=== PATIENT | female | born 1945 | race Caucasian/White ===

== ENCOUNTER 2016-04-27 13:28 | Inpatient (IN) | payer OTHER, MEDICARE ==
[2016-04-27] VITALS (17 sets, daily range): BP systolic 122–239; BP diastolic 60–144; PULSE 59–104; RESP 10–26; TEMP 97.6–98.7; O2SAT 98–100
[~2016-04-27] VITALS: Ht 177.8 cm; Wt 94.3 kg
[~2016-04-27 13:28] MED LIST: KEPP500T3 PO
[2016-04-27] MEDS ORDERED: SODIUM CHLOR 0.9% 1000 ML INJ 1,000 ML IV ONE (13:31)
[2016-04-27 13:44] LABS: I-STAT POTASSIUM 4.7 MMOL/L (3.5-4.9); I-STAT SODIUM 136 MMOL/L (138-146)
--- NOTE | 2016-04-27 13:45 | RADRPT ---
EXAM DATE/TIME: 04/27/2016 13:33 [place] COMPARISON: No previous studies available for comparison. INDICATIONS : Stroke alert. Left facial droop. Right upper extremity weakness. RADIATION DOSE: 36.86 CTDIvol (mGy) This report was called by Dr. Norman to Dr. Bridges at 1: 40 PM MEDICAL HISTORY : Non-responsive. SURGICAL HISTORY : Non-responsive. ENCOUNTER: Initial ACUITY: 1 day PAIN SCALE: 0/10 LOCATION: cranial TECHNIQUE: Multiple contiguous axial images were obtained of the head. Using automated exposure control and adj ustment of the mA and/or kV according to patient size, radiation dose was kept as low as reasonably a chievable to obtain optimal diagnostic quality images. FINDINGS: CEREBRUM: There is a focal area of acute intraparenchymal hemorrhage involving the region of the left basal ernesto glia measuring 4.6 x 2.4 cm. The appearance suggests a hypertensive hemorrhagic infarct. Also noted, is a large area of encephalomalacia involving the left frontal temporal location. The ventricles are normal in size and midline in position. There is bilateral cortical atrophy. No significant mass effe ct or midline shift is seen at this time. POSTERIOR FOSSA: The cerebellum and brainstem are intact. The 4th ventricle is midline. The cerebellopontine angle i s unremarkable. EXTRACRANIAL: The visualized portion of the orbits is intact. SKULL: The calvaria is intact. No evidence of skull fracture. CONCLUSION: 1. Focal acute intraparenchymal hemorrhage involving the region of the left basal ganglia measuring 4 .6 x 2.4 cm characteristic of a hemorrhagic hypertensive infarct. 2. Large area of encephalomalacia involving the left temporal frontal region. This is either a large area of old infarction versus a large arachnoid cyst. Rommel Norman MD on April 27, 2016 at 13:38 Board Certified Radiologist. This report was verified electronically.
[2016-04-27 13:47] LABS: AUTOMATED NEUTROPHIL # 4.7 TH/MM3 (1.8-7.7); BASOPHIL # 0.1 TH/MM3 (0-0.2); BASOPHIL % 0.8 % (0.0-2.0); EOSINOPHIL # 0.3 TH/MM3 (0-0.4); EOSINOPHIL % 3.4 % (0.0-4.0); HEMATOCRIT 44.1 % (35.0-46.0); HEMO FLAGS DIFF FINAL; LYMPH % 29.2 % (9.0-44.0); LYMPHOCYTE # 2.3 TH/MM3 (1.0-4.8); MEAN CELL VOLUME 91.1 FL (80.0-100.0); MEAN CORPUSCULAR HEMOGLOBIN 31.5 PG (27.0-34.0); MEAN CORPUSCULAR HGB CONC 34.6 % (32.0-36.0); MONO % 7.1 % (0.0-8.0); NEUT % 59.5 % (16.0-70.0); PLATELET COUNT 303 TH/MM3 (150-450); RED BLOOD COUNT 4.85 MIL/MM3 (4.00-5.30); RED CELL DISTRIBUTION WIDTH 13.4 % (11.6-17.2); WHITE BLOOD COUNT 7.9 TH/MM3 (4.0-11.0)
[2016-04-27 13:54] LABS: APTT (PATIENT) 23.8 SEC (24.3-30.1); INTERNATIONAL NORMALIZED RATIO 0.9 RATIO; PROTHROMBIN TIME - PATIENT 10.3 SEC (9.8-11.6)
[2016-04-27] MEDS ORDERED: ETOMIDATE 20 MG/10 ML VIAL IV PUSH ONE (14:00)
[2016-04-27] MEDS ORDERED: SUCCINYLCHOLINE CHLORIDE 200 MG/10 ML VIAL IV PUSH ONE (14:00)
[2016-04-27] MEDS ORDERED: MANNITOL 12.5 GM/50 ML VIAL IV ONE (14:00)
[2016-04-27] MEDS ORDERED: niCARdipine INJ 25 MG in SODIUM CHLOR 0.9% 250 ML INJ 250 ML IV SCH (14:00)
[2016-04-27] MEDS ORDERED: PROPOFOL 1000 MG/100 ML INJ 100 ML ONE (14:05)
--- NOTE | 2016-04-27 14:07 | PD.CONS ---
(Riley Johnson MD) HPI Consult Requested By Primary Care Physician Non-Staff (Riley Johnson MD) Service NRS Consult Requested By ED Physician Reason for Consult Hemorrhagic stroke History of Present Illness Ms. Mobley is a 71 female with history of prior left temporal CVA. Earlier today the patient had sudden onset of right facial drooping and right arm weakness. There were no associated falls or trauma. She was taken to [place] ED and a CT Brain showed a 4.6 x 2.4 left basal ganglia hemorrhage without significant midline shift. Her vitals signs on arrival was noted to be extremely elevated as high as in the 200's systolic, she was placed on Cardene. The patient was reported to be initially talking on arrival but then decompensated and was emergently intubated. (Bettie Copeland) Review of Systems ROS Limitations: Intubated (Bettie Copeland) Past Family Social History Allergies: Coded Allergies: Codeine (Verified Allergy, Unknown, 04/27/16) Past Medical History Suspected Hypertension History of CVA left temporal region Past Surgical History Unknown Reported Medications unknown Active Ordered Medications Current Medications Sodium Chloride 1,000 ml @ 70 mls/hr [id number] ONCE IV Last administered on 04/27 13:31; Start 04/27/16 at 13:31; Stop 04/27/16 at 15:35; Status DC Nicardipine HCl/ Sodium Chloride (Cardene Inj/NS 250 ml Inj) 260 ml @ 0 mls/hr TITRATE IV Last administered on 04/27/16 14:10; Start 04/27/16 at 14:00 Mannitol (Mannitol Inj) 50 gm ONCE ONCE IV Last administered on 04/27/16 14: 11; Start 04/27/16 at 14:00; Stop 04/27/16 at 14:01; Status DC Succinylcholine Chloride (Quelicin Inj) 100 mg ONCE ONCE IV PUSH Last administered on 04/27/16 14:14; Start 04/27/16 at 14:00; Stop 04/27/16 at 14:01 ; Status DC Etomidate (Amidate Inj) 20 mg ONCE ONCE IV PUSH Last administered on 14:00; Start 04/27/16 at 14:00; Stop 04/27/16 at 14:01; Status DC Mannitol 25 gm 25 gm Q6HR IV Last administered on 04/28/16 05:30; Start at 18:00 Propofol (Diprivan 1000 Mg/100ml Inj) 100 ml @ As Directed STK-MED ONCE .ROUTE Last administered on 04/27/16 16:00; Start 04/27/16 at 14:05; Stop 04/27/16 at 14:06; Status DC Chlorhexidine Gluconate 15 ml 15 ml BID@08,20 MT ; Start 04/27/16 at 20:00; Stop 04/27/16 at 20:00; Status DC Propofol 100 ml @ 0 mls/hr TITRATE IV Last administered on 04/28/16 08:55; Start 04/27/16 at 15:00 Midazolam HCl 100 ml @ 0 mls/hr TITRATE IV Last administered on 04/28/16 08:55 ; Start 04/27/16 at 15:00 Fentanyl Citrate 250 ml @ 0 mls/hr TITRATE IV Last administered on 04/28/16 08 :55; Start 04/27/16 at 15:00 Fentanyl Citrate 250 ml @ As Directed STK-MED ONCE .ROUTE Last administered on 04/27/16 14:41; Start 04/27/16 at 14:37; Stop 04/27/16 at 14:38; Status DC Midazolam HCl 100 ml @ As Directed STK-MED ONCE .ROUTE Last administered on 14:42; Start 04/27/16 at 14:37; Stop 04/27/16 at 14:38; Status DC Levetriacetam/ Sodium Chloride (Keppra Inj/NS Inj) 105 ml @ 420 mls/hr Q12HR IV Last administered on 04/28/16 09:40; Start 04/27/16 at 21:00; Stop 05/04/16 at 20:59 Labetalol HCl (Trandate Inj) 10 mg Q1HR PRN IV PUSH SBP>150, DBP>900, HR>65; Start 04/27/16 at 15:00 Nitroglycerin (Nitroglycerin 2% Oint) 2 inch Q6HR PRN TOPICAL SBP>150, DBP>90; Start 04/27/16 at 15:00 Hydralazine HCl 10 mg 10 mg Q1HR PRN IV PUSH SBP>150, DBP>90 Last administered on 04/28/16 08:00; Start 04/27/16 at 15:00 Clevidipine (Cleviprex Inj) 50 ml @ 0 mls/hr TITRATE IV ; Start 04/27/16 at 15: 00 Chlorhexidine Gluconate (Peridex 0.12% Liq) 15 ml BID@08,20 MT Last administered on 04/28/16 09:40; Start 04/27/16 at 20:00 IV Flush (NS Flush) DAILY IVF ; Start 04/28/16 at 09:00 IV Flush (NS Flush) UNSCH PRN IVF SEE PROTOCOL; Start 04/27/16 at 15:00 Mannitol 12.5 gm 12.5 gm Q8H IV ; Start 04/27/16 at 15:15; Stop 04/27/16 at 15: 25; Status DC Sodium Chloride 500 ml @ 20 mls/hr CONTINUOUS IV Last administered on 18:23; Start 04/27/16 at 15:15 Sodium Chloride (NS 1000 ml Inj) 1,000 ml @ 84 mls/hr [id number] IV Last administered on 04/28/16 00:40; Start 04/27/16 at 16:00 IV Flush (NS Flush) 2 ml UNSCH PRN IV FLUSH FLUSH AFTER USING IV ACCESS; Start 04/27/16 at 15:15 IV Flush (NS Flush) 2 ml BID IV FLUSH Last administered on 04/28/16 09:40; Start 04/27/16 at 21:00 Acetaminophen (Tylenol) 650 mg Q6H PRN PO PAIN 1-10 AND/OR FEVER >101F; Start 04/27/16 at 15:15 Pantoprazole Sodium (Protonix Inj) 40 mg DAILY IV Last administered on 09:40; Start 04/28/16 at 09:00 Artificial Tears (Tears Naturale Opth Soln) 1 drop TID EACH EYE Last administered on 04/28/16 09:41; Start 04/27/16 at 18:00 Ondansetron HCl (Zofran Inj) 4 mg Q6H PRN IV NAUSEA OR VOMITING; Start at 15:15 Docusate Sodium (Colace) 100 mg BID PO Last administered on 04/27/16 19:45; Start 04/27/16 at 21:00 Sennosides (Senokot) 17.2 mg Q12H PRN PO CONSTIPATION; Start 04/27/16 at 15:15 Albuterol/ Ipratropium (Duoneb Neb) 1 ampule Q2HR NEB PRN INH WHEEZING; Start 04/27/16 at 15:15 Miscellaneous Information 1 Q361D XX Last administered on 04/28/16 04:00; Start 04/27/16 at 15:15 Chlorhexidine Gluconate (Chlorhexidine 2% Cloth) 3 pack Taper DAILY@04 TOP Last administered on 04/28/16 04:00; Start 04/28/16 at 04:00; Stop 04/24/17 at 03:59 Chlorhexidine Gluconate 3 pack 3 pack UNSCH PRN TOP HYGIENIC CARE; Start at 15:15 Potassium Chloride 100 ml @ 50 mls/hr Q2H PRN IV For Potassium 2.8 - 3.2 mEq/L ; Start 04/27/16 at 15:15 Potassium Chloride (KCl 20 Meq Premix Inj) 100 ml @ 50 mls/hr Q2H PRN IV For Potassium 2.8 - 3.2 mEq/L; Start 04/27/16 at 15:15 Potassium Chloride 40 meq 40 meq UNSCH PRN PO/TUBE For Potassium 3.3 - 3.5 mEq/ L; Start 04/27/16 at 15:15 Potassium Chloride 100 ml @ 25 mls/hr UNSCH PRN IV For Potassium 3.3 - 3.5 mEq /L; Start 04/27/16 at 15:15 Potassium Chloride 100 ml @ 50 mls/hr Q2H PRN IV For Potassium 3.3 - 3.5 mEq/L ; Start 04/27/16 at 15:15 Magnesium Sulfate/ Sodium Chloride (Magnesium Sulfate Inj/NS Inj) 100 ml @ 50 mls/hr UNSCH PRN IV For Magnesium 0.9 - 1.1 mg/dL; Start 04/27/16 at 15:15 Magnesium Oxide 800 mg 800 mg UNSCH PRN PO For Magnesium 1.2 - 1.6 mg/dL; Start 04/27/16 at 15:15 Magnesium Sulfate/ Sodium Chloride (Magnesium Sulfate Inj/NS Inj) 100 ml @ 50 mls/hr UNSCH PRN IV For Magnesium 1.2 - 1.6 mg/dL; Start 04/27/16 at 15:15 Potassium Phosphate 2000 mg 2,000 mg Q4H PRN PO For Phosphorus < 2.5 mg/dL; Start 04/27/16 at 15:15 Sodium Phosphate/ Sodium Chloride (Sodium Phosphate Inj/NS 250 ml Inj) 250 ml @ 42 mls/hr UNSCH PRN IV For Phosphorus < 2.5 mg/dL Last administered on 06:55; Start 04/27/16 at 15:15 Potassium Chloride (KCl 40 Meq/30 ml Liq) 40 meq UNSCH PRN PO/TUBE SEE LABEL COMMENTS; Start 04/27/16 at 15:15 Potassium Phosphate 2000 mg 2,000 mg UNSCH PRN PO/TUBE SEE LABEL COMMENTS; Start 04/27/16 at 15:15 Potassium Phosphate/Sodium Chloride (Potassium Phosphate Inj/NS 250 ml Inj) 260 ml @ 42 mls/hr UNSCH PRN IV SEE LABEL COMMENTS; Start 04/27/16 at 15:15 Dextrose (D50w (Vial) Inj) 25 ml UNSCH PRN IV PUSH HYPOGLYCEMIA-SEE COMMENTS Last administered on 04/28/16 01:18; Start 04/27/16 at 15:15 Glucagon (Glucagon Inj) 1 mg UNSCH PRN OTHER HYPOGLYCEMIA-SEE COMMENTS; Start 04/27/16 at 15:15 Insulin Human Regular (NovoLIN R SUPPLEMENTAL SCALE) 1 Q6HR SQ ; Start 04/27/16 at 18:00 Epinephrine HCl (EPINEPHrine (1:10,000) INJ) 1 mg STK-MED ONCE .ROUTE ; Start at 04:06; Stop 04/28/16 at 04:07; Status DC Lidocaine HCl (Xylocaine 2% Inj) 100 mg STK-MED ONCE .ROUTE ; Start 04/28/16 at 04:06; Stop 04/28/16 at 04:07; Status DC Atropine Sulfate (Atropine Inj) 1 mg STK-MED ONCE .ROUTE ; Start 04/28/16 at 04: 06; Stop 04/28/16 at 04:07; Status DC Family History Patient has a's distant sister who she does not keep contact with. Otherwise unknown per family friend. Social History Unobtainable (Riley Johnson MD) Past Medical History History of CVA left temporal region Past Surgical History unable to obtain, intubated Reported Medications reviewed in EMR Active Ordered Medications Current Medications Medications (Trade) Dose Ordered Sig/Femi Route PRN Reason Start Time Stop Time Status Last Admin Dose Admin Nicardipine HCl/ Sodium Chloride (Cardene Inj/NS 250 ml Inj) 260 ml @ 0 mls/hr TITRATE IV 04/27/16 14:00 04/27/16 14:10 Mannitol 25 gm 25 gm Q6HR IV 04/27/16 18:00 04/28/16 05:30 Propofol 100 ml @ 0 mls/hr TITRATE IV 04/27/16 15:00 04/28/16 08:55 Midazolam HCl 100 ml @ 0 mls/hr TITRATE IV 04/27/16 15:00 04/28/16 08:55 Fentanyl Citrate 250 ml @ 0 mls/hr TITRATE IV 04/27/16 15:00 04/28/16 08:55 Levetriacetam/ Sodium Chloride (Keppra Inj/NS Inj) 105 ml @ 420 mls/hr Q12HR IV 04/27/16 21:00 05/04/16 20:59 04/28/16 09:40 Labetalol HCl (Trandate Inj) 10 mg Q1HR PRN IV PUSH SBP>150, DBP>900, HR>65 04/27/16 15:00 Nitroglycerin (Nitroglycerin 2% Oint) 2 inch Q6HR PRN TOPICAL SBP>150, DBP>90 04/27/16 15:00 Hydralazine HCl 10 mg 10 mg Q1HR PRN IV PUSH SBP>150, DBP>90 04/27/16 15:00 Clevidipine (Cleviprex Inj) 50 ml @ 0 mls/hr TITRATE IV 04/27/16 15:00 Chlorhexidine Gluconate (Peridex 0.12% Liq) 15 ml BID@08,20 MT 04/27/16 20:00 04/28/16 09:40 IV Flush (NS Flush) DAILY IVF 04/28/16 09:00 IV Flush UNSCH PRN IVF SEE PROTOCOL 04/27/16 15:00 Sodium Chloride 500 ml @ 20 mls/hr CONTINUOUS IV 04/27/16 15:15 04/27/16 18:23 Sodium Chloride (NS 1000 ml Inj) 1,000 ml @ 84 mls/hr [id number] IV 04/27/16 16:00 04/28/16 00:40 IV Flush (NS Flush) 2 ml UNSCH PRN IV FLUSH FLUSH AFTER USING IV ACCESS 04/27/16 15:15 IV Flush (NS Flush) 2 ml BID IV FLUSH 04/27/16 21:00 04/28/16 09:40 Acetaminophen (Tylenol) 650 mg Q6H PRN PO PAIN 1-10 AND/OR FEVER >101F 04/27/16 15:15 Pantoprazole Sodium (Protonix Inj) 40 mg DAILY IV 04/28/16 09:00 04/28/16 09:40 Artificial Tears (Tears Naturale Opth Soln) 1 drop TID EACH EYE 04/27/16 18:00 04/28/16 09:41 Ondansetron HCl (Zofran Inj) 4 mg Q6H PRN IV NAUSEA OR VOMITING 04/27/16 15:15 Docusate Sodium (Colace) 100 mg BID PO 04/27/16 21:00 04/27/16 19:45 Sennosides (Senokot) 17.2 mg Q12H PRN PO CONSTIPATION 04/27/16 15:15 Miscellaneous Information 1 Q361D XX 04/27/16 15:15 04/28/16 04:00 Chlorhexidine Gluconate (Chlorhexidine 2% Cloth) 3 pack Taper DAILY@04 TOP 04/28/16 04:00 04/24/17 03:59 04/28/16 04:00 Chlorhexidine Gluconate 3 pack 3 pack UNSCH PRN TOP HYGIENIC CARE 04/27/16 15:15 Potassium Chloride 100 ml @ 50 mls/hr Q2H PRN IV For Potassium 2.8 - 3.2 mEq/L 04/27/16 15:15 Potassium Chloride (KCl 20 Meq Premix Inj) 100 ml @ 50 mls/hr Q2H PRN IV For Potassium 2.8 - 3.2 mEq/L 04/27/16 15:15 Potassium Chloride 40 meq 40 meq UNSCH PRN PO/TUBE For Potassium 3.3 - 3.5 mEq/L 04/27/16 15:15 Potassium Chloride 100 ml @ 25 mls/hr UNSCH PRN IV For Potassium 3.3 - 3.5 mEq/L 04/27/16 15:15 Potassium Chloride 100 ml @ 50 mls/hr Q2H PRN IV For Potassium 3.3 - 3.5 mEq/L 04/27/16 15:15 Magnesium Sulfate/ Sodium Chloride (Magnesium Sulfate Inj/NS Inj) 100 ml @ 50 mls/hr UNSCH PRN IV For Magnesium 0.9 - 1.1 mg/dL 04/27/16 15:15 Magnesium Oxide 800 mg 800 mg UNSCH PRN PO For Magnesium 1.2 - 1.6 mg/dL 04/27/16 15:15 Magnesium Sulfate/ Sodium Chloride (Magnesium Sulfate Inj/NS Inj) 100 ml @ 50 mls/hr UNSCH PRN IV For Magnesium 1.2 - 1.6 mg/dL 04/27/16 15:15 Potassium Phosphate 2000 mg 2,000 mg Q4H PRN PO For Phosphorus < 2.5 mg/dL 04/27/16 15:15 Sodium Phosphate/ Sodium Chloride (Sodium Phosphate Inj/NS 250 ml Inj) 250 ml @ 42 mls/hr UNSCH PRN IV For Phosphorus < 2.5 mg/dL 04/27/16 15:15 04/28/16 06:55 Potassium Chloride (KCl 40 Meq/30 ml Liq) 40 meq UNSCH PRN PO/TUBE SEE LABEL COMMENTS 04/27/16 15:15 Potassium Phosphate 2000 mg 2,000 mg UNSCH PRN PO/TUBE SEE LABEL COMMENTS 04/27/16 15:15 Potassium Phosphate/Sodium Chloride (Potassium Phosphate Inj/NS 250 ml Inj) 260 ml @ 42 mls/hr UNSCH PRN IV SEE LABEL COMMENTS 04/27/16 15:15 Dextrose (D50w (Vial) Inj) 25 ml UNSCH PRN IV PUSH HYPOGLYCEMIA-SEE COMMENTS 04/27/16 15:15 04/28/16 01:18 Glucagon (Glucagon Inj) 1 mg UNSCH PRN OTHER HYPOGLYCEMIA-SEE COMMENTS 04/27/16 15:15 Insulin Human Regular (NovoLIN R SUPPLEMENTAL SCALE) 1 Q6HR SQ 04/27/16 18:00 Family History unable to obtain, intubated Social History unable to obtain, intubated (Bettie Copeland) Physical Exam Vital Signs Vital Signs Date Time Temp Pulse Resp B/P Pulse Ox O2 Delivery O2 Flow Rate FiO2 04/27/16 13:28 98 22 161/100 98 04/27/16 13:28 98 Nasal Cannula 2 04/27/16 13:28 98 Nasal Cannula 2 Physical Exam The patient is intubated and sedated. Localizes to painful stimuli with left extremities. Cranial Nerves: Pupils equal, round, reactive to light. Eyes appear conjugated. There was no nystagmus, no papilledema. Face musculature appeared symmetrical at rest. Face sensation, olfaction, visual julio, and hearing cannot be adequately assessed due to his neurological condition. The patient has a corneal reflex. SHe has a gag reflex. The sternocleidomastoid and trapezius are symmetrical. Cervical Spine: Her neck is soft, supple, without nuchal rigidity. Motor: She moves purposefully all left upper and lower extremities with evidence of right hemiparesis Reflexes: Deep tendon reflexes are 1+ and symmetrical in the biceps, triceps, and brachioradialis, bilaterally, in the upper extremities. In the lower extremities, the patellar and ankles are 1+, bilaterally. There is left plantar flexion response, right Babinski. There is no clonus Sensory: On examination there is response to painful stimuli, localizing with left upper and lower extremities. Cerebellar: Examination cannot be adequately assessed due to the patient's neurological condition. Laboratory Laboratory Tests Test 04/27/16 13:15 White Blood Count 7.9 Red Blood Count 4.85 Hemoglobin 15.3 Bedside Hemoglobin 16.0 Hematocrit 44.1 Bedside Hematocrit 47.0 Mean Corpuscular Volume 91.1 Mean Corpuscular Hemoglobin 31.5 Mean Corpuscular Hemoglobin 34.6 Concent Red Cell Distribution Width 13.4 Platelet Count 303 Mean Platelet Volume 7.9 Neutrophils (%) (Auto) 59.5 Lymphocytes (%) (Auto) 29.2 Monocytes (%) (Auto) 7.1 Eosinophils (%) (Auto) 3.4 Basophils (%) (Auto) 0.8 Neutrophils # (Auto) 4.7 Lymphocytes # (Auto) 2.3 Monocytes # (Auto) 0.6 Eosinophils # (Auto) 0.3 Basophils # (Auto) 0.1 CBC Comment DIFF FINAL Differential Comment Prothrombin Time 10.3 Prothromb Time International 0.9 Ratio Activated Partial 23.8 Thromboplast Time Fibrinogen 226 Bedside Sodium 136 Bedside Potassium 4.7 Bedside Chloride 104 Bedside Blood Urea Nitrogen 18 Bedside Creatinine 1.1 Bedside Glucose 154 Blood Type B POSITIVE Blood Bank Comment (Riley Johnson MD) Result Diagram: 04/27/16 1315 Imaging Last Impressions Head CT 04/27/16 0000 Signed Impressions: Service Date/Time: Wednesday, April 27, 2016 13:33 - CONCLUSION: 1. Focal acute intraparenchymal hemorrhage involving the region of the left basal ganglia measuring 4.6 x 2.4 cm characteristic of a hemorrhagic hypertensive infarct. 2. Large area of encephalomalacia involving the left temporal frontal region. This is either a large area of old infarction versus a large arachnoid cyst. Rommel Norman MD (Riley Johnson MD) Attending Statement Neuro. I have reviewed her clinical and radiological findings. neuro checks in a serial fashion. Will attempt non surgical treatment with hyperosmolar therapy. Recommend a follow up CT in AM. He had a CT of the brain shows worsening she may require surgical decompression Respiratory failure. She needs endotracheal intubation and controlled mechanical ventilation aim CO2 30. pulmonary toilette, nasotracheal suction, and breathing treatments with nebulizers. Hypertension. Cardene drip to maintain SBP less than 150 mm PT and OT Nutrition. NPO Renal. monitor closely urine output, BUN and creatinine Endocrine. Monitor serial Acu checks and SSI as needed in detail ID monitor for signs of infection Protonix for stress ulcer prophylaxis Guille hose and SCD's for DVT prophylaxis (Riley Johnson MD) Riley Johnson MD Apr 27, 2016 14:07 Bettie Copeland Apr 28, 2016 10:54
[2016-04-27 14:08] LABS: BETA HCG QUANT 4 MIU/ML (0-5); CREATINE KINASE 115 U/L (26-192)
--- NOTE | 2016-04-27 14:30 | HHI.HP ---
[facility] Service Critical Care Medicine Primary Care Physician Non-Staff Admission Diagnosis acute intracranial hemorrhage Diagnosis: (1) Respiratory failure Diagnosis: Principal (2) Acute intracranial hemorrhage Diagnosis: Principal (3) Seizure disorder, focal sensory Diagnosis: Principal (4) Hypertensive crisis Diagnosis: Principal (5) History of CVA (cerebrovascular accident) Diagnosis: Principal (6) Obesity (BMI 30.0-34.9) Diagnosis: Principal Chief Complaint: Altered mental status/left basal ganglia intraparenchymal hemorrhage Travel History International Travel<30 Days: No Contact w/Intl Traveler <30 Da: No Traveled to Known Affected Are: No History of Present Illness This is a 71 female. Data admission 04/27/2016. Past medical history includes left temporal CVA and seizure disorder.. She presented to the emergency room brought by her friend for strokelike symptoms. Patient was verbal when she first arrived and said that her symptoms started 40 minutes ago. 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 She had right-sided facial droop and right arm weakness. There was some right eyelid lag as well. After doing a quick NIH stroke score a stroke alert was called. Patient was rushed to the CT scanner and I spoke with the neurologist to make him aware of possible stroke. Her medications are all alternative natural medications. CT head revealed a 4.6 x 2.4 (basal ganglia intraparenchymal hemorrhage. Encephalopathy left temporal region. Neurosurgery was consultation recommended medical management with 3% hypertonic saline, mannitol and strict blood pressure control systolic blood pressure was 150 with a follow-up CT scan in a.m. While in the ED, patient decompensated with a left-sided gaze. She was flaccid in her right upper lobe extremity. Emergently intubated with 20 minutes etomidate etomidate and 100 mg succinylcholine. She is currently been sedated with propofol/fentanyl and Versed drips. Cardene drip was initiated to maintain systolic blood pressure less than 150. End tidal CO2 around 30 recommended. Receiving 50 mg mannitol IV 1 now. Review of Systems ROS Limitations: Intubated Past Family Social History Allergies: Coded Allergies: Codeine (Verified Allergy, Unknown, 04/27/16) Past Medical History Hypertension? History of CVA left temporal region Past Surgical History Unknown Reported Medications Alternative medications unknown Active Ordered Medications Reviewed in EMR Family History Patient has a's distant sister who she does not keep contact with. Otherwise unknown per family friend. Social History Unknown alcohol tobacco or IV drug use. Physical Exam Vital Signs Vital Signs Date Time Temp Pulse Resp B/P Pulse Ox O2 Delivery O2 Flow Rate FiO2 04/27/16 13:28 98 22 161/100 98 04/27/16 13:28 98 Nasal Cannula 2 04/27/16 13:28 98 Nasal Cannula 2 Physical Exam GENERAL: 71 year female, critically ill currently intubated in no acute distress SKIN: Warm and dry. No rash HEAD: Atraumatic. Normocephalic. EYES: Pupils equal and round about 2 mm bilaterally and reactive. No scleral icterus. No injection or drainage. ENT: No nasal bleeding or discharge. Mucous membranes pink and moist. NECK: Trachea midline. No JVD. CARDIOVASCULAR: Regular rate and rhythm. S1, S2. No S4. Without murmur RESPIRATORY: No accessory muscle use. Clear to auscultation. Breath sounds equal bilaterally. GASTROINTESTINAL: Abdomen soft, non-tender, nondistended. Hepatic and splenic margins not palpable. MUSCULOSKELETAL: Extremities without clubbing, cyanosis, or edema. No obvious deformities. NEUROLOGICAL: Prior to intubation, left-sided gaze. Left upper and lower extremity strength 4+ out of 5 and moving spontaneously. Not following commands. Withdraws to pain with upgoing stenosis on the left side. Right upper and lower extremity 0/5. Negative Babinski sign. Did not withdraw to pain. Laboratory Laboratory Tests Test 04/27/16 13:15 White Blood Count 7.9 Red Blood Count 4.85 Hemoglobin 15.3 Bedside Hemoglobin 16.0 Hematocrit 44.1 Bedside Hematocrit 47.0 Mean Corpuscular Volume 91.1 Mean Corpuscular Hemoglobin 31.5 Mean Corpuscular Hemoglobin 34.6 Concent Red Cell Distribution Width 13.4 Platelet Count 303 Mean Platelet Volume 7.9 Neutrophils (%) (Auto) 59.5 Lymphocytes (%) (Auto) 29.2 Monocytes (%) (Auto) 7.1 Eosinophils (%) (Auto) 3.4 Basophils (%) (Auto) 0.8 Neutrophils # (Auto) 4.7 Lymphocytes # (Auto) 2.3 Monocytes # (Auto) 0.6 Eosinophils # (Auto) 0.3 Basophils # (Auto) 0.1 CBC Comment DIFF FINAL Differential Comment Prothrombin Time 10.3 Prothromb Time International 0.9 Ratio Activated Partial 23.8 Thromboplast Time Fibrinogen 226 Bedside Sodium 136 Bedside Potassium 4.7 Bedside Chloride 104 Bedside Blood Urea Nitrogen 18 Bedside Creatinine 1.1 Bedside Glucose 154 Total Creatine Kinase 115 Troponin I LESS THAN 0.02 Human Chorionic Gonadotropin, 4 Quant Blood Type B POSITIVE Antibody Screen NEGATIVE Blood Bank Comment Result Diagram: 04/27/16 1315 Imaging Last Impressions Head CT 04/27/16 0000 Signed Impressions: Service Date/Time: Wednesday, April 27, 2016 13:33 - CONCLUSION: 1. Focal acute intraparenchymal hemorrhage involving the region of the left basal ganglia measuring 4.6 x 2.4 cm characteristic of a hemorrhagic hypertensive infarct. 2. Large area of encephalomalacia involving the left temporal frontal region. This is either a large area of old infarction versus a large arachnoid cyst. Rommel Norman MD Assessment and Plan Assessment and Plan Neuro/Psych: 4.62.4 cm left basal ganglia intraparenchymal hemorrhage Left temporal CVA Seizure disorder? CT head revealed 4.62.4 intraparenchymal hemorrhage. Old encephalomalacia left temporal region. Keppra 500 mg twice a day seizure prophylaxis 7 days 3% Hypertonic saline at 20 cc an hour. Goal 150-155. Mannitol 501. Followed by 25 g IV every 6 hours. Hold if Sosm greater than 310 End tidal CO2 maintain between 30 and 35. Follow-up CT head in a.m. Dr. Johnson/neurosurgery consulting Neuro checks per protocol. CV: Hypertensive emergency Cardene drip/cleviprex to maintain systolic blood pressure less than 150 As needed labetalol/hydralazine/Nitropaste Initial troponin less than 0.04. 2-D echocardiogram ordered for hypertensive heart disease Currently on normal saline at 84 cc an hour. Resp: Acute respiratory failure secondary to altered mental status ACV 16/550/5/100 Ventilator bundle As needed bronchodilator therapy Goal of End Tidal CO2 between 30 and 35. Follow-up chest x-ray in a.m. ABG repeat pending GI: Patient be kept nothing by mouth. OGT to LIWS Protonix for GI prophylaxis Colace/as needed Senokot for bowel regimen : Mosley will be placed for accurate I's and O's in a critically ill patient Endo: Sliding-scale insulin with Accu-Cheks to maintain euglycemia. Low regimen. Renal: Creatinine currently within normal limits./1.1 Accurate I/os. Normal saline at 84 cc an hour. Heme: CBC within normal limits/coags within normal limits. Recheck in a.m. ID: Monitor for infection UA pending FEN: Replace electrolytes as clinically indicated per ICU electrolyte protocol MSK: PT evaluate and treat Access - Right IJ CVL day #1 Prophylaxis - GI - Protonix - DVT - SCD/pharmacological prophylaxis contraindicated intracerebral hemorrhage Critical Care: The total critical care time was 75 minutes. Time to perform other separately billable procedures was not included in the critical care time. Code Status Full code Discussed Condition With Dr. Benton/ED physician and patient's friend. Care plan discussed all questions answered. Problem Qualifiers (1) Respiratory failure: Qualified Code: J96.00 - Acute respiratory failure, unspecified whether with hypoxia or hypercapnia Yvon Laura MD Apr 27, 2016 14:30
[2016-04-27] MEDS ORDERED: MIDAZOLAM 100 MG/ML INJ 100 ML ONE (14:37)
[2016-04-27] MEDS ORDERED: fentaNYL DRIP 250 ML ONE (14:37)
--- NOTE | 2016-04-27 14:49 | PD ---
HPI Chief Complaint: Stroke Alert Time Seen by Provider: 13:32 Travel History International Travel<30 days: No Contact w/Intl Traveler<30days: No Traveled to known affect area: No History of Present Illness HPI 71-year-old female came to the emergency room brought by her friend but was brought in emergently from triage for "stroke-like" symptoms. Patient was verbal when she first arrived and said that her symptoms started 40 minutes ago. She had right-sided facial droop and right arm weakness. There was some right eyelid lag as well. After doing a quick NIH stroke score a "stroke alert " was called. Patient was rushed to the CT scanner and I spoke with the neurologist to make him aware of this possible stroke. 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 Her friend thought her speech was slurred. She immediately brought her to the emergency room. Her friend as per the patient's instruction gathered her medications from home which are all alternative natural medications. Patient was slightly hypertensive upon arrival. Blood pressure was 169/100 PFSH Past Medical History Narrative Medical List of the past medical history as reviewed from the nursing note. Hx Anticoagulant Therapy: Yes Cerebrovascular Accident: Yes (STOKE ) Respiratory: Yes Social History Tobacco Use: Yes Allergies-Medications (Allergen,Severity, Reaction): Coded Allergies: Codeine (Verified Allergy, Unknown, 04/27/16) Comments List of her allergies reviewed from the nursing note. Reported Meds & Prescriptions Reported Meds & Active Scripts Active Keppra (Levetiracetam) 500 Mg Tab 500 Mg PO BID Narrative Medication List of her home medications reviewed from the nursing note. Review of Systems Except as stated in HPI: all other systems reviewed are Neg Physical Exam Narrative GENERAL: Awake, alert, obese, anxious, moderate distress SKIN: Warm and dry. HEAD: Atraumatic. Normocephalic. EYES: Pupils equal and round. No scleral icterus. No injection or drainage. ENT: No nasal bleeding or discharge. Mucous membranes pink and moist. NECK: Trachea midline. No JVD. CARDIOVASCULAR: Regular rate and rhythm. No murmur appreciated. RESPIRATORY: No accessory muscle use. Clear to auscultation. Breath sounds equal bilaterally. GASTROINTESTINAL: Abdomen soft, non-tender, nondistended. Hepatic and splenic margins not palpable. MUSCULOSKELETAL: No obvious deformities. No clubbing. No cyanosis. No edema. NEUROLOGICAL: Awake and alert. Right lid lag, right facial droop, tongue deviation to the right side, mild aphasia, right upper extremity pronator drift , decreased sensation on the right side. Before the NIH stroke score could be completed patient's condition started to worsen. Her aphasia started to worsen. PSYCHIATRIC: Appropriate mood and affect; insight and judgment normal. Data Data Last Documented VS Vital Signs Date Time Temp Pulse Resp B/P Pulse Ox O2 Delivery O2 Flow Rate FiO2 04/27/16 14:10 92 17 175/78 98 Nasal Cannula 2 Orders Diet Npo (04/27/16 Lunch) Activity Bed Rest (04/27/16 ) Electrocardiogram (04/27/16 ) I-Stat Creatinine (04/27/16 13:31) I-Stat Profile (04/27/16 13:31) Prothrombin Time / Inr (Pt) (04/27/16 13:31) Act Partial Throm Time (Ptt) (04/27/16 13:31) Complete Blood Count With Diff (04/27/16 13:31) Fibrinogen (04/27/16 13:31) Creatine Kinase (Cpk) (04/27/16 13:31) Troponin I (04/27/16 13:31) Drug Screen, Random Urine (04/27/16 13:31) Type And Screen (04/27/16 13:31) Ct Brain W/O Iv Contrast(Rout) (04/27/16 ) Beta Hcg (Quant/Titer) (04/27/16 13:31) Consult Neurology (04/27/16 ) Blood Glucose (04/27/16 13:31) Ecg Monitoring (04/27/16 13:31) Neuro Checks Q2HX12,Q4H (04/27/16 13:31) Nursing Bedside Swallow Assess .ONCE (04/27/16 13:31) Iv Access Insert/Monitor (04/27/16 13:31) NPO (04/27/16 13:31) Oximetry (04/27/16 13:31) Oxygen Administration (04/27/16 13:31) Sodium Chlor 0.9% 1000 Ml Inj (Ns 1000 M (04/27/16 13:31) Resp Oxygen Jack C Titrat 1-4 L (04/27/16 13:31) Cath For Specimen (04/27/16 13:31) Nicardipine Inj (Cardene Inj) (04/27/16 14:00) Mannitol Inj (Mannitol Inj) (04/27/16 14:00) Succinylcholine Inj (Quelicin Inj) (04/27/16 14:00) Etomidate Inj (Amidate Inj) (04/27/16 14:00) (Hub Use Only)Inp Phy Cons/Ref (04/27/16 ) Mannitol Inj (Mannitol Inj) (04/27/16 18:00) Propofol 1000 Mg/100 Ml Inj (Diprivan 10 (04/27/16 14:05) Admit Order (Ed Use Only) (04/27/16 14:15) Labs Laboratory Tests Test 04/27/16 13:15 White Blood Count 7.9 TH/MM3 Red Blood Count 4.85 MIL/MM3 Hemoglobin 15.3 GM/DL Bedside Hemoglobin 16.0 G/DL Hematocrit 44.1 % Bedside Hematocrit 47.0 % Mean Corpuscular Volume 91.1 FL Mean Corpuscular Hemoglobin 31.5 PG Mean Corpuscular Hemoglobin 34.6 % Concent Red Cell Distribution Width 13.4 % Platelet Count 303 TH/MM3 Mean Platelet Volume 7.9 FL Neutrophils (%) (Auto) 59.5 % Lymphocytes (%) (Auto) 29.2 % Monocytes (%) (Auto) 7.1 % Eosinophils (%) (Auto) 3.4 % Basophils (%) (Auto) 0.8 % Neutrophils # (Auto) 4.7 TH/MM3 Lymphocytes # (Auto) 2.3 TH/MM3 Monocytes # (Auto) 0.6 TH/MM3 Eosinophils # (Auto) 0.3 TH/MM3 Basophils # (Auto) 0.1 TH/MM3 CBC Comment DIFF FINAL Differential Comment Prothrombin Time 10.3 SEC Prothromb Time International 0.9 RATIO Ratio Activated Partial 23.8 SEC Thromboplast Time Fibrinogen 226 mg/dL Bedside Sodium 136 MMOL/L Bedside Potassium 4.7 MMOL/L Bedside Chloride 104 MMOL/L Bedside Blood Urea Nitrogen 18 MG/DL Bedside Creatinine 1.1 MG/DL Bedside Glucose 154 MG/DL Serum Osmolality 291 MOSM/KG Total Creatine Kinase 115 U/L Troponin I LESS THAN 0.02 NG/ML Human Chorionic Gonadotropin, 4 MIU/ML Quant Blood Type B POSITIVE Antibody Screen NEGATIVE Blood Bank Comment MDM Medical Decision Making Medical Screen Exam Complete: Yes Emergency Medical Condition: Yes Medical Record Reviewed: Yes Interpretation(s) Twelve-lead EKG was reviewed by me. Normal sinus rhythm, normal axis, nonspecific ST-T wave changes. Heart rate of 96 bpm. Differential Diagnosis CVA, intracranial bleed Narrative Course 3 PM I spoke with the neurologist Dr. Atkinson who wanted to be called once the coags were back. When patient was brought back from the CAT scan her a fascial was significantly worsen to full-blown expressive aphasia and she was not making sense. The radiologist called back within 5 minutes to let me know that there was a large intracerebral bleed possibly from hypertensive hemorrhagic bleed. I spoke with the neurosurgeon Dr. Johnson who looked at the CT remotely and let me know to give the patient mannitol and to intubate the patient which I agree with since her condition has significantly worsened. Her speech was to non existent. Prior to intubation patient's GCS was 8. He let me know the patient was not a surgical candidate. Blood test results came back and were within normal limit. After patient was intubated I spoke with the plating and point assembly supervisor who has admitted the patient. I explained the situation to patient's friend and updated on her condition. All her questions were answered by me to the best of my ability. Critical Care Narrative Aggregate critical care time was 60 minutes. Time to perform other separately billable procedures was not included in the critical care time. My time did not include minutes spent treating any other patients simultaneously or on activities that did not directly contribute to the patient's treatment. The services I provided to this patient were to treat and/or prevent clinically significant deterioration that could result in: Hemorrhagic bleed, altered mental status I provided critical care services requiring my management, as noted below: Chart data review, documentation time, medication orders and management, vital sign assessments/reviewing monitor data, ordering and reviewing lab tests, ordering and interpreting/reviewing x-rays and diagnostic studies, care of the patient and discussion of the patient with the admitting physicians. Procedures Procedure Narrative After the risks and benefits were discussed the following procedure was performed: INTUBATION: The patient was put in optimal position for the procedure. Rapid sequence intubation was initiated by me using 20 milligrams of etomidate IV and 100 milligrams of succinylcholine IV. The patient was intubated with a 7.5 cuffed endotracheal tube. Tube placement was confirmed by visualization of the tube and balloon passing through the cords, capnometry and subsequent chest x-ray. Breath sounds were equal and well aerated bilaterally postintubation. No breath sounds over stomach. Patient tolerated procedure well. EKG Prior to Arrival: No Diagnosis Primary Impression: Acute intracranial hemorrhage Additional Impressions: Altered mental status Qualified Code: R40.1 - Stupor Respiratory failure following trauma Admitting Information Admitting Physician Requests: Admit Ethan Benton MD Apr 27, 2016 14:49
[2016-04-27] MEDS ORDERED: CLEVIDIPINE INJ 50 ML IV SCH (15:00)
[2016-04-27] MEDS ORDERED: SODIUM CHLORIDE 0.9% FLUSH 5 ML FLUSH IVF PRN (15:00)
[2016-04-27] MEDS ORDERED: MISCELLANEOUS NURSING INFORMATION XX SCH (15:15)
[2016-04-27] MEDS ORDERED: POTASSIUM PHOSPHATE MONOBASIC 500 MG TAB PO/TUBE PRN (15:15)
[2016-04-27] MEDS ORDERED: MANNITOL 12.5 GM/50 ML VIAL IV SCH (15:15)
[2016-04-27] MEDS ORDERED: SODIUM CHLORIDE 0.9% FLUSH 5 ML FLUSH IV FLUSH PRN (15:15)
[2016-04-27] MEDS ORDERED: MAGNESIUM SULFATE INJ 4 GM in SODIUM CHLORIDE 0.9% INJ 92 ML IV PRN (15:15)
[2016-04-27] MEDS ORDERED: CHLORHEXIDINE GLUCONATE 2 % 1 PACK (2 CLOTHS) TOP PRN (15:15)
[2016-04-27] MEDS ORDERED: POTASSIUM CHLOR 40 MEQ PREMIX 100 ML IV PRN ×2 (15:15)
[2016-04-27] MEDS ORDERED: POTASSIUM PHOSPHATE INJ 30 MMOL in SODIUM CHLOR 0.9% 250 ML INJ 250 ML IV PRN (15:15)
[2016-04-27] MEDS ORDERED: ONDANSETRON HCL 4 MG/2 ML VIAL IV PRN (15:15)
[2016-04-27] MEDS ORDERED: MAGNESIUM OXIDE 400 MG TAB PO PRN (15:15)
[2016-04-27] MEDS ORDERED: SENNOSIDES 8.6 MG TAB PO PRN (15:15)
[2016-04-27] MEDS ORDERED: POTASSIUM CHLOR 20 MEQ PREMIX 100 ML IV PRN ×2 (15:15)
[2016-04-27] MEDS ORDERED: SODIUM PHOSPHATE INJ 30 MMOL in SODIUM CHLOR 0.9% 250 ML INJ 240 ML IV PRN (15:15)
[2016-04-27] MEDS ORDERED: POTASSIUM CL 40 MEQ/30 ML LIQ UDC PO/TUBE PRN ×2 (15:15)
[2016-04-27] MEDS ORDERED: GLUCAGON 1 MG/ML VIAL OTHER PRN (15:15)
[2016-04-27] MEDS ORDERED: ACETAMINOPHEN 325 MG TAB PO PRN (15:15)
[2016-04-27] MEDS ORDERED: MAGNESIUM SULFATE INJ 2 GM in SODIUM CHLORIDE 0.9% INJ 96 ML IV PRN (15:15)
--- NOTE | 2016-04-27 15:34 | PD.PROCEDR ---
Central Line Procedure REASON FOR PROCEDURE Central venous access PROCEDURE PERFORMED Central line placement: Right IJ CVL CONSENT Informed consent for procedure was not obtained as no family available. Patient 's need for intra-vascular access for multiple medications. The risks and benefits of the procedure were discussed to include but limited to bleeding, clot formation, infection, and even . ANESTHESIA Local injection of 1% Lidocaine DESCRIPTION OF THE PROCEDURE The patient was placed in supine, mild Trendelenburg position. The area was exposed and cleansed with ChloraPrep, times two. Large sterile drape was used to cover the patient, with the site exposed, under sterile conditions including cap, face mask, sterile gown, and sterile gloves. On single attempt, the introducer needle was inserted with negative pressure in syringe and venous flash was obtained. The guide wire was then advanced without any restriction and the needle was removed. The dilator was used without any complications. Using Seldinger technique the triple-lumen catheter was advanced over the guide wire to a depth of 16 centimeters. The guide wire was removed. All ports were aspirated with dark venous blood return and flushed easily with sterile saline. All ports were capped. Antibiotic disc was placed around central line at puncture site. The central line was secured to the skin with two interrupted 2.0 silk sutures. The area was bandaged with sterile see-through central line bandage. RADIOLOGICAL DATA Ultrasound guidance was used to locate right internal jugular vein. Doppler/ color flow was used to confirm venous flow. COMPLICATIONS: No apparent complications ESTIMATED BLOOD LOSS: Less than 1 cc. Yvon Laura MD Apr 27, 2016 15:34
[2016-04-27 15:38] LABS: BLOOD GAS BASE EXCESS -2.8 mmol/L (-2-2); BLOOD GAS CARBOXYHEMOGLOBIN 1.7 % (0-4); BLOOD GAS HCO3 21 mmol/L (22-26); BLOOD GAS METHEMOGLOBIN 1.9 % (0-2); BLOOD GAS O2 HGB SATURATION 96 % (90-100); BLOOD GAS OXYGEN CONTENT 19.2 Vol % (12.0-20.0); BLOOD GAS PCO2 32 mmHg (38-42); BLOOD GAS PO2 291 mmHG (61-120); BLOOD GAS TOTAL HGB 13.7 G/DL (12.0-16.0); CRITICAL VALUE NO; OXYGEN DEVICE VENTILATOR; TEMP CORR TO 98.6
[2016-04-27 15:39] LABS: DRAW SITE LT RADIAL; FIO2 80 %; NUMBER OF ARTERIAL PUNCTURES 1; STAT NO; ULNAR PULSE PRESENT
[2016-04-27] MEDS: SODIUM CHLOR 0.9% 1000 ML INJ 1,000 ML IV SCH (15:46)
--- NOTE | 2016-04-27 15:59 | RADRPT ---
EXAM DATE/TIME: 04/27/2016 15:14 [facility] COMPARISON: No previous studies available for comparison. INDICATIONS : E-T tube and central line placement. MEDICAL HISTORY : Stroke. SURGICAL HISTORY : None. ENCOUNTER: Initial ACUITY: 1 day PAIN SCORE: Non-responsive. LOCATION: Bilateral chest FINDINGS: Endotracheal tube tip is 2.2 cm above the lauren. Right internal jugular catheter tip is projected o jossy the proximal superior vena cava. Gastric tube traverses the [id number]. There is indistinctn ess of the bronchopleural markings in perihilar and infrahilar region bilaterally. No peripheral inf iltrates seen. No pneumothorax. CONCLUSION: Lines and tubes in good position. Bilateral perihilar infiltrates. Dustin Hardy MD on April 27, 2016 at 15:56 Board Certified Radiologist. This report was verified electronically.
--- NOTE | 2016-04-27 16:04 | MB ---
cc: WU WILLIAM M.D. DATE OF CONSULTATION: 04/27/2016. HISTORY OF PRESENT ILLNESS: She is a 71-year-old woman with history of sudden neurologic change. The case came in as a stroke alert and I spoke to Dr. Benton on a couple of occasions. By the time I came to see the patient, she had just been back from the CT scan and the study indicated an intracranial bleed; therefore the patient was not a candidate for tPA. The CT is showing a left basal ganglia hemorrhage and there is also a cystic abnormality on the left frontotemporal region that appears to be an arachnoid cyst, rather than encephalomalacia. By the time I saw the patient, the home medicines were not available yet. The patient was actually awake and getting ready to be intubated. She was following commands, moving the left-sided limbs well. Her right arm was 0/5. Her right leg was 04/05. She has right facial weakness and aphasia. She is verbalizing with a great deal of limitation and she could not comprehend some relatively simple instructions / requests. ASSESSMENT: 1. Left basal gangliar hemorrhage. 2. Left frontotemporal lobe apparent arachnoid cyst. The patient is going to be seen by neurosurgery and endotracheal intubation is planned. She was being started on mannitol. I will follow her on a p.r.n. basis. Thank you for asking us to assist in her care. MD LUIGI Spangler/KEYLA /3:02 PM /3:59 PM
[2016-04-27 16:18] LABS: BACTERIA, URINE RARE /hpf; BLOOD, URINE NEG (NEG); GLUCOSE,URINE NEG (NEG); HYALINE CAST, URINE 1 /lpf (RARE); KETONE, URINE NEG (NEG); MUCUS URINE FEW /lpf (OCC); NITRITE,URINE NEG (NEG); SQUAMOUS EPITHELIAL CELL URINE <1 /hpf (0-5); URINE COLOR YELLOW (YELLW/STRAW)
[2016-04-27 16:20] LABS: COMMENT (UR) CATH-CULTURE IND; CULTURE IF INDICATED CATH CULTURE IND
--- NOTE | 2016-04-27 17:57 | EKG ---
Date Performed: 04/27/2016 Time Performed: 13:48:40 PTAGE: 71 years EKG: Sinus rhythm NORMAL ECG NO PREVIOUS TRACING DOCTOR: Boogie Tran Interpretating Date/Time 04/27/2016 17:56:34
[2016-04-27] MEDS: INSULIN NovoLIN REGULAR SUPPLEMENTAL SCALE SQ SCH (18:00)
[2016-04-27] MEDS: 3% SALINE INJ 500 ML IV SCH (18:23)
[2016-04-27] MEDS: MANNITOL 12.5 GM/50 ML VIAL IV SCH (18:23)
[2016-04-27] MEDS: PROPOFOL 1000 MG/100 ML INJ 100 ML IV SCH (19:44)
[2016-04-27] MEDS: DOCUSATE SODIUM 100 MG CAP PO SCH (19:45)
[2016-04-27] MEDS: levETIRAcetam INJ 500 MG in SODIUM CHLORIDE 0.9% INJ 100 ML IV SCH (19:45)
[2016-04-27] MEDS ORDERED: CHLORHEXIDINE 0.12% (ORAL KIT) 15 ML CUP MT SCH (20:00)
[2016-04-27] MEDS: SODIUM CHLORIDE 0.9% FLUSH 5 ML FLUSH IV FLUSH SCH (21:00)
[2016-04-27] MEDS: CHLORHEXIDINE 0.12% (ORAL KIT) 15 ML CUP MT SCH (23:10)
[2016-04-28] VITALS (21 sets, daily range): BP systolic 104–140; BP diastolic 58–71; PULSE 57–81; RESP 10–12; TEMP 97–98.8; O2SAT 98–100
[2016-04-28] MEDS: MANNITOL 12.5 GM/50 ML VIAL IV SCH ×4 (00:31→23:28)
[2016-04-28] MEDS: ARTIFICIAL TEARS OPTH SOLN 15 ML BTL EACH EYE SCH ×4 (00:31→17:13)
[2016-04-28] MEDS: DEXTROSE 50% IN WATER 50 ML VIAL(D50) IV PUSH PRN ×3 (00:31→01:18)
[2016-04-28] MEDS: SODIUM CHLOR 0.9% 1000 ML INJ 1,000 ML IV SCH ×2 (00:40→17:13)
[2016-04-28] MEDS: PROPOFOL 1000 MG/100 ML INJ 100 ML IV SCH ×5 (00:52→21:57)
[2016-04-28 01:16] LABS: AMPHETAMINE, URINE NEG (NEG); BARBITURATES, URINE NEG (NEG); COCAINE, URINE NEG (NEG)
[2016-04-28 03:21] LABS: AUTOMATED NEUTROPHIL # 7.2 TH/MM3 (1.8-7.7); BASOPHIL % 0.3 % (0.0-2.0); EOSINOPHIL # 0.2 TH/MM3 (0-0.4); EOSINOPHIL % 2.2 % (0.0-4.0); HEMATOCRIT 37.5 % (35.0-46.0); HEMO FLAGS DIFF FINAL; LYMPH % 20.7 % (9.0-44.0); LYMPHOCYTE # 2.1 TH/MM3 (1.0-4.8); MEAN CELL VOLUME 90.3 FL (80.0-100.0); MEAN CORPUSCULAR HEMOGLOBIN 31.5 PG (27.0-34.0); MEAN CORPUSCULAR HGB CONC 34.9 % (32.0-36.0); MONO % 5.4 % (0.0-8.0); NEUT % 71.4 % (16.0-70.0); PLATELET COUNT 254 TH/MM3 (150-450); RED BLOOD COUNT 4.15 MIL/MM3 (4.00-5.30); RED CELL DISTRIBUTION WIDTH 13.4 % (11.6-17.2); WHITE BLOOD COUNT 10.1 TH/MM3 (4.0-11.0)
[2016-04-28 03:27] LABS: APTT (PATIENT) 23.8 SEC (24.3-30.1); PROTHROMBIN TIME - PATIENT 10.9 SEC (9.8-11.6)
[2016-04-28 03:49] LABS: ALT (GPT) 58 U/L (10-53); ANION GAP 8 MEQ/L (5-15); AST (GOT) 23 U/L (15-37); BICARBONATE 22.8 MEQ/L (21.0-32.0); BLOOD UREA NITROGEN 12 MG/DL (7-18); CHLORIDE 108 MEQ/L (98-107); GLOMERULAR FILTRATION RATE 63 ML/MIN (>89); POTASSIUM 3.8 MEQ/L (3.5-5.1); SODIUM (NA) 139 MEQ/L (136-145)
[2016-04-28 03:53] LABS: ALKALINE PHOSPHATASE 67 U/L (45-117); TOTAL BILIRUBIN ADULT 0.4 MG/DL (0.2-1.0)
[2016-04-28] MEDS: CHLORHEXIDINE GLUCONATE 2 % 1 PACK (2 CLOTHS) TOP SCH (04:00)
[2016-04-28] MEDS ORDERED: LIDOCAINE HCL 2% 100 MG/5 ML SYRINGE ONE ×2 (04:06→17:21)
[2016-04-28] MEDS ORDERED: ATROPINE SULFATE 1 MG/10 ML SYRINGE ONE ×2 (04:06→17:22)
[2016-04-28] MEDS ORDERED: EPINEPHrine HCL (1:10,000) 1 MG/10 ML SYRINGE ONE ×2 (04:06→17:21)
--- NOTE | 2016-04-28 05:00 | RADRPT ---
EXAM DATE/TIME: 04/28/2016 04:36 [facility] COMPARISON: CT BRAIN W/O CONTRAST, April 27, 2016, 13:33. INDICATIONS : Follow up bleed. RADIATION DOSE: 41.14 CTDIvol (mGy) MEDICAL HISTORY : Stroke. SURGICAL HISTORY : None. ENCOUNTER: Subsequent ACUITY: 1 day PAIN SCALE: Non-responsive LOCATION: cranial TECHNIQUE: Multiple contiguous axial images were obtained of the head. Using automated exposure control and adj ustment of the mA and/or kV according to patient size, radiation dose was kept as low as reasonably a chievable to obtain optimal diagnostic quality images. FINDINGS: Subacute hemorrhage of the left basal ganglia again noted and appear slightly larger in the interim, currently about 2.4 x 5.3 cm in size compared to 2.4 x 4.6 cm yesterday. Rightward midline shift has increased, now measures about 7 mm. The large left temporal and frontal lobe arachnoid cyst is unchan ged. No new bleed. No evidence of an acute ischemic event. No mass lesion seen. CONCLUSION: Left basal ganglia subacute parenchymal hemorrhage is slightly larger. 7 mm of rightward midline shif t. Karthik Pope MD on April 28, 2016 at 4:56 Board Certified Radiologist. This report was verified electronically.
--- NOTE | 2016-04-28 05:42 | RADRPT ---
EXAM DATE/TIME: 04/28/2016 04:51 [facility] COMPARISON: CHEST SINGLE AP, April 27, 2016, 15:14. INDICATIONS : Shortness of breath, possible pulmonary disease. MEDICAL HISTORY : Stroke. SURGICAL HISTORY : None. ENCOUNTER: Subsequent ACUITY: 2 days PAIN SCORE: Non-responsive. LOCATION: Bilateral chest FINDINGS: Trace left base atelectasis again noted. No pleural effusion seen. No pneumothorax. Endotracheal tube tip is approximately 1.7 cm above the lauren. Nasogastric tube courses into the sto mach. There is a right IJ central venous catheter with tip in the superior vena cava. CONCLUSION: 1. Endotracheal tube tip 1.7 cm above the lauren. 2. Mild left base atelectasis not significantly changed. Karthik Pope MD on April 28, 2016 at 5:40 Board Certified Radiologist. This report was verified electronically.
[2016-04-28] MEDS: INSULIN NovoLIN REGULAR SUPPLEMENTAL SCALE SQ SCH ×5 (05:57→23:28)
[2016-04-28] MEDS: hydrALAZINE HCL 20 MG/ML VIAL IV PUSH PRN (08:00)
--- NOTE | 2016-04-28 08:25 | HHI.CCPN ---
Subjective Remarks/Hospital Course This is a 71 female. Data admission 04/27/2016. Past medical history includes left temporal CVA and seizure disorder.. She presented to the emergency room brought by her friend for strokelike symptoms. Patient was verbal when she first arrived and said that her symptoms started 40 minutes ago. 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 She had right-sided facial droop and right arm weakness. There was some right eyelid lag as well. After doing a quick NIH stroke score a stroke alert was called. Patient was rushed to the CT scanner and I spoke with the neurologist to make him aware of possible stroke. Her medications are all alternative natural medications. CT head revealed a 4.6 x 2.4 (basal ganglia intraparenchymal hemorrhage. Encephalopathy left temporal region. Neurosurgery was consultation recommended medical management with 3% hypertonic saline, mannitol and strict blood pressure control systolic blood pressure was 150 with a follow-up CT scan in a.m. While in the ED, patient decompensated with a left-sided gaze. She was flaccid in her right upper lobe extremity. Emergently intubated with 20 minutes etomidate etomidate and 100 mg succinylcholine. She is currently been sedated with propofol/fentanyl and Versed drips. Cardene drip was initiated to maintain systolic blood pressure less than 150. End tidal CO2 around 30 recommended. Receiving 50 mg mannitol IV 1 now. Subjective 04/[address] this a.m. shows slight increase in hemorrhage with a 7 mm rightward midline shift. The patient continues on hypertonic saline, mannitol every 6 hours. Objective Vital Signs Date Time Temp Pulse Resp B/P Pulse Ox O2 Delivery O2 Flow Rate FiO2 04/28/16 08:09 100 30 04/28/16 06:00 57 04/28/16 04:00 97.5 12 104/58 04/27/16 17:00 Ventilator 04/27/16 14:20 2 Intake and Output 04/27/16 04/27/16 04/28/16 08:00 16:00 00:00 Intake Total 1128 ml Output Total 1250 ml Balance -122 ml Result Diagram: 04/28/16 0310 04/28/16 0310 Other Results Laboratory Tests Test 04/27/16 15:30 Blood Gas Puncture Site LT RADIAL Blood Gas Patient Temperature 98.6 Blood Gas HCO3 21 mmol/L (22-26) Blood Gas Base Excess -2.8 mmol/L (-2-2) Blood Gas Oxygen Saturation 96 % (90-100) Arterial Blood pH 7.43 (7.380-7.420) Arterial Blood Partial 32 mmHg (38-42) Pressure CO2 Arterial Blood Partial 291 mmHG Pressure O2 (61-120) Arterial Blood Oxygen Content 19.2 Vol % (12.0-20.0) Arterial Blood 1.7 % (0-4) Carboxyhemoglobin Arterial Blood Methemoglobin 1.9 % (0-2) Blood Gas Hemoglobin 13.7 G/DL (12.0-16.0) Oxygen Delivery Device VENTILATOR Blood Gas Ventilator Setting AC,14,600,PEEP5 Blood Gas Inspired Oxygen 80 % Imaging Last Impressions Head CT 04/28/16 0600 Signed Impressions: Service Date/Time: Thursday, April 28, 2016 04:36 - CONCLUSION: Left basal ganglia subacute parenchymal hemorrhage is slightly larger. 7 mm of rightward midline shift. Karthik Pope MD Chest X-Ray 04/28/16 0000 Signed Impressions: Service Date/Time: Thursday, April 28, 2016 04:51 - CONCLUSION: 1. Endotracheal tube tip 1.7 cm above the lauren. 2. Mild left base atelectasis not significantly changed. Karthik Pope MD Last Impressions Head CT 04/27/16 0000 Signed Impressions: Service Date/Time: Wednesday, April 27, 2016 13:33 - CONCLUSION: 1. Focal acute intraparenchymal hemorrhage involving the region of the left basal ganglia measuring 4.6 x 2.4 cm characteristic of a hemorrhagic hypertensive infarct. 2. Large area of encephalomalacia involving the left temporal frontal region. This is either a large area of old infarction versus a large arachnoid cyst. Rommel Norman MD Objective Remarks GENERAL: 71 year female, critically ill currently intubated in no acute distress SKIN: Warm and dry. No rash HEAD: Atraumatic. Normocephalic. EYES: Pupils equal and round about 2 mm bilaterally and reactive. No scleral icterus. No injection or drainage. ENT: No nasal bleeding or discharge. Mucous membranes pink and moist. NECK: Trachea midline. No JVD. CARDIOVASCULAR: Regular rate and rhythm. S1, S2. No S4. Without murmur RESPIRATORY: No accessory muscle use. Clear to auscultation. Breath sounds equal bilaterally. GASTROINTESTINAL: Abdomen soft, non-tender, nondistended. Hepatic and splenic margins not palpable. MUSCULOSKELETAL: Extremities without clubbing, cyanosis, or edema. No obvious deformities. NEUROLOGICAL: Prior to intubation, left-sided gaze. Left upper and lower extremity strength 4+ out of 5 and moving spontaneously. Not following commands. Withdraws to pain with upgoing stenosis on the left side. Right upper and lower extremity 0/5. Negative Babinski sign. Did not withdraw to pain. Urinary Catheter: Yes Date of Insertion: Apr 27, 2016 Vascular Central Line Catheter: Yes Date of Insertion: Apr 27, 2016 Side: Right Location: Internal, Jugular A/P Assessment and Plan Neuro/Psych: 4.62.4 cm left basal ganglia intraparenchymal hemorrhage Left temporal CVA Seizure disorder? GCS 3T-intubated currently on Propofol 30 mcgs, Fent 50 mcgs and Versed [address] head revealed 4.62.4 intraparenchymal hemorrhage. Old encephalomalacia left temporal region. Keppra 500 mg twice a day seizure prophylaxis 9Day 2 ) 3% Hypertonic saline at 20 cc an hour. Sodium goal 150-155. Mannitol 501. Followed by 25 g IV every 6 hours. Hold if Sosm greater than 310 End tidal CO2 maintain between [address] head 04/28-left basal ganglia subacute parenchymal hemorrhage slightly larger 7 mm right word midline shift Dr. Johnson/neurosurgery consulting Neuro checks per protocol CV: Hypertensive emergency Cardene drip/cleviprex to maintain systolic blood pressure less than 150mmHG As needed labetalol/hydralazine/Nitropaste Initial troponin less than 0.04. 2-D echocardiogram ordered for hypertensive heart disease Currently on normal saline at 84 cc an hour. Resp: Acute respiratory failure secondary to altered mental status ACV 16/550/5/.30 Ventilator bundle Maintain head of bed elevation 30 Schedule every 6 hour bronchodilator therapy Maintain End Tidal CO2 between 30 and 35 F/U ABG this am GI: Maintain NPO status, will begin tube feeds if no neurosurgical intervention OGT to LIWS Protonix for GI prophylaxis Colace/as needed Senokot for bowel regimen /FEN: Hypophosphatemia Monitor BMP Maintain Mosley for accurate I's and O's Replete electrolytes per ICU protocol Endo: Sliding-scale insulin with Accu-Cheks to maintain euglycemia. Low dose regimen. Renal: No acute issues Accurate I/O's Normal saline at 84 cc an hour. Heme: Monitor CBC, INR 1.0 ID: Monitor for infection UA pending MSK: PT evaluate and treat Daily functional maintenance Access - Right IJ CVL day #2, peripheral IVs 2 Prophylaxis - GI - Protonix - DVT - SCD/pharmacological prophylaxis contraindicated intracerebral hemorrhage Dispo: Discussed with TECHNICAL SERVICES REP at bedside. Contacted answering service for notification to Dr. Johnson regarding results of repeat CT this a.m., plan for OR this a.m.. Critical Care: This patient remains critically ill with one or more organ systems which are or may become a threat to life. I have spent in excess of 47 minutes discontinuously in the care and management of this patient. This time is exclusive of procedures, and includes, but is not limited to, evaluation of the patient, review of the medical record, discussions with family, consultants, nursing staff, or respiratory therapy, and documentation in the medical record. Physician Kizzy Aguilar MD Apr 28, 2016 08:25
[2016-04-28 08:28] LABS: BLOOD GAS BASE EXCESS -2.2 mmol/L (-2-2); BLOOD GAS CARBOXYHEMOGLOBIN 0.9 % (0-4); BLOOD GAS HCO3 22 mmol/L (22-26); BLOOD GAS METHEMOGLOBIN 0.9 % (0-2); BLOOD GAS O2 HGB SATURATION 95 % (90-100); BLOOD GAS OXYGEN CONTENT 18.1 Vol % (12.0-20.0); BLOOD GAS PCO2 35 mmHg (38-42); BLOOD GAS PO2 90 mmHg (61-120); BLOOD GAS TOTAL HGB 13.5 G/DL (12.0-16.0); TEMP CORR TO 98.6
[2016-04-28 08:29] LABS: CRITICAL VALUE NO; DRAW SITE ART LINE; FIO2 30 %; OXYGEN DEVICE VENTILATOR; STAT YES
[2016-04-28] MEDS: fentaNYL DRIP 250 ML IV SCH (08:55)
[2016-04-28] MEDS: MIDAZOLAM 100 MG/ML INJ 100 ML IV SCH ×2 (08:55→22:00)
[2016-04-28] MEDS ORDERED: PANTOPRAZOLE SODIUM 40 MG VIAL IV SCH (09:00)
[2016-04-28] MEDS: DOCUSATE SODIUM 100 MG CAP PO SCH ×3 (09:00→22:11)
[2016-04-28] MEDS: SODIUM CHLORIDE 0.9% FLUSH 5 ML FLUSH IVF SCH ×2 (09:00→21:00)
[2016-04-28] MEDS: levETIRAcetam INJ 500 MG in SODIUM CHLORIDE 0.9% INJ 100 ML IV SCH ×2 (09:40→21:58)
[2016-04-28] MEDS: CHLORHEXIDINE 0.12% (ORAL KIT) 15 ML CUP MT SCH ×2 (09:40→21:58)
[2016-04-28] MEDS: SODIUM CHLORIDE 0.9% FLUSH 5 ML FLUSH IV FLUSH SCH ×2 (09:40→21:00)
--- NOTE | 2016-04-28 11:02 | HHI.NSPN ---
(Bettie Copeland) Note Status Status: Progress Note (Bettie Copeland) Interval History Interval History Ms. Mobley is a 71 female with history of prior left temporal CVA. Earlier today the patient had sudden onset of right facial drooping and right arm weakness. There were no associated falls or trauma. She was taken to [place] ED and a CT Brain showed a 4.6 x 2.4 left basal ganglia hemorrhage without significant midline shift. Her vitals signs on arrival was noted to be extremely elevated as high as in the 200's systolic, she was placed on Cardene. The patient was reported to be initially talking on arrival but then decompensated and was emergently intubated. 04/28: well sedated, on hyperosmotic with 3%NS and Mannitol. f/u CT Brain completed. (Bettie Copeland) Labs, Micro, & Vital Signs Results Date Time Temp Pulse Resp B/P Pulse Ox O2 Delivery O2 Flow Rate FiO2 04/28/16 10:00 68 04/28/16 08:09 100 30 04/28/16 08:06 100 30 04/28/16 08:00 70 04/28/16 08:00 97.8 66 10 130/62 100 04/28/16 06:00 57 04/28/16 04:40 100 100 04/28/16 04:25 100 100 04/28/16 04:00 58 04/28/16 04:00 97.5 58 12 104/58 100 04/28/16 03:10 100 35 04/28/16 02:00 61 04/28/16 00:15 35 04/28/16 00:14 100 35 04/28/16 00:00 97.0 64 10 140/71 100 04/28/16 00:00 64 04/27/16 22:00 59 04/27/16 20:45 45 04/27/16 20:45 100 45 04/27/16 20:45 100 45 04/27/16 20:00 60 04/27/16 20:00 97.6 61 10 126/64 100 04/27/16 20:00 50 1/29/17 18:00 50 04/27/16 18:00 98.7 64 14 122/71 100 04/27/16 17:40 100 50 04/27/16 17:40 100 100 04/27/16 17:00 70 14 148/69 100 Ventilator 04/27/16 16:54 100 50 04/27/16 16:54 100 50 04/27/16 16:30 66 14 130/70 100 Ventilator 04/27/16 16:00 68 14 130/68 100 Ventilator 04/27/16 15:40 72 14 127/63 100 Ventilator 04/27/16 15:40 50 04/27/16 15:05 80 14 125/60 100 Ventilator 04/27/16 14:50 100 Ventilator 04/27/16 14:50 80 04/27/16 14:50 94 14 160/77 100 Ventilator 04/27/16 14:22 100 60 04/27/16 14:20 98 26 239/144 100 Nasal Cannula 2 04/27/16 14:10 92 17 175/78 98 Nasal Cannula 2 04/27/16 13:30 104 20 177/85 100 Nasal Cannula 2 04/27/16 13:28 98 22 161/100 98 04/27/16 13:28 98 Nasal Cannula 2 04/27/16 13:28 98 Nasal Cannula 2 04/28/16 07:00 Intake Total 2152 ml Output Total 1970 ml Balance 182 ml Constitutional Vital Signs Date Time Temp Pulse Resp B/P Pulse Ox O2 Delivery O2 Flow Rate FiO2 04/28/16 10:00 68 04/28/16 08:09 100 30 04/28/16 08:06 100 30 04/28/16 08:00 70 04/28/16 08:00 97.8 66 10 130/62 100 04/28/16 06:00 57 04/28/16 04:40 100 100 04/28/16 04:25 100 100 04/28/16 04:00 58 04/28/16 04:00 97.5 58 12 104/58 100 04/28/16 03:10 100 35 04/28/16 02:00 61 04/28/16 00:15 35 04/28/16 00:14 100 35 04/28/16 00:00 97.0 64 10 140/71 100 04/28/16 00:00 64 04/27/16 22:00 59 04/27/16 20:45 45 04/27/16 20:45 100 45 04/27/16 20:45 100 45 04/27/16 20:00 60 04/27/16 20:00 97.6 61 10 126/64 100 04/27/16 20:00 50 04/27/16 18:00 50 04/27/16 18:00 98.7 64 14 122/71 100 04/27/16 17:40 100 50 04/27/16 17:40 100 100 04/27/16 17:00 70 14 148/69 100 Ventilator 04/27/16 16:54 100 50 04/27/16 16:54 100 50 04/27/16 16:30 66 14 130/70 100 Ventilator 04/27/16 16:00 68 14 130/68 100 Ventilator 04/27/16 15:40 72 14 127/63 100 Ventilator 04/27/16 15:40 50 04/27/16 15:05 80 14 125/60 100 Ventilator 04/27/16 14:50 100 Ventilator 04/27/16 14:50 80 04/27/16 14:50 94 14 160/77 100 Ventilator 04/27/16 14:22 100 60 04/27/16 14:20 98 26 239/144 100 Nasal Cannula 2 04/27/16 14:10 92 17 175/78 98 Nasal Cannula 2 04/27/16 13:30 104 20 177/85 100 Nasal Cannula 2 04/27/16 13:28 98 22 161/100 98 04/27/16 13:28 98 Nasal Cannula 2 04/27/16 13:28 98 Nasal Cannula 2 04/28/16 07:00 Intake Total 2152 ml Output Total 1970 ml Balance 182 ml (Bettie Copeland) Review of Systems/Exam Exam Ms. Mobley is intubated and well sedated on multiple drip. Does not open eyes , not following commands. Cranial Nerves: Pupils pinpoint b/l nonreactive to light. Eyes appear conjugated. Cervical Spine: soft, supple sensorimotor: not following for testing, no withdrawals x 4, deeply sedated Reflexes: Plantars silent b/l cerebellar: examination cannot be adequately assessed due to the patient's neurological condition (Bettie Copeland) Medications Current Medications Current Medications Medications (Trade) Dose Ordered Sig/Femi Route PRN Reason Start Time Stop Time Status Last Admin Dose Admin Nicardipine HCl/ Sodium Chloride (Cardene Inj/NS 250 ml Inj) 260 ml @ 0 mls/hr TITRATE IV 04/27/16 14:00 04/27/16 14:10 Mannitol 25 gm 25 gm Q6HR IV 04/27/16 18:00 04/28/16 05:30 Propofol 100 ml @ 0 mls/hr TITRATE IV 04/27/16 15:00 04/28/16 08:55 Midazolam HCl 100 ml @ 0 mls/hr TITRATE IV 04/27/16 15:00 04/28/16 08:55 Fentanyl Citrate 250 ml @ 0 mls/hr TITRATE IV 04/27/16 15:00 04/28/16 08:55 Levetriacetam/ Sodium Chloride (Keppra Inj/NS Inj) 105 ml @ 420 mls/hr Q12HR IV 04/27/16 21:00 05/04/16 20:59 04/28/16 09:40 Labetalol HCl (Trandate Inj) 10 mg Q1HR PRN IV PUSH SBP>150, DBP>900, HR>65 04/27/16 15:00 Nitroglycerin (Nitroglycerin 2% Oint) 2 inch Q6HR PRN TOPICAL SBP>150, DBP>90 04/27/16 15:00 Hydralazine HCl 10 mg 10 mg Q1HR PRN IV PUSH SBP>150, DBP>90 04/27/16 15:00 04/28/16 08:00 Clevidipine (Cleviprex Inj) 50 ml @ 0 mls/hr TITRATE IV 04/27/16 15:00 Chlorhexidine Gluconate (Peridex 0.12% Liq) 15 ml BID@08,20 MT 04/27/16 20:00 04/28/16 09:40 IV Flush (NS Flush) DAILY IVF 04/28/16 09:00 IV Flush UNSCH PRN IVF SEE PROTOCOL 04/27/16 15:00 Sodium Chloride 500 ml @ 20 mls/hr CONTINUOUS IV 04/27/16 15:15 04/27/16 18:23 Sodium Chloride (NS 1000 ml Inj) 1,000 ml @ 84 mls/hr [id number] IV 04/27/16 16:00 04/28/16 00:40 IV Flush (NS Flush) 2 ml UNSCH PRN IV FLUSH FLUSH AFTER USING IV ACCESS 04/27/16 15:15 IV Flush (NS Flush) 2 ml BID IV FLUSH 04/27/16 21:00 04/28/16 09:40 Acetaminophen (Tylenol) 650 mg Q6H PRN PO PAIN 1-10 AND/OR FEVER >101F 04/27/16 15:15 Pantoprazole Sodium (Protonix Inj) 40 mg DAILY IV 04/28/16 09:00 04/28/16 09:40 Artificial Tears (Tears Naturale Opth Soln) 1 drop TID EACH EYE 04/27/16 18:00 04/28/16 09:41 Ondansetron HCl (Zofran Inj) 4 mg Q6H PRN IV NAUSEA OR VOMITING 04/27/16 15:15 Docusate Sodium (Colace) 100 mg BID PO 04/27/16 21:00 04/27/16 19:45 Sennosides (Senokot) 17.2 mg Q12H PRN PO CONSTIPATION 04/27/16 15:15 Miscellaneous Information 1 [id number] XX 04/27/16 15:15 04/28/16 04:00 Chlorhexidine Gluconate (Chlorhexidine 2% Cloth) 3 pack Taper DAILY@04 TOP 04/28/16 04:00 04/24/17 03:59 04/28/16 04:00 Chlorhexidine Gluconate 3 pack 3 pack UNSCH PRN TOP HYGIENIC CARE 04/27/16 15:15 Potassium Chloride 100 ml @ 50 mls/hr Q2H PRN IV For Potassium 2.8 - 3.2 mEq/L 04/27/16 15:15 Potassium Chloride (KCl 20 Meq Premix Inj) 100 ml @ 50 mls/hr Q2H PRN IV For Potassium 2.8 - 3.2 mEq/L 04/27/16 15:15 Potassium Chloride 40 meq 40 meq UNSCH PRN PO/TUBE For Potassium 3.3 - 3.5 mEq/L 04/27/16 15:15 Potassium Chloride 100 ml @ 25 mls/hr UNSCH PRN IV For Potassium 3.3 - 3.5 mEq/L 04/27/16 15:15 Potassium Chloride 100 ml @ 50 mls/hr Q2H PRN IV For Potassium 3.3 - 3.5 mEq/L 04/27/16 15:15 Magnesium Sulfate/ Sodium Chloride (Magnesium Sulfate Inj/NS Inj) 100 ml @ 50 mls/hr UNSCH PRN IV For Magnesium 0.9 - 1.1 mg/dL 04/27/16 15:15 Magnesium Oxide 800 mg 800 mg UNSCH PRN PO For Magnesium 1.2 - 1.6 mg/dL 04/27/16 15:15 Magnesium Sulfate/ Sodium Chloride (Magnesium Sulfate Inj/NS Inj) 100 ml @ 50 mls/hr UNSCH PRN IV For Magnesium 1.2 - 1.6 mg/dL 04/27/16 15:15 Potassium Phosphate 2000 mg 2,000 mg Q4H PRN PO For Phosphorus < 2.5 mg/dL 04/27/16 15:15 Sodium Phosphate/ Sodium Chloride (Sodium Phosphate Inj/NS 250 ml Inj) 250 ml @ 42 mls/hr UNSCH PRN IV For Phosphorus < 2.5 mg/dL 04/27/16 15:15 04/28/16 06:55 Potassium Chloride (KCl 40 Meq/30 ml Liq) 40 meq UNSCH PRN PO/TUBE SEE LABEL COMMENTS 04/27/16 15:15 Potassium Phosphate 2000 mg 2,000 mg UNSCH PRN PO/TUBE SEE LABEL COMMENTS 04/27/16 15:15 Potassium Phosphate/Sodium Chloride (Potassium Phosphate Inj/NS 250 ml Inj) 260 ml @ 42 mls/hr UNSCH PRN IV SEE LABEL COMMENTS 04/27/16 15:15 Dextrose (D50w (Vial) Inj) 25 ml UNSCH PRN IV PUSH HYPOGLYCEMIA-SEE COMMENTS 04/27/16 15:15 04/28/16 01:18 Glucagon (Glucagon Inj) 1 mg UNSCH PRN OTHER HYPOGLYCEMIA-SEE COMMENTS 04/27/16 15:15 Insulin Human Regular (NovoLIN R SUPPLEMENTAL SCALE) 1 Q6HR SQ 04/27/16 18:00 (Bettie Copeland) Medical Decision Making MDM Remarks 71 y/o female with sudden onset of right facial weakness and right upper extremity weakness, CT Brain 04/27 showed left basal ganglia ICH, f/u CT Brain 04/28 shows increased size of ICH with 7 mm midline shift (Bettie Copeland) Plan Plan Remarks f/u CT Brain reviewed, ICH has increased causing 7 mm midline shift patient will need emergent decompression cont hyperosmotic tx with 3%NS, and mannitol currently hyperventilated with target pCO2 30-35 (Bettie Copeland) Attending Statement The exam, history, and the medical decision-making described in the above note were completed with the assistance of the mid-level provider. I reviewed and agree with the findings presented. I attest that I had a [id number] encounter with the patient on the same day, and personally performed and documented my assessment and findings in the medical record. (Riley Johnson MD) Bettie Copeland Apr 28, 2016 11:02 Riley Johnson MD Apr 28, 2016 12:39
[2016-04-28] MEDS ORDERED: NORMOSOL R INJ 2,000 ML IV ONE (12:00)
[2016-04-28] MEDS ORDERED: PROPOFOL 200 MG/20 ML AMP IV ONE (12:00)
[2016-04-28] MEDS ORDERED: LACTATED RINGER'S 1000 ML INJ 1,000 ML IV ONE (12:00)
[2016-04-28] MEDS ORDERED: MICROFIBRILLAR COLLAGEN HEMOSTAT 1 GM PKT ONE (12:05)
[2016-04-28] MEDS ORDERED: LIDOCAINE 1%/EPINEPHrine 1:100,000 SOLN 30 ML VIAL ONE (12:05)
[2016-04-28] MEDS ORDERED: THROMBIN (TOPICAL) 5,000 UNIT VIAL ONE (12:05)
[2016-04-28] MEDS ORDERED: DEXAMETHASONE SOD PHOS 4 MG/ML VIAL ONE (12:05)
[2016-04-28] MEDS ORDERED: GELFOAM SIZE 100 ONE (12:05)
[2016-04-28] MEDS ORDERED: ceFAZolin INJ 1,000 MG VIAL ONE (12:05)
[2016-04-28] MEDS ORDERED: GENTAMICIN SULFATE 80 MG/2 ML VIAL ONE (12:06)
--- NOTE | 2016-04-28 13:54 | OTSOAPIP ---
TIME SESSION COMPLETED: PM TREATMENT TIME: 0 MINS. CHART REVIEWED. PT ADMITTED WITH LEFT ACUTE INTRACRANIAL HEMORRHAGE, NURSING REQUEST TO HOLD TREATMENT TODAY PT IS SEDATED AND IS SCHEDULE TO UNDERGO A CRANIOTOMY FOR EVACUATION OF HEMORRHAGE PLAN WILL SEE PT NEXT TREATMENT DAY. INTERDISCIPLINARY COMMUNICATION: STATED ABOVE Therapist: CHANCE STRONG/Kennedy Signature on file
[2016-04-28] MEDS ORDERED: VANCOMYCIN HCL 1000 MG VIAL OTHER ONE (18:17)
[2016-04-28] MEDS ORDERED: MANNITOL 12.5 GM/50 ML VIAL IV ONE (18:20)
[2016-04-28] MEDS ORDERED: MICROFIBRILLAR COLLAGEN HEMOSTAT 70 X 35 MM BANDAGE ONE (18:30)
[2016-04-28] MEDS ORDERED: levETIRAcetam 500 MG/5 ML VIAL IV ONE (18:39)
[2016-04-28] MEDS ORDERED: LIDOCAINE 1%/EPINEPHrine 1:100,000 SOLN 30 ML VIAL INFIL ONE (18:39)
--- NOTE | 2016-04-28 19:33 | PD.OP ---
Operative Report Date of Surgery: Apr 28, 2016 Preoperative Diagnosis: Left basal ganglia intracerebral hypertensive hematoma Postoperative Diagnosis: Left basal ganglia intracerebral hypertensive hematoma Procedure: Left frontal temporal parietal craniotomy evacuation of intracerebral hematoma Anesthesia: general Surgeon: Riley Johnson Senior Mortgage Loan Processor(s): Yaron Toro Operation and Findings: INDICATIONS FOR THE PROCEDURE Ms Mobley is a 71 year old adult male who was brought to [facility] with an intracerebral hemorrhage. Follow up CT showed oncrease in the size of the hemorrhage andm more midline shift. A surgical decompression was indicated DETAILS OF THE SURGICAL PROCEDURE The patient was endotracheally intubated and mechanically ventilated. A Mosley catheter, bilateral ALIN hose and sequential compression devices were placed and kept throughout the procedure. The patient was positioned supine on a 3080 table over a soft mattress. The head was placed on a gel doughnut. All pressure points were carefully padded with egg crate mattress. The eyes were tapped shut after ointment was applied by the anesthesiologist to prevent corneal abrasion. A Marilyn hugger was placed over the exposed lower body to maintain control of the core body temperature. The frontotemporal parietal area was shaved, prepped and draped in the usual sterile fashion. A standard inverted question beto incision was outlined on the left scalp and infiltrated with 1% lidocaine with epinephrine. The skin incision was made with a #10 blade down to the level of the periosteum in the frontoparietal region and to the temporalis fascia in the temporal region. Anel clips were applied to the scalp. Using a Bovie, the temporalis fascia and muscle were incised and a subperiosteal dissection was performed reflecting the scalp flap anteriorly. The scalp was covered with a moist sponge and held in position using fish hooks. The Midas Alex was brought to the field and a bur hole was made in the temporal region using the craniotome attachment. Then, using the footplate attachment, a left frontotemporoparietal craniotomy flap was elevated. The dura was bulging, tense with pressure due to the underlying mass effect. The dura was opened with a 15 blade and metzembaun sissors and retracted with 4-0 Neurolon sutures attached to the fascia. Initiallyn an arachoid cyst was carefully drained. A small corticotomy was performed with the bipolar and microscissors and the hematoma was readily found, causing significant mass effect. The hematoma was evacuated using microsurgical dissection, with the micro-bipolar forceps, microscissors, micro-suction, and gentle irrigation. The specimen was sent to the lab for histological analysis. Appropriate hemostasis was then secured using the bipolar sustainable agriculture specialist. Then the incision was irrigated with saline solution. The dural edges were tacked to the bone. The craniotomy flap was then repositioned and secured in place using Striker plates and screws. A 7 millimeter Yovany-Boyd drain was then left in the hematoma cavity and subgaleal space and externalized through a separate stab incision. The incision was then closed in layers. 0 Vicryl in interrupted sutures were used to close the temporalis fascia. The galea was closed with interrupted 3- 0 Vicryl. Celso were applied to the skin. The drain was secured with a 3-0 nylon. At the end of the procedure, the sponge, needle and instrument counts were all correct. Estimated blood loss was less than 100 cc. No blood transfusion was given. No intraoperative complications occurred. The patient received prophylactic antibiotics. The patient was then transferred to the recovery room in stable condition. Riley Johnson MD Apr 28, 2016 19:33
[2016-04-28] MEDS ORDERED: BISACODYL 10 MG SUPP PR PRN (19:45)
[2016-04-28] MEDS ORDERED: ONDANSETRON HCL 4 MG/2 ML VIAL IV PRN (19:45)
[2016-04-28] MEDS ORDERED: POTASSIUM CHLOR 20 MEQ PREMIX 100 ML IV PRN (19:45)
[2016-04-28] MEDS ORDERED: SODIUM CHLORIDE 0.9% FLUSH 5 ML FLUSH IVF PRN (19:45)
[2016-04-28] MEDS ORDERED: ACETAMINOPHEN 325 MG TAB PO PRN (19:45)
[2016-04-28] MEDS ORDERED: ceFAZolin 2 GM PREMIX 50 ML IV SCH (19:45)
[2016-04-28] MEDS ORDERED: CALCIUM GLUCONATE 10% 1 GM/10 ML VIAL IV PRN (19:45)
[2016-04-28] MEDS ORDERED: MAGNESIUM SULFATE INJ 4 GM in SODIUM CHLORIDE 0.9% INJ 100 ML IV PRN (19:45)
[2016-04-28] MEDS ORDERED: fentaNYL CITRATE 250 MCG/5 ML AMP ONE (20:25)
[2016-04-28] MEDS: NS + KCL 20 MEQ INJ 1,000 ML IV SCH (22:07)
[2016-04-29] VITALS (19 sets, daily range): BP systolic 111–130; BP diastolic 59–88; PULSE 66–88; RESP 12; TEMP 97.4–99.5; O2SAT 97–100
[2016-04-29] MEDS: ceFAZolin 2 GM PREMIX 50 ML IV SCH ×3 (02:11→17:00)
[2016-04-29] MEDS: PROPOFOL 1000 MG/100 ML INJ 100 ML IV SCH ×4 (02:13→21:11)
--- NOTE | 2016-04-29 03:08 | RADRPT ---
EXAM DATE/TIME: 04/29/2016 01:48 [facility] COMPARISON: CHEST SINGLE AP, April 28, 2016, 4:51. INDICATIONS : Respiratory disease. MEDICAL HISTORY : Stroke. SURGICAL HISTORY : None. ENCOUNTER: Subsequent ACUITY: 3 days PAIN SCORE: Non-responsive. LOCATION: Bilateral chest FINDINGS: Mild consolidation and small effusion in the left lung base unchanged. No pneumothorax seen. Patient remains intubated. Endotracheal tube tip is about 4 cm above the lauren. There is a right int ernal jugular central venous catheter again seen tip at the superior vena cava. Nasogastric tube has tip in the stomach. CONCLUSION: Endotracheal tube tip pulled back slightly, now about 4 cm above the lauren. Other lines and tubes un changed. No significant change mild left base consolidation and small pleural effusion. Karthik Pope MD on April 29, 2016 at 3:06 Board Certified Radiologist. This report was verified electronically.
[2016-04-29 03:43] LABS: AUTOMATED NEUTROPHIL # 10.7 TH/MM3 (1.8-7.7); BASOPHIL % 0.3 % (0.0-2.0); HEMATOCRIT 34.7 % (35.0-46.0); HEMO FLAGS DIFF FINAL; LYMPH % 4.6 % (9.0-44.0); LYMPHOCYTE # 0.5 TH/MM3 (1.0-4.8); MEAN CELL VOLUME 91.8 FL (80.0-100.0); MEAN CORPUSCULAR HEMOGLOBIN 31.3 PG (27.0-34.0); MEAN CORPUSCULAR HGB CONC 34.1 % (32.0-36.0); MONO % 2.1 % (0.0-8.0); PLATELET COUNT 231 TH/MM3 (150-450); RED BLOOD COUNT 3.78 MIL/MM3 (4.00-5.30); RED CELL DISTRIBUTION WIDTH 13.6 % (11.6-17.2); WHITE BLOOD COUNT 11.5 TH/MM3 (4.0-11.0)
[2016-04-29] MEDS: CHLORHEXIDINE GLUCONATE 2 % 1 PACK (2 CLOTHS) TOP SCH (04:00)
[2016-04-29 04:10] LABS: BICARBONATE 21.9 MEQ/L (21.0-32.0); POTASSIUM 3.9 MEQ/L (3.5-5.1)
[2016-04-29 05:12] LABS: BLOOD GAS BASE EXCESS -6.3 mmol/L (-2-2); BLOOD GAS CARBOXYHEMOGLOBIN 1.1 % (0-4); BLOOD GAS HCO3 18 mmol/L (22-26); BLOOD GAS METHEMOGLOBIN 0.8 % (0-2); BLOOD GAS O2 HGB SATURATION 95 % (90-100); BLOOD GAS OXYGEN CONTENT 13.8 Vol % (12.0-20.0); BLOOD GAS PO2 94 mmHg (61-120); BLOOD GAS TOTAL HGB 10.2 G/DL (12.0-16.0); CRITICAL VALUE NO; OXYGEN DEVICE VENTILATOR; TEMP CORR TO 98.6
[2016-04-29 05:13] LABS: BLOOD GAS PCO2 31 mmHg (38-42); DRAW SITE ART LINE; FIO2 30 %; STAT NO; VENT SETTINGS AC 12/550/5PEEP
[2016-04-29] MEDS: MANNITOL 12.5 GM/50 ML VIAL IV SCH ×4 (06:31→23:04)
[2016-04-29] MEDS: INSULIN NovoLIN REGULAR SUPPLEMENTAL SCALE SQ SCH ×4 (06:31→23:08)
--- NOTE | 2016-04-29 08:47 | HHI.CCPN ---
Subjective Remarks/Hospital Course This is a 71 female. Data admission 04/27/2016. Past medical history includes left temporal CVA and seizure disorder.. She presented to the emergency room brought by her friend for strokelike symptoms. Patient was verbal when she first arrived and said that her symptoms started 40 minutes ago. 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 She had right-sided facial droop and right arm weakness. There was some right eyelid lag as well. After doing a quick NIH stroke score a stroke alert was called. Patient was rushed to the CT scanner and I spoke with the neurologist to make him aware of possible stroke. Her medications are all alternative natural medications. CT head revealed a 4.6 x 2.4 (basal ganglia intraparenchymal hemorrhage. Encephalopathy left temporal region. Neurosurgery was consultation recommended medical management with 3% hypertonic saline, mannitol and strict blood pressure control systolic blood pressure was 150 with a follow-up CT scan in a.m. While in the ED, patient decompensated with a left-sided gaze. She was flaccid in her right upper lobe extremity. Emergently intubated with 20 minutes etomidate etomidate and 100 mg succinylcholine. She is currently been sedated with propofol/fentanyl and Versed drips. Cardene drip was initiated to maintain systolic blood pressure less than 150. End tidal CO2 around 30 recommended. Receiving 50 mg mannitol IV 1 now. Subjective 04/[address] this a.m. shows slight increase in hemorrhage with a 7 mm rightward midline shift. The patient continues on hypertonic saline, mannitol every 6 hours. 04/29tthe patient underwent a emergent left craniotomy last evening with placement of ICP monitor. ICP 67 mmHg postoperatively overnight. Minimal drainage from TANYA drain. Family (sister)located yesterday afternoon, notified of the events. Objective Vital Signs Date Time Temp Pulse Resp B/P Pulse Ox O2 Delivery O2 Flow Rate FiO2 04/29/16 08:03 100 30 04/29/16 06:00 69 04/29/16 04:00 98.0 12 113/59 04/27/16 17:00 Ventilator 04/27/16 14:20 2 Intake and Output 04/28/16 04/28/16 04/29/16 08:00 16:00 00:00 Intake Total 1024 ml 1220 ml 388 ml Output Total 720 ml 600 ml 570 ml Balance 304 ml 620 ml -182 ml Result Diagram: 04/29/16 0330 04/29/16 0330 Other Results Microbiology Date/Time Procedure Status Source Growth 04/27/16 15:30 Urine Culture - Final Complete Urine Catheterized Urine NO GROWTH IN 48 HOURS. Laboratory Tests Test 04/29/16 04:50 Blood Gas Puncture Site ART LINE Blood Gas Patient Temperature 98.6 Blood Gas HCO3 18 mmol/L (22-26) Blood Gas Base Excess -6.3 mmol/L (-2-2) Blood Gas Oxygen Saturation 95 % (90-100) Arterial Blood pH 7.38 (7.380-7.420) Arterial Blood Partial 31 mmHg (38-42) Pressure CO2 Arterial Blood Partial 94 mmHg Pressure O2 (61-120) Arterial Blood Oxygen Content 13.8 Vol % (12.0-20.0) Arterial Blood 1.1 % (0-4) Carboxyhemoglobin Arterial Blood Methemoglobin 0.8 % (0-2) Blood Gas Hemoglobin 10.2 G/DL (12.0-16.0) Oxygen Delivery Device VENTILATOR Blood Gas Ventilator Setting AC 12/550/5PEEP Blood Gas Inspired Oxygen 30 % Imaging Last Impressions Chest X-Ray 04/29/16 06 Signed Impressions: Service Date/Time: Friday, April 29, 2016 01:48 - CONCLUSION: Endotracheal tube tip pulled back slightly, now about 4 cm above the lauren. Other lines and tubes unchanged. No significant change mild left base consolidation and small pleural effusion. Karthik Pope MD Head CT 04/28/16599 Signed Impressions: Service Date/Time: Thursday, April 28, 2016 04:36 - CONCLUSION: Left basal ganglia subacute parenchymal hemorrhage is slightly larger. 7 mm of rightward midline shift. Karthik Pope MD Last Impressions Head CT 04/28/16599 Signed Impressions: Service Date/Time: Thursday, April 28, 2016 04:36 - CONCLUSION: Left basal ganglia subacute parenchymal hemorrhage is slightly larger. 7 mm of rightward midline shift. Karthik Pope MD Chest X-Ray 04/28/16 0000 Signed Impressions: Service Date/Time: Thursday, April 28, 2016 04:51 - CONCLUSION: 1. Endotracheal tube tip 1.7 cm above the lauren. 2. Mild left base atelectasis not significantly changed. Karthik Pope MD Last Impressions Head CT 04/27/16 0000 Signed Impressions: Service Date/Time: Wednesday, April 27, 2016 13:33 - CONCLUSION: 1. Focal acute intraparenchymal hemorrhage involving the region of the left basal ganglia measuring 4.6 x 2.4 cm characteristic of a hemorrhagic hypertensive infarct. 2. Large area of encephalomalacia involving the left temporal frontal region. This is either a large area of old infarction versus a large arachnoid cyst. Rommel Norman MD Objective Remarks GENERAL: 71 year female, critically ill currently intubated and sedated on propofol and fentanyl infusion. SKIN: Warm and dry. No rash HEAD: Atraumatic. Normocephalic. [place] bolt in situ. Dressing C/D/I EYES: Pupils equal and round about 2 mm bilaterally and reactive. No scleral icterus. No injection or drainage. ENT: No nasal bleeding or discharge. Mucous membranes pink and moist. NECK: Trachea midline. No JVD. Orotracheally intubated. CARDIOVASCULAR: Regular rate and rhythm. S1, S2. No S4. Without murmur RESPIRATORY: Clear to auscultation. Breath sounds equal bilaterally. GASTROINTESTINAL: Abdomen soft, non-tender, nondistended. Hepatic and splenic margins not palpable. Hypoactive bowel sounds. MUSCULOSKELETAL: Extremities without clubbing, cyanosis, or edema. No obvious deformities. NEUROLOGICAL: Prior to intubation, left-sided gaze. Left upper and lower extremity strength 4+ out of 5 and moving spontaneously. Not following commands. Withdraws to pain with upgoing stenosis on the left side. Right upper and lower extremity 0/5. Negative Babinski sign. Did not withdraw to pain. Urinary Catheter: Yes Mosley insert reason: Measure Accurate Output Date of Insertion: Apr 27, 2016 Vascular Central Line Catheter: Yes (monitor CVP, administration of medications ) Date of Insertion: Apr 27, 2016 Side: Right Location: Internal, Jugular A/P Assessment and Plan Neuro/Psych: 4.62.4 cm left basal ganglia intraparenchymal hemorrhage Left temporal CVA Seizure disorder Left frontotemporal parietal craniotomy and placement of ICP monitor- POD #1 GCS 3T-intubated currently on Propofol 10 mcgs, Fent 50 mcgs and Versed [address] head revealed 4.62.4 intraparenchymal hemorrhage. Old encephalomalacia left temporal region. Keppra 500 mg BID, seizure prophylaxis (Day 3 of 7) 3% Hypertonic saline at 20 cc an hour. Sodium goal 150-155. Mannitol 25 g IV every 6 hours. Hold if Sosm greater than 310, currently 302 End tidal CO2 maintain between [address] head 04/28-left basal ganglia subacute parenchymal hemorrhage slightly larger 7 mm rightward midline shift Dr. Johnson/neurosurgery consulting Neuro checks per ICU protocol CV: Hypertensive emergency-resolved Cardene drip/cleviprex to maintain systolic blood pressure less than 150mmHG As needed labetalol/hydralazine/Nitropaste Initial troponin less than 0.04. 2-D echocardiogram ordered for hypertensive heart disease, F/u results Resume normal saline at 84 cc an hour Resp: Acute respiratory failure secondary to altered mental status ACV 16/500/5/.30 Ventilator bundle Maintain head of bed elevation 30 Schedule every 6 hour bronchodilator therapy Maintain End Tidal CO2 between 30 and 35 ABG-7.38/31/94/18/-6.3 GI: OGT -Begin tube feeds Jevity 1.5, obtain Nutrition consult Protonix for GI prophylaxis Colace/as needed Senokot for bowel regimen /FEN: Hypophosphatemia Monitor BMP Monitor serum sodium, serum sOsm every 6 hours Maintain Mosley for accurate I's and O's Replete electrolytes per ICU protocol Endo: Hyperglycemia of critical illness Sliding-scale insulin with Accu-Cheks every 6 hours to maintain euglycemia. Low dose regimen. Renal: No acute issues Accurate I/O's Normal saline at 84 cc an hour. Heme: Monitor CBC, INR 1.0 ID: Leukocytosis Monitor for signs of infection WBC 11.7- mostly likely reactive UA pending MSK: PT evaluate and treat Daily functional maintenance Access - Right IJ CVL day #3, right radial arterial line day #3, peripheral IVs 2 Prophylaxis - GI - Protonix - DVT - SCD/pharmacological prophylaxis contraindicated intracerebral hemorrhage Dispo: Discussed with ASSOCIATE THEATRE PROFESSOR at bedside. Contacted sister , Luciana Clarke [phone] updated her on the patient's current status. Critical Care: This patient remains critically ill with one or more organ systems which are or may become a threat to life. I have spent in excess of 43 minutes discontinuously in the care and management of this patient. This time is exclusive of procedures, and includes, but is not limited to, evaluation of the patient, review of the medical record, discussions with family, consultants, nursing staff, or respiratory therapy, and documentation in the medical record. Physician Kizzy Aguilar MD Apr 29, 2016 08:47
[2016-04-29] MEDS: PANTOPRAZOLE SOD 40 MG DELAYED RELEASE TAB PO SCH (09:00)
[2016-04-29] MEDS: DOCUSATE SODIUM 100 MG CAP PO SCH ×2 (09:00→20:43)
[2016-04-29] MEDS: NS + KCL 20 MEQ INJ 1,000 ML IV SCH ×3 (09:46→21:11)
[2016-04-29] MEDS: PANTOPRAZOLE SODIUM 40 MG VIAL IVP SCH (09:46)
[2016-04-29] MEDS: levETIRAcetam INJ 500 MG in SODIUM CHLORIDE 0.9% INJ 100 ML IV SCH ×2 (09:47→20:43)
[2016-04-29] MEDS: CHLORHEXIDINE 0.12% (ORAL KIT) 15 ML CUP MT SCH ×2 (09:47→20:44)
[2016-04-29] MEDS: ARTIFICIAL TEARS OPTH SOLN 15 ML BTL EACH EYE SCH ×3 (09:48→16:59)
[2016-04-29] MEDS: SODIUM CHLORIDE 0.9% FLUSH 5 ML FLUSH IVF SCH ×3 (09:48→20:43)
--- NOTE | 2016-04-29 12:11 | EC ---
Study Study Date:04/28/2016 STUDY CONCLUSIONS SUMMARY - Procedure narrative: Transthoracic echocardiography. Image quality was suboptimal. The study was technically limited due to poor acoustic window availability. Scanning was performed from the parasternal, apical, and subcostal acoustic windows. - Left ventricle: The cavity size was normal. Wall thickness was increased in a pattern of mild LVH. Systolic function was normal. The estimated ejection fraction was in the range of 55% to 60%. Wall motion was normal; there were no regional wall motion abnormalities. Doppler parameters are consistent with abnormal left ventricular relaxation (grade 1 diastolic dysfunction). - Aortic valve: Valve area: 2.1cm^2 (Vmax). If LV function is below 40, please consider prescribing an ACEI or ARB or document rationale for non-use. PROCEDURE DATA STUDY STATUS: Elective. Procedure: Transthoracic echocardiography. Image quality was suboptimal. The study was technically limited due to poor acoustic window availability. Scanning was performed from the parasternal, apical, and subcostal acoustic windows. Study completion: The patient tolerated the procedure well. Transthoracic echocardiography. M-mode, complete 2D, complete spectral Doppler, and color Doppler. Patient status: Inpatient. CARDIAC ANATOMY LEFT VENTRICLE: The cavity size was normal. Wall thickness was increased in a pattern of mild LVH. Systolic function was normal. The estimated ejection fraction was in the range of 55% to 60%. Wall motion was normal; there were no regional wall motion abnormalities. Doppler parameters are consistent with abnormal left ventricular relaxation (grade 1 diastolic dysfunction). AORTIC VALVE: Trileaflet; normal thickness leaflets. Doppler: Transvalvular velocity was within the normal range. There was no stenosis. No regurgitation. Valve area: 2.1cm^2 (Vmax). AORTA: Aortic root: The aortic root was normal in size. MITRAL VALVE: Structurally normal valve. Doppler: Transvalvular velocity was within the normal range. There was no evidence for stenosis. No regurgitation. Peak gradient: 2mm Hg (D). LEFT ATRIUM: The atrium was normal in size. RIGHT VENTRICLE: The cavity size was normal. Wall thickness was normal. PULMONIC VALVE: Doppler: Transvalvular velocity was within the normal range. There was no evidence for stenosis. No regurgitation. TRICUSPID VALVE: Structurally normal valve. Doppler: Transvalvular velocity was within the normal range. No regurgitation. PULMONARY ARTERY: The main pulmonary artery was normal-sized. Systolic pressure was within the normal range. RIGHT ATRIUM: The atrium was normal in size. PERICARDIUM: There was no pericardial effusion. SYSTEMIC VEINS: Inferior vena cava: The vessel was normal in size. BASIC MEASUREMENTS ADULT NORMAL Left ventricle LV internal dimension, ED, chordal level, *39 mm 43-52 PLAX LV internal dimension, ES, chordal level, 27.1 mm 23-38 PLAX Fractional shortening, chordal level, PLAX 31 % >29 LV posterior wall thickness, ED 8.54 mm IVS/LVPW ratio, ED 0.97 <1.3 Ventricular septum Septal thickness, ED 8.3 mm Aortic valve Leaflet separation 19 mm 15-26 BASIC MEASUREMENTS ADULT NORMAL Aortic valve Leaflet separation 19 mm 15-26 Aorta Root diameter, ED 23 mm 20-37 Left atrium Anterior-posterior dimension, ES 31 mm 19-40 LA/aortic root ratio 1.35 DOPPLER MEASUREMENTS ADULT NORMAL Aortic valve Peak velocity, S 151 cm/s Valve area, Vmax 2.1 cm^2 Mitral valve Peak E-wave velocity 74.5 cm/s Peak A-wave velocity 86.4 cm/s Deceleration time 190 ms 150-230 Peak gradient, D 2 mm Hg Peak E/A ratio 0.9 Pulmonic valve Peak velocity, S 81.4 cm/s LEGEND: Mean values are shown as u=mean value. Asterisk (*) jimenez values outside specified normal range. Prepared and signed by Denny Sears [id number]
--- NOTE | 2016-04-29 14:13 | PD.OP ---
Operative Report Date of Surgery: Apr 28, 2016 Preoperative Diagnosis: Intracerebral hematoma Postoperative Diagnosis: Intracerebral hematoma Procedure: Right frontal bur hole with placement of an intracranial pressure monitor. Anesthesia: general Surgeon: Riley Johnson Slot Floorman(s): YUE Operation and Findings: INDICATIONS FOR THE PROCEDURE Ms Mobley is a 71 year old adult male who was brought to [facility] with an intracerebral hemorrhage. Follow up CT showed oncrease in the size of the hemorrhage and more midline shift. A surgical decompression and placement of an intracranial pressure monitor were indicated DETAILS OF THE SURGICAL PROCEDURE The right frontal area was shaved, prepped and draped in the usual sterile fashion. An entry point was selected behind the hairline, approximately 30 mm lateral to the midline. The incision was infiltrated with 1% lidocaine with epinephrine 1:100,000 dilution. A small incision was made with a 15 blade down to the level of the periosteum. Using a twist drill a nick hole was made. The dura was opened with a blunt stylet, and a Eric bolt was secured to the bone. A fiberoptic transducer was calibrated according to the national facilities manager's instructions, and advanced into the parenchyma of the frontal lobe through the bolt. An intracranial pressure of 5 mmHg was achieved with a good waveform. A Betadine sterile dressing was applied. The patient tolerated the procedure well. There were no intraoperative complications. Blood loss was minimal. Riley Johnson MD Apr 29, 2016 14:13
--- NOTE | 2016-04-29 16:04 | HHI.NSPN ---
(Bettie Copeland) Note Status Status: Progress Note (Bettie Copeland) Interval History Interval History Ms. Mobley is a 71 female with history of prior left temporal CVA. Earlier today the patient had sudden onset of right facial drooping and right arm weakness. There were no associated falls or trauma. She was taken to [place] ED and a CT Brain showed a 4.6 x 2.4 left basal ganglia hemorrhage without significant midline shift. Her vitals signs on arrival was noted to be extremely elevated as high as in the 200's systolic, she was placed on Cardene. The patient was reported to be initially talking on arrival but then decompensated and was emergently intubated. 04/28: well sedated, on hyperosmotic with 3%NS and Mannitol. f/u CT Brain completed. 04/29: sedated on diprivan and fentanyl. ICPs have been wnl (Bettie Copeland) Labs, Micro, & Vital Signs Results Date Time Temp Pulse Resp B/P Pulse Ox O2 Delivery O2 Flow Rate FiO2 04/29/16 14:00 66 04/29/16 12:08 100 30 04/29/16 12:00 30 04/29/16 12:00 67 04/29/16 10:00 67 04/29/16 08:45 30 04/29/16 08:03 100 30 04/29/16 08:00 30 04/29/16 08:00 68 04/29/16 06:00 69 04/29/16 04:24 100 30 04/29/16 04:00 30 04/29/16 04:00 72 04/29/16 04:00 98.0 72 12 113/59 100 04/29/16 02:00 75 04/29/16 01:05 97 30 04/29/16 00:00 30 04/29/16 00:00 98.7 77 12 117/62 100 04/29/16 00:00 77 04/28/16 22:27 99 30 04/28/16 22:00 77 04/28/16 21:00 97.3 81 10 115/64 100 04/28/16 21:00 30 04/28/16 21:00 80 04/28/16 20:15 98 30 04/28/16 20:15 98 30 04/28/16 17:40 100 100 04/28/16 16:00 71 04/28/16 16:00 30 04/28/16 16:00 98.8 67 11 120/58 100 04/28/16 15:57 98 30 04/29/16 07:00 Intake Total 2962 ml Output Total 2075 ml Balance 887 ml Constitutional Vital Signs Date Time Temp Pulse Resp B/P Pulse Ox O2 Delivery O2 Flow Rate FiO2 04/29/16 14:00 66 04/29/16 12:08 100 30 04/29/16 12:00 30 04/29/16 12:00 67 04/29/16 10:00 67 04/29/16 08:45 30 04/29/16 08:03 100 30 04/29/16 08:00 30 04/29/16 08:00 68 04/29/16 06:00 69 04/29/16 04:24 100 30 04/29/16 04:00 30 04/29/16 04:00 72 04/29/16 04:00 98.0 72 12 113/59 100 04/29/16 02:00 75 04/29/16 01:05 97 30 04/29/16 00:00 30 04/29/16 00:00 98.7 77 12 117/62 100 04/29/16 00:00 77 04/28/16 22:27 99 30 04/28/16 22:00 77 04/28/16 21:00 97.3 81 10 115/64 100 04/28/16 21:00 30 04/28/16 21:00 80 04/28/16 20:15 98 30 04/28/16 20:15 98 30 04/28/16 17:40 100 100 04/28/16 16:00 71 04/28/16 16:00 30 04/28/16 16:00 98.8 67 11 120/58 100 04/28/16 15:57 98 30 04/29/16 07:00 Intake Total 2962 ml Output Total 2075 ml Balance 887 ml (Bettie Copeland) Review of Systems/Exam Exam Ms. Mobley is intubated and sedated on multiple drips. Does not open eyes, not following commands. Wound is clean. TANYA drains in place with serous drainage. ICP monitor intact, ICPs= 6 Cranial Nerves: Pupils pinpoint b/l nonreactive to light. Eyes appear conjugated. Cervical Spine: soft, supple sensorimotor: not following for testing, no withdrawals x 4, sedated Reflexes: Plantars silent b/l Cerebellar: examination cannot be adequately assessed due to the patient's neurological condition (Bettie Copeland) Medications Current Medications Current Medications Medications (Trade) Dose Ordered Sig/Femi Route PRN Reason Start Time Stop Time Status Last Admin Dose Admin Nicardipine HCl/ Sodium Chloride (Cardene Inj/NS 250 ml Inj) 260 ml @ 0 mls/hr TITRATE IV 04/27/16 14:00 04/27/16 14:10 Mannitol 25 gm 25 gm Q6HR IV 04/27/16 18:00 04/29/16 12:00 Propofol 100 ml @ 0 mls/hr TITRATE IV 04/27/16 15:00 04/29/16 09:46 Midazolam HCl 100 ml @ 0 mls/hr TITRATE IV 04/27/16 15:00 04/28/16 22:00 Fentanyl Citrate (fentaNYL DRIP) 250 ml @ 0 mls/hr TITRATE IV 04/27/16 15:00 04/28/16 08:55 Labetalol HCl (Trandate Inj) 10 mg Q1HR PRN IV PUSH SBP>150, DBP>900, HR>65 04/27/16 15:00 Nitroglycerin (Nitroglycerin 2% Oint) 2 inch Q6HR PRN TOPICAL SBP>150, DBP>90 04/27/16 15:00 Hydralazine HCl 10 mg 10 mg Q1HR PRN IV PUSH SBP>150, DBP>90 04/27/16 15:00 04/28/16 08:00 Clevidipine (Cleviprex Inj) 50 ml @ 0 mls/hr TITRATE IV 04/27/16 15:00 Chlorhexidine Gluconate (Peridex 0.12% Liq) 15 ml BID@08,20 MT 04/27/16 20:00 04/29/16 09:47 IV Flush (NS Flush) DAILY IVF 04/28/16 09:00 04/29/16 09:48 IV Flush UNSCH PRN IVF SEE PROTOCOL 04/27/16 15:00 Sodium Chloride (Sodium Chloride 3% Inj) 500 ml @ 20 mls/hr CONTINUOUS IV 04/27/16 15:15 04/27/16 18:23 Artificial Tears (Tears Naturale Opth Soln) 1 drop TID EACH EYE 04/27/16 18:00 04/29/16 13:00 Ondansetron HCl (Zofran Inj) 4 mg Q6H PRN IV NAUSEA OR VOMITING 04/27/16 15:15 Sennosides (Senokot) 17.2 mg Q12H PRN PO CONSTIPATION 04/27/16 15:15 Miscellaneous Information 1 Q361D XX 04/27/16 15:15 04/28/16 04:00 Chlorhexidine Gluconate (Chlorhexidine 2% Cloth) 3 pack Taper DAILY@04 TOP 04/28/16 04:00 04/24/17 03:59 04/29/16 04:00 Chlorhexidine Gluconate 3 pack 3 pack UNSCH PRN [facility] 04/27/16 15:15 Potassium Chloride 100 ml @ 50 mls/hr Q2H PRN IV For Potassium 2.8 - 3.2 mEq/L 04/27/16 15:15 Potassium Chloride (KCl 20 Meq Premix Inj) 100 ml @ 50 mls/hr Q2H PRN IV For Potassium 2.8 - 3.2 mEq/L 04/27/16 15:15 Potassium Chloride 40 meq 40 meq UNSCH PRN PO/TUBE For Potassium 3.3 - 3.5 mEq/L 04/27/16 15:15 Potassium Chloride 100 ml @ 25 mls/hr UNSCH PRN IV For Potassium 3.3 - 3.5 mEq/L 04/27/16 15:15 Potassium Chloride 100 ml @ 50 mls/hr Q2H PRN IV For Potassium 3.3 - 3.5 mEq/L 04/27/16 15:15 Magnesium Sulfate/ Sodium Chloride (Magnesium Sulfate Inj/NS Inj) 100 ml @ 50 mls/hr UNSCH PRN IV For Magnesium 0.9 - 1.1 mg/dL 04/27/16 15:15 Magnesium Oxide 800 mg 800 mg UNSCH PRN PO For Magnesium 1.2 - 1.6 mg/dL 04/27/16 15:15 Magnesium Sulfate/ Sodium Chloride (Magnesium Sulfate Inj/NS Inj) 100 ml @ 50 mls/hr UNSCH PRN IV For Magnesium 1.2 - 1.6 mg/dL 04/27/16 15:15 Potassium Phosphate 2000 mg 2,000 mg Q4H PRN PO For Phosphorus < 2.5 mg/dL 04/27/16 15:15 Sodium Phosphate/ Sodium Chloride (Sodium Phosphate Inj/NS 250 ml Inj) 250 ml @ 42 mls/hr UNSCH PRN IV For Phosphorus < 2.5 mg/dL 04/27/16 15:15 04/28/16 06:55 Potassium Chloride (KCl 40 Meq/30 ml Liq) 40 meq UNSCH PRN PO/TUBE SEE LABEL COMMENTS 04/27/16 15:15 Potassium Phosphate 2000 mg 2,000 mg UNSCH PRN PO/TUBE SEE LABEL COMMENTS 04/27/16 15:15 Potassium Phosphate/Sodium Chloride (Potassium Phosphate Inj/NS 250 ml Inj) 260 ml @ 42 mls/hr UNSCH PRN IV SEE LABEL COMMENTS 04/27/16 15:15 Dextrose (D50w (Vial) Inj) 25 ml UNSCH PRN IV PUSH HYPOGLYCEMIA-SEE COMMENTS 04/27/16 15:15 04/28/16 01:18 Glucagon (Glucagon Inj) 1 mg UNSCH PRN OTHER HYPOGLYCEMIA-SEE COMMENTS 04/27/16 15:15 Insulin Human Regular 1 1 Q6HR SQ 04/27/16 18:00 04/29/16 06:31 Potassium Chloride/Sodium Chloride (NS + KCl 20 Meq Inj) 1,000 ml @ 84 mls/hr [id number] IV 04/28/16 19:31 04/29/16 09:46 IV Flush (NS Flush) 2 ml UNSCH PRN IVF FLUSH AFTER USING IV ACCESS 04/28/16 19:45 IV Flush 2 ml 2 ml BID IVF 04/28/16 21:00 04/29/16 09:48 Levetriacetam/ Sodium Chloride (Keppra Inj/NS Inj) 105 ml @ 400 mls/hr Q12H IV 04/28/16 20:00 04/29/16 09:47 Bisacodyl (Dulcolax Supp) 10 mg DAILY PRN AR CONSTIPATION 04/28/16 19:45 Docusate Sodium (Colace) 100 mg BID PO 04/28/16 21:00 04/28/16 21:58 Pantoprazole Sodium (Protonix) 40 mg DAILY PO 04/29/16 09:00 Pantoprazole Sodium (Protonix Inj) 40 mg DAILY IVP 04/29/16 09:00 04/29/16 09:46 Calcium Gluconate (Calcium Gluconate Inj) 1 gm UNSCH PRN IV SEE LABEL COMMENTS 04/28/16 19:45 Acetaminophen/ Hydrocodone Bitart ([place] 10-325 Mg) 1 tab Q4H PRN PO PAIN SCALE 1 TO 5 04/28/16 19:45 Acetaminophen/ Hydrocodone Bitart ([place] 10-325 Mg) 2 tab Q4H PRN PO PAIN SCALE 6 TO 10 04/28/16 19:45 Morphine Sulfate (Morphine Inj) 2 mg Q2H PRN IV PUSH PAIN SCALE 1 TO 6 04/28/16 19:45 Morphine Sulfate (Morphine Inj) 4 mg Q2H PRN IV PUSH PAIN SCALE 7 TO 10 04/28/16 19:45 Acetaminophen 650 mg 650 mg Q4H PRN PO TEMPERATURE > 101.5 F 04/28/16 19:45 Cefazolin Sodium/ Dextrose (Ancef 2 Gm Premix) 50 ml @ 100 mls/hr Q8H IV 04/29/16 02:00 04/29/16 18:29 04/29/16 09:47 (Bettie Copeland) Medical Decision Making MDM Remarks 71 y/o female with sudden onset of right facial weakness and right upper extremity weakness, CT Brain 04/27 showed left basal ganglia ICH, f/u CT Brain 04/28 shows increased size of ICH with 7 mm midline shift s/p left decompressive craniectomy with evacuation of intraparenchymal hematoma , and placement of ICP monitor on 04/28/16 (Bettie Copeland) Plan Plan Remarks post op CT Brain tomorrow am cont ICP monitoring cont hyperosmotic tx with 3%NS, and mannitol serial neuro checks nonchemical DVT prophylaxis in view of ICH (Bettie Copeland) Attending Statement The exam, history, and the medical decision-making described in the above note were completed with the assistance of the mid-level provider. I reviewed and agree with the findings presented. I attest that I had a [id number] encounter with the patient on the same day, and personally performed and documented my assessment and findings in the medical record. (Riley Johnson MD) Bettie Copeland Apr 29, 2016 16:04 Riley Johnson MD May 04, 2016 18:03
[2016-04-29 18:08] LABS: MAGNESIUM 2.2 MG/DL (1.5-2.5)
[2016-04-29] MEDS: 3% SALINE INJ 500 ML IV SCH (20:44)
[2016-04-30] VITALS (18 sets, daily range): BP systolic 102–160; BP diastolic 53–73; PULSE 67–92; RESP 12–14; TEMP 97.4–99.5; O2SAT 96–100
[2016-04-30] MEDS: PROPOFOL 1000 MG/100 ML INJ 100 ML IV SCH ×3 (02:11→22:05)
[2016-04-30] MEDS: fentaNYL DRIP 250 ML IV SCH ×2 (02:11→19:51)
[2016-04-30] MEDS: CHLORHEXIDINE GLUCONATE 2 % 1 PACK (2 CLOTHS) TOP SCH (03:30)
--- NOTE | 2016-04-30 03:52 | RADRPT ---
EXAM DATE/TIME: 04/30/2016 02:55 [facility] COMPARISON: CHEST SINGLE AP, April 29, 2016, 1:48. INDICATIONS : Respiratory failure MEDICAL HISTORY : None. SURGICAL HISTORY : None. ENCOUNTER: Subsequent ACUITY: 3 days PAIN SCORE: Non-responsive. LOCATION: Bilateral chest FINDINGS: Trace consolidation and effusion again seen left lung base, not significantly changed. Lungs otherwis e appear clear. No pneumothorax. Heart size stable, but limits of normal. Endotracheal tube tip is about 4 cm above the lauren. There is a nasogastric tube coursing into the s tomach. Right internal jugular central venous catheter again seen, tip in the superior vena cava. CONCLUSION: No significant change. Mild consolidation and small effusion again seen left lung base. Karthik Pope MD on April 30, 2016 at 3:49 Board Certified Radiologist. This report was verified electronically.
--- NOTE | 2016-04-30 04:48 | RADRPT ---
EXAM DATE/TIME: 04/30/2016 04:24 [facility] COMPARISON: CT BRAIN W/O CONTRAST, April 28, 2016, 4:36. INDICATIONS : Follow up hemorrhage. Post craniotomy. RADIATION DOSE: 55.50 CTDIvol (mGy) MEDICAL HISTORY : Stroke. SURGICAL HISTORY : Craniotomy. ENCOUNTER: Subsequent ACUITY: 3 days PAIN SCALE: Non-responsive LOCATION: cranial TECHNIQUE: Multiple contiguous axial images were obtained of the head. Using automated exposure control and adj ustment of the mA and/or kV according to patient size, radiation dose was kept as low as reasonably a chievable to obtain optimal diagnostic quality images. FINDINGS: Interim left for no and temporal craniotomy. Parenchymal hemorrhage in the white matter of the left c erebral hemisphere is larger, measures approximately 3.9 x 7.6 cm in greatest transaxial dimension. T here is about 2 mm of rightward midline shift. The nonhemorrhagic extra-axial fluid collection of the left temporal and frontal lobes has been removed. No new areas of hemorrhage. No mass lesion seen. No evidence of an acute ischemic event. CONCLUSION: Interim surgery and drain placement. Parenchymal hemorrhage in the left cerebral hemisphere white mat ter is slightly larger than before. About 2 mm of rightward midline shift now seen compared to 7 mm p reviously. Karthik Pope MD on April 30, 2016 at 4:42 Board Certified Radiologist. This report was verified electronically.
[2016-04-30 05:24] LABS: HEMATOCRIT 33.3 % (35.0-46.0); MEAN CELL VOLUME 93.5 FL (80.0-100.0); MEAN CORPUSCULAR HEMOGLOBIN 30.8 PG (27.0-34.0); PLATELET COUNT 252 TH/MM3 (150-450); RED BLOOD COUNT 3.56 MIL/MM3 (4.00-5.30); RED CELL DISTRIBUTION WIDTH 13.7 % (11.6-17.2); REVIEW FLAG FINAL; WHITE BLOOD COUNT 12.2 TH/MM3 (4.0-11.0)
[2016-04-30 05:48] LABS: BICARBONATE 23.9 MEQ/L (21.0-32.0); MAGNESIUM 2.3 MG/DL (1.5-2.5)
[2016-04-30] MEDS: MANNITOL 12.5 GM/50 ML VIAL IV SCH ×4 (06:00→23:12)
[2016-04-30] MEDS: INSULIN NovoLIN REGULAR SUPPLEMENTAL SCALE SQ SCH ×3 (06:06→18:00)
[2016-04-30] MEDS: CHLORHEXIDINE 0.12% (ORAL KIT) 15 ML CUP MT SCH ×2 (08:00→19:51)
[2016-04-30] MEDS: PANTOPRAZOLE SODIUM 40 MG VIAL IVP SCH (08:20)
[2016-04-30] MEDS: POTASSIUM PHOSPHATE MONOBASIC 500 MG TAB PO PRN (08:21)
[2016-04-30] MEDS: levETIRAcetam INJ 500 MG in SODIUM CHLORIDE 0.9% INJ 100 ML IV SCH ×2 (08:21→19:50)
[2016-04-30] MEDS: ARTIFICIAL TEARS OPTH SOLN 15 ML BTL EACH EYE SCH ×3 (08:52→18:00)
[2016-04-30] MEDS: PANTOPRAZOLE SOD 40 MG DELAYED RELEASE TAB PO SCH (08:53)
[2016-04-30] MEDS: SODIUM CHLORIDE 0.9% FLUSH 5 ML FLUSH IVF SCH ×3 (08:53→21:00)
[2016-04-30] MEDS: DOCUSATE SODIUM 100 MG CAP PO SCH ×2 (08:53→19:51)
[2016-04-30] MEDS: hydrALAZINE HCL 20 MG/ML VIAL IV PUSH PRN (11:41)
--- NOTE | 2016-04-30 12:40 | HHI.CCPN ---
Subjective Remarks/Hospital Course This is a 71 female. Data admission 04/27/2016. Past medical history includes left temporal CVA and seizure disorder.. She presented to the emergency room brought by her friend for strokelike symptoms. Patient was verbal when she first arrived and said that her symptoms started 40 minutes ago. 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 She had right-sided facial droop and right arm weakness. There was some right eyelid lag as well. After doing a quick NIH stroke score a stroke alert was called. Patient was rushed to the CT scanner and I spoke with the neurologist to make him aware of possible stroke. Her medications are all alternative natural medications. CT head revealed a 4.6 x 2.4 (basal ganglia intraparenchymal hemorrhage. Encephalopathy left temporal region. Neurosurgery was consultation recommended medical management with 3% hypertonic saline, mannitol and strict blood pressure control systolic blood pressure was 150 with a follow-up CT scan in a.m. While in the ED, patient decompensated with a left-sided gaze. She was flaccid in her right upper lobe extremity. Emergently intubated with 20 minutes etomidate etomidate and 100 mg succinylcholine. She is currently been sedated with propofol/fentanyl and Versed drips. Cardene drip was initiated to maintain systolic blood pressure less than 150. End tidal CO2 around 30 recommended. Receiving 50 mg mannitol IV 1 now. Subjective 04/[address] this a.m. shows slight increase in hemorrhage with a 7 mm rightward midline shift. The patient continues on hypertonic saline, mannitol every 6 hours. 04/29 The patient underwent a emergent left craniotomy last evening with placement of ICP monitor. ICP 67 mmHg postoperatively overnight. Minimal drainage from TANYA drains. Family (sister)located yesterday afternoon, notified of the events. 04/30 Afebrile. On sedation vacation yesterday afternoon, it was noted the patient localizes on the left side, not following commands. ICP ranges 39. EEG performed this a.m. Objective Vital Signs Date Time Temp Pulse Resp B/P Pulse Ox O2 Delivery O2 Flow Rate FiO2 04/30/16 12:00 99.5 92 14 160/72 100 04/30/16 12:00 30 04/27/16 17:00 Ventilator 04/27/16 14:20 2 Intake and Output 04/29/16 04/29/16 04/30/16 08:00 16:00 00:00 Intake Total 1354 ml 1160 ml 1318 ml Output Total 905 ml 815.0 ml 850 ml Balance 449 ml 345.0 ml 468 ml Result Diagram: 04/30/16 0500 04/30/16 0500 Other Results Microbiology Date/Time Procedure Status Source Growth 04/27/16 15:30 Urine Culture - Final Complete Urine Catheterized Urine NO GROWTH IN 48 HOURS. Imaging Last Impressions Head CT 04/30/16 06 Signed Impressions: Service Date/Time: Saturday, April 30, 2016 04:24 - CONCLUSION: Interim surgery and drain placement. Parenchymal hemorrhage in the left cerebral hemisphere white matter is slightly larger than before. About 2 mm of rightward midline shift now seen compared to 7 mm previously. Karthik Pope MD Chest X-Ray 04/30/16599 Signed Impressions: Service Date/Time: Saturday, April 30, 2016 02:55 - CONCLUSION: No significant change. Mild consolidation and small effusion again seen left lung base. Karthik Pope MD Last Impressions Chest X-Ray 04/29/16 06 Signed Impressions: Service Date/Time: Friday, April 29, 2016 01:48 - CONCLUSION: Endotracheal tube tip pulled back slightly, now about 4 cm above the lauren. Other lines and tubes unchanged. No significant change mild left base consolidation and small pleural effusion. Karthik Pope MD Head CT 04/28/16 06 Signed Impressions: Service Date/Time: Thursday, April 28, 2016 04:36 - CONCLUSION: Left basal ganglia subacute parenchymal hemorrhage is slightly larger. 7 mm of rightward midline shift. Karthik Pope MD Last Impressions Head CT 04/28/16 06 Signed Impressions: Service Date/Time: Thursday, April 28, 2016 04:36 - CONCLUSION: Left basal ganglia subacute parenchymal hemorrhage is slightly larger. 7 mm of rightward midline shift. Karthik Pope MD Chest X-Ray 04/28/16 0000 Signed Impressions: Service Date/Time: Thursday, April 28, 2016 04:51 - CONCLUSION: 1. Endotracheal tube tip 1.7 cm above the lauren. 2. Mild left base atelectasis not significantly changed. Karthik Pope MD Last Impressions Head CT 04/27/16 0000 Signed Impressions: Service Date/Time: Wednesday, April 27, 2016 13:33 - CONCLUSION: 1. Focal acute intraparenchymal hemorrhage involving the region of the left basal ganglia measuring 4.6 x 2.4 cm characteristic of a hemorrhagic hypertensive infarct. 2. Large area of encephalomalacia involving the left temporal frontal region. This is either a large area of old infarction versus a large arachnoid cyst. Rommel Norman MD Objective Remarks GENERAL: 71 year female, critically ill currently intubated and sedated on propofol and fentanyl infusion. SKIN: Warm and dry. No rash HEAD: Atraumatic. Normocephalic. Eric bolt in situ. Dressing C/D/I EYES: Pupils equal and round about 2 mm bilaterally and reactive. No scleral icterus. No injection or drainage. ENT: No nasal bleeding or discharge. Mucous membranes pink and moist. NECK: Trachea midline. No JVD. Orotracheally intubated. CARDIOVASCULAR: Regular rate and rhythm. S1, S2. No S4. Without murmur RESPIRATORY: Clear to auscultation. Breath sounds equal bilaterally. GASTROINTESTINAL: Abdomen soft, non-tender, nondistended. Hepatic and splenic margins not palpable. Hypoactive bowel sounds. MUSCULOSKELETAL: Extremities without clubbing, cyanosis, or edema. No obvious deformities. NEUROLOGICAL: GCS 7T. E2 V1 M 4 Procedures EEG performed this a.m. Urinary Catheter: Yes Date of Insertion: Apr 27, 2016 Vascular Central Line Catheter: Yes Date of Insertion: Apr 27, 2016 Side: Right Location: Internal, Jugular A/P Assessment and Plan Neuro/Psych: 4.62.4 cm left basal ganglia intraparenchymal hemorrhage Left temporal CVA Seizure disorder Left frontotemporal parietal craniotomy and placement of ICP monitor- POD #2 GCS 7T- off sedation - Propofol 10 mcgs, Fent [address] head revealed 4.62.4 intraparenchymal hemorrhage. Old encephalomalacia left temporal region. Keppra 500 mg BID, seizure prophylaxis (Day 4 of 7) 3% Hypertonic saline at 20 cc an hour. Sodium goal 150-155. Mannitol 25 g IV every 6 hours. Hold if Sosm greater than 310, currently 313 End tidal CO2 maintain between 30 and 35 EEG 04/30-results pending Repeat CT head 04/28-left basal ganglia subacute parenchymal hemorrhage slightly larger 7 mm rightward midline shift Dr. Johnson/neurosurgery following Neuro checks per ICU protocol CV: Hypertensive emergency-resolved Cardene drip/cleviprex to maintain systolic blood pressure less than 150mmHG As needed labetalol/hydralazine/Nitropaste Initial troponin less than 0.04. 2-D echocardiogram ordered for hypertensive heart disease, F/U results Resume normal saline at 84 cc an hour Resp: Acute respiratory failure secondary to altered mental status ACV 16/500/5/.30 Ventilator bundle Maintain head of bed elevation 30 Schedule every 6 hour bronchodilator therapy Maintain End Tidal CO2 between 30 and 35 ABG-7.44/30/84/20/-3.4 GI: OGT -Change tube feeds Glucerna1.5 @50/hr (goal rate) per Nutrition recommendations Protonix for GI prophylaxis Bowel regimen Colace,Senokot scheduled, Milk of Magnesia PRN /FEN: Hypophosphatemia Monitor BMP Monitor serum sodium, serum sOsm every 6 hours Maintain Mosley for accurate I's and O's Replete electrolytes per ICU protocol Endo: Hyperglycemia of critical illness Sliding-scale insulin with Accu-Cheks every 6 hours to maintain euglycemia. Low dose regimen. Renal: No acute issues Accurate I/O's Normal saline at 84 cc an hour Heme: Monitor CBC, ID: Leukocytosis Monitor for signs of infection UA culture-NGTD MSK: PT evaluate and treat Daily functional maintenance Access - Right IJ CVL day #3, right radial arterial line day #3, peripheral IVs 2 Prophylaxis - GI - Protonix - DVT - SCD/pharmacological prophylaxis contraindicated intracerebral hemorrhage. Dispo: Discussed with FITNESS PLAN COORDINATOR at bedside. Updated sister , Luciana Clarke on the patient's current status. Critical Care: This patient remains critically ill with one or more organ systems which are or may become a threat to life. I have spent in excess of 39 minutes discontinuously in the care and management of this patient. This time is exclusive of procedures, and includes, but is not limited to, evaluation of the patient, review of the medical record, discussions with family, consultants, nursing staff, or respiratory therapy, and documentation in the medical record. Physician Kizzy Aguilar MD Apr 30, 2016 12:40
[2016-04-30 12:55] LABS: BLOOD GAS BASE EXCESS -3.4 mmol/L (-2-2); BLOOD GAS CARBOXYHEMOGLOBIN 1.1 % (0-4); BLOOD GAS HCO3 20 mmol/L (22-26); BLOOD GAS METHEMOGLOBIN 0.8 % (0-2); BLOOD GAS O2 HGB SATURATION 95 % (90-100); BLOOD GAS OXYGEN CONTENT 14.5 Vol % (12.0-20.0); BLOOD GAS PCO2 30 mmHg (38-42); BLOOD GAS PO2 84 mmHg (61-120); BLOOD GAS TOTAL HGB 10.8 G/DL (12.0-16.0); TEMP CORR TO 98.6
[2016-04-30 12:56] LABS: CRITICAL VALUE NO; DRAW SITE LT RADIAL; FIO2 30 %; NUMBER OF ARTERIAL PUNCTURES 1; OXYGEN DEVICE VENTILATOR; STAT NO; ULNAR PULSE PRESENT
--- NOTE | 2016-04-30 14:37 | HHI.NSPN ---
(Bettie Copeland) Note Status Status: Progress Note (Bettie Copeland) Interval History Interval History Ms. Mobley is a 71 female with history of prior left temporal CVA. Earlier today the patient had sudden onset of right facial drooping and right arm weakness. There were no associated falls or trauma. She was taken to [place] ED and a CT Brain showed a 4.6 x 2.4 left basal ganglia hemorrhage without significant midline shift. Her vitals signs on arrival was noted to be extremely elevated as high as in the 200's systolic, she was placed on Cardene. The patient was reported to be initially talking on arrival but then decompensated and was emergently intubated. 04/28: well sedated, on hyperosmotic with 3%NS and Mannitol. f/u CT Brain completed. 04/29: sedated on diprivan and fentanyl. ICPs have been wnl 04/30: propofol held this am, currently getting EEG. reported to have withdrew LUE, no response to RUE. ICPs normal. (Bettie Copeland) Labs, Micro, & Vital Signs Results Date Time Temp Pulse Resp B/P Pulse Ox O2 Delivery O2 Flow Rate FiO2 04/30/16 12:00 99.5 92 14 160/72 100 04/30/16 12:00 92 04/30/16 12:00 30 04/30/16 11:19 100 30 04/30/16 10:00 92 04/30/16 08:14 96 30 04/30/16 08:14 97 30 04/30/16 08:00 97.4 72 14 137/63 96 04/30/16 08:00 72 04/30/16 08:00 30 04/30/16 06:00 68 04/30/16 04:15 100 100 04/30/16 04:00 98.9 68 12 121/59 98 04/30/16 04:00 68 04/30/16 04:00 30 04/30/16 03:48 97 30 04/30/16 02:00 68 04/30/16 00:00 99.4 74 12 102/53 04/30/16 00:00 30 04/30/16 00:00 74 04/29/16 22:20 98 30 04/29/16 22:00 75 04/29/16 20:00 99.5 88 12 130/74 100 04/29/16 20:00 30 04/29/16 20:00 88 04/29/16 19:23 100 30 04/29/16 19:23 100 30 04/29/16 18:00 77 04/29/16 16:39 100 30 04/29/16 16:00 69 04/29/16 16:00 30 04/29/16 16:00 97.5 69 12 111/88 100 04/30/16 07:00 Intake Total 3660 ml Output Total 2335.0 ml Balance 1325.0 ml Constitutional Vital Signs Date Time Temp Pulse Resp B/P Pulse Ox O2 Delivery O2 Flow Rate FiO2 04/30/16 12:00 99.5 92 14 160/72 100 04/30/16 12:00 92 04/30/16 12:00 30 04/30/16 11:19 100 30 04/30/16 10:00 92 04/30/16 08:14 96 30 04/30/16 08:14 97 30 04/30/16 08:00 97.4 72 14 137/63 96 04/30/16 08:00 72 04/30/16 08:00 30 04/30/16 06:00 68 04/30/16 04:15 100 100 04/30/16 04:00 98.9 68 12 121/59 98 04/30/16 04:00 68 04/30/16 04:00 30 04/30/16 03:48 97 30 04/30/16 02:00 68 04/30/16 00:00 99.4 74 12 102/53 04/30/16 00:00 30 04/30/16 00:00 74 04/29/16 22:20 98 30 04/29/16 22:00 75 04/29/16 20:00 99.5 88 12 130/74 100 04/29/16 20:00 30 04/29/16 20:00 88 04/29/16 19:23 100 30 04/29/16 19:23 100 30 04/29/16 18:00 77 04/29/16 16:39 100 30 04/29/16 16:00 69 04/29/16 16:00 30 04/29/16 16:00 97.5 69 12 111/88 100 04/30/16 07:00 Intake Total 3660 ml Output Total 2335.0 ml Balance 1325.0 ml (Bettie Copeland) Review of Systems/Exam Exam Ms. Mobley is intubated and sedative held. Does not open eyes, not following commands. Wound is clean. TANYA drains in place with serous drainage. ICP monitor intact, ICPs= 5 Cranial Nerves: Pupils pinpoint b/l nonreactive to light. Eyes appear conjugated. Cervical Spine: soft, supple sensorimotor: not following for testing, minimal LUE withdrawal Reflexes: Plantars silent b/l Cerebellar: examination cannot be adequately assessed due to the patient's neurological condition (Bettie Copeland) Medications Current Medications Current Medications Medications (Trade) Dose Ordered Sig/Femi Route PRN Reason Start Time Stop Time Status Last Admin Dose Admin Nicardipine HCl/ Sodium Chloride (Cardene Inj/NS 250 ml Inj) 260 ml @ 0 mls/hr TITRATE IV 04/27/16 14:00 04/27/16 14:10 Mannitol 25 gm 25 gm Q6HR IV 04/27/16 18:00 04/29/16 18:00 Propofol 100 ml @ 0 mls/hr TITRATE IV 04/27/16 15:00 04/30/16 02:11 Fentanyl Citrate (fentaNYL DRIP) 250 ml @ 0 mls/hr TITRATE IV 04/27/16 15:00 04/30/16 02:11 Labetalol HCl (Trandate Inj) 10 mg Q1HR PRN IV PUSH SBP>150, DBP>900, HR>65 04/27/16 15:00 Nitroglycerin (Nitroglycerin 2% Oint) 2 inch Q6HR PRN TOPICAL SBP>150, DBP>90 04/27/16 15:00 Hydralazine HCl 10 mg 10 mg Q1HR PRN IV PUSH SBP>150, DBP>90 04/27/16 15:00 04/30/16 11:41 Clevidipine (Cleviprex Inj) 50 ml @ 0 mls/hr TITRATE IV 04/27/16 15:00 Chlorhexidine Gluconate (Peridex 0.12% Liq) 15 ml BID@08,20 MT 04/27/16 20:00 04/30/16 08:00 IV Flush (NS Flush) DAILY IVF 04/28/16 09:00 04/30/16 08:53 IV Flush UNSCH PRN IVF SEE PROTOCOL 04/27/16 15:00 Sodium Chloride (Sodium Chloride 3% Inj) 500 ml @ 20 mls/hr CONTINUOUS IV 04/27/16 15:15 04/29/16 20:44 Artificial Tears (Tears Naturale Opth Soln) 1 drop TID EACH EYE 04/27/16 18:00 04/30/16 12:28 Ondansetron HCl (Zofran Inj) 4 mg Q6H PRN IV NAUSEA OR VOMITING 04/27/16 15:15 Miscellaneous Information 1 Q361D XX 04/27/16 15:15 04/28/16 04:00 Chlorhexidine Gluconate (Chlorhexidine 2% Cloth) 3 pack Taper DAILY@04 TOP 04/28/16 04:00 04/24/17 03:59 04/30/16 03:30 Chlorhexidine Gluconate 3 pack 3 pack UNSCH PRN TOP HYGIENIC CARE 04/27/16 15:15 Potassium Chloride 100 ml @ 50 mls/hr Q2H PRN IV For Potassium 2.8 - 3.2 mEq/L 04/27/16 15:15 Potassium Chloride (KCl 20 Meq Premix Inj) 100 ml @ 50 mls/hr Q2H PRN IV For Potassium 2.8 - 3.2 mEq/L 04/27/16 15:15 Potassium Chloride 40 meq 40 meq UNSCH PRN PO/TUBE For Potassium 3.3 - 3.5 mEq/L 04/27/16 15:15 Potassium Chloride 100 ml @ 25 mls/hr UNSCH PRN IV For Potassium 3.3 - 3.5 mEq/L 04/27/16 15:15 Potassium Chloride 100 ml @ 50 mls/hr Q2H PRN IV For Potassium 3.3 - 3.5 mEq/L 04/27/16 15:15 Magnesium Sulfate/ Sodium Chloride (Magnesium Sulfate Inj/NS Inj) 100 ml @ 50 mls/hr UNSCH PRN IV For Magnesium 0.9 - 1.1 mg/dL 04/27/16 15:15 Magnesium Oxide 800 mg 800 mg UNSCH PRN PO For Magnesium 1.2 - 1.6 mg/dL 04/27/16 15:15 Magnesium Sulfate/ Sodium Chloride (Magnesium Sulfate Inj/NS Inj) 100 ml @ 50 mls/hr UNSCH PRN IV For Magnesium 1.2 - 1.6 mg/dL 04/27/16 15:15 Potassium Phosphate 2000 mg 2,000 mg Q4H PRN PO For Phosphorus < 2.5 mg/dL 04/27/16 15:15 04/30/16 08:21 Sodium Phosphate/ Sodium Chloride (Sodium Phosphate Inj/NS 250 ml Inj) 250 ml @ 42 mls/hr UNSCH PRN IV For Phosphorus < 2.5 mg/dL 04/27/16 15:15 04/28/16 06:55 Potassium Chloride (KCl 40 Meq/30 ml Liq) 40 meq UNSCH PRN PO/TUBE SEE LABEL COMMENTS 04/27/16 15:15 Potassium Phosphate 2000 mg 2,000 mg UNSCH PRN PO/TUBE SEE LABEL COMMENTS 04/27/16 15:15 Potassium Phosphate/Sodium Chloride (Potassium Phosphate Inj/NS 250 ml Inj) 260 ml @ 42 mls/hr UNSCH PRN IV SEE LABEL COMMENTS 04/27/16 15:15 Dextrose (D50w (Vial) Inj) 25 ml UNSCH PRN IV PUSH HYPOGLYCEMIA-SEE COMMENTS 04/27/16 15:15 04/28/16 01:18 Glucagon (Glucagon Inj) 1 mg UNSCH PRN OTHER HYPOGLYCEMIA-SEE COMMENTS 04/27/16 15:15 Insulin Human Regular 1 1 Q6HR SQ 04/27/16 18:00 04/30/16 12:00 Potassium Chloride/Sodium Chloride (NS + KCl 20 Meq Inj) 1,000 ml @ 84 mls/hr [id number] IV 04/28/16 19:31 04/29/16 21:11 IV Flush (NS Flush) 2 ml UNSCH PRN IVF FLUSH AFTER USING IV ACCESS 04/28/16 19:45 IV Flush 2 ml 2 ml BID IVF 04/28/16 21:00 04/30/16 08:53 Levetriacetam/ Sodium Chloride (Keppra Inj/NS Inj) 105 ml @ 400 mls/hr Q12H IV 04/28/16 20:00 04/30/16 08:21 Bisacodyl (Dulcolax Supp) 10 mg DAILY PRN WI CONSTIPATION 04/28/16 19:45 Docusate Sodium (Colace) 100 mg BID PO 04/28/16 21:00 04/29/16 20:43 Pantoprazole Sodium (Protonix) 40 mg DAILY PO 04/29/16 09:00 Pantoprazole Sodium (Protonix Inj) 40 mg DAILY IVP 04/29/16 09:00 04/30/16 08:20 Calcium Gluconate (Calcium Gluconate Inj) 1 gm UNSCH PRN IV SEE LABEL COMMENTS 04/28/16 19:45 Acetaminophen/ Hydrocodone Bitart (Hematite 10-325 Mg) 1 tab Q4H PRN PO PAIN SCALE 1 TO 5 04/28/16 19:45 Acetaminophen/ Hydrocodone Bitart (Hematite 10-325 Mg) 2 tab Q4H PRN PO PAIN SCALE 6 TO 10 04/28/16 19:45 Morphine Sulfate (Morphine Inj) 2 mg Q2H PRN IV PUSH PAIN SCALE 1 TO 6 04/28/16 19:45 Morphine Sulfate (Morphine Inj) 4 mg Q2H PRN IV PUSH PAIN SCALE 7 TO 10 04/28/16 19:45 Acetaminophen (Tylenol) 650 mg Q4H PRN PO TEMPERATURE > 101.5 F 04/28/16 19:45 Sennosides (Senokot) 17.2 mg Q12H PO 04/30/16 15:15 UNV Magnesium Hydroxide (Milk Of Magnesia Liq) 30 ml DAILY PRN PO CONSTIPATION 04/30/16 14:30 UNV (Bettie Copeland) Medical Decision Making MDM Remarks 71 y/o female with sudden onset of right facial weakness and right upper extremity weakness, CT Brain 04/27 showed left basal ganglia ICH, f/u CT Brain 04/28 shows increased size of ICH with 7 mm midline shift s/p left decompressive craniectomy with evacuation of intraparenchymal hematoma , and placement of ICP monitor on 04/28/16 f/u CT Brain 04/30 shows improved midline shift, still with moderate left intraparenchymal hematoma (Bettie Copeland) Plan Plan Remarks CT Brain reviewed, improved midline shift, remains with large left parenchymal hematoma cont TANYA drain to suction cont ICP monitoring cont hyperosmotic tx serial neuro checks nonchemical DVT prophylaxis in view of ICH (Bettie Copeland) Attending Statement The exam, history, and the medical decision-making described in the above note were completed with the assistance of the mid-level provider. I reviewed and agree with the findings presented. I attest that I had a [id number] encounter with the patient on the same day, and personally performed and documented my assessment and findings in the medical record. (Riley Johnson MD) Bettie Copeland Apr 30, 2016 14:37 Riley Johnson MD May 04, 2016 18:06
[2016-04-30] MEDS: SENNOSIDES 8.6 MG TAB PO SCH (15:17)
[2016-04-30] MEDS: NS + KCL 20 MEQ INJ 1,000 ML IV SCH ×2 (16:37→22:06)
[2016-04-30] MEDS: 3% SALINE INJ 500 ML IV SCH (19:52)
[2016-05-01] VITALS (19 sets, daily range): BP systolic 142–165; BP diastolic 67–77; PULSE 51–88; RESP 12–14; TEMP 97.7–99.5; O2SAT 97–100
[2016-05-01] MEDS: MORPHINE SULFATE 4 MG/ML INJ IV PUSH PRN ×2 (00:46→03:32)
[2016-05-01] MEDS: SENNOSIDES 8.6 MG TAB PO SCH ×2 (03:31→14:35)
[2016-05-01] MEDS: CHLORHEXIDINE GLUCONATE 2 % 1 PACK (2 CLOTHS) TOP SCH (04:00)
[2016-05-01] MEDS: PROPOFOL 1000 MG/100 ML INJ 100 ML IV SCH ×3 (04:46→18:30)
[2016-05-01] MEDS: hydrALAZINE HCL 20 MG/ML VIAL IV PUSH PRN ×2 (04:46→16:01)
--- NOTE | 2016-05-01 05:31 | MG ---
cc: RICKY WA[facility] Lab No: Date: 04/30/2016 Age: 71 Sex: F Race: EEG 17-151 NOTE Hyperventilation not performed. Patient on fentanyl. INDICATIONS Left ganglia hemorrhage, right facial droop. IDENTIFYING DATA 71 years old. MEDICATIONS 1. Keppra. 2. Fentanyl. FINDINGS There is actually some I would say focal slowing on the right hemisphere compared to the left, at times some delta slowing. Some slight sharply contoured waves are seen over the right central head region compared to the left and there is general attenuation on the left compared to the right. Diffuse theta rhythms are noted in general. Hyperventilation not performed. Photic stimulation is performed without significant posterior driving. IMPRESSION Diffuse theta slowing consistent with a moderate diffuse encephalopathy. There are actually some sharply contoured waves seen on the right hemisphere more so than the left and there is an attenuation on the left possibly due to the hemorrhage, especially at epoch 128. I would say there is some semi-rhythmic, sharply contoured waves noted which could be indicative of a seizure. Clinical correlation is needed but this is an abnormal EEG, not only for the asymmetry but for the sharps seen on the right hemisphere and attenuation on the left. MD MARTHA Plata/JEFFREY /11:57 PM /5:25 AM
[2016-05-01] MEDS: MANNITOL 12.5 GM/50 ML VIAL IV SCH ×3 (06:00→18:00)
[2016-05-01 06:44] LABS: HEMATOCRIT 30.6 % (35.0-46.0); MEAN CELL VOLUME 93.7 FL (80.0-100.0); MEAN CORPUSCULAR HEMOGLOBIN 31.8 PG (27.0-34.0); MEAN CORPUSCULAR HGB CONC 33.9 % (32.0-36.0); PLATELET COUNT 229 TH/MM3 (150-450); RED BLOOD COUNT 3.26 MIL/MM3 (4.00-5.30); RED CELL DISTRIBUTION WIDTH 13.9 % (11.6-17.2); REVIEW FLAG FINAL
[2016-05-01 06:53] LABS: MAGNESIUM 2.4 MG/DL (1.5-2.5)
[2016-05-01] MEDS: INSULIN NovoLIN REGULAR SUPPLEMENTAL SCALE SQ SCH ×4 (06:55→17:43)
[2016-05-01] MEDS: CHLORHEXIDINE 0.12% (ORAL KIT) 15 ML CUP MT SCH ×2 (08:00→20:31)
[2016-05-01] MEDS: levETIRAcetam INJ 500 MG in SODIUM CHLORIDE 0.9% INJ 100 ML IV SCH ×2 (08:13→20:31)
[2016-05-01] MEDS: PANTOPRAZOLE SODIUM 40 MG VIAL IVP SCH (08:14)
[2016-05-01] MEDS: DOCUSATE SODIUM 100 MG CAP PO SCH ×2 (08:14→20:31)
[2016-05-01] MEDS: PANTOPRAZOLE SOD 40 MG DELAYED RELEASE TAB PO SCH (08:14)
[2016-05-01] MEDS: ARTIFICIAL TEARS OPTH SOLN 15 ML BTL EACH EYE SCH ×3 (08:14→18:00)
[2016-05-01] MEDS: SODIUM CHLORIDE 0.9% FLUSH 5 ML FLUSH IVF SCH ×3 (08:15→21:00)
--- NOTE | 2016-05-01 10:09 | HHI.NSPN ---
(Bettie Copeland) Note Status Status: Progress Note (Bettie Copeland) Interval History Interval History Ms. Mobley is a 71 female with history of prior left temporal CVA. Earlier today the patient had sudden onset of right facial drooping and right arm weakness. There were no associated falls or trauma. She was taken to [place] ED and a CT Brain showed a 4.6 x 2.4 left basal ganglia hemorrhage without significant midline shift. Her vitals signs on arrival was noted to be extremely elevated as high as in the 200's systolic, she was placed on Cardene. The patient was reported to be initially talking on arrival but then decompensated and was emergently intubated. 04/28: well sedated, on hyperosmotic with 3%NS and Mannitol. f/u CT Brain completed. 04/29: sedated on diprivan and fentanyl. ICPs have been wnl 04/30: currently sedated on diprivan. had sedation vacation this am, reported to cough, and withdraws left upper extremity. ICPs low. 05/01: still moderate output to TANYA drain with some clots, ICPs low. intubated, sedated. localizes LUE off sedation, no eye opening, not following commands. ( Bettie Copeland) Labs, Micro, & Vital Signs Results Date Time Temp Pulse Resp B/P Pulse Ox O2 Delivery O2 Flow Rate FiO2 05/01/16 08:00 30 05/01/16 08:00 56 05/01/16 08:00 97.7 56 12 145/70 97 05/01/16 07:54 98 30 05/01/16 07:44 99 30 05/01/16 06:00 61 05/01/16 04:30 100 30 05/01/16 04:00 98.4 57 12 146/67 99 05/01/16 04:00 30 05/01/16 04:00 61 05/01/16 02:00 56 05/01/16 01:09 100 30 05/01/16 00:00 99.5 51 14 165/77 99 05/01/16 00:00 51 2/2/17 00:00 30 04/30/16 22:00 68 04/30/16 20:00 30 04/30/16 20:00 98.9 71 14 141/62 100 04/30/16 20:00 71 04/30/16 19:59 99 30 04/30/16 18:00 71 04/30/16 16:34 100 30 04/30/16 16:00 99.4 67 14 155/73 100 04/30/16 16:00 30 04/30/16 16:00 79 04/30/16 14:00 79 04/30/16 12:00 99.5 92 14 160/72 100 04/30/16 12:00 92 04/30/16 12:00 30 04/30/16 11:19 100 30 05/01/16 07:00 Intake Total 4666 ml Output Total 1860 ml Balance 2806 ml Constitutional Vital Signs Date Time Temp Pulse Resp B/P Pulse Ox O2 Delivery O2 Flow Rate FiO2 05/01/16 08:00 30 05/01/16 08:00 56 05/01/16 08:00 97.7 56 12 145/70 97 05/01/16 07:54 98 30 05/01/16 07:44 99 30 05/01/16 06:00 61 05/01/16 04:30 100 30 05/01/16 04:00 98.4 57 12 146/67 99 05/01/16 04:00 30 05/01/16 04:00 61 05/01/16 02:00 56 05/01/16 01:09 100 30 05/01/16 00:00 99.5 51 14 165/77 99 05/01/16 00:00 51 05/01/16 00:00 30 04/30/16 22:00 68 04/30/16 20:00 30 04/30/16 20:00 98.9 71 14 141/62 100 04/30/16 20:00 71 04/30/16 19:59 99 30 04/30/16 18:00 71 04/30/16 16:34 100 30 04/30/16 16:00 99.4 67 14 155/73 100 04/30/16 16:00 30 04/30/16 16:00 79 04/30/16 14:00 79 04/30/16 12:00 99.5 92 14 160/72 100 04/30/16 12:00 92 04/30/16 12:00 30 04/30/16 11:19 100 30 05/01/16 07:00 Intake Total 4666 ml Output Total 1860 ml Balance 2806 ml (Bettie Copeland) Review of Systems/Exam Exam Ms. Mobley is intubated and sedated on multiple drips. Does not open eyes, not following commands. Wound is clean. TANYA drains in place with serous drainage. ICP monitor intact, ICPs= 6 Cranial Nerves: Pupils pinpoint b/l nonreactive to light. Eyes appear conjugated. Cervical Spine: soft, supple sensorimotor: not following for testing, no withdrawals x 4, sedated Reflexes: Plantars silent b/l Cerebellar: examination cannot be adequately assessed due to the patient's neurological condition (Bettie Copeland) Medications Current Medications Current Medications Medications (Trade) Dose Ordered Sig/Femi Route PRN Reason Start Time Stop Time Status Last Admin Dose Admin Nicardipine HCl/ Sodium Chloride (Cardene Inj/NS 250 ml Inj) 260 ml @ 0 mls/hr TITRATE IV 04/27/16 14:00 04/27/16 14:10 Mannitol 25 gm 25 gm Q6HR IV 04/27/16 18:00 04/29/16 18:00 Propofol 100 ml @ 0 mls/hr TITRATE IV 04/27/16 15:00 05/01/16 04:46 Fentanyl Citrate (fentaNYL DRIP) 250 ml @ 0 mls/hr TITRATE IV 04/27/16 15:00 04/30/16 19:51 Labetalol HCl (Trandate Inj) 10 mg Q1HR PRN IV PUSH SBP>150, DBP>900, HR>65 04/27/16 15:00 Nitroglycerin (Nitroglycerin 2% Oint) 2 inch Q6HR PRN TOPICAL SBP>150, DBP>90 04/27/16 15:00 Hydralazine HCl 10 mg 10 mg Q1HR PRN IV PUSH SBP>150, DBP>90 04/27/16 15:00 05/01/16 04:46 Clevidipine (Cleviprex Inj) 50 ml @ 0 mls/hr TITRATE IV 04/27/16 15:00 Chlorhexidine Gluconate (Peridex 0.12% Liq) 15 ml BID@08,20 MT 04/27/16 20:00 05/01/16 08:00 IV Flush (NS Flush) DAILY IVF 04/28/16 09:00 05/01/16 08:15 IV Flush (NS Flush) UNSCH PRN IVF SEE PROTOCOL 04/27/16 15:00 Artificial Tears (Tears Naturale Opth Soln) 1 drop TID EACH EYE 04/27/16 18:00 05/01/16 08:14 Ondansetron HCl (Zofran Inj) 4 mg Q6H PRN IV NAUSEA OR VOMITING 04/27/16 15:15 Miscellaneous Information 1 Q361D XX 04/27/16 15:15 04/28/16 04:00 Chlorhexidine Gluconate (Chlorhexidine 2% Cloth) 3 pack Taper DAILY@04 TOP 04/28/16 04:00 04/24/17 03:59 05/01/16 04:00 Chlorhexidine Gluconate 3 pack 3 pack UNSCH PRN [facility] 04/27/16 15:15 Potassium Chloride 100 ml @ 50 mls/hr Q2H PRN IV For Potassium 2.8 - 3.2 mEq/L 04/27/16 15:15 Potassium Chloride (KCl 20 Meq Premix Inj) 100 ml @ 50 mls/hr Q2H PRN IV For Potassium 2.8 - 3.2 mEq/L 04/27/16 15:15 Potassium Chloride 40 meq 40 meq UNSCH PRN PO/TUBE For Potassium 3.3 - 3.5 mEq/L 04/27/16 15:15 Potassium Chloride 100 ml @ 25 mls/hr UNSCH PRN IV For Potassium 3.3 - 3.5 mEq/L 04/27/16 15:15 Potassium Chloride 100 ml @ 50 mls/hr Q2H PRN IV For Potassium 3.3 - 3.5 mEq/L 04/27/16 15:15 Magnesium Sulfate/ Sodium Chloride (Magnesium Sulfate Inj/NS Inj) 100 ml @ 50 mls/hr UNSCH PRN IV For Magnesium 0.9 - 1.1 mg/dL 04/27/16 15:15 Magnesium Oxide 800 mg 800 mg UNSCH PRN PO For Magnesium 1.2 - 1.6 mg/dL 04/27/16 15:15 Magnesium Sulfate/ Sodium Chloride (Magnesium Sulfate Inj/NS Inj) 100 ml @ 50 mls/hr UNSCH PRN IV For Magnesium 1.2 - 1.6 mg/dL 04/27/16 15:15 Potassium Phosphate 2000 mg 2,000 mg Q4H PRN PO For Phosphorus < 2.5 mg/dL 04/27/16 15:15 04/30/16 08:21 Sodium Phosphate/ Sodium Chloride (Sodium Phosphate Inj/NS 250 ml Inj) 250 ml @ 42 mls/hr UNSCH PRN IV For Phosphorus < 2.5 mg/dL 04/27/16 15:15 04/28/16 06:55 Potassium Chloride (KCl 40 Meq/30 ml Liq) 40 meq UNSCH PRN PO/TUBE SEE LABEL COMMENTS 04/27/16 15:15 Potassium Phosphate 2000 mg 2,000 mg UNSCH PRN PO/TUBE SEE LABEL COMMENTS 04/27/16 15:15 Potassium Phosphate/Sodium Chloride (Potassium Phosphate Inj/NS 250 ml Inj) 260 ml @ 42 mls/hr UNSCH PRN IV SEE LABEL COMMENTS 04/27/16 15:15 Dextrose (D50w (Vial) Inj) 25 ml UNSCH PRN IV PUSH HYPOGLYCEMIA-SEE COMMENTS 04/27/16 15:15 04/28/16 01:18 Glucagon (Glucagon Inj) 1 mg UNSCH PRN OTHER HYPOGLYCEMIA-SEE COMMENTS 04/27/16 15:15 Insulin Human Regular 1 1 Q6HR SQ 04/27/16 18:00 05/01/16 06:55 Potassium Chloride/Sodium Chloride (NS + KCl 20 Meq Inj) 1,000 ml @ 100 mls/hr Q10H IV 04/28/16 19:31 04/30/16 22:06 IV Flush (NS Flush) 2 ml UNSCH PRN IVF FLUSH AFTER USING IV ACCESS 04/28/16 19:45 IV Flush 2 ml 2 ml BID IVF 04/28/16 21:00 05/01/16 08:15 Levetriacetam/ Sodium Chloride (Keppra Inj/NS Inj) 105 ml @ 400 mls/hr Q12H IV 04/28/16 20:00 05/01/16 08:13 Bisacodyl (Dulcolax Supp) 10 mg DAILY PRN [place] CONSTIPATION 04/28/16 19:45 Docusate Sodium (Colace) 100 mg BID PO 04/28/16 21:00 04/30/16 19:51 Pantoprazole Sodium (Protonix Inj) 40 mg DAILY IVP 04/29/16 09:00 05/01/16 08:14 Calcium Gluconate (Calcium Gluconate Inj) 1 gm UNSCH PRN IV SEE LABEL COMMENTS 04/28/16 19:45 Acetaminophen/ Hydrocodone Bitart ([place] 10-325 Mg) 1 tab Q4H PRN PO PAIN SCALE 1 TO 5 04/28/16 19:45 Acetaminophen/ Hydrocodone Bitart ([place] 10-325 Mg) 2 tab Q4H PRN PO PAIN SCALE 6 TO 10 04/28/16 19:45 Morphine Sulfate (Morphine Inj) 2 mg Q2H PRN IV PUSH PAIN SCALE 1 TO 6 04/28/16 19:45 Morphine Sulfate (Morphine Inj) 4 mg Q2H PRN IV PUSH PAIN SCALE 7 TO 10 04/28/16 19:45 05/01/16 03:32 Acetaminophen (Tylenol) 650 mg Q4H PRN PO TEMPERATURE > 101.5 F 04/28/16 19:45 Sennosides (Senokot) 17.2 mg Q12H PO 04/30/16 15:00 05/01/16 03:31 Magnesium Hydroxide (Milk Of Magnesia Liq) 30 ml DAILY PRN PO CONSTIPATION 04/30/16 14:30 (Bettie Copeland) Medical Decision Making MDM Remarks 71 y/o female with sudden onset of right facial weakness and right upper extremity weakness, CT Brain 04/27 showed left basal ganglia ICH, f/u CT Brain 04/28 shows increased size of ICH with 7 mm midline shift s/p left decompressive craniectomy with evacuation of intraparenchymal hematoma , and placement of ICP monitor on 04/28/16 f/u CT Brain 04/30 shows improved midline shift, still with moderate left intraparenchymal hematoma Abnormal EEG with some sharp waves could be indicative of seizures, no clinical evidence of seizures (Bettie Copeland) Plan Plan Remarks POD 3 cont weaning sedation as tolerated cont TANYA draining to suction dc bolt monitor serial neuro checks nonchemical DVT prophylaxis in view of ICH dw nursing, call placed to Dr. Atkinson for seizures, has seen pt in consult on arrival (Bettie Copeland) Attending Statement The exam, history, and the medical decision-making described in the above note were completed with the assistance of the mid-level provider. I reviewed and agree with the findings presented. I attest that I had a [id number] encounter with the patient on the same day, and personally performed and documented my assessment and findings in the medical record. (Riley Johnson MD) Bettie Copeland May 01, 2016 10:09 Riley Johnson MD May 04, 2016 18:09
[2016-05-01] MEDS: MAGNESIUM HYDROXIDE SUSP 30 ML CUP PO PRN (10:44)
[2016-05-01] MEDS: NS + KCL 20 MEQ INJ 1,000 ML IV SCH ×3 (10:44→20:30)
[2016-05-01] MEDS: POTASSIUM PHOSPHATE MONOBASIC 500 MG TAB PO PRN (10:44)
--- NOTE | 2016-05-01 10:48 | HHI.CCPN ---
Subjective Remarks/Hospital Course This is a 71 female. Data admission 04/27/2016. Past medical history includes left temporal CVA and seizure disorder.. She presented to the emergency room brought by her friend for strokelike symptoms. Patient was verbal when she first arrived and said that her symptoms started 40 minutes ago. 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 She had right-sided facial droop and right arm weakness. There was some right eyelid lag as well. After doing a quick NIH stroke score a stroke alert was called. Patient was rushed to the CT scanner and I spoke with the neurologist to make him aware of possible stroke. Her medications are all alternative natural medications. CT head revealed a 4.6 x 2.4 (basal ganglia intraparenchymal hemorrhage. Encephalopathy left temporal region. Neurosurgery was consultation recommended medical management with 3% hypertonic saline, mannitol and strict blood pressure control systolic blood pressure was 150 with a follow-up CT scan in a.m. While in the ED, patient decompensated with a left-sided gaze. She was flaccid in her right upper lobe extremity. Emergently intubated with 20 minutes etomidate etomidate and 100 mg succinylcholine. She is currently been sedated with propofol/fentanyl and Versed drips. Cardene drip was initiated to maintain systolic blood pressure less than 150. End tidal CO2 around 30 recommended. Receiving 50 mg mannitol IV 1 now. Subjective 04/[address] this a.m. shows slight increase in hemorrhage with a 7 mm rightward midline shift. The patient continues on hypertonic saline, mannitol every 6 hours. 04/29 The patient underwent a emergent left craniotomy last evening with placement of ICP monitor. ICP 67 mmHg postoperatively overnight. Minimal drainage from TANYA drains. Family (sister)located yesterday afternoon, notified of the events. 04/30 Afebrile. No sedation vacation yesterday afternoon, it was noted the patient localizes on the left side, not following commands. ICP ranges 39. EEG performed this a.m. 05/01 The patient continues to localize on the left side, when off sedation. TANYA drains totaling 300 cc in 24 hours ,serosanguineous. Objective Vital Signs Date Time Temp Pulse Resp B/P Pulse Ox O2 Delivery O2 Flow Rate FiO2 2/2/17 08:00 30 05/01/16 08:00 56 05/01/16 08:00 97.7 12 145/70 97 04/27/16 17:00 Ventilator 04/27/16 14:20 2 Intake and Output 04/30/16 04/30/16 04/30/16 07:59 15:59 23:59 Intake Total 1182 ml 1569 ml 1741 ml Output Total 670 ml 730 ml 525 ml Balance 512 ml 839 ml 1216 ml Result Diagram: 05/01/16 0605/01/16 06 Other Results Laboratory Tests Test 04/30/16 12:43 Blood Gas Puncture Site LT RADIAL Blood Gas Patient Temperature 98.6 Blood Gas HCO3 20 mmol/L (22-26) Blood Gas Base Excess -3.4 mmol/L (-2-2) Blood Gas Oxygen Saturation 95 % (90-100) Arterial Blood pH 7.44 (7.380-7.420) Arterial Blood Partial 30 mmHg (38-42) Pressure CO2 Arterial Blood Partial 84 mmHg Pressure O2 (61-120) Arterial Blood Oxygen Content 14.5 Vol % (12.0-20.0) Arterial Blood 1.1 % (0-4) Carboxyhemoglobin Arterial Blood Methemoglobin 0.8 % (0-2) Blood Gas Hemoglobin 10.8 G/DL (12.0-16.0) Oxygen Delivery Device VENTILATOR Blood Gas Ventilator Setting Blood Gas Inspired Oxygen 30 % Imaging Last Impressions Head CT 04/30/16599 Signed Impressions: Service Date/Time: Saturday, April 30, 2016 04:24 - CONCLUSION: Interim surgery and drain placement. Parenchymal hemorrhage in the left cerebral hemisphere white matter is slightly larger than before. About 2 mm of rightward midline shift now seen compared to 7 mm previously. Karthik Pope MD Chest X-Ray 04/30/16599 Signed Impressions: Service Date/Time: Saturday, April 30, 2016 02:55 - CONCLUSION: No significant change. Mild consolidation and small effusion again seen left lung base. Karthik Pope MD Last Impressions Chest X-Ray 04/29/16599 Signed Impressions: Service Date/Time: Friday, April 29, 2016 01:48 - CONCLUSION: Endotracheal tube tip pulled back slightly, now about 4 cm above the lauren. Other lines and tubes unchanged. No significant change mild left base consolidation and small pleural effusion. Karthik Pope MD Head CT 04/28/16 0600 Signed Impressions: Service Date/Time: Thursday, April 28, 2016 04:36 - CONCLUSION: Left basal ganglia subacute parenchymal hemorrhage is slightly larger. 7 mm of rightward midline shift. Karthik Pope MD Last Impressions Head CT 04/28/16 0600 Signed Impressions: Service Date/Time: Thursday, April 28, 2016 04:36 - CONCLUSION: Left basal ganglia subacute parenchymal hemorrhage is slightly larger. 7 mm of rightward midline shift. Karthik Pope MD Chest X-Ray 04/28/16 0000 Signed Impressions: Service Date/Time: Thursday, April 28, 2016 04:51 - CONCLUSION: 1. Endotracheal tube tip 1.7 cm above the lauren. 2. Mild left base atelectasis not significantly changed. Karthik Pope MD Last Impressions Head CT 04/27/16 0000 Signed Impressions: Service Date/Time: Wednesday, April 27, 2016 13:33 - CONCLUSION: 1. Focal acute intraparenchymal hemorrhage involving the region of the left basal ganglia measuring 4.6 x 2.4 cm characteristic of a hemorrhagic hypertensive infarct. 2. Large area of encephalomalacia involving the left temporal frontal region. This is either a large area of old infarction versus a large arachnoid cyst. Rommel Norman MD Objective Remarks GENERAL: 71 year obese female, critically ill currently intubated and sedated on propofol. SKIN: Warm and dry. HEAD: Atraumatic. Normocephalic. Eric bolt in situ. 2 TANYA drains with serosanguineous fluid noted. Staple line without erythema or drainage EYES: No scleral icterus. No injection or drainage. ENT: No nasal bleeding or discharge. Mucous membranes pink and moist. NECK: Trachea midline. No JVD. Orotracheally intubated. CARDIOVASCULAR: Regular rate and rhythm. S1, S2. No S4. Without murmur RESPIRATORY: Clear to auscultation. Breath sounds equal bilaterally. GASTROINTESTINAL: Abdomen soft, non-tender, nondistended. Hepatic and splenic margins not palpable. Hypoactive bowel sounds. MUSCULOSKELETAL: Extremities without clubbing, cyanosis, or edema. No obvious deformities. NEUROLOGICAL: Intubated and sedated at this time, with propofol infusion Urinary Catheter: Yes Mosley insert reason: ICU Pt Getting Diuretics Date of Insertion: Apr 27, 2016 Vascular Central Line Catheter: Yes Date of Insertion: Apr 27, 2016 Side: Right Location: Internal, Jugular A/P Assessment and Plan Neuro/Psych: 4.62.4 cm left basal ganglia intraparenchymal hemorrhage Left temporal CVA Seizure disorder Left frontotemporal parietal craniotomy and placement of ICP monitor- POD #3 GCS 7T- off sedation -Sedation- Propofol [address] head revealed 4.62.4 intraparenchymal hemorrhage. Old encephalomalacia left temporal region. Keppra 500 mg BID, seizure prophylaxis (Day 4 of 7) 3% Hypertonic saline at 20 cc an hour. Sodium goal 150-155. Mannitol 25 g IV every 6 hours. Hold if Sosm greater than 310 End tidal CO2 maintain between 30 and 35 EEG 2/-moderate diffuse encephalopathy Repeat CT brain 04/28-left basal ganglia subacute parenchymal hemorrhage slightly larger 7 mm rightward midline shift CT brain04/30 -[address] Johnson/neurosurgery following, ICPs low possibly secondary to TANYA drains Dr. Johnson aware Neuro checks per ICU protocol CV: Hypertensive emergency-resolved Cardene drip/cleviprex to maintain systolic blood pressure less than 150mmHG As needed labetalol/hydralazine/Nitropaste Initial troponin less than 0.04. 2-D echocardiogram ordered for hypertensive heart disease, F/U results Normal saline at 100 cc an hour Resp: Acute respiratory failure secondary to altered mental status ACV 16/500/5/.30 Ventilator bundle Maintain head of bed elevation 30 Schedule every 6 hour bronchodilator therapy Maintain End Tidal CO2 between 30 and 35 ABG -7.41/32/93/20/-3.8 GI: OGT -Glucerna1.5 @50/hr (goal rate) per Nutrition recommendations Protonix for GI prophylaxis Bowel regimen Colace,Senokot scheduled, Milk of Magnesia PRN No BM /FEN: Hypophosphatemia-resolved Monitor BMP Monitor serum sodium, serum sOsm every 6 hours Maintain Mosley for accurate I's and O's Replete electrolytes per ICU protocol Endo: Hyperglycemia of critical illness Sliding-scale insulin with Accu-Cheks every 6 hours to maintain euglycemia. Low dose regimen. Renal: No acute issues Accurate I/O's Normal saline at 100 cc an hour Heme: Monitor CBC, ID: Leukocytosis-resolved Monitor for signs of infection UA culture-NGTD MSK: PT evaluate and treat Daily functional maintenance Access - Right IJ CVL day #4, right radial arterial line day dc'd, peripheral IVs 2 Prophylaxis - GI - Protonix - DVT - SCD/pharmacological prophylaxis contraindicated intracerebral hemorrhage. Dispo: Discussed with SNUFF BLENDER at bedside, and Dr. Johnson. Critical Care: This patient remains critically ill with one or more organ systems which are or may become a threat to life. I have spent in excess of 31 minutes discontinuously in the care and management of this patient. This time is exclusive of procedures, and includes, but is not limited to, evaluation of the patient, review of the medical record, discussions with family, consultants, nursing staff, or respiratory therapy, and documentation in the medical record. Physician Kizzy Aguilar MD May 01, 2016 10:47
[2016-05-01] MEDS ORDERED: 3% SALINE INJ 500 ML IV SCH (11:00)
[2016-05-01 12:25] LABS: BLOOD GAS BASE EXCESS -3.8 mmol/L (-2-2); BLOOD GAS HCO3 20 mmol/L (22-26); BLOOD GAS METHEMOGLOBIN 0.8 % (0-2); BLOOD GAS O2 HGB SATURATION 95 % (90-100); BLOOD GAS OXYGEN CONTENT 14.7 Vol % (12.0-20.0); BLOOD GAS PCO2 32 mmHg (38-42); BLOOD GAS PO2 93 mmHg (61-120); BLOOD GAS TOTAL HGB 10.9 G/DL (12.0-16.0); TEMP CORR TO 98.6
[2016-05-01 12:26] LABS: CRITICAL VALUE NO; DRAW SITE LT RADIAL; FIO2 40 %; NUMBER OF ARTERIAL PUNCTURES 1; OXYGEN DEVICE VENTILATOR; STAT NO; VENT SETTINGS AC/12/550/+5/40%
--- NOTE | 2016-05-01 19:01 | HHI.PR ---
Review/Management Daily Summary status discussed and reviewed she is smoving left side spontaneously and probaly plegic on right but sedated eeg reviewed, agree with dr Han though wonder if sharps on the right also could be metabolic on propofol and keppra continue current seizure prophylaxis management Subjective Subjective Comments No seizures noted Active Medications Current Medications Medications (Trade) Dose Ordered Sig/Femi Route Start Time Stop Time Status Last Admin (Cardene Inj/NS 250 ml Inj) 260 ml @ 0 mls/hr TITRATE IV 04/27/16 14:00 04/27/16 14:10 Mannitol 25 gm 25 gm Q6HR IV 04/27/16 18:00 04/29/16 18:00 Propofol 100 ml @ 0 mls/hr TITRATE IV 04/27/16 15:00 05/01/16 18:30 (fentaNYL DRIP) 250 ml @ 0 mls/hr TITRATE IV 04/27/16 15:00 04/30/16 19:51 (Trandate Inj) 10 mg Q1HR PRN IV PUSH 04/27/16 15:00 (Nitroglycerin 2% Oint) 2 inch Q6HR PRN TOPICAL 04/27/16 15:00 Hydralazine HCl 10 mg 10 mg Q1HR PRN IV PUSH 04/27/16 15:00 05/01/16 16:01 (Cleviprex Inj) 50 ml @ 0 mls/hr TITRATE IV 04/27/16 15:00 (Peridex 0.12% Liq) 15 ml BID@08,20 MT 04/27/16 20:00 05/01/16 08:00 (NS Flush) DAILY IVF 04/28/16 09:00 05/01/16 08:15 (NS Flush) UNSCH PRN IVF 04/27/16 15:00 (Tears Naturale Opth Soln) 1 drop TID EACH EYE 04/27/16 18:00 05/01/16 18:00 (Zofran Inj) 4 mg Q6H PRN IV 04/27/16 15:15 Miscellaneous Information 1 Q361D XX 04/27/16 15:15 04/28/16 04:00 (Chlorhexidine 2% Cloth) 3 pack Taper DAILY@04 TOP 04/28/16 04:00 04/24/17 03:59 05/01/16 04:00 Chlorhexidine Gluconate 3 pack 3 pack UNSCH PRN TOP 04/27/16 15:15 Potassium Chloride 100 ml @ 50 mls/hr Q2H PRN IV 04/27/16 15:15 (KCl 20 Meq Premix Inj) 100 ml @ 50 mls/hr Q2H PRN IV 04/27/16 15:15 Potassium Chloride 40 meq 40 meq UNSCH PRN PO/TUBE 04/27/16 15:15 Potassium Chloride 100 ml @ 25 mls/hr UNSCH PRN IV 04/27/16 15:15 Potassium Chloride 100 ml @ 50 mls/hr Q2H PRN IV 04/27/16 15:15 (Magnesium Sulfate Inj/NS Inj) 100 ml @ 50 mls/hr UNSCH PRN IV 04/27/16 15:15 Magnesium Oxide 800 mg 800 mg UNSCH PRN PO 04/27/16 15:15 (Magnesium Sulfate Inj/NS Inj) 100 ml @ 50 mls/hr UNSCH PRN IV 04/27/16 15:15 Potassium Phosphate 2000 mg 2,000 mg Q4H PRN PO 04/27/16 15:15 05/01/16 10:44 (Sodium Phosphate Inj/NS 250 ml Inj) 250 ml @ 42 mls/hr UNSCH PRN IV 04/27/16 15:15 04/28/16 06:55 (KCl 40 Meq/30 ml Liq) 40 meq UNSCH PRN PO/TUBE 04/27/16 15:15 Potassium Phosphate 2000 mg 2,000 mg UNSCH PRN PO/TUBE 04/27/16 15:15 (Potassium Phosphate Inj/NS 250 ml Inj) 260 ml @ 42 mls/hr UNSCH PRN IV 04/27/16 15:15 (D50w (Vial) Inj) 25 ml UNSCH PRN IV PUSH 04/27/16 15:15 04/28/16 01:18 (Glucagon Inj) 1 mg UNSCH PRN OTHER 04/27/16 15:15 Insulin Human Regular 1 1 Q6HR SQ 04/27/16 18:00 05/01/16 12:00 (NS + KCl 20 Meq Inj) 1,000 ml @ 100 mls/hr Q10H IV 04/28/16 19:31 05/01/16 15:21 (NS Flush) 2 ml UNSCH PRN IVF 04/28/16 19:45 IV Flush 2 ml 2 ml BID IVF 04/28/16 21:00 05/01/16 08:15 (Keppra Inj/NS Inj) 105 ml @ 400 mls/hr Q12H IV 04/28/16 20:00 05/01/16 08:13 (Dulcolax Supp) 10 mg DAILY PRN SC 04/28/16 19:45 (Colace) 100 mg BID PO 04/28/16 21:00 04/30/16 19:51 (Protonix Inj) 40 mg DAILY IVP 04/29/16 09:00 05/01/16 08:14 (Calcium Gluconate Inj) 1 gm UNSCH PRN IV 04/28/16 19:45 ([place] 10-325 Mg) 1 tab Q4H PRN PO 04/28/16 19:45 ([place] 10-325 Mg) 2 tab Q4H PRN PO 04/28/16 19:45 (Morphine Inj) 2 mg Q2H PRN IV PUSH 04/28/16 19:45 (Morphine Inj) 4 mg Q2H PRN IV PUSH 04/28/16 19:45 05/01/16 03:32 (Tylenol) 650 mg Q4H PRN PO 04/28/16 19:45 (Senokot) 17.2 mg Q12H PO 04/30/16 15:00 05/01/16 14:35 Magnesium Hydroxide 30 ml 30 ml DAILY PRN PO 04/30/16 14:30 05/01/16 10:44 (Sodium Chloride 3% Inj) 500 ml @ 20 mls/hr CONTINUOUS IV 05/01/16 11:00 Allergies Allergies Coded Allergies Codeine (Verified Allergy, Unknown, 04/27/16) Exam I&O / VS 04/30/16 04/30/16 05/01/16 15:00 23:00 07:00 Intake Total 1569 ml 1741 ml 1356 ml Output Total 730 ml 525 ml 605 ml Balance 839 ml 1216 ml 751 ml Intake IV Total 906 ml 1271 ml 866 ml Tube Feeding 603 ml 410 ml 430 ml Tube Irrigant 60 ml 60 ml 60 ml Output Urine Total 600 ml 450 ml 500 ml Drainage Total 130 ml 75 ml 105 ml # Bowel Movements 0 0 0 Vital Signs Date Time Temp Pulse Resp B/P Pulse Ox O2 Delivery O2 Flow Rate FiO2 05/01/16 18:00 80 05/01/16 16:00 68 05/01/16 16:00 30 05/01/16 16:00 98.2 68 14 164/77 99 05/01/16 15:38 100 30 05/01/16 14:00 75 05/01/16 12:00 88 05/01/16 12:00 98.4 88 13 145/68 100 05/01/16 12:00 30 05/01/16 11:41 100 30 05/01/16 10:00 52 05/01/16 08:00 30 05/01/16 08:00 56 05/01/16 08:00 97.7 56 12 145/70 97 05/01/16 07:54 98 30 05/01/16 07:44 99 30 05/01/16 06:00 61 05/01/16 04:30 100 30 05/01/16 04:00 98.4 57 12 146/67 99 05/01/16 04:00 30 05/01/16 04:00 61 05/01/16 02:00 56 05/01/16 01:09 100 30 05/01/16 00:00 99.5 51 14 165/77 99 05/01/16 00:00 51 05/01/16 00:00 30 04/30/16 22:00 68 04/30/16 20:00 30 04/30/16 20:00 98.9 71 14 141/62 100 04/30/16 20:00 71 04/30/16 19:59 99 30 Objective Radiology Results Last [address] 04/30/16599 Signed Impressions: Service Date/Time: Saturday, April 30, 2016 04:24 - CONCLUSION: Interim surgery and drain placement. Parenchymal hemorrhage in the left cerebral hemisphere white matter is slightly larger than before. About 2 mm of rightward midline shift now seen compared to 7 mm previously. Karthik Pope MD Chest X-Ray 04/30/16599 Signed Impressions: Service Date/Time: Saturday, April 30, 2016 02:55 - CONCLUSION: No significant change. Mild consolidation and small effusion again seen left lung base. Karthik Pope MD Micro and Labs Laboratory Tests Test 04/30/16 05/01/16 05/01/16 05/01/16 21:00 06:00 11:10 12:13 Sodium Level 152 153 152 Serum Osmolality 318 320 323 White Blood Count 10.0 Red Blood Count 3.26 Hemoglobin 10.4 Hematocrit 30.6 Mean Corpuscular Volume 93.7 Mean Corpuscular Hemoglobin 31.8 Mean Corpuscular Hemoglobin 33.9 Concent Red Cell Distribution Width 13.9 Platelet Count 229 Mean Platelet Volume 8.7 Potassium Level 4.0 Chloride Level 123 Carbon Dioxide Level 22.0 Anion Gap 8 Blood Urea Nitrogen 16 Creatinine 0.82 Estimat Glomerular Filtration 69 Rate Random Glucose 169 Calcium Level 7.9 Phosphorus Level 2.4 Magnesium Level 2.4 Blood Gas Puncture Site LT RADIAL Blood Gas Patient Temperature 98.6 Blood Gas HCO3 20 Blood Gas Base Excess -3.8 Blood Gas Oxygen Saturation 95 Arterial Blood pH 7.41 Arterial Blood Partial 32 Pressure CO2 Arterial Blood Partial 93 Pressure O2 Arterial Blood Oxygen Content 14.7 Arterial Blood 1.0 Carboxyhemoglobin Arterial Blood Methemoglobin 0.8 Blood Gas Hemoglobin 10.9 Oxygen Delivery Device VENTILATOR Blood Gas Ventilator Setting AC/12/550/+5/40% Blood Gas Inspired Oxygen 40 Test 05/01/16 17:25 Sodium Level 154 Serum Osmolality 325 Date/Time Procedure Status Source Growth 04/27/16 15:30 Urine Culture - Final Complete Urine Catheterized Urine NO GROWTH IN 48 HOURS. Lanny Atkinson MD May 01, 2016 19:01
[2016-05-02] VITALS (19 sets, daily range): BP systolic 131–176; BP diastolic 61–86; PULSE 62–89; RESP 12; TEMP 98.5–99.2; O2SAT 98–100
[2016-05-02] MEDS: NS + KCL 20 MEQ INJ 1,000 ML IV SCH ×4 (01:21→22:01)
[2016-05-02] MEDS: SENNOSIDES 8.6 MG TAB PO SCH ×2 (02:43→15:22)
[2016-05-02] MEDS: CHLORHEXIDINE GLUCONATE 2 % 1 PACK (2 CLOTHS) TOP SCH (04:00)
--- NOTE | 2016-05-02 04:28 | RADRPT ---
EXAM DATE/TIME: 05/02/2016 03:48 [facility] COMPARISON: CHEST SINGLE AP, April 30, 2016, 2:55. INDICATIONS : Evaluate after respiratory failure. MEDICAL HISTORY : None. SURGICAL HISTORY : None. ENCOUNTER: Subsequent ACUITY: 4 - 6 days PAIN SCORE: Non-responsive. LOCATION: Bilateral chest FINDINGS: Portable AP view of the chest demonstrates a normal-sized cardiac silhouette. ETT, NG tube, and right IJ line remain present. Lungs are underinflated with stable bibasilar opacity. No pneumothorax is vi sualized. CONCLUSION: Stable chest x-ray with underinflation and mild atelectasis versus consolidation at the lung bases. T here is also a suspected stable small left pleural effusion. Karthik Kramer MD on May 02, 2016 at 4:26 Board Certified Radiologist. This report was verified electronically.
[2016-05-02 05:49] LABS: BLOOD GAS BASE EXCESS -2.5 mmol/L (-2-2); BLOOD GAS CARBOXYHEMOGLOBIN 1.1 % (0-4); BLOOD GAS HCO3 21 mmol/L (22-26); BLOOD GAS METHEMOGLOBIN 0.8 % (0-2); BLOOD GAS O2 HGB SATURATION 96 % (90-100); BLOOD GAS OXYGEN CONTENT 14.2 Vol % (12.0-20.0); BLOOD GAS PCO2 34 mmHg (38-42); BLOOD GAS PO2 110 mmHg (61-120); BLOOD GAS TOTAL HGB 10.3 G/DL (12.0-16.0); TEMP CORR TO 98.6
[2016-05-02 05:50] LABS: CRITICAL VALUE NO; DRAW SITE RT BRACHIAL; NUMBER OF ARTERIAL PUNCTURES 2; OXYGEN DEVICE VENTILATOR; STAT NO; VENT SETTINGS AC/12/550/30/PEEP5
[2016-05-02] MEDS: MANNITOL 12.5 GM/50 ML VIAL IV SCH ×2 (06:00)
[2016-05-02] MEDS: PROPOFOL 1000 MG/100 ML INJ 100 ML IV SCH ×2 (06:12→23:58)
[2016-05-02 06:31] LABS: BICARBONATE 25.1 MEQ/L (21.0-32.0); MAGNESIUM 2.6 MG/DL (1.5-2.5); POTASSIUM 4.5 MEQ/L (3.5-5.1)
[2016-05-02] MEDS: INSULIN NovoLIN REGULAR SUPPLEMENTAL SCALE SQ SCH ×5 (06:40→23:59)
[2016-05-02] MEDS: CHLORHEXIDINE 0.12% (ORAL KIT) 15 ML CUP MT SCH ×2 (08:00→20:28)
[2016-05-02] MEDS: PANTOPRAZOLE SODIUM 40 MG VIAL IVP SCH (08:26)
[2016-05-02] MEDS: levETIRAcetam INJ 500 MG in SODIUM CHLORIDE 0.9% INJ 100 ML IV SCH ×2 (08:26→20:28)
[2016-05-02] MEDS: DOCUSATE SODIUM 100 MG CAP PO SCH ×2 (09:00→20:28)
[2016-05-02] MEDS: SODIUM CHLORIDE 0.9% FLUSH 5 ML FLUSH IVF SCH ×3 (09:00→20:29)
[2016-05-02] MEDS: ARTIFICIAL TEARS OPTH SOLN 15 ML BTL EACH EYE SCH ×3 (09:00→18:00)
[2016-05-02] MEDS: hydrALAZINE HCL 20 MG/ML VIAL IV PUSH PRN ×3 (09:07→13:22)
--- NOTE | 2016-05-02 11:33 | HHI.NSPN ---
(Bettie Copeland) Note Status Status: Progress Note (Bettie Copeland) Interval History Interval History Ms. Mobley is a 71 female with history of prior left temporal CVA. Earlier today the patient had sudden onset of right facial drooping and right arm weakness. There were no associated falls or trauma. She was taken to [place] ED and a CT Brain showed a 4.6 x 2.4 left basal ganglia hemorrhage without significant midline shift. Her vitals signs on arrival was noted to be extremely elevated as high as in the 200's systolic, she was placed on Cardene. The patient was reported to be initially talking on arrival but then decompensated and was emergently intubated. 04/28: well sedated, on hyperosmotic with 3%NS and Mannitol. f/u CT Brain completed. 04/29: sedated on diprivan and fentanyl. ICPs have been wnl 04/30: currently sedated on diprivan. had sedation vacation this am, reported to cough, and withdraws left upper extremity. ICPs low. 2: still moderate output to TANYA drain with some clots, ICPs low. intubated, sedated. localizes LUE off sedation, no eye opening, not following commands. 05/02: sedation vacation this am ?followed command LUE. weaning sedation, cpap trials. high serum os and serum sodium. (Bettie Copeland) Labs, Micro, & Vital Signs Results Date Time Temp Pulse Resp B/P Pulse Ox O2 Delivery O2 Flow Rate FiO2 05/02/16 10:00 89 05/02/16 08:06 100 30 05/02/16 08:00 98.5 64 12 149/78 100 05/02/16 08:00 30 05/02/16 08:00 64 05/02/16 07:59 100 30 05/02/16 06:00 62 05/02/16 04:30 100 30 05/02/16 04:00 30 05/02/16 04:00 64 05/02/16 04:00 98.7 64 12 143/65 99 05/02/16 02:00 77 05/02/16 01:30 100 30 05/02/16 00:00 30 05/02/16 00:00 63 05/02/16 00:00 98.8 63 12 138/66 99 05/01/16 22:00 73 05/01/16 21:10 100 30 05/01/16 20:00 30 05/01/16 20:00 71 05/01/16 20:00 98.7 79 12 142/67 99 05/01/16 18:00 80 05/01/16 16:00 68 05/01/16 16:00 30 05/01/16 16:00 98.2 68 14 164/77 99 05/01/16 15:38 100 30 05/01/16 14:00 75 05/01/16 12:00 88 05/01/16 12:00 98.4 88 13 145/68 100 05/01/16 12:00 30 05/01/16 11:41 100 30 05/02/16 07:00 Intake Total 4883 ml Output Total 1655 ml Balance 3228 ml Constitutional Vital Signs Date Time Temp Pulse Resp B/P Pulse Ox O2 Delivery O2 Flow Rate FiO2 05/02/16 10:00 89 05/02/16 08:06 100 30 05/02/16 08:00 98.5 64 12 149/78 100 05/02/16 08:00 30 05/02/16 08:00 64 05/02/16 07:59 100 30 05/02/16 06:00 62 05/02/16 04:30 100 30 05/02/16 04:00 30 05/02/16 04:00 64 05/02/16 04:00 98.7 64 12 143/65 99 05/02/16 02:00 77 05/02/16 01:30 100 30 05/02/16 00:00 30 05/02/16 00:00 63 05/02/16 00:00 98.8 63 12 138/66 99 05/01/16 22:00 73 05/01/16 21:10 100 30 05/01/16 20:00 30 05/01/16 20:00 71 05/01/16 20:00 98.7 79 12 142/67 99 05/01/16 18:00 80 05/01/16 16:00 68 05/01/16 16:00 30 05/01/16 16:00 98.2 68 14 164/77 99 05/01/16 15:38 100 30 05/01/16 14:00 75 05/01/16 12:00 88 05/01/16 12:00 98.4 88 13 145/68 100 05/01/16 12:00 30 05/01/16 11:41 100 30 05/02/16 07:00 Intake Total 4883 ml Output Total 1655 ml Balance 3228 ml (Bettie Copeland) Review of Systems/Exam Exam Ms. Mobley is intubated and sedated. Does not open eyes, not following commands. Wound is clean. TANYA drains in place with serous drainage and some clots seen. Cranial Nerves: Pupils pinpoint b/l nonreactive to light. Eyes appear conjugated. Cervical Spine: soft, supple sensorimotor: minimal withdrawal to left upper and b/l LE Reflexes: Plantars silent b/l Positive corneal b/l. (Bettie Copeland) Medications Current Medications Current Medications Medications (Trade) Dose Ordered Sig/Femi Route PRN Reason Start Time Stop Time Status Last Admin Dose Admin Nicardipine HCl/ Sodium Chloride (Cardene Inj/NS 250 ml Inj) 260 ml @ 0 mls/hr TITRATE IV 04/27/16 14:00 04/27/16 14:10 Mannitol 25 gm 25 gm Q6HR IV 04/27/16 18:00 04/29/16 18:00 Propofol 100 ml @ 0 mls/hr TITRATE IV 04/27/16 15:00 05/02/16 06:12 Fentanyl Citrate (fentaNYL DRIP) 250 ml @ 0 mls/hr TITRATE IV 04/27/16 15:00 04/30/16 19:51 Labetalol HCl (Trandate Inj) 10 mg Q1HR PRN IV PUSH SBP>150, DBP>900, HR>65 04/27/16 15:00 Nitroglycerin (Nitroglycerin 2% Oint) 2 inch Q6HR PRN TOPICAL SBP>150, DBP>90 04/27/16 15:00 Hydralazine HCl 10 mg 10 mg Q1HR PRN IV PUSH SBP>150, DBP>90 04/27/16 15:00 05/02/16 09:07 Clevidipine (Cleviprex Inj) 50 ml @ 0 mls/hr TITRATE IV 04/27/16 15:00 Chlorhexidine Gluconate (Peridex 0.12% Liq) 15 ml BID@08,20 MT 04/27/16 20:00 05/02/16 08:00 IV Flush (NS Flush) DAILY IVF 04/28/16 09:00 05/02/16 09:00 IV Flush (NS Flush) UNSCH PRN IVF SEE PROTOCOL 04/27/16 15:00 Artificial Tears (Tears Naturale Opth Soln) 1 drop TID EACH EYE 04/27/16 18:00 05/02/16 09:00 Ondansetron HCl (Zofran Inj) 4 mg Q6H PRN IV NAUSEA OR VOMITING 04/27/16 15:15 Miscellaneous Information 1 Q361D XX 04/27/16 15:15 04/28/16 04:00 Chlorhexidine Gluconate (Chlorhexidine 2% Cloth) 3 pack Taper DAILY@04 TOP 04/28/16 04:00 04/24/17 03:59 05/02/16 04:00 Chlorhexidine Gluconate 3 pack 3 pack UNSCH PRN TOP HYGIENIC CARE 04/27/16 15:15 Potassium Chloride 100 ml @ 50 mls/hr Q2H PRN IV For Potassium 2.8 - 3.2 mEq/L 04/27/16 15:15 Potassium Chloride (KCl 20 Meq Premix Inj) 100 ml @ 50 mls/hr Q2H PRN IV For Potassium 2.8 - 3.2 mEq/L 04/27/16 15:15 Potassium Chloride 40 meq 40 meq UNSCH PRN PO/TUBE For Potassium 3.3 - 3.5 mEq/L 04/27/16 15:15 Potassium Chloride 100 ml @ 25 mls/hr UNSCH PRN IV For Potassium 3.3 - 3.5 mEq/L 04/27/16 15:15 Potassium Chloride 100 ml @ 50 mls/hr Q2H PRN IV For Potassium 3.3 - 3.5 mEq/L 04/27/16 15:15 Magnesium Sulfate/ Sodium Chloride (Magnesium Sulfate Inj/NS Inj) 100 ml @ 50 mls/hr UNSCH PRN IV For Magnesium 0.9 - 1.1 mg/dL 04/27/16 15:15 Magnesium Oxide 800 mg 800 mg UNSCH PRN PO For Magnesium 1.2 - 1.6 mg/dL 04/27/16 15:15 Magnesium Sulfate/ Sodium Chloride (Magnesium Sulfate Inj/NS Inj) 100 ml @ 50 mls/hr UNSCH PRN IV For Magnesium 1.2 - 1.6 mg/dL 04/27/16 15:15 Potassium Phosphate 2000 mg 2,000 mg Q4H PRN PO For Phosphorus < 2.5 mg/dL 04/27/16 15:15 05/01/16 10:44 Sodium Phosphate/ Sodium Chloride (Sodium Phosphate Inj/NS 250 ml Inj) 250 ml @ 42 mls/hr UNSCH PRN IV For Phosphorus < 2.5 mg/dL 04/27/16 15:15 04/28/16 06:55 Potassium Chloride (KCl 40 Meq/30 ml Liq) 40 meq UNSCH PRN PO/TUBE SEE LABEL COMMENTS 04/27/16 15:15 Potassium Phosphate 2000 mg 2,000 mg UNSCH PRN PO/TUBE SEE LABEL COMMENTS 04/27/16 15:15 Potassium Phosphate/Sodium Chloride (Potassium Phosphate Inj/NS 250 ml Inj) 260 ml @ 42 mls/hr UNSCH PRN IV SEE LABEL COMMENTS 04/27/16 15:15 Dextrose (D50w (Vial) Inj) 25 ml UNSCH PRN IV PUSH HYPOGLYCEMIA-SEE COMMENTS 04/27/16 15:15 04/28/16 01:18 Glucagon (Glucagon Inj) 1 mg UNSCH PRN OTHER HYPOGLYCEMIA-SEE COMMENTS 04/27/16 15:15 Insulin Human Regular 1 1 Q6HR SQ 04/27/16 18:00 05/02/16 06:40 Potassium Chloride/Sodium Chloride (NS + KCl 20 Meq Inj) 1,000 ml @ 100 mls/hr Q10H IV 04/28/16 19:31 05/02/16 01:21 IV Flush (NS Flush) 2 ml UNSCH PRN IVF FLUSH AFTER USING IV ACCESS 04/28/16 19:45 IV Flush 2 ml 2 ml BID IVF 04/28/16 21:00 05/02/16 09:00 Levetriacetam/ Sodium Chloride (Keppra Inj/NS Inj) 105 ml @ 400 mls/hr Q12H IV 04/28/16 20:00 05/02/16 08:26 Bisacodyl (Dulcolax Supp) 10 mg DAILY PRN DC CONSTIPATION 04/28/16 19:45 Docusate Sodium (Colace) 100 mg BID PO 04/28/16 21:00 05/01/16 20:31 Pantoprazole Sodium (Protonix Inj) 40 mg DAILY IVP 04/29/16 09:00 05/02/16 08:26 Calcium Gluconate (Calcium Gluconate Inj) 1 gm UNSCH PRN IV SEE LABEL COMMENTS 04/28/16 19:45 Acetaminophen/ Hydrocodone Bitart ([place] 10-325 Mg) 1 tab Q4H PRN PO PAIN SCALE 1 TO 5 04/28/16 19:45 Acetaminophen/ Hydrocodone Bitart ([place] 10-325 Mg) 2 tab Q4H PRN PO PAIN SCALE 6 TO 10 04/28/16 19:45 Morphine Sulfate (Morphine Inj) 2 mg Q2H PRN IV PUSH PAIN SCALE 1 TO 6 04/28/16 19:45 Morphine Sulfate (Morphine Inj) 4 mg Q2H PRN IV PUSH PAIN SCALE 7 TO 10 04/28/16 19:45 05/01/16 03:32 Acetaminophen (Tylenol) 650 mg Q4H PRN PO TEMPERATURE > 101.5 F 04/28/16 19:45 Sennosides (Senokot) 17.2 mg Q12H PO 04/30/16 15:00 05/02/16 02:43 Magnesium Hydroxide (Milk Of Magnesia Liq) 30 ml DAILY PRN PO CONSTIPATION 04/30/16 14:30 05/01/16 10:44 (Bettie Copeland) Medical Decision Making MDM Remarks 71 y/o female with sudden onset of right facial weakness and right upper extremity weakness, CT Brain 04/27 showed left basal ganglia ICH, f/u CT Brain 04/28 shows increased size of ICH with 7 mm midline shift s/p left decompressive craniectomy with evacuation of intraparenchymal hematoma , and placement of ICP monitor on 04/28/16 f/u CT Brain 04/30 shows improved midline shift, still with moderate left intraparenchymal hematoma Abnormal EEG with some sharp waves could be indicative of seizures, no clinical evidence of seizures, neuro eval recs cont Keppra (Bettie Copeland) Plan Plan Remarks POD 4 cont weaning sedation as tolerated, cont TANYA draining to suction, still with drainage and some clots serial neuro checks nonchemical DVT prophylaxis in view of ICH cont Keppra, neuro following per Dr. Johnson dc hyperosmotics (Bettie Copeland) Attending Statement The exam, history, and the medical decision-making described in the above note were completed with the assistance of the mid-level provider. I reviewed and agree with the findings presented. I attest that I had a [id number] encounter with the patient on the same day, and personally performed and documented my assessment and findings in the medical record. (Riley Johnson MD) Bettie Copeland May 02, 2016 11:33 Riley Johnson MD May 04, 2016 18:11
[2016-05-02] MEDS: RESP: ALBUTEROL 2.5 MG/IPRATROPIUM 0.5 MG NEB (PRN) INH (15:04)
--- NOTE | 2016-05-02 16:46 | HHI.CCPN ---
Subjective Remarks/Hospital Course This is a 71 female. Data admission 04/27/2016. Past medical history includes left temporal CVA and seizure disorder.. She presented to the emergency room brought by her friend for strokelike symptoms. Patient was verbal when she first arrived and said that her symptoms started 40 minutes ago. 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 She had right-sided facial droop and right arm weakness. There was some right eyelid lag as well. After doing a quick NIH stroke score a stroke alert was called. Patient was rushed to the CT scanner and I spoke with the neurologist to make him aware of possible stroke. Her medications are all alternative natural medications. CT head revealed a 4.6 x 2.4 (basal ganglia intraparenchymal hemorrhage. Encephalopathy left temporal region. Neurosurgery was consultation recommended medical management with 3% hypertonic saline, mannitol and strict blood pressure control systolic blood pressure was 150 with a follow-up CT scan in a.m. While in the ED, patient decompensated with a left-sided gaze. She was flaccid in her right upper lobe extremity. Emergently intubated with 20 minutes etomidate etomidate and 100 mg succinylcholine. She is currently been sedated with propofol/fentanyl and Versed drips. Cardene drip was initiated to maintain systolic blood pressure less than 150. End tidal CO2 around 30 recommended. Receiving 50 mg mannitol IV 1 now. Subjective 04/[address] this a.m. shows slight increase in hemorrhage with a 7 mm rightward midline shift. The patient continues on hypertonic saline, mannitol every 6 hours. 04/29 The patient underwent a emergent left craniotomy last evening with placement of ICP monitor. ICP 67 mmHg postoperatively overnight. Minimal drainage from TANYA drains. Family (sister)located yesterday afternoon, notified of the events. 04/30 Afebrile. No sedation vacation yesterday afternoon, it was noted the patient localizes on the left side, not following commands. ICP ranges 39. EEG performed this a.m. 05/01 The patient continues to localize on the left side, when off sedation. TANYA drains totaling 300 cc in 24 hours ,serosanguineous. 05/02 Afebrile. Temple bolt discontinued yesterday, area clean and dry. Staple line clean and dried no erythema. Sedation vacation yielded movement of left upper extremity and lower extremity. TANYA drainage decreased to 75 cc over the last 12 hours. Objective Vital Signs Date Time Temp Pulse Resp B/P Pulse Ox O2 Delivery O2 Flow Rate FiO2 05/02/16 15:01 98 30 05/02/16 14:00 89 05/02/16 12:00 98.8 12 176/86 Intake and Output 05/01/16 05/01/16 05/02/16 08:00 16:00 00:00 Intake Total 1356 ml 1615 ml 1600 ml Output Total 605 ml 480 ml 500 ml Balance 751 ml 1135 ml 1100 ml Result Diagram: 05/01/16 0600 05/02/16 0555 Other Results Laboratory Tests Test 05/02/16 05:35 Blood Gas Puncture Site RT BRACHIAL Blood Gas Patient Temperature 98.6 Blood Gas HCO3 21 mmol/L (22-26) Blood Gas Base Excess -2.5 mmol/L (-2-2) Blood Gas Oxygen Saturation 96 % (90-100) Arterial Blood pH 7.41 (7.380-7.420) Arterial Blood Partial 34 mmHg (38-42) Pressure CO2 Arterial Blood Partial 110 mmHg Pressure O2 (61-120) Arterial Blood Oxygen Content 14.2 Vol % (12.0-20.0) Arterial Blood 1.1 % (0-4) Carboxyhemoglobin Arterial Blood Methemoglobin 0.8 % (0-2) Blood Gas Hemoglobin 10.3 G/DL (12.0-16.0) Oxygen Delivery Device VENTILATOR Blood Gas Ventilator Setting AC/12/550/30/PEEP5 Imaging Last Impressions Chest X-Ray 05/02/16599 Signed Impressions: Service Date/Time: Monday, May 02, 2016 03:48 - CONCLUSION: Stable chest x-ray with underinflation and mild atelectasis versus consolidation at the lung bases. There is also a suspected stable small left pleural effusion. Karthik Kramer MD Head CT 04/30/16599 Signed Impressions: Service Date/Time: Saturday, April 30, 2016 04:24 - CONCLUSION: Interim surgery and drain placement. Parenchymal hemorrhage in the left cerebral hemisphere white matter is slightly larger than before. About 2 mm of rightward midline shift now seen compared to 7 mm previously. Karthik Pope MD Last Impressions Head CT 04/30/16 06 Signed Impressions: Service Date/Time: Saturday, April 30, 2016 04:24 - CONCLUSION: Interim surgery and drain placement. Parenchymal hemorrhage in the left cerebral hemisphere white matter is slightly larger than before. About 2 mm of rightward midline shift now seen compared to 7 mm previously. Kartihk Pope MD Chest X-Ray 04/30/16599 Signed Impressions: Service Date/Time: Saturday, April 30, 2016 02:55 - CONCLUSION: No significant change. Mild consolidation and small effusion again seen left lung base. Karthik Pope MD Last Impressions Chest X-Ray 04/29/16599 Signed Impressions: Service Date/Time: Friday, April 29, 2016 01:48 - CONCLUSION: Endotracheal tube tip pulled back slightly, now about 4 cm above the lauren. Other lines and tubes unchanged. No significant change mild left base consolidation and small pleural effusion. Karthik Pope MD Head CT 04/28/16 06 Signed Impressions: Service Date/Time: Thursday, April 28, 2016 04:36 - CONCLUSION: Left basal ganglia subacute parenchymal hemorrhage is slightly larger. 7 mm of rightward midline shift. Karthik Pope MD Last Impressions Head CT 04/28/16 06 Signed Impressions: Service Date/Time: Thursday, April 28, 2016 04:36 - CONCLUSION: Left basal ganglia subacute parenchymal hemorrhage is slightly larger. 7 mm of rightward midline shift. Karthik Pope MD Chest X-Ray 04/28/16 0000 Signed Impressions: Service Date/Time: Thursday, April 28, 2016 04:51 - CONCLUSION: 1. Endotracheal tube tip 1.7 cm above the lauren. 2. Mild left base atelectasis not significantly changed. Karthik Pope MD Last Impressions Head CT 04/27/16 0000 Signed Impressions: Service Date/Time: Wednesday, April 27, 2016 13:33 - CONCLUSION: 1. Focal acute intraparenchymal hemorrhage involving the region of the left basal ganglia measuring 4.6 x 2.4 cm characteristic of a hemorrhagic hypertensive infarct. 2. Large area of encephalomalacia involving the left temporal frontal region. This is either a large area of old infarction versus a large arachnoid cyst. Rommel Norman MD Objective Remarks GENERAL: 71 year obese female, critically ill currently intubated and sedated on propofol. SKIN: Warm and dry. HEAD: Atraumatic. Normocephalic.2 TANYA drains with serosanguineous fluid noted. Staple line without erythema or drainage EYES: No scleral icterus. No injection or drainage. ENT: No nasal bleeding or discharge. Mucous membranes pink and moist. NECK: Trachea midline. No JVD. Orotracheally intubated. CARDIOVASCULAR: Regular rate and rhythm. S1, S2. No S4. Without murmur RESPIRATORY: Clear to auscultation. Breath sounds equal bilaterally. GASTROINTESTINAL: Abdomen soft, non-tender, nondistended. Hepatic and splenic margins not palpable. Normoactive bowel sounds. MUSCULOSKELETAL: Extremities without clubbing, cyanosis, or edema. No obvious deformities. NEUROLOGICAL: Intubated and sedated at this time, with propofol infusion Urinary Catheter: Yes Date of Insertion: Apr 27, 2016 Vascular Central Line Catheter: Yes Date of Insertion: Apr 27, 2016 Side: Right Location: Internal, Jugular A/P Assessment and Plan Neuro/Psych: 4.62.4 cm left basal ganglia intraparenchymal hemorrhage Left temporal CVA Seizure disorder Left frontotemporal parietal craniotomy and placement of ICP monitor- POD #4 GCS 7T- off sedation -Sedation- Propofol [address] head revealed 4.62.4 intraparenchymal hemorrhage. Old encephalomalacia left temporal region. Keppra 500 mg BID, seizure prophylaxis (Day 4 of 7) 3% Hypertonic saline at 20 cc an hour. Discontinued Mannitol 25 g IV every 6 hours. Discontinued End tidal CO2 maintain between 30 and 35 EEG 04/30-moderate diffuse encephalopathy Repeat CT brain 04/28-left basal ganglia subacute parenchymal hemorrhage slightly larger 7 mm rightward midline shift CT brain04/30 -2 mm rightward MLS Eric bolt discontinued 05/01/16 Neuro checks per ICU protocol-the patient is following commands left upper extremity and left lower extremity off sedation CV: Hypertensive emergency-resolved Cardene drip/cleviprex to maintain systolic blood pressure less than 150mmHG As needed labetalol/hydralazine/Nitropaste Initial troponin less than 0.04. 2-D ECHO-EF 55-60% no RWMA Normal saline at 84 cc an hour Resp: Acute respiratory failure secondary to altered mental status ACV 16/500/5/.30 Ventilator bundle Maintain head of bed elevation 30 Schedule every 6 hour bronchodilator therapy Maintain End Tidal CO2 between 30 and 35 GI: OGT -Glucerna1.5 @50/hr (goal rate) per Nutrition recommendations, no residuals Protonix for GI prophylaxis Bowel regimen Colace,Senokot scheduled, Milk of Magnesia PRN No BM /FEN: Hypophosphatemia-resolved Monitor BMP Discontinue serum sodium, serum sOsm every 6 hours Maintain Mosley for accurate I's and O's Replete electrolytes per ICU protocol Endo: Hyperglycemia of critical illness Sliding-scale insulin with Accu-Cheks every 6 hours to maintain euglycemia. Low dose regimen. Renal: No acute issues Accurate I/O's Normal saline at 84 cc an hour Heme: Monitor CBC, ID: Leukocytosis-resolved Monitor for signs of infection UA culture-NGTD MSK: PT evaluate and treat Daily functional maintenance Access - Right IJ CVL day #5, right radial arterial line day dc'd, peripheral IVs 2 Prophylaxis - GI - Protonix - DVT - SCD/pharmacological prophylaxis contraindicated intracerebral hemorrhage. Dispo: Discussed with ASSISTANT PRODUCT MANAGER at bedside, and Dr. Johnson. Critical Care: This patient remains critically ill with one or more organ systems which are or may become a threat to life. I have spent in excess of 35 minutes discontinuously in the care and management of this patient. This time is exclusive of procedures, and includes, but is not limited to, evaluation of the patient, review of the medical record, discussions with family, consultants, nursing staff, or respiratory therapy, and documentation in the medical record. Physician Kizzy Aguilar MD May 02, 2016 16:46
[2016-05-02] MEDS: fentaNYL DRIP 250 ML IV SCH (22:00)
[2016-05-03] VITALS (19 sets, daily range): BP systolic 119–152; BP diastolic 60–76; PULSE 65–98; RESP 12–18; TEMP 98.9–100.3; O2SAT 96–100
[2016-05-03] MEDS: SENNOSIDES 8.6 MG TAB PO SCH ×2 (02:57→14:02)
[2016-05-03] MEDS: CHLORHEXIDINE GLUCONATE 2 % 1 PACK (2 CLOTHS) TOP SCH (04:00)
[2016-05-03] MEDS: INSULIN NovoLIN REGULAR SUPPLEMENTAL SCALE SQ SCH ×3 (06:00→18:00)
[2016-05-03] MEDS: CHLORHEXIDINE 0.12% (ORAL KIT) 15 ML CUP MT SCH ×2 (07:56→20:26)
[2016-05-03] MEDS: NS + KCL 20 MEQ INJ 1,000 ML IV SCH ×3 (07:56→19:31)
[2016-05-03] MEDS: levETIRAcetam INJ 500 MG in SODIUM CHLORIDE 0.9% INJ 100 ML IV SCH ×2 (07:56→20:26)
[2016-05-03] MEDS: ARTIFICIAL TEARS OPTH SOLN 15 ML BTL EACH EYE SCH ×3 (07:56→17:17)
[2016-05-03] MEDS: SODIUM CHLORIDE 0.9% FLUSH 5 ML FLUSH IVF SCH ×3 (07:57→20:27)
[2016-05-03] MEDS: PANTOPRAZOLE SODIUM 40 MG VIAL IVP SCH (07:57)
[2016-05-03] MEDS: DOCUSATE SODIUM 100 MG CAP PO SCH ×2 (07:57→20:26)
[2016-05-03] MEDS: RESP: ALBUTEROL 2.5 MG/IPRATROPIUM 0.5 MG NEB (PRN) INH ×2 (08:02→20:09)
[2016-05-03] MEDS: hydrALAZINE HCL 20 MG/ML VIAL IV PUSH PRN ×2 (09:37→14:09)
[2016-05-03 12:23] LABS: HEMATOCRIT 28.7 % (35.0-46.0); MEAN CELL VOLUME 93.6 FL (80.0-100.0); MEAN CORPUSCULAR HEMOGLOBIN 31.7 PG (27.0-34.0); MEAN CORPUSCULAR HGB CONC 33.8 % (32.0-36.0); PLATELET COUNT 238 TH/MM3 (150-450); RED BLOOD COUNT 3.07 MIL/MM3 (4.00-5.30); RED CELL DISTRIBUTION WIDTH 13.7 % (11.6-17.2); REVIEW FLAG FINAL; WHITE BLOOD COUNT 11.2 TH/MM3 (4.0-11.0)
[2016-05-03 13:06] LABS: BICARBONATE 24.5 MEQ/L (21.0-32.0); MAGNESIUM 2.5 MG/DL (1.5-2.5); POTASSIUM 4.4 MEQ/L (3.5-5.1)
[2016-05-03] MEDS: PROPOFOL 1000 MG/100 ML INJ 100 ML IV SCH ×3 (13:45→18:17)
[2016-05-03] MEDS: MORPHINE SULFATE 4 MG/ML INJ IV PUSH PRN (14:38)
--- NOTE | 2016-05-03 16:54 | HHI.CCPN ---
Subjective Remarks/Hospital Course This is a 71 female. Data admission 04/27/2016. Past medical history includes left temporal CVA and seizure disorder.. She presented to the emergency room brought by her friend for strokelike symptoms. Patient was verbal when she first arrived and said that her symptoms started 40 minutes ago. 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 She had right-sided facial droop and right arm weakness. There was some right eyelid lag as well. After doing a quick NIH stroke score a stroke alert was called. Patient was rushed to the CT scanner and I spoke with the neurologist to make him aware of possible stroke. Her medications are all alternative natural medications. CT head revealed a 4.6 x 2.4 (basal ganglia intraparenchymal hemorrhage. Encephalopathy left temporal region. Neurosurgery was consultation recommended medical management with 3% hypertonic saline, mannitol and strict blood pressure control systolic blood pressure was 150 with a follow-up CT scan in a.m. While in the ED, patient decompensated with a left-sided gaze. She was flaccid in her right upper lobe extremity. Emergently intubated with 20 minutes etomidate etomidate and 100 mg succinylcholine. She is currently been sedated with propofol/fentanyl and Versed drips. Cardene drip was initiated to maintain systolic blood pressure less than 150. End tidal CO2 around 30 recommended. Receiving 50 mg mannitol IV 1 now. Subjective 04/[address] this a.m. shows slight increase in hemorrhage with a 7 mm rightward midline shift. The patient continues on hypertonic saline, mannitol every 6 hours. 04/29 The patient underwent a emergent left craniotomy last evening with placement of ICP monitor. ICP 67 mmHg postoperatively overnight. Minimal drainage from TANYA drains. Family (sister)located yesterday afternoon, notified of the events. 04/30 Afebrile. No sedation vacation yesterday afternoon, it was noted the patient localizes on the left side, not following commands. ICP ranges 39. EEG performed this a.m. 05/01 The patient continues to localize on the left side, when off sedation. TANYA drains totaling 300 cc in 24 hours ,serosanguineous. 05/02 Afebrile. Austin bolt discontinued yesterday, area clean and dry. Staple line clean and dried no erythema. Sedation vacation yielded movement of left upper extremity and lower extremity. TANYA drainage decreased to 75 cc over the last 12 hours. 05/03 T max 100.3. The patient is now following commands with the left upper and lower extremity. The patient tolerated 2 hours of CPAP yesterday. Overnight the patient was on a propofol and fentanyl infusion will discontinue fentanyl. Objective Vital Signs Date Time Temp Pulse Resp B/P Pulse Ox O2 Delivery O2 Flow Rate FiO2 05/03/16 15:59 100 30 05/03/16 14:00 79 05/03/16 12:00 99.2 13 132/62 Intake and Output 05/02/16 05/02/16 05/03/16 08:00 16:00 00:00 Intake Total 1668 ml 1409 ml 1340 ml Output Total 675 ml 860 ml 695 ml Balance 993 ml 549 ml 645 ml Result Diagram: 05/03/16 1155 05/03/16 1155 Imaging Last Impressions Chest X-Ray 05/02/16599 Signed Impressions: Service Date/Time: Monday, May 02, 2016 03:48 - CONCLUSION: Stable chest x-ray with underinflation and mild atelectasis versus consolidation at the lung bases. There is also a suspected stable small left pleural effusion. Karthik Kramer MD Head CT 04/30/16599 Signed Impressions: Service Date/Time: Saturday, April 30, 2016 04:24 - CONCLUSION: Interim surgery and drain placement. Parenchymal hemorrhage in the left cerebral hemisphere white matter is slightly larger than before. About 2 mm of rightward midline shift now seen compared to 7 mm previously. Karthik Pope MD Last Impressions Chest X-Ray 05/02/16599 Signed Impressions: Service Date/Time: Monday, May 02, 2016 03:48 - CONCLUSION: Stable chest x-ray with underinflation and mild atelectasis versus consolidation at the lung bases. There is also a suspected stable small left pleural effusion. Karthik Kramer MD Head CT 04/30/16599 Signed Impressions: Service Date/Time: Saturday, April 30, 2016 04:24 - CONCLUSION: Interim surgery and drain placement. Parenchymal hemorrhage in the left cerebral hemisphere white matter is slightly larger than before. About 2 mm of rightward midline shift now seen compared to 7 mm previously. Karthik Pope MD Last Impressions Head CT 04/30/16599 Signed Impressions: Service Date/Time: Saturday, April 30, 2016 04:24 - CONCLUSION: Interim surgery and drain placement. Parenchymal hemorrhage in the left cerebral hemisphere white matter is slightly larger than before. About 2 mm of rightward midline shift now seen compared to 7 mm previously. Karthik Pope MD Chest X-Ray 04/30/16599 Signed Impressions: Service Date/Time: Saturday, April 30, 2016 02:55 - CONCLUSION: No significant change. Mild consolidation and small effusion again seen left lung base. Karthik Pope MD Last Impressions Chest X-Ray 04/29/16599 Signed Impressions: Service Date/Time: Friday, April 29, 2016 01:48 - CONCLUSION: Endotracheal tube tip pulled back slightly, now about 4 cm above the lauren. Other lines and tubes unchanged. No significant change mild left base consolidation and small pleural effusion. Karthik Pope MD Head CT 04/28/16599 Signed Impressions: Service Date/Time: Thursday, April 28, 2016 04:36 - CONCLUSION: Left basal ganglia subacute parenchymal hemorrhage is slightly larger. 7 mm of rightward midline shift. Karthik Pope MD Last Impressions Head CT 04/28/16599 Signed Impressions: Service Date/Time: Thursday, April 28, 2016 04:36 - CONCLUSION: Left basal ganglia subacute parenchymal hemorrhage is slightly larger. 7 mm of rightward midline shift. Karthik Pope MD Chest X-Ray 04/28/16 0000 Signed Impressions: Service Date/Time: Thursday, April 28, 2016 04:51 - CONCLUSION: 1. Endotracheal tube tip 1.7 cm above the lauren. 2. Mild left base atelectasis not significantly changed. Karthik Pope MD Last Impressions Head CT 04/27/16 Signed Impressions: Service Date/Time: Wednesday, April 27, 2016 13:33 - CONCLUSION: 1. Focal acute intraparenchymal hemorrhage involving the region of the left basal ganglia measuring 4.6 x 2.4 cm characteristic of a hemorrhagic hypertensive infarct. 2. Large area of encephalomalacia involving the left temporal frontal region. This is either a large area of old infarction versus a large arachnoid cyst. Rommel Norman MD Objective Remarks GENERAL: 71 year obese female, critically ill currently intubated and sedated on propofol. SKIN: Warm and dry. HEAD: Atraumatic. Normocephalic.2 TANYA drains with serosanguineous fluid noted. Staple line without erythema or drainage EYES: No scleral icterus. No injection or drainage. Pupils reactive 3mm brisk ENT: No nasal bleeding or discharge. Mucous membranes pink and moist. NECK: Trachea midline. No JVD. Orotracheally intubated. CARDIOVASCULAR: Regular rate and rhythm. S1, S2. No S4. Without murmur RESPIRATORY: Clear to auscultation. Breath sounds equal bilaterally. GASTROINTESTINAL: Abdomen soft, non-tender, nondistended. Hepatic and splenic margins not palpable. Normoactive bowel sounds. MUSCULOSKELETAL: Extremities without clubbing, cyanosis, or edema. No obvious deformities. NEUROLOGICAL: Intubated and sedated at this time, with propofol infusion RASS -2 Urinary Catheter: Yes Date of Insertion: Apr 27, 2016 Vascular Central Line Catheter: Yes Date of Insertion: Apr 27, 2016 Side: Right Location: Internal, Jugular A/P Assessment and Plan Neuro/Psych: 4.62.4 cm left basal ganglia intraparenchymal hemorrhage Left temporal CVA Seizure disorder Left frontotemporal parietal craniotomy and placement of ICP monitor- POD #4 GCS 7T- off sedation -Sedation- Propofol infusion CT head revealed 4.62.4 intraparenchymal hemorrhage. Old encephalomalacia left temporal region. Keppra 500 mg BID, seizure prophylaxis (Day 5 of 7) 3% NaCl, discontinued 2/3 Mannitol , discontinued 2/4 End tidal CO2 maintain between 30 and 35 EEG 04/30-moderate diffuse encephalopathy Repeat CT brain 04/28-left basal ganglia subacute parenchymal hemorrhage slightly larger 7 mm rightward midline shift CT brain04/30 -2 mm rightward MLS Austin bolt discontinued 05/01/16 Neuro checks per ICU protocol-the patient is following commands left upper extremity and left lower extremity off sedation CV: Hypertensive emergency-resolved Cardene drip/cleviprex to maintain systolic blood pressure less than 150mmHG As needed labetalol/hydralazine/Nitropaste Initial troponin less than 0.04. 2-D ECHO-EF 55-60% no RWMA Normal saline at 30 cc an hour Resp: Acute respiratory failure secondary to altered mental status ACV 16/500/5/.30 Ventilator bundle Maintain head of bed elevation 30 Scheduled every 6 hour bronchodilator therapy Maintain End Tidal CO2 between 30 and 35 Continue CPAP trials GI: OGT -Glucerna1.5 @50/hr (goal rate) per Nutrition recommendations, no residuals Protonix for GI prophylaxis Bowel regimen Colace,Senokot scheduled, Milk of Magnesia PRN No BM /FEN: Hypophosphatemia-resolved Monitor BMP Discontinue serum sodium, serum sOsm every 6 hours Maintain Mosley for accurate I's and O's Replete electrolytes per ICU protocol Endo: Hyperglycemia of critical illness Sliding-scale insulin with Accu-Cheks every 6 hours to maintain euglycemia. Low dose regimen. Renal: No acute issues Accurate I/O's Normal saline at 84 cc an hour Heme: Monitor CBC, ID: Leukocytosis-resolved Monitor for signs of infection UA culture-NGTD MSK: PT evaluate and treat Daily functional maintenance Access - Right IJ CVL day #6, right radial arterial line day dc'd, peripheral IVs 2 Prophylaxis - GI - Protonix - DVT - SCD/pharmacological prophylaxis contraindicated intracerebral hemorrhage. Dispo: Discussed with TELLER COORDINATOR at bedside. Critical Care: This patient remains critically ill with one or more organ systems which are or may become a threat to life. I have spent in excess of 31 minutes discontinuously in the care and management of this patient. This time is exclusive of procedures, and includes, but is not limited to, evaluation of the patient, review of the medical record, discussions with family, consultants, nursing staff, or respiratory therapy, and documentation in the medical record. Physician Kizzy Aguilar MD May 03, 2016 16:54
[2016-05-03 17:33] LABS: BLOOD GAS BASE EXCESS -1.2 mmol/L (-2-2); BLOOD GAS CARBOXYHEMOGLOBIN 1.2 % (0-4); BLOOD GAS HCO3 23 mmol/L (22-26); BLOOD GAS METHEMOGLOBIN 0.7 % (0-2); BLOOD GAS O2 HGB SATURATION 95 % (90-100); BLOOD GAS OXYGEN CONTENT 14.5 Vol % (12.0-20.0); BLOOD GAS PCO2 35 mmHg (38-42); BLOOD GAS PO2 96 mmHg (61-120); BLOOD GAS TOTAL HGB 10.8 G/DL (12.0-16.0); CRITICAL VALUE NO; DRAW SITE RT RADIAL; FIO2 30 %; NUMBER OF ARTERIAL PUNCTURES 1; OXYGEN DEVICE VENTILATOR; STAT YES; TEMP CORR TO 98.6; ULNAR PULSE PRESENT; VENT SETTINGS AC 12/550/5+
--- NOTE | 2016-05-03 19:12 | HHI.NSPN ---
History Interval History 71 y/o female with sudden onset of right facial weakness and right upper extremity weakness, CT Brain 04/27 showed left basal ganglia ICH, f/u CT Brain 04/28 shows increased size of ICH with 7 mm midline shift s/p left decompressive craniectomy with evacuation of intraparenchymal hematoma , and placement of ICP monitor on 04/28/16 f/u CT Brain 04/30 shows improved midline shift, still with moderate left intraparenchymal hematoma Abnormal EEG with some sharp waves could be indicative of seizures, no clinical evidence of seizures, neuro eval recs cont Keppra Exam Results Vital Signs Date Time Temp Pulse Resp B/P Pulse Ox O2 Delivery O2 Flow Rate FiO2 05/03/16 18:11 100 05/03/16 18:00 70 05/03/16 16:00 99.3 18 129/60 05/03/16 16:00 30 Intake and Output 05/02/16 05/02/16 05/03/16 08:00 16:00 00:00 Intake Total 1668 ml 1409 ml 1340 ml Output Total 675 ml 860 ml 695 ml Balance 993 ml 549 ml 645 ml Physical Examination Ms. Mobley is intubated and sedated. Does not open eyes, not following commands. Wound is clean. TANYA drains in place with serous drainage Cranial Nerves: Pupils pinpoint b/l nonreactive to light. Moderate bilateral corneal response Cervical Spine: soft, supple sensorimotor: minimal withdrawal to left upper and b/l LE Reflexes: Plantars silent b/l Lab, Micro, Other Results Laboratory Tests Test 05/03/16 05/03/16 05/03/16 05:05 11:55 17:28 Sodium Level 153 MEQ/L 150 MEQ/L Serum Osmolality 297 MOSM/KG White Blood Count 11.2 TH/MM3 Red Blood Count 3.07 MIL/MM3 Hemoglobin 9.7 GM/DL Hematocrit 28.7 % Mean Corpuscular Volume 93.6 FL Mean Corpuscular Hemoglobin 31.7 PG Mean Corpuscular Hemoglobin 33.8 % Concent Red Cell Distribution Width 13.7 % Platelet Count 238 TH/MM3 Mean Platelet Volume 8.4 FL Potassium Level 4.4 MEQ/L Chloride Level 119 MEQ/L Carbon Dioxide Level 24.5 MEQ/L Anion Gap 7 MEQ/L Blood Urea Nitrogen 26 MG/DL Creatinine 0.91 MG/DL Estimat Glomerular Filtration 61 ML/MIN Rate Random Glucose 144 MG/DL Calcium Level 7.9 MG/DL Phosphorus Level 3.5 MG/DL Magnesium Level 2.5 MG/DL Blood Gas Puncture Site RT RADIAL Blood Gas Patient Temperature 98.6 Blood Gas HCO3 23 mmol/L Blood Gas Base Excess -1.2 mmol/L Blood Gas Oxygen Saturation 95 % Arterial Blood pH 7.42 Arterial Blood Partial 35 mmHg Pressure CO2 Arterial Blood Partial 96 mmHg Pressure O2 Arterial Blood Oxygen Content 14.5 Vol % Arterial Blood 1.2 % Carboxyhemoglobin Arterial Blood Methemoglobin 0.7 % Blood Gas Hemoglobin 10.8 G/DL Oxygen Delivery Device VENTILATOR Blood Gas Ventilator Setting AC 12/550/5+ Blood Gas Inspired Oxygen 30 % Medical Decision Making Impression and Plan Impression: 1. Stable neurologic function following craniotomy for basal ganglia intracranial hemorrhage. Plan: Continue sedation wean per intensivists. Continue scalp drain. Anticipate discontinuation in a.m. Continue close neurologic checks. May begin Lovenox after drain discontinued from neurosurgery standpoint. Diaz Gomez MD May 03, 2016 19:12
[2016-05-04] VITALS (19 sets, daily range): BP systolic 123–161; BP diastolic 57–76; PULSE 70–93; RESP 1–13; TEMP 98.6–99.5; O2SAT 99–100
[2016-05-04] MEDS: PROPOFOL 1000 MG/100 ML INJ 100 ML IV SCH ×3 (00:38→15:35)
[2016-05-04] MEDS: SENNOSIDES 8.6 MG TAB PO SCH ×2 (02:54→15:35)
[2016-05-04] MEDS: RESP: ALBUTEROL 2.5 MG/IPRATROPIUM 0.5 MG NEB (PRN) INH ×2 (03:32→08:52)
[2016-05-04] MEDS: CHLORHEXIDINE GLUCONATE 2 % 1 PACK (2 CLOTHS) TOP SCH (04:00)
[2016-05-04 05:30] LABS: BLOOD GAS BASE EXCESS 0.3 mmol/L (-2-2); BLOOD GAS CARBOXYHEMOGLOBIN 1.2 % (0-4); BLOOD GAS HCO3 24 mmol/L (22-26); BLOOD GAS METHEMOGLOBIN 0.7 % (0-2); BLOOD GAS O2 HGB SATURATION 94 % (90-100); BLOOD GAS OXYGEN CONTENT 14.3 Vol % (12.0-20.0); BLOOD GAS PCO2 34 mmHg (38-42); BLOOD GAS PO2 82 mmHg (61-120); BLOOD GAS TOTAL HGB 10.7 G/DL (12.0-16.0); CRITICAL VALUE NO; TEMP CORR TO 98.6
[2016-05-04 05:31] LABS: DRAW SITE RT BRACHIAL; FIO2 30 %; NUMBER OF ARTERIAL PUNCTURES 1; OXYGEN DEVICE VENTILATOR; STAT NO; ULNAR PULSE PRESENT; VENT SETTINGS AC/12/550/PEEP5
[2016-05-04] MEDS: INSULIN NovoLIN REGULAR SUPPLEMENTAL SCALE SQ SCH ×4 (06:00→18:00)
[2016-05-04 07:24] LABS: MEAN CELL VOLUME 93.2 FL (80.0-100.0); MEAN CORPUSCULAR HEMOGLOBIN 31.8 PG (27.0-34.0); MEAN CORPUSCULAR HGB CONC 34.1 % (32.0-36.0); PLATELET COUNT 267 TH/MM3 (150-450); RED CELL DISTRIBUTION WIDTH 13.4 % (11.6-17.2); REVIEW FLAG FINAL; WHITE BLOOD COUNT 10.5 TH/MM3 (4.0-11.0)
[2016-05-04 07:34] LABS: MAGNESIUM 2.5 MG/DL (1.5-2.5); POTASSIUM 4.4 MEQ/L (3.5-5.1)
[2016-05-04] MEDS: SODIUM CHLORIDE 0.9% FLUSH 5 ML FLUSH IVF SCH ×3 (07:54→21:00)
[2016-05-04] MEDS: CHLORHEXIDINE 0.12% (ORAL KIT) 15 ML CUP MT SCH ×2 (07:54→20:52)
[2016-05-04] MEDS: ARTIFICIAL TEARS OPTH SOLN 15 ML BTL EACH EYE SCH ×3 (07:54→18:00)
[2016-05-04] MEDS: PANTOPRAZOLE SODIUM 40 MG VIAL IVP SCH (07:54)
[2016-05-04] MEDS: DOCUSATE SODIUM 100 MG CAP PO SCH ×2 (07:54→21:00)
[2016-05-04] MEDS: levETIRAcetam INJ 500 MG in SODIUM CHLORIDE 0.9% INJ 100 ML IV SCH ×2 (07:54→20:52)
[2016-05-04] MEDS: hydrALAZINE HCL 20 MG/ML VIAL IV PUSH PRN ×2 (08:26→12:55)
--- NOTE | 2016-05-04 13:39 | HHI.NSPN ---
History Interval History 71 y/o female with sudden onset of right facial weakness and right upper extremity weakness, CT Brain 04/27 showed left basal ganglia ICH, f/u CT Brain 04/28 shows increased size of ICH with 7 mm midline shift s/p left decompressive craniectomy with evacuation of intraparenchymal hematoma , and placement of ICP monitor on 04/28/16 f/u CT Brain 04/30 shows improved midline shift, still with moderate left intraparenchymal hematoma Abnormal EEG with some sharp waves could be indicative of seizures, no clinical evidence of seizures, neuro eval recs cont Keppra Exam Results Vital Signs Date Time Temp Pulse Resp B/P Pulse Ox O2 Delivery O2 Flow Rate FiO2 05/04/16 12:14 100 30 05/04/16 12:00 98.8 84 1 123/57 Intake and Output 05/03/16 05/03/16 05/04/16 08:00 16:00 00:00 Intake Total 1162 ml 1668 ml 1170 ml Output Total 895 ml 975 ml 940 ml Balance 267 ml 693 ml 230 ml Physical Examination Ms. Mobley is intubated and sedated. Does not open eyes, not following commands. Wound is clean. TANYA drains in place with serous drainage Cranial Nerves: Pupils pinpoint b/l nonreactive to light. Moderate bilateral corneal response Moderate eye-opening and response to deep pain Cervical Spine: soft, supple sensorimotor: Localizes to deep pain and questionably intermittently following commands right upper extremity Reflexes: Plantars silent b/l Lab, Micro, Other Results Laboratory Tests Test 05/03/16 05/04/16 05/04/16 17:28 05:18 06:35 Blood Gas Puncture Site RT RADIAL RT BRACHIAL Blood Gas Patient Temperature 98.6 98.6 Blood Gas HCO3 23 mmol/L 24 mmol/L Blood Gas Base Excess -1.2 mmol/L 0.3 mmol/L Blood Gas Oxygen Saturation 95 % 94 % Arterial Blood pH 7.42 7.45 Arterial Blood Partial 35 mmHg 34 mmHg Pressure CO2 Arterial Blood Partial 96 mmHg 82 mmHg Pressure O2 Arterial Blood Oxygen Content 14.5 Vol % 14.3 Vol % Arterial Blood 1.2 % 1.2 % Carboxyhemoglobin Arterial Blood Methemoglobin 0.7 % 0.7 % Blood Gas Hemoglobin 10.8 G/DL 10.7 G/DL Oxygen Delivery Device VENTILATOR VENTILATOR Blood Gas Ventilator Setting AC 550/5+ AC/550/PEEP5 Blood Gas Inspired Oxygen 30 % 30 % White Blood Count 10.5 TH/MM3 Red Blood Count 3.00 MIL/MM3 Hemoglobin 9.5 GM/DL Hematocrit 28.0 % Mean Corpuscular Volume 93.2 FL Mean Corpuscular Hemoglobin 31.8 PG Mean Corpuscular Hemoglobin 34.1 % Concent Red Cell Distribution Width 13.4 % Platelet Count 267 TH/MM3 Mean Platelet Volume 8.6 FL Sodium Level 148 MEQ/L Potassium Level 4.4 MEQ/L Chloride Level 114 MEQ/L Carbon Dioxide Level 27.0 MEQ/L Anion Gap 7 MEQ/L Blood Urea Nitrogen 28 MG/DL Creatinine 0.83 MG/DL Estimat Glomerular Filtration 68 ML/MIN Rate Random Glucose 137 MG/DL Calcium Level 8.0 MG/DL Phosphorus Level 3.7 MG/DL Magnesium Level 2.5 MG/DL Medical Decision Making Impression and Plan Impression: 1. Stable neurologic function following craniotomy for basal ganglia intracranial hemorrhage. Plan: Continue sedation wean per intensivists. Continue scalp drain-moderate output Continue close neurologic checks. May begin Lovenox after drain discontinued from neurosurgery standpoint. Diaz Gomez MD May 04, 2016 13:39
--- NOTE | 2016-05-04 15:09 | HHI.CCPN ---
Subjective Remarks/Hospital Course This is a 71 female. Data admission 04/27/2016. Past medical history includes left temporal CVA and seizure disorder.. She presented to the emergency room brought by her friend for strokelike symptoms. Patient was verbal when she first arrived and said that her symptoms started 40 minutes ago. 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 She had right-sided facial droop and right arm weakness. There was some right eyelid lag as well. After doing a quick NIH stroke score a stroke alert was called. Patient was rushed to the CT scanner and I spoke with the neurologist to make him aware of possible stroke. Her medications are all alternative natural medications. CT head revealed a 4.6 x 2.4 (basal ganglia intraparenchymal hemorrhage. Encephalopathy left temporal region. Neurosurgery was consultation recommended medical management with 3% hypertonic saline, mannitol and strict blood pressure control systolic blood pressure was 150 with a follow-up CT scan in a.m. While in the ED, patient decompensated with a left-sided gaze. She was flaccid in her right upper lobe extremity. Emergently intubated with 20 minutes etomidate etomidate and 100 mg succinylcholine. She is currently been sedated with propofol/fentanyl and Versed drips. Cardene drip was initiated to maintain systolic blood pressure less than 150. End tidal CO2 around 30 recommended. Receiving 50 mg mannitol IV 1 now. Subjective 04/[address] this a.m. shows slight increase in hemorrhage with a 7 mm rightward midline shift. The patient continues on hypertonic saline, mannitol every 6 hours. 04/29 The patient underwent a emergent left craniotomy last evening with placement of ICP monitor. ICP 67 mmHg postoperatively overnight. Minimal drainage from TANYA drains. Family (sister)located yesterday afternoon, notified of the events. 04/30 Afebrile. On sedation vacation yesterday afternoon, it was noted the patient localizes on the left side, not following commands. ICP ranges 39. EEG performed this a.m. 05/01 The patient continues to localize on the left side, when off sedation. TANYA drains totaling 300 cc in 24 hours ,serosanguineous. 05/02 Afebrile. [place] bolt discontinued yesterday, area clean and dry. Staple line clean and dried no erythema. Sedation vacation yielded movement of left upper extremity and lower extremity. TANYA drainage decreased to 75 cc over the last 12 hours. 05/03 T max 100.3. The patient is now following commands with the left upper and lower extremity. The patient tolerated 2 hours of CPAP yesterday. Overnight the patient was on a propofol and fentanyl infusion will discontinue fentanyl. 05/04 Tmax 99.7. EEG revealed sharp waves possibly seizure activity, recommended continuation of Keppra per neurosurgery. Will begin Lovenox upon discontinuation of TANYA drains per neurosurgery recommendations. The patient continues CPAP trial, improving greater than 4 hours today. Objective Vital Signs Date Time Temp Pulse Resp B/P Pulse Ox O2 Delivery O2 Flow Rate FiO2 05/04/16 12:14 100 30 05/04/16 12:00 98.8 84 1 123/57 Intake and Output 05/03/16 05/03/16 05/04/16 08:00 16:00 00:00 Intake Total 1162 ml 1668 ml 1170 ml Output Total 895 ml 975 ml 940 ml Balance 267 ml 693 ml 230 ml Result Diagram: 05/04/16 0635 05/04/16 0635 Other Results Laboratory Tests Test 05/03/16 05/04/16 17:28 05:18 Blood Gas Puncture Site RT RADIAL RT BRACHIAL Blood Gas Patient Temperature 98.6 98.6 Blood Gas HCO3 23 mmol/L 24 mmol/L (22-26) (22-26) Blood Gas Base Excess -1.2 mmol/L 0.3 mmol/L (-2-2) (-2-2) Blood Gas Oxygen Saturation 95 % (90-100) 94 % (90-100) Arterial Blood pH 7.42 7.45 (7.380-7.420) (7.380-7.420) Arterial Blood Partial 35 mmHg (38-42) 34 mmHg (38-42) Pressure CO2 Arterial Blood Partial 96 mmHg 82 mmHg Pressure O2 (61-120) (61-120) Arterial Blood Oxygen Content 14.5 Vol % 14.3 Vol % (12.0-20.0) (12.0-20.0) Arterial Blood 1.2 % (0-4) 1.2 % (0-4) Carboxyhemoglobin Arterial Blood Methemoglobin 0.7 % (0-2) 0.7 % (0-2) Blood Gas Hemoglobin 10.8 G/DL 10.7 G/DL (12.0-16.0) (12.0-16.0) Oxygen Delivery Device VENTILATOR VENTILATOR Blood Gas Ventilator Setting AC 12/550/5+ AC/12/550/PEEP5 Blood Gas Inspired Oxygen 30 % 30 % Imaging Last Impressions Chest X-Ray 05/02/16599 Signed Impressions: Service Date/Time: Monday, May 02, 2016 03:48 - CONCLUSION: Stable chest x-ray with underinflation and mild atelectasis versus consolidation at the lung bases. There is also a suspected stable small left pleural effusion. Karthik Kramer MD Head CT 04/30/16599 Signed Impressions: Service Date/Time: Saturday, April 30, 2016 04:24 - CONCLUSION: Interim surgery and drain placement. Parenchymal hemorrhage in the left cerebral hemisphere white matter is slightly larger than before. About 2 mm of rightward midline shift now seen compared to 7 mm previously. Karthik Pope MD Last Impressions Chest X-Ray 05/02/16599 Signed Impressions: Service Date/Time: Monday, May 02, 2016 03:48 - CONCLUSION: Stable chest x-ray with underinflation and mild atelectasis versus consolidation at the lung bases. There is also a suspected stable small left pleural effusion. Karthik Kramer MD Head CT 04/30/16599 Signed Impressions: Service Date/Time: Saturday, April 30, 2016 04:24 - CONCLUSION: Interim surgery and drain placement. Parenchymal hemorrhage in the left cerebral hemisphere white matter is slightly larger than before. About 2 mm of rightward midline shift now seen compared to 7 mm previously. Karthik Pope MD Last Impressions Head CT 04/30/16599 Signed Impressions: Service Date/Time: Saturday, April 30, 2016 04:24 - CONCLUSION: Interim surgery and drain placement. Parenchymal hemorrhage in the left cerebral hemisphere white matter is slightly larger than before. About 2 mm of rightward midline shift now seen compared to 7 mm previously. Karthik Pope MD Chest X-Ray 04/30/16599 Signed Impressions: Service Date/Time: Saturday, April 30, 2016 02:55 - CONCLUSION: No significant change. Mild consolidation and small effusion again seen left lung base. Karthik Pope MD Last Impressions Chest X-Ray 04/29/16 06 Signed Impressions: Service Date/Time: Friday, April 29, 2016 01:48 - CONCLUSION: Endotracheal tube tip pulled back slightly, now about 4 cm above the lauren. Other lines and tubes unchanged. No significant change mild left base consolidation and small pleural effusion. Karthik Pope MD Head CT 04/28/16 06 Signed Impressions: Service Date/Time: Thursday, April 28, 2016 04:36 - CONCLUSION: Left basal ganglia subacute parenchymal hemorrhage is slightly larger. 7 mm of rightward midline shift. Karthik Pope MD Last Impressions Head CT 04/28/16 06 Signed Impressions: Service Date/Time: Thursday, April 28, 2016 04:36 - CONCLUSION: Left basal ganglia subacute parenchymal hemorrhage is slightly larger. 7 mm of rightward midline shift. Karthik Pope MD Chest X-Ray 04/28/16 0000 Signed Impressions: Service Date/Time: Thursday, April 28, 2016 04:51 - CONCLUSION: 1. Endotracheal tube tip 1.7 cm above the lauren. 2. Mild left base atelectasis not significantly changed. Karthik Pope MD Last Impressions Head CT 04/27/16 0000 Signed Impressions: Service Date/Time: Wednesday, April 27, 2016 13:33 - CONCLUSION: 1. Focal acute intraparenchymal hemorrhage involving the region of the left basal ganglia measuring 4.6 x 2.4 cm characteristic of a hemorrhagic hypertensive infarct. 2. Large area of encephalomalacia involving the left temporal frontal region. This is either a large area of old infarction versus a large arachnoid cyst. Rommel Norman MD Objective Remarks GENERAL: 71 year obese female, critically ill currently intubated and sedated on propofol. SKIN: Warm and dry. HEAD: Atraumatic. Normocephalic.2 TANYA drains with serosanguineous fluid noted. Staple line without erythema or drainage EYES: No scleral icterus. No injection or drainage. Pupils reactive 3mm brisk ENT: No nasal bleeding or discharge. Mucous membranes pink and moist. NECK: Trachea midline. No JVD. Orotracheally intubated. CARDIOVASCULAR: Regular rate and rhythm. S1, S2. No S4. Without murmur RESPIRATORY: Clear to auscultation. Breath sounds equal bilaterally. GASTROINTESTINAL: Abdomen soft, non-tender, nondistended. Hepatic and splenic margins not palpable. Normoactive bowel sounds. MUSCULOSKELETAL: Extremities without clubbing, cyanosis, or edema. No obvious deformities. NEUROLOGICAL: RASS -2, propofol infusion the patient is intermittently responding left upper and left lower extremity to command Date of Insertion: Apr 27, 2016 Date of Insertion: Apr 27, 2016 Side: Right Location: Internal, Jugular A/P Assessment and Plan Neuro/Psych: 4.62.4 cm left basal ganglia intraparenchymal hemorrhage Left temporal CVA Seizure disorder Left frontotemporal parietal craniotomy and placement of ICP monitor- POD #4 -Sedation- Propofol infusion, will consider Precedex for agitation, if needed CT head revealed 4.62.4 intraparenchymal hemorrhage. Old encephalomalacia left temporal region. Keppra 500 mg BID, continue seizure prophylaxis secondary to results of EEG per neurosurgery recommendations 3% NaCl, discontinued 2/3 Mannitol , discontinued 2/4 End tidal CO2 maintain between 30 and 35 EEG /-moderate diffuse encephalopathy, sharp spikes noted Repeat CT brain 04/28-left basal ganglia subacute parenchymal hemorrhage slightly larger 7 mm rightward midline shift CT brain 04/30 -2 mm rightward MLS [place] bolt discontinued 05/01/16 Neuro checks per ICU protocol-the patient is following commands left upper extremity and left lower extremity off sedation CV: Hypertensive emergency-resolved Cardene drip/cleviprex to maintain systolic blood pressure less than 150mmHG As needed labetalol/hydralazine/Nitropaste Initial troponin less than 0.04. 2-D ECHO-EF 55-60% no RWMA Resp: Acute respiratory failure secondary to altered mental status ACV 16/500/5/.30 Ventilator bundle Maintain head of bed elevation 30 Scheduled every 6 hour bronchodilator therapy Maintain End Tidal CO2 between 30 and 35 Continue CPAP trials-consideration for possible tracheostomy GI: OGT -Glucerna1.5 @50/hr (goal rate) per Nutrition recommendations, minimal residuals Protonix for GI prophylaxis Bowel regimen Colace,Senokot scheduled, Milk of Magnesia PRN No BM /FEN: Hypophosphatemia-resolved Monitor BMP Maintain [place] for accurate I's and O's Replete electrolytes per ICU protocol Endo: Hyperglycemia of critical illness Sliding-scale insulin with Accu-Cheks every 6 hours to maintain euglycemia. Low dose regimen. Renal: No acute issues Accurate I/O's Normal saline at 30 cc an hour Heme: Monitor CBC, ID: Leukocytosis-resolved Monitor for signs of infection UA culture-NGTD MSK: PT evaluate and treat Daily functional maintenance Access - Right IJ CVL day #7, peripheral IVs 2 Prophylaxis - GI - Protonix - DVT - SCD/will begin Lovenox for DVT prophylaxis upon removal of TANYA drains per neurosurgery recommendations Dispo: Discussed with INVESTMENT STRATEGIST at bedside. Discussed with Mrs. Clarke (sister ) at bedside. I discussed the possibility of a tracheostomy and PEG placement, and continuation of CPAP trials at this time.Mrs. Clarke stated an understanding. The family requested case management consult to discuss rehabilitation facilities, and social work consult regarding POA, to continue business affairs for patient. Critical Care: This patient remains critically ill with one or more organ systems which are or may become a threat to life. I have spent in excess of 41 minutes discontinuously in the care and management of this patient. This time is exclusive of procedures, and includes, but is not limited to, evaluation of the patient, review of the medical record, discussions with family, consultants, nursing staff, or respiratory therapy, and documentation in the medical record. Physician Kizzy Aguilar MD May 04, 2016 15:09
[2016-05-04] MEDS: MORPHINE SULFATE 4 MG/ML INJ IV PUSH PRN ×3 (16:35→22:51)
[2016-05-04] MEDS: NS + KCL 20 MEQ INJ 1,000 ML IV SCH (18:19)
[2016-05-05] VITALS (19 sets, daily range): BP systolic 115–146; BP diastolic 60–72; PULSE 52–69; RESP 10–24; TEMP 98.6–98.9; O2SAT 98–100
[2016-05-05] MEDS: PROPOFOL 1000 MG/100 ML INJ 100 ML IV SCH ×2 (00:28→06:55)
[2016-05-05] MEDS: CHLORHEXIDINE GLUCONATE 2 % 1 PACK (2 CLOTHS) TOP SCH (03:46)
[2016-05-05] MEDS: SENNOSIDES 8.6 MG TAB PO SCH ×2 (04:16→14:35)
[2016-05-05 04:45] LABS: HEMATOCRIT 27.3 % (35.0-46.0); MEAN CELL VOLUME 92.2 FL (80.0-100.0); MEAN CORPUSCULAR HEMOGLOBIN 31.6 PG (27.0-34.0); MEAN CORPUSCULAR HGB CONC 34.3 % (32.0-36.0); PLATELET COUNT 261 TH/MM3 (150-450); RED BLOOD COUNT 2.96 MIL/MM3 (4.00-5.30); RED CELL DISTRIBUTION WIDTH 13.5 % (11.6-17.2); REVIEW FLAG FINAL; WHITE BLOOD COUNT 10.3 TH/MM3 (4.0-11.0)
[2016-05-05 05:11] LABS: BICARBONATE 27.2 MEQ/L (21.0-32.0); MAGNESIUM 2.5 MG/DL (1.5-2.5); POTASSIUM 4.1 MEQ/L (3.5-5.1)
[2016-05-05] MEDS: INSULIN NovoLIN REGULAR SUPPLEMENTAL SCALE SQ SCH ×4 (06:00→17:44)
[2016-05-05] MEDS: CHLORHEXIDINE 0.12% (ORAL KIT) 15 ML CUP MT SCH ×2 (08:00→20:09)
[2016-05-05] MEDS: ARTIFICIAL TEARS OPTH SOLN 15 ML BTL EACH EYE SCH ×3 (08:17→17:44)
[2016-05-05] MEDS: SODIUM CHLORIDE 0.9% FLUSH 5 ML FLUSH IVF SCH ×3 (08:17→20:09)
[2016-05-05] MEDS: levETIRAcetam INJ 500 MG in SODIUM CHLORIDE 0.9% INJ 100 ML IV SCH ×2 (08:17→20:09)
[2016-05-05] MEDS: PANTOPRAZOLE SODIUM 40 MG VIAL IVP SCH (08:18)
[2016-05-05] MEDS: DOCUSATE SODIUM 100 MG CAP PO SCH ×2 (08:18→20:09)
--- NOTE | 2016-05-05 09:14 | HHI.CCPN ---
Subjective Remarks/Hospital Course This is a 71 female. Data admission 04/27/2016. Past medical history includes left temporal CVA and seizure disorder.. She presented to the emergency room brought by her friend for strokelike symptoms. Patient was verbal when she first arrived and said that her symptoms started 40 minutes ago. 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 She had right-sided facial droop and right arm weakness. There was some right eyelid lag as well. After doing a quick NIH stroke score a stroke alert was called. Patient was rushed to the CT scanner and I spoke with the neurologist to make him aware of possible stroke. Her medications are all alternative natural medications. CT head revealed a 4.6 x 2.4 (basal ganglia intraparenchymal hemorrhage. Encephalopathy left temporal region. Neurosurgery was consultation recommended medical management with 3% hypertonic saline, mannitol and strict blood pressure control systolic blood pressure was 150 with a follow-up CT scan in a.m. While in the ED, patient decompensated with a left-sided gaze. She was flaccid in her right upper lobe extremity. Emergently intubated with 20 minutes etomidate etomidate and 100 mg succinylcholine. She is currently been sedated with propofol/fentanyl and Versed drips. Cardene drip was initiated to maintain systolic blood pressure less than 150. End tidal CO2 around 30 recommended. Receiving 50 mg mannitol IV 1 now. Subjective 04/[address] this a.m. shows slight increase in hemorrhage with a 7 mm rightward midline shift. The patient continues on hypertonic saline, mannitol every 6 hours. 04/29 The patient underwent a emergent left craniotomy last evening with placement of ICP monitor. ICP 67 mmHg postoperatively overnight. Minimal drainage from TANYA drains. Family (sister)located yesterday afternoon, notified of the events. 04/30 Afebrile. On sedation vacation yesterday afternoon, it was noted the patient localizes on the left side, not following commands. ICP ranges 39. EEG performed this a.m. 05/01 The patient continues to localize on the left side, when off sedation. TANYA drains totaling 300 cc in 24 hours ,serosanguineous. 05/02 Afebrile. Needham bolt discontinued yesterday, area clean and dry. Staple line clean and dried no erythema. Sedation vacation yielded movement of left upper extremity and lower extremity. TANYA drainage decreased to 75 cc over the last 12 hours. 2/ T max 100.3. The patient is now following commands with the left upper and lower extremity. The patient tolerated 2 hours of CPAP yesterday. Overnight the patient was on a propofol and fentanyl infusion will discontinue fentanyl. 05/04 Tmax 99.7. EEG revealed sharp waves possibly seizure activity, recommended continuation of Keppra per neurosurgery. Will begin Lovenox upon discontinuation of TANYA drains per neurosurgery recommendations. The patient continues CPAP trial, improving greater than 4 hours today. 05/05 Neuro evaluation improved. Spontaneous eye opening this morning to voice. Patient continues to follow commands left upper and lower extremity. Patient currently on CPAP trials. Objective Vital Signs Date Time Temp Pulse Resp B/P Pulse Ox O2 Delivery O2 Flow Rate FiO2 05/05/16 08:20 100 30 05/05/16 06:00 66 05/05/16 04:00 98.6 12 130/65 Intake and Output 05/04/16 05/04/16 05/05/16 08:00 16:00 00:00 Intake Total 986 ml 957 ml 935 ml Output Total 780 ml 895 ml 915 ml Balance 206 ml 62 ml 20 ml Result Diagram: 05/05/16 0430 05/05/16 0430 Imaging Last Impressions Chest X-Ray 05/02/16599 Signed Impressions: Service Date/Time: Monday, May 02, 2016 03:48 - CONCLUSION: Stable chest x-ray with underinflation and mild atelectasis versus consolidation at the lung bases. There is also a suspected stable small left pleural effusion. Karthik Kramer MD Head CT 04/30/16599 Signed Impressions: Service Date/Time: Saturday, April 30, 2016 04:24 - CONCLUSION: Interim surgery and drain placement. Parenchymal hemorrhage in the left cerebral hemisphere white matter is slightly larger than before. About 2 mm of rightward midline shift now seen compared to 7 mm previously. Karthik Pope MD Last Impressions Chest X-Ray 05/02/16599 Signed Impressions: Service Date/Time: Monday, May 02, 2016 03:48 - CONCLUSION: Stable chest x-ray with underinflation and mild atelectasis versus consolidation at the lung bases. There is also a suspected stable small left pleural effusion. Karthik Kramer MD Head CT 04/30/16599 Signed Impressions: Service Date/Time: Saturday, April 30, 2016 04:24 - CONCLUSION: Interim surgery and drain placement. Parenchymal hemorrhage in the left cerebral hemisphere white matter is slightly larger than before. About 2 mm of rightward midline shift now seen compared to 7 mm previously. Karthik Pope MD Last Impressions Head CT 04/30/16599 Signed Impressions: Service Date/Time: Saturday, April 30, 2016 04:24 - CONCLUSION: Interim surgery and drain placement. Parenchymal hemorrhage in the left cerebral hemisphere white matter is slightly larger than before. About 2 mm of rightward midline shift now seen compared to 7 mm previously. Karthik Pope MD Chest X-Ray 04/30/16599 Signed Impressions: Service Date/Time: Saturday, April 30, 2016 02:55 - CONCLUSION: No significant change. Mild consolidation and small effusion again seen left lung base. Karthik Pope MD Last Impressions Chest X-Ray 04/29/16599 Signed Impressions: Service Date/Time: Friday, April 29, 2016 01:48 - CONCLUSION: Endotracheal tube tip pulled back slightly, now about 4 cm above the lauren. Other lines and tubes unchanged. No significant change mild left base consolidation and small pleural effusion. Karthik Pope MD Head CT 04/28/16599 Signed Impressions: Service Date/Time: Thursday, April 28, 2016 04:36 - CONCLUSION: Left basal ganglia subacute parenchymal hemorrhage is slightly larger. 7 mm of rightward midline shift. Karthik Pope MD Last Impressions Head CT 04/28/16599 Signed Impressions: Service Date/Time: Thursday, April 28, 2016 04:36 - CONCLUSION: Left basal ganglia subacute parenchymal hemorrhage is slightly larger. 7 mm of rightward midline shift. Karthik Pope MD Chest X-Ray 04/28/16 0000 Signed Impressions: Service Date/Time: Thursday, April 28, 2016 04:51 - CONCLUSION: 1. Endotracheal tube tip 1.7 cm above the lauren. 2. Mild left base atelectasis not significantly changed. Karthik Pope MD Last Impressions Head CT 04/27/16 0000 Signed Impressions: Service Date/Time: Wednesday, April 27, 2016 13:33 - CONCLUSION: 1. Focal acute intraparenchymal hemorrhage involving the region of the left basal ganglia measuring 4.6 x 2.4 cm characteristic of a hemorrhagic hypertensive infarct. 2. Large area of encephalomalacia involving the left temporal frontal region. This is either a large area of old infarction versus a large arachnoid cyst. Rommel Norman MD Objective Remarks GENERAL: 71 year obese female, critically ill currently intubated and sedated on propofol. SKIN: Warm and dry. HEAD: Atraumatic. Normocephalic.2 TANYA drains with serosanguineous fluid noted. Staple line without erythema or drainage EYES: No scleral icterus. No injection or drainage. Pupils reactive 3mm brisk ENT: No nasal bleeding or discharge. Mucous membranes pink and moist. NECK: Trachea midline. No JVD. Orotracheally intubated. CARDIOVASCULAR: Regular rate and rhythm. S1, S2. No S4. Without murmur RESPIRATORY: Clear to auscultation. Breath sounds equal bilaterally. GASTROINTESTINAL: Abdomen soft, non-tender, nondistended. Hepatic and splenic margins not palpable. Normoactive bowel sounds. MUSCULOSKELETAL: Extremities without clubbing, cyanosis, or edema. No obvious deformities. NEUROLOGICAL: RASS -2, propofol infusion the patient is intermittently responding left upper and left lower extremity to command Urinary Catheter: Yes Mosley insert reason: Measure Accurate Output Date of Insertion: Apr 27, 2016 Vascular Central Line Catheter: Yes Date of Insertion: Apr 27, 2016 Side: Right Location: Internal, Jugular A/P Assessment and Plan Neuro/Psych: 4.62.4 cm left basal ganglia intraparenchymal hemorrhage Left temporal CVA Seizure disorder Left frontotemporal parietal craniotomy and placement of ICP monitor- POD #4 -Sedation- Propofol infusion, will consider Precedex for agitation, if needed CT head revealed 4.62.4 intraparenchymal hemorrhage. Old encephalomalacia left temporal region. Keppra 500 mg BID, continue seizure prophylaxis secondary to results of EEG per neurosurgery recommendations 3% NaCl, discontinued 2/3 Mannitol , discontinued 2/4 End tidal CO2 maintain between 30 and 35 EEG 04/30-moderate diffuse encephalopathy, sharp spikes noted, possible seizure activity Repeat CT brain 04/28-left basal ganglia subacute parenchymal hemorrhage slightly larger 7 mm rightward midline shift CT brain 04/30 -2 mm rightward MLS Needham bolt discontinued 05/01/16 Neuro checks per ICU protocol CV: Hypertensive emergency-resolved Cardene drip/cleviprex to maintain systolic blood pressure less than 150mmHG As needed labetalol/hydralazine/Nitropaste Initial troponin less than 0.04. 2-D ECHO-EF 55-60% no RWMA Resp: Acute respiratory failure secondary to altered mental status ACV 16/500/5/.30 Ventilator bundle Maintain head of bed elevation 30 Scheduled every 6 hour bronchodilator therapy Maintain End Tidal CO2 between 30 and 35 Continue CPAP trials-consideration for possible tracheostomy GI: OGT -Glucerna1.5 @50/hr (goal rate) Protonix for GI prophylaxis Bowel regimen Colace,Senokot scheduled, Milk of Magnesia PRN Last BM 05/04 /FEN: Hypophosphatemia-resolved Monitor BMP Maintain Mosley for accurate I's and O's Replete electrolytes per ICU protocol Endo: Hyperglycemia of critical illness Sliding-scale insulin with Accu-Cheks every 6 hours to maintain euglycemia. Low dose regimen. Renal: No acute issues Accurate I/O's Normal saline at 30 cc an hour Heme: Monitor CBC ID: Leukocytosis-resolved Monitor for signs of infection UA culture-NGTD MSK: PT evaluate and treat Daily functional maintenance Access - Right IJ CVL day #8, peripheral IVs 2 Prophylaxis - GI - Protonix - DVT - SCD/will begin Lovenox for DVT prophylaxis upon removal of TANYA drains per neurosurgery recommendations Dispo: Discussed with [employer], and Dr. Johnson at bedside. Discussed with Mrs. Clarke (sister) at bedside. Critical Care: This patient remains critically ill with one or more organ systems which are or may become a threat to life. I have spent in excess of 33 minutes discontinuously in the care and management of this patient. This time is exclusive of procedures, and includes, but is not limited to, evaluation of the patient, review of the medical record, discussions with family, consultants, nursing staff, or respiratory therapy, and documentation in the medical record. Physician Kizzy Aguilar MD May 05, 2016 09:14
[2016-05-05] MEDS: MORPHINE SULFATE 4 MG/ML INJ IV PUSH PRN ×3 (09:25→23:50)
[2016-05-05] MEDS: DEXMEDETOMIDINE INJ 50 ML IV SCH ×4 (09:25→23:49)
--- NOTE | 2016-05-05 10:56 | HHI.NSPN ---
(Bettie Copeland) Note Status Status: Progress Note (Bettie Copeland) Interval History Interval History Ms. Mobley is a 71 female with history of prior left temporal CVA. Earlier today the patient had sudden onset of right facial drooping and right arm weakness. There were no associated falls or trauma. She was taken to [place] ED and a CT Brain showed a 4.6 x 2.4 left basal ganglia hemorrhage without significant midline shift. Her vitals signs on arrival was noted to be extremely elevated as high as in the 200's systolic, she was placed on Cardene. The patient was reported to be initially talking on arrival but then decompensated and was emergently intubated. 04/28: well sedated, on hyperosmotic with 3%NS and Mannitol. f/u CT Brain completed. 04/29: sedated on diprivan and fentanyl. ICPs have been wnl 04/30: currently sedated on diprivan. had sedation vacation this am, reported to cough, and withdraws left upper extremity. ICPs low. 2: still moderate output to TANYA drain with some clots, ICPs low. intubated, sedated. localizes LUE off sedation, no eye opening, not following commands. 05/02: sedation vacation this am ?followed command LUE. weaning sedation, cpap trials. high serum os and serum sodium. 05/05: family at bedside reports opening eyes, critical mgt continuing cpap trials (Bettie Copeland) Labs, Micro, & Vital Signs Results Date Time Temp Pulse Resp B/P Pulse Ox O2 Delivery O2 Flow Rate FiO2 05/05/16 10:00 54 05/05/16 09:30 13 05/05/16 08:20 100 30 05/05/16 08:20 100 30 05/05/16 08:00 30 05/05/16 08:00 69 05/05/16 08:00 98.7 66 13 146/72 100 05/05/16 06:08 100 30 05/05/16 06:00 66 05/05/16 04:41 99 30 05/05/16 04:00 63 05/05/16 04:00 30 05/05/16 04:00 98.6 63 12 130/65 99 05/05/16 02:00 64 05/05/16 01:10 100 30 05/05/16 01:10 100 30 05/05/16 00:00 30 05/05/16 00:00 66 05/05/16 00:00 98.6 66 12 115/60 100 05/04/16 22:00 71 05/04/16 20:56 100 30 05/04/16 20:00 98.6 77 10 145/68 100 05/04/16 20:00 77 05/04/16 20:00 30 05/04/16 18:00 85 05/04/16 16:59 100 30 05/04/16 16:00 98.7 74 11 154/70 100 05/04/16 16:00 74 05/04/16 16:00 30 05/04/16 14:00 70 05/04/16 12:14 100 30 05/04/16 12:11 100 30 05/04/16 12:00 98.8 84 1 123/57 100 05/04/16 12:00 30 05/04/16 12:00 84 05/05/16 07:00 Intake Total 2645 ml Output Total 2460 ml Balance 185 ml Constitutional Vital Signs Date Time Temp Pulse Resp B/P Pulse Ox O2 Delivery O2 Flow Rate FiO2 05/05/16 10:00 54 05/05/16 09:30 13 05/05/16 08:20 100 30 05/05/16 08:20 100 30 05/05/16 08:00 30 05/05/16 08:00 69 05/05/16 08:00 98.7 66 13 146/72 100 05/05/16 06:08 100 30 05/05/16 06:00 66 05/05/16 04:41 99 30 05/05/16 04:00 63 05/05/16 04:00 30 05/05/16 04:00 98.6 63 12 130/65 99 05/05/16 02:00 64 05/05/16 01:10 100 30 05/05/16 01:10 100 30 05/05/16 00:00 30 05/05/16 00:00 66 05/05/16 00:00 98.6 66 12 115/60 100 05/04/16 22:00 71 05/04/16 20:56 100 30 05/04/16 20:00 98.6 77 10 145/68 100 05/04/16 20:00 77 05/04/16 20:00 30 05/04/16 18:00 85 05/04/16 16:59 100 30 05/04/16 16:00 98.7 74 11 154/70 100 05/04/16 16:00 74 05/04/16 16:00 30 05/04/16 14:00 70 05/04/16 12:14 100 30 05/04/16 12:11 100 30 05/04/16 12:00 98.8 84 1 123/57 100 05/04/16 12:00 30 05/04/16 12:00 84 05/05/16 07:00 Intake Total 2645 ml Output Total 2460 ml Balance 185 ml (Bettie Copeland) Review of Systems/Exam Exam Ms. Mobley is intubated and sedated. Does not open eyes, not following commands. Wound is clean. TANYA drains in place with serous drainage Cranial Nerves: Pupils pinpoint b/l nonreactive to light. Moderate bilateral corneal response Cervical Spine: soft, supple sensorimotor: Localizes to deep pain and questionably intermittently following commands right upper extremity Reflexes: Plantars silent b/l (Bettie Copeland) Medications Current Medications Current Medications Medications (Trade) Dose Ordered Sig/Femi Route PRN Reason Start Time Stop Time Status Last Admin Dose Admin Nicardipine HCl 25 mg/Sodium Chloride 260 ml @ 0 mls/hr TITRATE IV 04/27/16 14:00 04/27/16 14:10 Propofol 100 ml @ 0 mls/hr TITRATE IV 04/27/16 15:00 05/05/16 06:55 Fentanyl Citrate (fentaNYL DRIP) 250 ml @ 0 mls/hr TITRATE IV 04/27/16 15:00 05/02/16 22:00 Labetalol HCl (Trandate Inj) 10 mg Q1HR PRN IV PUSH SBP>150, DBP>900, HR>65 04/27/16 15:00 Nitroglycerin (Nitroglycerin 2% Oint) 2 inch Q6HR PRN TOPICAL SBP>150, DBP>90 04/27/16 15:00 Hydralazine HCl 10 mg 10 mg Q1HR PRN IV PUSH SBP>150, DBP>90 04/27/16 15:00 05/04/16 12:55 Clevidipine (Cleviprex Inj) 50 ml @ 0 mls/hr TITRATE IV 04/27/16 15:00 Chlorhexidine Gluconate (Peridex 0.12% Liq) 15 ml BID@08,20 MT 04/27/16 20:00 05/05/16 08:00 IV Flush (NS Flush) DAILY IVF 04/28/16 09:00 05/05/16 08:17 IV Flush (NS Flush) UNSCH PRN IVF SEE PROTOCOL 04/27/16 15:00 Artificial Tears (Tears Naturale Opth Soln) 1 drop TID EACH EYE 04/27/16 18:00 05/05/16 08:17 Ondansetron HCl (Zofran Inj) 4 mg Q6H PRN IV NAUSEA OR VOMITING 04/27/16 15:15 Miscellaneous Information 1 Q361D XX 04/27/16 15:15 04/28/16 04:00 Chlorhexidine Gluconate (Chlorhexidine 2% Cloth) Taper DAILY@04 TOP 04/28/16 04:00 04/24/17 03:59 05/05/16 03:46 Chlorhexidine Gluconate 3 pack 3 pack UNSCH PRN TOP HYGIENIC CARE 04/27/16 15:15 Potassium Chloride 100 ml @ 50 mls/hr Q2H PRN IV For Potassium 2.8 - 3.2 mEq/L 04/27/16 15:15 Potassium Chloride (KCl 20 Meq Premix Inj) 100 ml @ 50 mls/hr Q2H PRN IV For Potassium 2.8 - 3.2 mEq/L 04/27/16 15:15 Potassium Chloride 40 meq 40 meq UNSCH PRN PO/TUBE For Potassium 3.3 - 3.5 mEq/L 04/27/16 15:15 Potassium Chloride 100 ml @ 25 mls/hr UNSCH PRN IV For Potassium 3.3 - 3.5 mEq/L 04/27/16 15:15 Potassium Chloride 100 ml @ 50 mls/hr Q2H PRN IV For Potassium 3.3 - 3.5 mEq/L 04/27/16 15:15 Magnesium Sulfate/ Sodium Chloride (Magnesium Sulfate Inj/NS Inj) 100 ml @ 50 mls/hr UNSCH PRN IV For Magnesium 0.9 - 1.1 mg/dL 04/27/16 15:15 Magnesium Oxide 800 mg 800 mg UNSCH PRN PO For Magnesium 1.2 - 1.6 mg/dL 04/27/16 15:15 Magnesium Sulfate/ Sodium Chloride (Magnesium Sulfate Inj/NS Inj) 100 ml @ 50 mls/hr UNSCH PRN IV For Magnesium 1.2 - 1.6 mg/dL 04/27/16 15:15 Potassium Phosphate 2000 mg 2,000 mg Q4H PRN PO For Phosphorus < 2.5 mg/dL 04/27/16 15:15 05/01/16 10:44 Sodium Phosphate/ Sodium Chloride (Sodium Phosphate Inj/NS 250 ml Inj) 250 ml @ 42 mls/hr UNSCH PRN IV For Phosphorus < 2.5 mg/dL 04/27/16 15:15 04/28/16 06:55 Potassium Chloride (KCl 40 Meq/30 ml Liq) 40 meq UNSCH PRN PO/TUBE SEE LABEL COMMENTS 04/27/16 15:15 Potassium Phosphate 2000 mg 2,000 mg UNSCH PRN PO/TUBE SEE LABEL COMMENTS 04/27/16 15:15 Potassium Phosphate/Sodium Chloride (Potassium Phosphate Inj/NS 250 ml Inj) 260 ml @ 42 mls/hr UNSCH PRN IV SEE LABEL COMMENTS 04/27/16 15:15 Dextrose (D50w (Vial) Inj) 25 ml UNSCH PRN IV PUSH HYPOGLYCEMIA-SEE COMMENTS 04/27/16 15:15 04/28/16 01:18 Glucagon (Glucagon Inj) 1 mg UNSCH PRN OTHER HYPOGLYCEMIA-SEE COMMENTS 04/27/16 15:15 Insulin Human Regular 1 1 Q6HR SQ 04/27/16 18:00 05/02/16 11:59 Potassium Chloride/Sodium Chloride (NS + KCl 20 Meq Inj) 1,000 ml @ 30 mls/hr Q24H IV 04/28/16 19:31 05/04/16 18:19 IV Flush (NS Flush) 2 ml UNSCH PRN IVF FLUSH AFTER USING IV ACCESS 04/28/16 19:45 IV Flush 2 ml 2 ml BID IVF 04/28/16 21:00 05/05/16 08:17 Levetriacetam/ Sodium Chloride (Keppra Inj/NS Inj) 105 ml @ 400 mls/hr Q12H IV 04/28/16 20:00 05/05/16 08:17 Bisacodyl (Dulcolax Supp) 10 mg DAILY PRN ME CONSTIPATION 04/28/16 19:45 Docusate Sodium (Colace) 100 mg BID PO 04/28/16 21:00 05/05/16 08:18 Pantoprazole Sodium (Protonix Inj) 40 mg DAILY IVP 04/29/16 09:00 05/05/16 08:18 Calcium Gluconate (Calcium Gluconate Inj) 1 gm UNSCH PRN IV SEE LABEL COMMENTS 04/28/16 19:45 Acetaminophen/ Hydrocodone Bitart ([place] 10-325 Mg) 1 tab Q4H PRN PO PAIN SCALE 1 TO 5 04/28/16 19:45 Acetaminophen/ Hydrocodone Bitart ([place] 10-325 Mg) 2 tab Q4H PRN PO PAIN SCALE 6 TO 10 04/28/16 19:45 Morphine Sulfate (Morphine Inj) 2 mg Q2H PRN IV PUSH PAIN SCALE 1 TO 6 04/28/16 19:45 Morphine Sulfate (Morphine Inj) 4 mg Q2H PRN IV PUSH PAIN SCALE 7 TO 10 04/28/16 19:45 05/05/16 09:25 Acetaminophen (Tylenol) 650 mg Q4H PRN PO TEMPERATURE > 101.5 F 04/28/16 19:45 Sennosides (Senokot) 17.2 mg Q12H PO 04/30/16 15:00 05/05/16 04:16 Magnesium Hydroxide 30 ml 30 ml DAILY PRN PO CONSTIPATION 04/30/16 14:30 05/01/16 10:44 Dexmedetomidine HCl (Precedex Inj) 50 ml @ 0 mls/hr TITRATE IV 05/05/16 09:00 05/05/16 09:25 (Bettie Copeland) Medical Decision Making MDM Remarks 71 y/o female with sudden onset of right facial weakness and right upper extremity weakness, CT Brain 04/27 showed left basal ganglia ICH, f/u CT Brain 04/28 shows increased size of ICH with 7 mm midline shift s/p left decompressive craniectomy with evacuation of intraparenchymal hematoma , and placement of ICP monitor on 04/28/16 f/u CT Brain 04/30 shows improved midline shift, still with moderate left intraparenchymal hematoma Abnormal EEG with some sharp waves could be indicative of seizures, no clinical evidence of seizures, neuro eval recs cont Keppra (Bettie Copeland) Plan Plan Remarks dc TANYA drains, cont critical care mgt, CPAP trials dw sister at bedside (Bettie Copeland) Attending Statement The exam, history, and the medical decision-making described in the above note were completed with the assistance of the mid-level provider. I reviewed and agree with the findings presented. I attest that I had a [id number] encounter with the patient on the same day, and personally performed and documented my assessment and findings in the medical record. (Riley Johnson MD) Bettie Copeland May 05, 2016 10:56 Riley Johnson MD May 08, 2016 14:02
[2016-05-05] MEDS: NS + KCL 20 MEQ INJ 1,000 ML IV SCH (18:03)
[2016-05-05] MEDS: MAGNESIUM HYDROXIDE SUSP 30 ML CUP PO PRN (22:50)
[2016-05-06] VITALS (16 sets, daily range): BP systolic 140–179; BP diastolic 61–86; PULSE 50–73; RESP 10–19; TEMP 97.2–98.9; O2SAT 98–100
[2016-05-06] MEDS: hydrALAZINE HCL 20 MG/ML VIAL IV PUSH PRN ×7 (01:43→23:23)
[2016-05-06] MEDS: SODIUM CHLOR 0.9% 1000 ML INJ 1,000 ML IV SCH ×2 (03:54→13:25)
[2016-05-06] MEDS: SENNOSIDES 8.6 MG TAB PO SCH ×2 (03:54→13:24)
[2016-05-06] MEDS: CHLORHEXIDINE GLUCONATE 2 % 1 PACK (2 CLOTHS) TOP SCH (04:00)
[2016-05-06 05:21] LABS: HEMATOCRIT 30.1 % (35.0-46.0); MEAN CELL VOLUME 91.8 FL (80.0-100.0); MEAN CORPUSCULAR HEMOGLOBIN 31.3 PG (27.0-34.0); MEAN CORPUSCULAR HGB CONC 34.1 % (32.0-36.0); PLATELET COUNT 277 TH/MM3 (150-450); RED BLOOD COUNT 3.27 MIL/MM3 (4.00-5.30); RED CELL DISTRIBUTION WIDTH 13.3 % (11.6-17.2); REVIEW FLAG FINAL; WHITE BLOOD COUNT 10.4 TH/MM3 (4.0-11.0)
[2016-05-06 05:36] LABS: BICARBONATE 27.4 MEQ/L (21.0-32.0); MAGNESIUM 2.4 MG/DL (1.5-2.5)
--- NOTE | 2016-05-06 05:39 | RADRPT ---
EXAM DATE/TIME: 05/06/2016 04:47 [facility] COMPARISON: No previous studies available for comparison. INDICATIONS : Distention. MEDICAL HISTORY : None. SURGICAL HISTORY : None. ENCOUNTER: Initial ACUITY: 1 day PAIN SCORE: Non-responsive. LOCATION: abdomen, all quadrants. FINDINGS: Supine view of the abdomen was performed. The abdominal bowel gas pattern is normal. No abnormal ma sses, calcifications, or organomegaly is seen. The osseous structures are unremarkable. NG tube coil ed in the stomach. CONCLUSION: No acute disease. Catarino Patel MD on May 06, 2016 at 5:37 Board Certified Radiologist. This report was verified electronically.
--- NOTE | 2016-05-06 05:49 | RADRPT ---
EXAM DATE/TIME: 05/06/2016 04:44 [facility] COMPARISON: No previous studies available for comparison. INDICATIONS : Shortness of breath. MEDICAL HISTORY : Stroke. SURGICAL HISTORY : None. ENCOUNTER: Subsequent ACUITY: 1 week PAIN SCORE: Non-responsive. LOCATION: Bilateral chest FINDINGS: Endotracheal tube and right jugular line again noted. There is mild basilar airspace disease unchange d. Cardiomegaly. CONCLUSION: Normal examination for a patient of this age. Catarino Patel MD on May 06, 2016 at 5:47 Board Certified Radiologist. This report was verified electronically.
[2016-05-06] MEDS: INSULIN NovoLIN REGULAR SUPPLEMENTAL SCALE SQ SCH ×4 (06:00→18:00)
[2016-05-06] MEDS: DEXMEDETOMIDINE INJ 50 ML IV SCH ×3 (06:09→19:48)
[2016-05-06] MEDS: METOCLOPRAMIDE HCL 10 MG/2 ML VIAL IV SCH ×3 (06:10→20:50)
[2016-05-06] MEDS ORDERED: METOCLOPRAMIDE HCL 10 MG/2 ML VIAL IV SCH (08:00)
[2016-05-06] MEDS: DOCUSATE SODIUM 100 MG CAP PO SCH ×2 (09:00→20:49)
[2016-05-06] MEDS: SODIUM CHLORIDE 0.9% FLUSH 5 ML FLUSH IVF SCH ×3 (09:00→20:51)
[2016-05-06] MEDS: levETIRAcetam INJ 500 MG in SODIUM CHLORIDE 0.9% INJ 100 ML IV SCH ×2 (09:50→19:48)
--- NOTE | 2016-05-06 09:53 | HHI.CCPN ---
Subjective Remarks/Hospital Course This is a 71 female. Data admission 04/27/2016. Past medical history includes left temporal CVA and seizure disorder.. She presented to the emergency room brought by her friend for strokelike symptoms. Patient was verbal when she first arrived and said that her symptoms started 40 minutes ago. 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 She had right-sided facial droop and right arm weakness. There was some right eyelid lag as well. After doing a quick NIH stroke score a stroke alert was called. Patient was rushed to the CT scanner and I spoke with the neurologist to make him aware of possible stroke. Her medications are all alternative natural medications. CT head revealed a 4.6 x 2.4 (basal ganglia intraparenchymal hemorrhage. Encephalopathy left temporal region. Neurosurgery was consultation recommended medical management with 3% hypertonic saline, mannitol and strict blood pressure control systolic blood pressure was 150 with a follow-up CT scan in a.m. While in the ED, patient decompensated with a left-sided gaze. She was flaccid in her right upper lobe extremity. Emergently intubated with 20 minutes etomidate etomidate and 100 mg succinylcholine. She is currently been sedated with propofol/fentanyl and Versed drips. Cardene drip was initiated to maintain systolic blood pressure less than 150. End tidal CO2 around 30 recommended. Receiving 50 mg mannitol IV 1 now. Subjective 04/[address] this a.m. shows slight increase in hemorrhage with a 7 mm rightward midline shift. The patient continues on hypertonic saline, mannitol every 6 hours. 04/29 The patient underwent a emergent left craniotomy last evening with placement of ICP monitor. ICP 67 mmHg postoperatively overnight. Minimal drainage from TANYA drains. Family (sister)located yesterday afternoon, notified of the events. 04/30 Afebrile. On sedation vacation yesterday afternoon, it was noted the patient localizes on the left side, not following commands. ICP ranges 39. EEG performed this a.m. 05/01 The patient continues to localize on the left side, when off sedation. TANYA drains totaling 300 cc in 24 hours ,serosanguineous. 05/02 Afebrile. [place] bolt discontinued yesterday, area clean and dry. Staple line clean and dried no erythema. Sedation vacation yielded movement of left upper extremity and lower extremity. TANYA drainage decreased to 75 cc over the last 12 hours. 05/03 T max 100.3. The patient is now following commands with the left upper and lower extremity. The patient tolerated 2 hours of CPAP yesterday. Overnight the patient was on a propofol and fentanyl infusion will discontinue fentanyl. 05/04 Tmax 99.7. EEG revealed sharp waves possibly seizure activity, recommended continuation of Keppra per neurosurgery. Will begin Lovenox upon discontinuation of TANYA drains per neurosurgery recommendations. The patient continues CPAP trial, improving greater than 4 hours today. 05/05 Neuro evaluation improved. Spontaneous eye opening this morning to voice. Patient continues to follow commands left upper and lower extremity. Patient currently on CPAP trials. 05/06 The patient was maintained on CPAP trials for approximately 16 hours yesterday. The patient continues to respond by squeezing left hand and moving the left leg on command. During the night, it was reported that the patient moving right lower extremity. TANYA drains were removed yesterday. Objective Vital Signs Date Time Temp Pulse Resp B/P Pulse Ox O2 Delivery O2 Flow Rate FiO2 05/06/16 08:38 30 05/06/16 08:38 99 05/06/16 06:00 73 05/06/16 04:00 97.2 12 140/61 Intake and Output 05/05/16 05/05/16 05/06/16 08:00 16:00 00:00 Intake Total 753 ml 1114 ml 523 ml Output Total 650 ml 625 ml 725.0 ml Balance 103 ml 489 ml -202.0 ml Result Diagram: 05/06/16 0501 05/06/16 0501 Imaging Last Impressions Chest X-Ray 05/02/16 0600 Signed Impressions: Service Date/Time: Monday, May 02, 2016 03:48 - CONCLUSION: Stable chest x-ray with underinflation and mild atelectasis versus consolidation at the lung bases. There is also a suspected stable small left pleural effusion. Karthik Kramer MD Head CT 04/30/16 0600 Signed Impressions: Service Date/Time: Saturday, April 30, 2016 04:24 - CONCLUSION: Interim surgery and drain placement. Parenchymal hemorrhage in the left cerebral hemisphere white matter is slightly larger than before. About 2 mm of rightward midline shift now seen compared to 7 mm previously. Karthik Pope MD Last Impressions Chest X-Ray 05/02/16599 Signed Impressions: Service Date/Time: Monday, May 02, 2016 03:48 - CONCLUSION: Stable chest x-ray with underinflation and mild atelectasis versus consolidation at the lung bases. There is also a suspected stable small left pleural effusion. Karthik Kramer MD Head CT 04/30/16599 Signed Impressions: Service Date/Time: Saturday, April 30, 2016 04:24 - CONCLUSION: Interim surgery and drain placement. Parenchymal hemorrhage in the left cerebral hemisphere white matter is slightly larger than before. About 2 mm of rightward midline shift now seen compared to 7 mm previously. Karthik Pope MD Last Impressions Head CT 04/30/16599 Signed Impressions: Service Date/Time: Saturday, April 30, 2016 04:24 - CONCLUSION: Interim surgery and drain placement. Parenchymal hemorrhage in the left cerebral hemisphere white matter is slightly larger than before. About 2 mm of rightward midline shift now seen compared to 7 mm previously. Karthik Pope MD Chest X-Ray 04/30/16599 Signed Impressions: Service Date/Time: Saturday, April 30, 2016 02:55 - CONCLUSION: No significant change. Mild consolidation and small effusion again seen left lung base. Karthik Pope MD Last Impressions Chest X-Ray 04/29/16599 Signed Impressions: Service Date/Time: Friday, April 29, 2016 01:48 - CONCLUSION: Endotracheal tube tip pulled back slightly, now about 4 cm above the lauren. Other lines and tubes unchanged. No significant change mild left base consolidation and small pleural effusion. Karthik Pope MD Head CT 04/28/16599 Signed Impressions: Service Date/Time: Thursday, April 28, 2016 04:36 - CONCLUSION: Left basal ganglia subacute parenchymal hemorrhage is slightly larger. 7 mm of rightward midline shift. Karthik Pope MD Last Impressions Head CT 04/28/16599 Signed Impressions: Service Date/Time: Thursday, April 28, 2016 04:36 - CONCLUSION: Left basal ganglia subacute parenchymal hemorrhage is slightly larger. 7 mm of rightward midline shift. Karthik Pope MD Chest X-Ray 04/28/16 0000 Signed Impressions: Service Date/Time: Thursday, April 28, 2016 04:51 - CONCLUSION: 1. Endotracheal tube tip 1.7 cm above the lauren. 2. Mild left base atelectasis not significantly changed. Karthik Pope MD Last Impressions Head CT 04/27/16 0000 Signed Impressions: Service Date/Time: Wednesday, April 27, 2016 13:33 - CONCLUSION: 1. Focal acute intraparenchymal hemorrhage involving the region of the left basal ganglia measuring 4.6 x 2.4 cm characteristic of a hemorrhagic hypertensive infarct. 2. Large area of encephalomalacia involving the left temporal frontal region. This is either a large area of old infarction versus a large arachnoid cyst. Rommel Norman MD Objective Remarks GENERAL: 71 year obese female, critically ill currently intubated and sedated on Precedex,RASS-1 SKIN: Warm and dry. HEAD: Atraumatic. Normocephalic.2 TANYA drains with serosanguineous fluid noted. Staple line without erythema or drainage EYES: No scleral icterus. No injection or drainage. Pupils reactive 3mm brisk ENT: No nasal bleeding or discharge. Mucous membranes pink and moist. NECK: Trachea midline. No JVD. Orotracheally intubated. CARDIOVASCULAR: Regular rate and rhythm. S1, S2. No S4. Without murmur RESPIRATORY: Clear to auscultation. Breath sounds equal bilaterally. GASTROINTESTINAL: Abdomen soft, non-tender, nondistended. Hepatic and splenic margins not palpable. Normoactive bowel sounds. MUSCULOSKELETAL: Extremities without clubbing, cyanosis, or edema. No obvious deformities. NEUROLOGICAL: RASS -1, Precedex infusion the patient is responding left upper and left lower extremity to command Date of Insertion: Apr 27, 2016 Date of Insertion: Apr 27, 2016 Side: Right Location: Internal, Jugular A/P Assessment and Plan Neuro/Psych: 4.62.4 cm left basal ganglia intraparenchymal hemorrhage Left temporal CVA Seizure disorder Left frontotemporal parietal craniotomy and placement of ICP monitor- POD #4 Sedation- Precedex infusion,RASS -1 CT head revealed 4.62.4 intraparenchymal hemorrhage. Old encephalomalacia left temporal region. Keppra 500 mg BID, continue seizure prophylaxis secondary to results of EEG per neurosurgery recommendations 3% NaCl, discontinued 2/ Mannitol , discontinued 05/03 End tidal CO2 maintain between 30 and 35 EEG 04/30-moderate diffuse encephalopathy, sharp spikes noted, possible seizure activity Repeat CT brain 04/28-left basal ganglia subacute parenchymal hemorrhage slightly larger 7 mm rightward midline shift CT brain 04/30 -2 mm rightward MLS Eric bolt discontinued 05/01/16, TANYA drains removed 05/05 Neuro checks per ICU protocol-patient follows commands left upper and lower extremity, now movement of right extremity but not to command CV: Hypertensive emergency-resolved Cardene drip/cleviprex to maintain systolic blood pressure less than 150mmHg As needed labetalol/hydralazine/Nitropaste Initial troponin less than 0.04. 2-D ECHO-EF 55-60% no RWMA Resp: Acute respiratory failure secondary to altered mental status ACV 16/500/5/.30 Ventilator bundle Maintain head of bed elevation 30 Scheduled every 6 hour bronchodilator therapy Maintain End Tidal CO2 between 30 and 35 Continue CPAP trials, patient edematous-consideration for possible tracheostomy GI: OGT -Glucerna1.5 @50/hr (goal rate) -noted high residuals overnight 300 cc. Will begin Reglan TID Protonix for GI prophylaxis Bowel regimen Colace,Senokot scheduled, Milk of Magnesia PRN Last BM 2 /FEN: Hypophosphatemia-resolved Monitor BMP Maintain Mosley for accurate I's and O's Replete electrolytes per ICU protocol Endo: Hyperglycemia of critical illness Sliding-scale insulin with Accu-Cheks every 6 hours to maintain euglycemia. Low dose regimen. Renal: No acute issues Accurate I/O's Normal saline at 30 cc an hour Heme: Monitor CBC ID: Leukocytosis-resolved Monitor for signs of infection UA culture-NGTD MSK: PT evaluate and treat Daily functional maintenance Access -Discontinue Right IJ CVL day #8, peripheral IVs 2 Prophylaxis - GI - Protonix - DVT - SCD/begin Lovenox for DVT prophylaxis Dispo: Discussed with WHARF ATTENDANTchange control analyst: This patient remains critically ill with one or more organ systems which are or may become a threat to life. I have spent in excess of 35 minutes discontinuously in the care and management of this patient. This time is exclusive of procedures, and includes, but is not limited to, evaluation of the patient, review of the medical record, discussions with family, consultants, nursing staff, or respiratory therapy, and documentation in the medical record. Physician Kizzy Aguilar MD May 06, 2016 09:53
[2016-05-06] MEDS ORDERED: FUROSEMIDE 20 MG/2 ML VIAL IV PUSH ONE (10:00)
[2016-05-06] MEDS: PANTOPRAZOLE SODIUM 40 MG VIAL IVP SCH (10:14)
[2016-05-06] MEDS: ENOXAPARIN SODIUM 40 MG/0.4 ML SYRINGE SQ SCH (10:15)
[2016-05-06] MEDS: CHLORHEXIDINE 0.12% (ORAL KIT) 15 ML CUP MT SCH ×2 (10:16→20:00)
[2016-05-06] MEDS: ARTIFICIAL TEARS OPTH SOLN 15 ML BTL EACH EYE SCH ×3 (10:16→15:27)
[2016-05-06] MEDS: MAGNESIUM HYDROXIDE SUSP 30 ML CUP PO PRN (13:21)
--- NOTE | 2016-05-06 13:22 | HHI.NSPN ---
(Bettie Copeland) Note Status Status: Progress Note (Bettie Copeland) Interval History Interval History Ms. Mobley is a 71 female with history of prior left temporal CVA. Earlier today the patient had sudden onset of right facial drooping and right arm weakness. There were no associated falls or trauma. She was taken to [place] ED and a CT Brain showed a 4.6 x 2.4 left basal ganglia hemorrhage without significant midline shift. Her vitals signs on arrival was noted to be extremely elevated as high as in the 200's systolic, she was placed on Cardene. The patient was reported to be initially talking on arrival but then decompensated and was emergently intubated. 04/28: well sedated, on hyperosmotic with 3%NS and Mannitol. f/u CT Brain completed. 04/29: sedated on diprivan and fentanyl. ICPs have been wnl 04/30: currently sedated on diprivan. had sedation vacation this am, reported to cough, and withdraws left upper extremity. ICPs low. 2: still moderate output to TANYA drain with some clots, ICPs low. intubated, sedated. localizes LUE off sedation, no eye opening, not following commands. 05/02: sedation vacation this am ?followed command LUE. weaning sedation, cpap trials. high serum os and serum sodium. 05/05: family at bedside reports opening eyes, critical mgt continuing cpap trials 05/06: opening eyes to verbal stimuli, moving left arm and leg intermittently ( Bettie Copeland) Labs, Micro, & Vital Signs Results Date Time Temp Pulse Resp B/P Pulse Ox O2 Delivery O2 Flow Rate FiO2 05/06/16 12:11 99 30 05/06/16 08:38 30 05/06/16 08:38 99 30 05/06/16 06:00 73 05/06/16 05:40 100 30 05/06/16 04:00 97.2 53 12 140/61 99 05/06/16 04:00 53 05/06/16 04:00 30 05/06/16 02:00 50 2/7/17 02:00 100 30 05/06/16 00:00 50 05/06/16 00:00 98.5 50 10 155/74 98 05/06/16 00:00 30 05/05/16 22:00 53 05/05/16 21:40 99 60 05/05/16 20:00 30 05/05/16 20:00 52 05/05/16 20:00 98.6 52 10 134/67 98 05/05/16 18:00 56 05/05/16 16:49 11 05/05/16 16:48 98 30 05/05/16 16:00 98.8 56 10 135/66 99 05/05/16 16:00 56 05/05/16 16:00 30 05/05/16 14:00 56 05/06/16 07:00 Intake Total 2067 ml Output Total 2000.0 ml Balance 67.0 ml Constitutional Vital Signs Date Time Temp Pulse Resp B/P Pulse Ox O2 Delivery O2 Flow Rate FiO2 05/06/16 12:11 99 30 05/06/16 08:38 30 05/06/16 08:38 99 30 05/06/16 06:00 73 05/06/16 05:40 100 30 05/06/16 04:00 97.2 53 12 140/61 99 05/06/16 04:00 53 05/06/16 04:00 30 05/06/16 02:00 50 05/06/16 02:00 100 30 05/06/16 00:00 50 05/06/16 00:00 98.5 50 10 155/74 98 05/06/16 00:00 30 05/05/16 22:00 53 05/05/16 21:40 99 60 05/05/16 20:00 30 05/05/16 20:00 52 05/05/16 20:00 98.6 52 10 134/67 98 05/05/16 18:00 56 05/05/16 16:49 11 05/05/16 16:48 98 30 05/05/16 16:00 98.8 56 10 135/66 99 05/05/16 16:00 56 05/05/16 16:00 30 05/05/16 14:00 56 05/06/16 07:00 Intake Total 2067 ml Output Total 2000.0 ml Balance 67.0 ml (Bettie Copeland) Review of Systems/Exam Exam Ms. Mobley is intubated and sedated. Opening eyes to verbal stimuli Wound is healing well, patito intact. TANYA drain sites with steri-strips. Cranial Nerves: Pupils 3 mm b/l. No nystagmus seen. Cervical Spine: soft, supple sensorimotor: moving left upper and left lower extremity intermittently 2/5 Reflexes: Plantars silent b/l, no ankle clonus (Bettie Copeland) Medications Current Medications Current Medications Medications (Trade) Dose Ordered Sig/Femi Route PRN Reason Start Time Stop Time Status Last Admin Dose Admin Labetalol HCl (Trandate Inj) 10 mg Q1HR PRN IV PUSH SBP>150, DBP>900, HR>65 04/27/16 15:00 Nitroglycerin (Nitroglycerin 2% Oint) 2 inch Q6HR PRN TOPICAL SBP>150, DBP>90 04/27/16 15:00 Hydralazine HCl (Apresoline Inj) 10 mg Q1HR PRN IV PUSH SBP>150, DBP>90 04/27/16 15:00 05/06/16 11:04 Chlorhexidine Gluconate (Peridex 0.12% Liq) 15 ml BID@08,20 MT 04/27/16 20:00 05/06/16 10:16 IV Flush (NS Flush) DAILY IVF 04/28/16 09:00 05/06/16 09:50 IV Flush (NS Flush) UNSCH PRN IVF SEE PROTOCOL 04/27/16 15:00 Artificial Tears (Tears Naturale Opth Soln) 1 drop TID EACH EYE 04/27/16 18:00 05/06/16 11:51 Ondansetron HCl (Zofran Inj) 4 mg Q6H PRN IV NAUSEA OR VOMITING 04/27/16 15:15 Miscellaneous Information 1 Q361D XX 04/27/16 15:15 04/28/16 04:00 Chlorhexidine Gluconate (Chlorhexidine 2% Cloth) Taper DAILY@04 TOP 04/28/16 04:00 04/24/17 03:59 05/05/16 03:46 Chlorhexidine Gluconate 3 pack 3 pack UNSCH PRN [facility] 04/27/16 15:15 Potassium Chloride 100 ml @ 50 mls/hr Q2H PRN IV For Potassium 2.8 - 3.2 mEq/L 04/27/16 15:15 Potassium Chloride (KCl 20 Meq Premix Inj) 100 ml @ 50 mls/hr Q2H PRN IV For Potassium 2.8 - 3.2 mEq/L 04/27/16 15:15 Potassium Chloride 40 meq 40 meq UNSCH PRN PO/TUBE For Potassium 3.3 - 3.5 mEq/L 04/27/16 15:15 Potassium Chloride 100 ml @ 25 mls/hr UNSCH PRN IV For Potassium 3.3 - 3.5 mEq/L 04/27/16 15:15 Potassium Chloride 100 ml @ 50 mls/hr Q2H PRN IV For Potassium 3.3 - 3.5 mEq/L 04/27/16 15:15 Magnesium Sulfate/ Sodium Chloride (Magnesium Sulfate Inj/NS Inj) 100 ml @ 50 mls/hr UNSCH PRN IV For Magnesium 0.9 - 1.1 mg/dL 04/27/16 15:15 Magnesium Oxide 800 mg 800 mg UNSCH PRN PO For Magnesium 1.2 - 1.6 mg/dL 04/27/16 15:15 Magnesium Sulfate/ Sodium Chloride (Magnesium Sulfate Inj/NS Inj) 100 ml @ 50 mls/hr UNSCH PRN IV For Magnesium 1.2 - 1.6 mg/dL 04/27/16 15:15 Potassium Phosphate 2000 mg 2,000 mg Q4H PRN PO For Phosphorus < 2.5 mg/dL 04/27/16 15:15 05/01/16 10:44 Sodium Phosphate/ Sodium Chloride (Sodium Phosphate Inj/NS 250 ml Inj) 250 ml @ 42 mls/hr UNSCH PRN IV For Phosphorus < 2.5 mg/dL 04/27/16 15:15 04/28/16 06:55 Potassium Chloride (KCl 40 Meq/30 ml Liq) 40 meq UNSCH PRN PO/TUBE SEE LABEL COMMENTS 04/27/16 15:15 Potassium Phosphate 2000 mg 2,000 mg UNSCH PRN PO/TUBE SEE LABEL COMMENTS 04/27/16 15:15 Potassium Phosphate/Sodium Chloride (Potassium Phosphate Inj/NS 250 ml Inj) 260 ml @ 42 mls/hr UNSCH PRN IV SEE LABEL COMMENTS 04/27/16 15:15 Dextrose (D50w (Vial) Inj) 25 ml UNSCH PRN IV PUSH HYPOGLYCEMIA-SEE COMMENTS 04/27/16 15:15 04/28/16 01:18 Glucagon (Glucagon Inj) 1 mg UNSCH PRN OTHER HYPOGLYCEMIA-SEE COMMENTS 04/27/16 15:15 Insulin Human Regular (NovoLIN R SUPPLEMENTAL SCALE) 1 Q6HR SQ 04/27/16 18:00 05/02/16 11:59 IV Flush (NS Flush) 2 ml UNSCH PRN IVF FLUSH AFTER USING IV ACCESS 04/28/16 19:45 IV Flush 2 ml 2 ml BID IVF 04/28/16 21:00 05/05/16 20:09 Levetriacetam/ Sodium Chloride (Keppra Inj/NS Inj) 105 ml @ 400 mls/hr Q12H IV 04/28/16 20:00 05/06/16 09:50 Bisacodyl (Dulcolax Supp) 10 mg DAILY PRN HI CONSTIPATION 04/28/16 19:45 05/06/16 10:38 Docusate Sodium (Colace) 100 mg BID PO 04/28/16 21:00 05/05/16 20:09 Pantoprazole Sodium (Protonix Inj) 40 mg DAILY IVP 04/29/16 09:00 05/06/16 10:14 Calcium Gluconate (Calcium Gluconate Inj) 1 gm UNSCH PRN IV SEE LABEL COMMENTS 04/28/16 19:45 Acetaminophen/ Hydrocodone Bitart ([place] 10-325 Mg) 1 tab Q4H PRN PO PAIN SCALE 1 TO 5 04/28/16 19:45 Acetaminophen/ Hydrocodone Bitart ([place] 10-325 Mg) 2 tab Q4H PRN PO PAIN SCALE 6 TO 10 04/28/16 19:45 Morphine Sulfate (Morphine Inj) 2 mg Q2H PRN IV PUSH PAIN SCALE 1 TO 6 04/28/16 19:45 Morphine Sulfate (Morphine Inj) 4 mg Q2H PRN IV PUSH PAIN SCALE 7 TO 10 04/28/16 19:45 05/05/16 23:50 Acetaminophen (Tylenol) 650 mg Q4H PRN PO TEMPERATURE > 101.5 F 04/28/16 19:45 Sennosides (Senokot) 17.2 mg Q12H PO 04/30/16 15:00 05/06/16 03:54 Magnesium Hydroxide 30 ml 30 ml DAILY PRN PO CONSTIPATION 04/30/16 14:30 05/05/16 22:50 Dexmedetomidine HCl 50 ml @ 0 mls/hr TITRATE IV 05/05/16 09:00 05/06/16 11:04 Sodium Chloride (NS 1000 ml Inj) 1,000 ml @ 84 mls/hr [id number] IV 05/06/16 03:15 05/06/16 03:54 Metoclopramide HCl (Reglan Inj) 5 mg Q8H IV 05/06/16 06:00 05/06/16 06:10 Enoxaparin Sodium (Lovenox Inj) 40 mg Q24H SQ 05/06/16 10:00 05/06/16 10:15 (Bettie Copeland) Medical Decision Making MDM Remarks 71 y/o female with sudden onset of right facial weakness and right upper extremity weakness, CT Brain 04/27 showed left basal ganglia ICH, f/u CT Brain 04/28 shows increased size of ICH with 7 mm midline shift s/p left decompressive craniectomy with evacuation of intraparenchymal hematoma , and placement of ICP monitor on 04/28/16 f/u CT Brain 04/30 shows improved midline shift, still with moderate left intraparenchymal hematoma Abnormal EEG with some sharp waves could be indicative of seizures, no clinical evidence of seizures, neuro eval recs cont Keppra (Bettie Copeland) Plan Plan Remarks cont critical care, vent weaning neuro exam improving (Bettie Copeland) Attending Statement The exam, history, and the medical decision-making described in the above note were completed with the assistance of the mid-level provider. I reviewed and agree with the findings presented. I attest that I had a [id number] encounter with the patient on the same day, and personally performed and documented my assessment and findings in the medical record. (Riley Johnson MD) Bettie Copeland May 06, 2016 13:22 Riley Johnson MD May 08, 2016 14:01
[2016-05-06] MEDS: NITROGLYCERIN 2% OINT 1 GM PACKET TOPICAL PRN (14:07)
[2016-05-06] MEDS: LACTULOSE SYRUP 20 GM/30 ML CUP PO/NG SCH (20:49)
[2016-05-06] MEDS: MORPHINE SULFATE 4 MG/ML INJ IV PUSH PRN (20:50)
[2016-05-07] VITALS (19 sets, daily range): BP systolic 144–167; BP diastolic 65–84; PULSE 51–82; RESP 12–28; TEMP 98–99.3; O2SAT 95–100
[2016-05-07] MEDS: DEXMEDETOMIDINE INJ 50 ML IV SCH ×5 (01:32→22:45)
[2016-05-07] MEDS: SODIUM CHLOR 0.9% 1000 ML INJ 1,000 ML IV SCH ×2 (01:32→13:42)
[2016-05-07] MEDS: MORPHINE SULFATE 4 MG/ML INJ IV PUSH PRN ×3 (02:15→08:57)
[2016-05-07] MEDS: hydrALAZINE HCL 20 MG/ML VIAL IV PUSH PRN ×4 (02:33→19:51)
[2016-05-07] MEDS: SENNOSIDES 8.6 MG TAB PO SCH ×2 (02:33→12:41)
[2016-05-07] MEDS: CHLORHEXIDINE GLUCONATE 2 % 1 PACK (2 CLOTHS) TOP SCH (04:00)
[2016-05-07] MEDS: INSULIN NovoLIN REGULAR SUPPLEMENTAL SCALE SQ SCH ×4 (06:00→18:00)
[2016-05-07] MEDS: METOCLOPRAMIDE HCL 10 MG/2 ML VIAL IV SCH ×3 (06:03→22:45)
[2016-05-07] MEDS: NITROGLYCERIN 2% OINT 1 GM PACKET TOPICAL PRN ×2 (06:03→14:09)
[2016-05-07 06:11] LABS: BICARBONATE 22.9 MEQ/L (21.0-32.0); MAGNESIUM 2.4 MG/DL (1.5-2.5); POTASSIUM 3.7 MEQ/L (3.5-5.1)
--- NOTE | 2016-05-07 06:29 | RADRPT ---
EXAM DATE/TIME: 05/07/2016 05:54 [facility] COMPARISON: CHEST SINGLE AP, May 06, 2016, 4:44. INDICATIONS : Shortness of breath. MEDICAL HISTORY : Stroke. SURGICAL HISTORY : Craniotomy ENCOUNTER: Subsequent ACUITY: 1 week PAIN SCORE: Non-responsive. LOCATION: Bilateral chest FINDINGS: Endotracheal tube tip terminates just above the clavicles. There is consolidation in the left lower l obe and right medial lung base. Patient is rotated to the right. NG tube courses beneath the diaphrag m. CONCLUSION: Increasing consolidation. Catarino Patel MD on May 07, 2016 at 6:27 Board Certified Radiologist. This report was verified electronically.
[2016-05-07] MEDS: PANTOPRAZOLE SODIUM 40 MG VIAL IVP SCH (08:55)
[2016-05-07] MEDS: ENOXAPARIN SODIUM 40 MG/0.4 ML SYRINGE SQ SCH (08:56)
[2016-05-07] MEDS: levETIRAcetam INJ 500 MG in SODIUM CHLORIDE 0.9% INJ 100 ML IV SCH ×2 (08:56→19:51)
[2016-05-07] MEDS: LACTULOSE SYRUP 20 GM/30 ML CUP PO/NG SCH ×2 (08:56→21:00)
[2016-05-07] MEDS: SODIUM CHLORIDE 0.9% FLUSH 5 ML FLUSH IVF SCH ×3 (08:57→22:42)
[2016-05-07] MEDS: DOCUSATE SODIUM 100 MG CAP PO SCH ×2 (08:57→21:00)
[2016-05-07] MEDS: CHLORHEXIDINE 0.12% (ORAL KIT) 15 ML CUP MT SCH ×2 (08:58→22:42)
[2016-05-07] MEDS: ARTIFICIAL TEARS OPTH SOLN 15 ML BTL EACH EYE SCH ×3 (09:09→19:51)
--- NOTE | 2016-05-07 11:12 | HHI.NSPN ---
(Bettie Copeland) Note Status Status: Progress Note (Bettie Copeland) Interval History Interval History Ms. Mobley is a 71 female with history of prior left temporal CVA. Earlier today the patient had sudden onset of right facial drooping and right arm weakness. There were no associated falls or trauma. She was taken to [place] ED and a CT Brain showed a 4.6 x 2.4 left basal ganglia hemorrhage without significant midline shift. Her vitals signs on arrival was noted to be extremely elevated as high as in the 200's systolic, she was placed on Cardene. The patient was reported to be initially talking on arrival but then decompensated and was emergently intubated. 04/28: well sedated, on hyperosmotic with 3%NS and Mannitol. f/u CT Brain completed. 04/29: sedated on diprivan and fentanyl. ICPs have been wnl 04/30: currently sedated on diprivan. had sedation vacation this am, reported to cough, and withdraws left upper extremity. ICPs low. 2: still moderate output to TANYA drain with some clots, ICPs low. intubated, sedated. localizes LUE off sedation, no eye opening, not following commands. 05/02: sedation vacation this am ?followed command LUE. weaning sedation, cpap trials. high serum os and serum sodium. 05/05: family at bedside reports opening eyes, critical mgt continuing cpap trials 05/06: opening eyes to verbal stimuli, moving left arm and leg intermittently 05/07: becoming more awake and alert, moving left arm and left leg more (Bettie Copeland) Labs, Micro, & Vital Signs Results Date Time Temp Pulse Resp B/P Pulse Ox O2 Delivery O2 Flow Rate FiO2 05/07/16 08:04 30 05/07/16 07:55 98 30 05/07/16 06:00 51 05/07/16 04:00 30 05/07/16 04:00 59 05/07/16 04:00 99.3 59 14 150/74 97 05/07/16 03:57 96 40 05/07/16 02:00 58 05/07/16 01:35 100 40 05/07/16 00:00 98.8 54 12 148/69 98 05/07/16 00:00 54 05/07/16 00:00 30 05/06/16 22:00 59 05/06/16 20:39 100 30 05/06/16 20:00 60 05/06/16 20:00 98.9 60 12 149/70 100 05/06/16 20:00 30 05/06/16 16:00 98.4 53 12 179/86 98 05/06/16 16:00 30 05/06/16 16:00 53 05/06/16 15:49 98 30 05/06/16 14:00 52 05/06/16 12:11 99 30 05/06/16 12:00 98.7 57 19 156/70 98 05/06/16 12:00 30 05/06/16 12:00 57 05/07/16 07:00 Intake Total 2507 ml Output Total 3100 ml Balance -593 ml Constitutional Vital Signs Date Time Temp Pulse Resp B/P Pulse Ox O2 Delivery O2 Flow Rate FiO2 05/07/16 08:04 30 05/07/16 07:55 98 30 05/07/16 06:00 51 05/07/16 04:00 30 05/07/16 04:00 59 05/07/16 04:00 99.3 59 14 150/74 97 05/07/16 03:57 96 40 05/07/16 02:00 58 05/07/16 01:35 100 40 05/07/16 00:00 98.8 54 12 148/69 98 05/07/16 00:00 54 05/07/16 00:00 30 05/06/16 22:00 59 05/06/16 20:39 100 30 05/06/16 20:00 60 05/06/16 20:00 98.9 60 12 149/70 100 05/06/16 20:00 30 05/06/16 16:00 98.4 53 12 179/86 98 05/06/16 16:00 30 05/06/16 16:00 53 05/06/16 15:49 98 30 05/06/16 14:00 52 05/06/16 12:11 99 30 05/06/16 12:00 98.7 57 19 156/70 98 05/06/16 12:00 30 05/06/16 12:00 57 05/07/16 07:00 Intake Total 2507 ml Output Total 3100 ml Balance -593 ml (Bettie Copeland) Review of Systems/Exam Exam Ms. Mobley is intubated. Opening eyes more, Scalp wound is healing well, no redness, drainage, erythema or evidence of infection. Cranial Nerves: Pupils 3 mm round b/l. Cervical Spine: soft, supple motor: moving left upper and left lower off the bed, on left wrist soft restraint. no movements seen right side. (Bettie Copeland) Medications Current Medications Current Medications Medications (Trade) Dose Ordered Sig/Femi Route PRN Reason Start Time Stop Time Status Last Admin Dose Admin Labetalol HCl (Trandate Inj) 10 mg Q1HR PRN IV PUSH SBP>150, DBP>900, HR>65 04/27/16 15:00 Nitroglycerin (Nitroglycerin 2% Oint) 2 inch Q6HR PRN TOPICAL SBP>150, DBP>90 04/27/16 15:00 05/07/16 06:03 Chlorhexidine Gluconate (Peridex 0.12% Liq) 15 ml BID@08,20 MT 04/27/16 20:00 05/07/16 08:58 IV Flush (NS Flush) DAILY IVF 04/28/16 09:00 05/07/16 08:57 IV Flush (NS Flush) UNSCH PRN IVF SEE PROTOCOL 04/27/16 15:00 Artificial Tears (Tears Naturale Opth Soln) 1 drop TID EACH EYE 04/27/16 18:00 05/07/16 09:09 Ondansetron HCl (Zofran Inj) 4 mg Q6H PRN IV NAUSEA OR VOMITING 04/27/16 15:15 Miscellaneous Information 1 Q361D XX 04/27/16 15:15 04/28/16 04:00 Chlorhexidine Gluconate (Chlorhexidine 2% Cloth) Taper DAILY@04 TOP 04/28/16 04:00 04/24/17 03:59 05/05/16 03:46 Chlorhexidine Gluconate 3 pack 3 pack UNSCH PRN TOP HYGIENIC CARE 04/27/16 15:15 Potassium Chloride 100 ml @ 50 mls/hr Q2H PRN IV For Potassium 2.8 - 3.2 mEq/L 04/27/16 15:15 Potassium Chloride (KCl 20 Meq Premix Inj) 100 ml @ 50 mls/hr Q2H PRN IV For Potassium 2.8 - 3.2 mEq/L 04/27/16 15:15 Potassium Chloride 40 meq 40 meq UNSCH PRN PO/TUBE For Potassium 3.3 - 3.5 mEq/L 04/27/16 15:15 Potassium Chloride 100 ml @ 25 mls/hr UNSCH PRN IV For Potassium 3.3 - 3.5 mEq/L 04/27/16 15:15 Potassium Chloride 100 ml @ 50 mls/hr Q2H PRN IV For Potassium 3.3 - 3.5 mEq/L 04/27/16 15:15 Magnesium Sulfate/ Sodium Chloride (Magnesium Sulfate Inj/NS Inj) 100 ml @ 50 mls/hr UNSCH PRN IV For Magnesium 0.9 - 1.1 mg/dL 04/27/16 15:15 Magnesium Oxide 800 mg 800 mg UNSCH PRN PO For Magnesium 1.2 - 1.6 mg/dL 04/27/16 15:15 Magnesium Sulfate/ Sodium Chloride (Magnesium Sulfate Inj/NS Inj) 100 ml @ 50 mls/hr UNSCH PRN IV For Magnesium 1.2 - 1.6 mg/dL 04/27/16 15:15 Potassium Phosphate 2000 mg 2,000 mg Q4H PRN PO For Phosphorus < 2.5 mg/dL 04/27/16 15:15 05/01/16 10:44 Sodium Phosphate/ Sodium Chloride (Sodium Phosphate Inj/NS 250 ml Inj) 250 ml @ 42 mls/hr UNSCH PRN IV For Phosphorus < 2.5 mg/dL 04/27/16 15:15 04/28/16 06:55 Potassium Chloride (KCl 40 Meq/30 ml Liq) 40 meq UNSCH PRN PO/TUBE SEE LABEL COMMENTS 04/27/16 15:15 Potassium Phosphate 2000 mg 2,000 mg UNSCH PRN PO/TUBE SEE LABEL COMMENTS 04/27/16 15:15 Potassium Phosphate/Sodium Chloride (Potassium Phosphate Inj/NS 250 ml Inj) 260 ml @ 42 mls/hr UNSCH PRN IV SEE LABEL COMMENTS 04/27/16 15:15 Dextrose (D50w (Vial) Inj) 25 ml UNSCH PRN IV PUSH HYPOGLYCEMIA-SEE COMMENTS 04/27/16 15:15 04/28/16 01:18 Glucagon (Glucagon Inj) 1 mg UNSCH PRN OTHER HYPOGLYCEMIA-SEE COMMENTS 04/27/16 15:15 Insulin Human Regular (NovoLIN R SUPPLEMENTAL SCALE) 1 Q6HR SQ 04/27/16 18:00 05/02/16 11:59 IV Flush (NS Flush) 2 ml UNSCH PRN IVF FLUSH AFTER USING IV ACCESS 04/28/16 19:45 IV Flush 2 ml 2 ml BID IVF 04/28/16 21:00 05/07/16 08:57 Levetriacetam/ Sodium Chloride (Keppra Inj/NS Inj) 105 ml @ 400 mls/hr Q12H IV 04/28/16 20:00 05/07/16 08:56 Bisacodyl (Dulcolax Supp) 10 mg DAILY PRN SC CONSTIPATION 04/28/16 19:45 05/06/16 10:38 Docusate Sodium (Colace) 100 mg BID PO 04/28/16 21:00 05/07/16 08:57 Pantoprazole Sodium (Protonix Inj) 40 mg DAILY IVP 04/29/16 09:00 05/07/16 08:55 Calcium Gluconate (Calcium Gluconate Inj) 1 gm UNSCH PRN IV SEE LABEL COMMENTS 04/28/16 19:45 Acetaminophen/ Hydrocodone Bitart ([place]akis 10-325 Mg) 1 tab Q4H PRN PO PAIN SCALE 1 TO 5 04/28/16 19:45 Acetaminophen/ Hydrocodone Bitart ([place] 10-325 Mg) 2 tab Q4H PRN PO PAIN SCALE 6 TO 10 04/28/16 19:45 Morphine Sulfate (Morphine Inj) 2 mg Q2H PRN IV PUSH PAIN SCALE 1 TO 6 04/28/16 19:45 Morphine Sulfate (Morphine Inj) 4 mg Q2H PRN IV PUSH PAIN SCALE 7 TO 10 04/28/16 19:45 05/07/16 08:57 Acetaminophen (Tylenol) 650 mg Q4H PRN PO TEMPERATURE > 101.5 F 04/28/16 19:45 Sennosides (Senokot) 17.2 mg Q12H PO 04/30/16 15:00 05/07/16 02:33 Magnesium Hydroxide 30 ml 30 ml DAILY PRN PO CONSTIPATION 04/30/16 14:30 05/06/16 13:21 Dexmedetomidine HCl 50 ml @ 0 mls/hr TITRATE IV 05/05/16 09:00 05/07/16 07:37 Sodium Chloride (NS 1000 ml Inj) 1,000 ml @ 84 mls/hr [id number] IV 05/06/16 03:15 05/07/16 01:32 Metoclopramide HCl (Reglan Inj) 5 mg Q8H IV 05/06/16 06:00 05/07/16 06:03 Enoxaparin Sodium (Lovenox Inj) 40 mg Q24H SQ 05/06/16 10:00 05/07/16 08:56 Hydralazine HCl (Apresoline Inj) 20 mg Q1HR PRN IV PUSH SBP>150, DBP>90 05/06/16 17:12 05/07/16 10:18 Lactulose (Lactulose Liq) 30 ml BID PO/NG 05/06/16 21:00 05/07/16 08:56 (Bettie Copeland) Medical Decision Making MDM Remarks 71 y/o female with sudden onset of right facial weakness and right upper extremity weakness, CT Brain 04/27 showed left basal ganglia ICH, f/u CT Brain 04/28 shows increased size of ICH with 7 mm midline shift s/p left decompressive craniectomy with evacuation of intraparenchymal hematoma , and placement of ICP monitor on 04/28/16 f/u CT Brain 04/30 shows improved midline shift, still with moderate left intraparenchymal hematoma Abnormal EEG with some sharp waves could be indicative of seizures, no clinical evidence of seizures, neuro eval recs cont Keppra neuro improving, becoming more awake, and alert, purposeful movements left side (Bettie Copeland) Plan Plan Remarks neuro improving, cont critical care mgt, CPAP trials ok for tracheostomy if needed dw sister at bedside head patito dc 05/12/16 (Bettie Copeland) Attending Statement The exam, history, and the medical decision-making described in the above note were completed with the assistance of the mid-level provider. I reviewed and agree with the findings presented. I attest that I had a [id number] encounter with the patient on the same day, and personally performed and documented my assessment and findings in the medical record. (Riley Johnson MD) Bettie Copeland May 07, 2016 11:12 Riley Johnson MD May 08, 2016 14:04
[2016-05-07 12:30] LABS: MEAN CELL VOLUME 92.1 FL (80.0-100.0); MEAN CORPUSCULAR HEMOGLOBIN 31.1 PG (27.0-34.0); MEAN CORPUSCULAR HGB CONC 33.8 % (32.0-36.0); PLATELET COUNT 339 TH/MM3 (150-450); RED BLOOD COUNT 3.25 MIL/MM3 (4.00-5.30); RED CELL DISTRIBUTION WIDTH 12.9 % (11.6-17.2); REVIEW FLAG FINAL; WHITE BLOOD COUNT 12.4 TH/MM3 (4.0-11.0)
--- NOTE | 2016-05-07 15:26 | HHI.CCPN ---
Subjective Remarks/Hospital Course This is a 71 female. Data admission 04/27/2016. Past medical history includes left temporal CVA and seizure disorder.. She presented to the emergency room brought by her friend for strokelike symptoms. Patient was verbal when she first arrived and said that her symptoms started 40 minutes ago. 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 She had right-sided facial droop and right arm weakness. There was some right eyelid lag as well. After doing a quick NIH stroke score a stroke alert was called. Patient was rushed to the CT scanner and I spoke with the neurologist to make him aware of possible stroke. Her medications are all alternative natural medications. CT head revealed a 4.6 x 2.4 (basal ganglia intraparenchymal hemorrhage. Encephalopathy left temporal region. Neurosurgery was consultation recommended medical management with 3% hypertonic saline, mannitol and strict blood pressure control systolic blood pressure was 150 with a follow-up CT scan in a.m. While in the ED, patient decompensated with a left-sided gaze. She was flaccid in her right upper lobe extremity. Emergently intubated with 20 minutes etomidate etomidate and 100 mg succinylcholine. She is currently been sedated with propofol/fentanyl and Versed drips. Cardene drip was initiated to maintain systolic blood pressure less than 150. End tidal CO2 around 30 recommended. Receiving 50 mg mannitol IV 1 now. Subjective 04/[address] this a.m. shows slight increase in hemorrhage with a 7 mm rightward midline shift. The patient continues on hypertonic saline, mannitol every 6 hours. 04/29 The patient underwent a emergent left craniotomy last evening with placement of ICP monitor. ICP 67 mmHg postoperatively overnight. Minimal drainage from TANYA drains. Family (sister)located yesterday afternoon, notified of the events. 04/30 Afebrile. On sedation vacation yesterday afternoon, it was noted the patient localizes on the left side, not following commands. ICP ranges 39. EEG performed this a.m. 05/01 The patient continues to localize on the left side, when off sedation. TANYA drains totaling 300 cc in 24 hours ,serosanguineous. 05/02 Afebrile. [place] bolt discontinued yesterday, area clean and dry. Staple line clean and dried no erythema. Sedation vacation yielded movement of left upper extremity and lower extremity. TANYA drainage decreased to 75 cc over the last 12 hours. 05/03 T max 100.3. The patient is now following commands with the left upper and lower extremity. The patient tolerated 2 hours of CPAP yesterday. Overnight the patient was on a propofol and fentanyl infusion will discontinue fentanyl. 05/04 Tmax 99.7. EEG revealed sharp waves possibly seizure activity, recommended continuation of Keppra per neurosurgery. Will begin Lovenox upon discontinuation of TANYA drains per neurosurgery recommendations. The patient continues CPAP trial, improving greater than 4 hours today. 05/05 Neuro evaluation improved. Spontaneous eye opening this morning to voice. Patient continues to follow commands left upper and lower extremity. Patient currently on CPAP trials. 05/06 The patient was maintained on CPAP trials for approximately 16 hours yesterday. The patient continues to respond by squeezing left hand and moving the left leg on command. During the night, it was reported that the patient moving right lower extremity. TANYA drains were removed yesterday. 05/07: Remains encephalopathic, orally intubated on mechanical ventilation. Daily C Pap trials ongoing. Objective Vital Signs Date Time Temp Pulse Resp B/P Pulse Ox O2 Delivery O2 Flow Rate FiO2 05/07/16 15:01 98 30 05/07/16 14:00 59 05/07/16 12:00 98.8 25 144/65 05/06/16 08:00 Mechanical Ventilator Intake and Output 05/06/16 05/06/16 05/07/16 08:00 16:00 00:00 Intake Total 430 ml 854 ml 866 ml Output Total 650 ml 2150 ml 550 ml Balance -220 ml -1296 ml 316 ml Result Diagram: 05/07/16 1105 05/07/16 0451 Imaging Last Impressions Chest X-Ray 05/02/16 0600 Signed Impressions: Service Date/Time: Monday, May 02, 2016 03:48 - CONCLUSION: Stable chest x-ray with underinflation and mild atelectasis versus consolidation at the lung bases. There is also a suspected stable small left pleural effusion. Karthik Kramer MD Head CT 04/30/16 0600 Signed Impressions: Service Date/Time: Saturday, April 30, 2016 04:24 - CONCLUSION: Interim surgery and drain placement. Parenchymal hemorrhage in the left cerebral hemisphere white matter is slightly larger than before. About 2 mm of rightward midline shift now seen compared to 7 mm previously. Karthik Pope MD Last Impressions Chest X-Ray 05/02/16599 Signed Impressions: Service Date/Time: Monday, May 02, 2016 03:48 - CONCLUSION: Stable chest x-ray with underinflation and mild atelectasis versus consolidation at the lung bases. There is also a suspected stable small left pleural effusion. Karthik Kramer MD Head CT 04/30/16599 Signed Impressions: Service Date/Time: Saturday, April 30, 2016 04:24 - CONCLUSION: Interim surgery and drain placement. Parenchymal hemorrhage in the left cerebral hemisphere white matter is slightly larger than before. About 2 mm of rightward midline shift now seen compared to 7 mm previously. Karthik Pope MD Last Impressions Head CT 04/30/16599 Signed Impressions: Service Date/Time: Saturday, April 30, 2016 04:24 - CONCLUSION: Interim surgery and drain placement. Parenchymal hemorrhage in the left cerebral hemisphere white matter is slightly larger than before. About 2 mm of rightward midline shift now seen compared to 7 mm previously. Karthik Pope MD Chest X-Ray 04/30/16599 Signed Impressions: Service Date/Time: Saturday, April 30, 2016 02:55 - CONCLUSION: No significant change. Mild consolidation and small effusion again seen left lung base. Karthik Pope MD Last Impressions Chest X-Ray 04/29/16599 Signed Impressions: Service Date/Time: Friday, April 29, 2016 01:48 - CONCLUSION: Endotracheal tube tip pulled back slightly, now about 4 cm above the lauren. Other lines and tubes unchanged. No significant change mild left base consolidation and small pleural effusion. Karthik Pope MD Head CT 04/28/16599 Signed Impressions: Service Date/Time: Thursday, April 28, 2016 04:36 - CONCLUSION: Left basal ganglia subacute parenchymal hemorrhage is slightly larger. 7 mm of rightward midline shift. Karthik Pope MD Last Impressions Head CT 04/28/16599 Signed Impressions: Service Date/Time: Thursday, April 28, 2016 04:36 - CONCLUSION: Left basal ganglia subacute parenchymal hemorrhage is slightly larger. 7 mm of rightward midline shift. Karthik Pope MD Chest X-Ray 04/28/16 0000 Signed Impressions: Service Date/Time: Thursday, April 28, 2016 04:51 - CONCLUSION: 1. Endotracheal tube tip 1.7 cm above the lauren. 2. Mild left base atelectasis not significantly changed. Karthik Pope MD Last Impressions Head CT 04/27/16 0000 Signed Impressions: Service Date/Time: Wednesday, April 27, 2016 13:33 - CONCLUSION: 1. Focal acute intraparenchymal hemorrhage involving the region of the left basal ganglia measuring 4.6 x 2.4 cm characteristic of a hemorrhagic hypertensive infarct. 2. Large area of encephalomalacia involving the left temporal frontal region. This is either a large area of old infarction versus a large arachnoid cyst. Rommel Norman MD Objective Remarks GENERAL: 71 year obese female, critically ill currently intubated and sedated on Precedex,RASS-1 SKIN: Warm and dry. HEAD: Atraumatic. Normocephalic.2 TANYA drains with serosanguineous fluid noted. Staple line without erythema or drainage EYES: No scleral icterus. No injection or drainage. Pupils reactive 3mm brisk ENT: No nasal bleeding or discharge. Mucous membranes pink and moist. NECK: Trachea midline. No JVD. Orotracheally intubated. CARDIOVASCULAR: Regular rate and rhythm. S1, S2. No S4. Without murmur RESPIRATORY: Clear to auscultation. Breath sounds equal bilaterally. GASTROINTESTINAL: Abdomen soft, non-tender, nondistended. Hepatic and splenic margins not palpable. Normoactive bowel sounds. MUSCULOSKELETAL: Extremities without clubbing, cyanosis, or edema. No obvious deformities. NEUROLOGICAL: RASS -1, Precedex infusion the patient is responding left upper and left lower extremity to command Date of Insertion: Apr 27, 2016 Date of Insertion: Apr 27, 2016 Side: Right Location: Internal, Jugular A/P Assessment and Plan Neuro/Psych: 4.62.4 cm left basal ganglia intraparenchymal hemorrhage Left temporal CVA Seizure disorder Left frontotemporal parietal craniotomy and placement of ICP monitor- POD #4 Sedation- Precedex infusion,RASS -1 CT head revealed 4.62.4 intraparenchymal hemorrhage. Old encephalomalacia left temporal region. Keppra 500 mg BID, continue seizure prophylaxis secondary to results of EEG per neurosurgery recommendations 3% NaCl, discontinued 2/ Mannitol , discontinued 05/03 End tidal CO2 maintain between 30 and 35 EEG 04/30-moderate diffuse encephalopathy, sharp spikes noted, possible seizure activity Repeat CT brain 04/28-left basal ganglia subacute parenchymal hemorrhage slightly larger 7 mm rightward midline shift CT brain 04/30 -2 mm rightward MLS Eric bolt discontinued 05/01/16, TANYA drains removed 05/05 Neuro checks per ICU protocol-patient follows commands left upper and lower extremity, now movement of right extremity but not to command CV: Hypertensive emergency-resolved Cardene drip/cleviprex to maintain systolic blood pressure less than 150mmHg As needed labetalol/hydralazine/Nitropaste Initial troponin less than 0.04. 2-D ECHO-EF 55-60% no RWMA Resp: Acute respiratory failure secondary to altered mental status ACV 16/500/5/.30 Ventilator bundle Maintain head of bed elevation 30 Scheduled every 6 hour bronchodilator therapy Maintain End Tidal CO2 between 30 and 35 Continue CPAP trials, patient edematous-consideration for possible tracheostomy GI: OGT -Glucerna1.5 @50/hr (goal rate) -noted high residuals overnight 300 cc. Will begin Reglan TID Protonix for GI prophylaxis Bowel regimen Colace,Senokot scheduled, Milk of Magnesia PRN Last BM 05/04 /FEN: Hypophosphatemia-resolved Monitor BMP Maintain Mosley for accurate I's and O's Replete electrolytes per ICU protocol Endo: Hyperglycemia of critical illness Sliding-scale insulin with Accu-Cheks every 6 hours to maintain euglycemia. Low dose regimen. Renal: No acute issues Accurate I/O's Normal saline at 30 cc an hour Heme: Monitor CBC ID: Leukocytosis-resolved Monitor for signs of infection UA culture-NGTD MSK: PT evaluate and treat Daily functional maintenance Access -Discontinued Right IJ CVL 05/06, peripheral IVs 2 Prophylaxis - GI - Protonix - DVT - SCD/begin Lovenox for DVT prophylaxis Dispo: Discussed with [employer] PRINTERmarketing agent: This patient remains critically ill with one or more organ systems which are or may become a threat to life. I have spent in excess of 35 minutes discontinuously in the care and management of this patient. This time is exclusive of procedures, and includes, but is not limited to, evaluation of the patient, review of the medical record, discussions with family, consultants, nursing staff, or respiratory therapy, and documentation in the medical record. Jimmie Sapp MD May 07, 2016 15:26
[2016-05-08] VITALS (19 sets, daily range): BP systolic 159–168; BP diastolic 74–84; PULSE 56–76; RESP 8–14; TEMP 97.6–98.5; O2SAT 95–100
[2016-05-08] MEDS: DEXMEDETOMIDINE INJ 50 ML IV SCH ×5 (01:09→19:49)
[2016-05-08] MEDS: SODIUM CHLOR 0.9% 1000 ML INJ 1,000 ML IV SCH ×2 (01:11→14:50)
[2016-05-08] MEDS: hydrALAZINE HCL 20 MG/ML VIAL IV PUSH PRN ×5 (01:56→19:48)
[2016-05-08] MEDS: SENNOSIDES 8.6 MG TAB PO SCH ×2 (03:00→15:00)
[2016-05-08] MEDS: CHLORHEXIDINE GLUCONATE 2 % 1 PACK (2 CLOTHS) TOP SCH (05:00)
[2016-05-08] MEDS: METOCLOPRAMIDE HCL 10 MG/2 ML VIAL IV SCH ×3 (05:27→21:54)
[2016-05-08] MEDS: INSULIN NovoLIN REGULAR SUPPLEMENTAL SCALE SQ SCH ×4 (06:00→18:00)
[2016-05-08] MEDS: CHLORHEXIDINE 0.12% (ORAL KIT) 15 ML CUP MT SCH ×2 (08:00→20:08)
[2016-05-08] MEDS: levETIRAcetam INJ 500 MG in SODIUM CHLORIDE 0.9% INJ 100 ML IV SCH ×2 (08:36→19:49)
[2016-05-08] MEDS: ENOXAPARIN SODIUM 40 MG/0.4 ML SYRINGE SQ SCH (08:37)
[2016-05-08] MEDS: DOCUSATE SODIUM 100 MG CAP PO SCH ×2 (08:37→21:00)
[2016-05-08] MEDS: ARTIFICIAL TEARS OPTH SOLN 15 ML BTL EACH EYE SCH ×3 (08:37→18:00)
[2016-05-08] MEDS: LACTULOSE SYRUP 20 GM/30 ML CUP PO/NG SCH ×2 (08:37→21:00)
[2016-05-08] MEDS: PANTOPRAZOLE SODIUM 40 MG VIAL IVP SCH (08:37)
[2016-05-08] MEDS: SODIUM CHLORIDE 0.9% FLUSH 5 ML FLUSH IVF SCH ×3 (08:37→20:08)
[2016-05-08 08:48] LABS: MEAN CORPUSCULAR HEMOGLOBIN 31.2 PG (27.0-34.0); MEAN CORPUSCULAR HGB CONC 33.9 % (32.0-36.0); PLATELET COUNT 284 TH/MM3 (150-450); RED BLOOD COUNT 3.26 MIL/MM3 (4.00-5.30); RED CELL DISTRIBUTION WIDTH 12.8 % (11.6-17.2); REVIEW FLAG FINAL; WHITE BLOOD COUNT 9.5 TH/MM3 (4.0-11.0)
[2016-05-08 09:05] LABS: BICARBONATE 23.3 MEQ/L (21.0-32.0); POTASSIUM 3.7 MEQ/L (3.5-5.1)
--- NOTE | 2016-05-08 10:10 | HHI.NSPN ---
(Bettie Copeland) Note Status Status: Progress Note (Bettie Copeland) Interval History Interval History Ms. Mobley is a 71 female with history of prior left temporal CVA. Earlier today the patient had sudden onset of right facial drooping and right arm weakness. There were no associated falls or trauma. She was taken to [facility] and a CT Brain showed a 4.6 x 2.4 left basal ganglia hemorrhage without significant midline shift. Her vitals signs on arrival was noted to be extremely elevated as high as in the 200's systolic, she was placed on Cardene. The patient was reported to be initially talking on arrival but then decompensated and was emergently intubated. 04/28: well sedated, on hyperosmotic with 3%NS and Mannitol. f/u CT Brain completed. 04/29: sedated on diprivan and fentanyl. ICPs have been wnl 04/30: currently sedated on diprivan. had sedation vacation this am, reported to cough, and withdraws left upper extremity. ICPs low. 2: still moderate output to TANYA drain with some clots, ICPs low. intubated, sedated. localizes LUE off sedation, no eye opening, not following commands. 05/02: sedation vacation this am ?followed command LUE. weaning sedation, cpap trials. high serum os and serum sodium. 05/05: family at bedside reports opening eyes, critical mgt continuing cpap trials 05/06: opening eyes to verbal stimuli, moving left arm and leg intermittently 05/07: becoming more awake and alert, moving left arm and left leg more 05/08: more purposeful with left arm, needing soft restraints. no significant neuro changes overnight (Bettie Copeland) Labs, Micro, & Vital Signs Results Date Time Temp Pulse Resp B/P Pulse Ox O2 Delivery O2 Flow Rate FiO2 05/08/16 08:02 96 30 05/08/16 08:00 30 05/08/16 06:00 60 05/08/16 04:23 97 30 05/08/16 04:00 58 05/08/16 04:00 97.6 58 12 168/80 99 05/08/16 04:00 30 05/08/16 02:00 58 05/08/16 00:40 97 30 05/08/16 00:00 58 05/08/16 00:00 98.0 57 12 165/84 100 05/08/16 00:00 30 05/07/16 22:00 66 05/07/16 21:59 98 30 05/07/16 20:00 98.9 66 13 165/84 100 05/07/16 20:00 66 05/07/16 20:00 30 05/07/16 18:52 96 30 05/07/16 18:00 63 05/07/16 16:00 82 05/07/16 16:00 30 05/07/16 16:00 98.0 59 14 160/77 95 05/07/16 15:01 98 30 05/07/16 14:00 59 05/07/16 12:00 30 05/07/16 12:00 98.8 62 25 144/65 99 05/07/16 12:00 62 05/07/16 11:13 100 30 05/08/16 07:00 Intake Total 2497 ml Output Total 1175 ml Balance 1322 ml Constitutional Vital Signs Date Time Temp Pulse Resp B/P Pulse Ox O2 Delivery O2 Flow Rate FiO2 05/08/16 08:02 96 30 05/08/16 08:00 30 05/08/16 06:00 60 05/08/16 04:23 97 30 05/08/16 04:00 58 05/08/16 04:00 97.6 58 12 168/80 99 05/08/16 04:00 30 05/08/16 02:00 58 05/08/16 00:40 97 30 05/08/16 00:00 58 05/08/16 00:00 98.0 57 12 165/84 100 05/08/16 00:00 30 05/07/16 22:00 66 05/07/16 21:59 98 30 05/07/16 20:00 98.9 66 13 165/84 100 05/07/16 20:00 66 05/07/16 20:00 30 05/07/16 18:52 96 30 05/07/16 18:00 63 05/07/16 16:00 82 05/07/16 16:00 30 05/07/16 16:00 98.0 59 14 160/77 95 05/07/16 15:01 98 30 05/07/16 14:00 59 05/07/16 12:00 30 05/07/16 12:00 98.8 62 25 144/65 99 05/07/16 12:00 62 05/07/16 11:13 100 30 05/08/16 07:00 Intake Total 2497 ml Output Total 1175 ml Balance 1322 ml (Bettie Copeland) Review of Systems/Exam Exam Ms. Mobley is intubated and sedated. Opening eyes to verbal stimuli Wound is healing well, no redness, drainage, or other signs of infection seen, patito intact. Cranial Nerves: Pupils 3-4 mm b/l. Cervical Spine: soft, supple sensorimotor: moving left upper and left lower extremity intermittently 3/5 Reflexes: Plantars silent b/l, no ankle clonus (Bettie Copeland) Medications Current Medications Current Medications Medications (Trade) Dose Ordered Sig/Femi Route PRN Reason Start Time Stop Time Status Last Admin Dose Admin Labetalol HCl (Trandate Inj) 10 mg Q1HR PRN IV PUSH SBP>150, DBP>900, HR>65 04/27/16 15:00 Nitroglycerin (Nitroglycerin 2% Oint) 2 inch Q6HR PRN TOPICAL SBP>150, DBP>90 04/27/16 15:00 05/07/16 14:09 Chlorhexidine Gluconate (Peridex 0.12% Liq) 15 ml BID@08,20 MT 04/27/16 20:00 05/08/16 08:00 IV Flush (NS Flush) DAILY IVF 04/28/16 09:00 05/08/16 08:37 IV Flush (NS Flush) UNSCH PRN IVF SEE PROTOCOL 04/27/16 15:00 Artificial Tears (Tears Naturale Opth Soln) 1 drop TID EACH EYE 04/27/16 18:00 05/08/16 08:37 Ondansetron HCl (Zofran Inj) 4 mg Q6H PRN IV NAUSEA OR VOMITING 04/27/16 15:15 Miscellaneous Information 1 Q361D XX 04/27/16 15:15 04/28/16 04:00 Chlorhexidine Gluconate (Chlorhexidine 2% Cloth) Taper DAILY@04 TOP 04/28/16 04:00 04/24/17 03:59 05/08/16 05:00 Chlorhexidine Gluconate 3 pack 3 pack UNSCH PRN TOP HYGIENIC CARE 04/27/16 15:15 Potassium Chloride 100 ml @ 50 mls/hr Q2H PRN IV For Potassium 2.8 - 3.2 mEq/L 04/27/16 15:15 Potassium Chloride (KCl 20 Meq Premix Inj) 100 ml @ 50 mls/hr Q2H PRN IV For Potassium 2.8 - 3.2 mEq/L 04/27/16 15:15 Potassium Chloride 40 meq 40 meq UNSCH PRN PO/TUBE For Potassium 3.3 - 3.5 mEq/L 04/27/16 15:15 Potassium Chloride 100 ml @ 25 mls/hr UNSCH PRN IV For Potassium 3.3 - 3.5 mEq/L 04/27/16 15:15 Potassium Chloride 100 ml @ 50 mls/hr Q2H PRN IV For Potassium 3.3 - 3.5 mEq/L 04/27/16 15:15 Magnesium Sulfate/ Sodium Chloride (Magnesium Sulfate Inj/NS Inj) 100 ml @ 50 mls/hr UNSCH PRN IV For Magnesium 0.9 - 1.1 mg/dL 04/27/16 15:15 Magnesium Oxide 800 mg 800 mg UNSCH PRN PO For Magnesium 1.2 - 1.6 mg/dL 04/27/16 15:15 Magnesium Sulfate/ Sodium Chloride (Magnesium Sulfate Inj/NS Inj) 100 ml @ 50 mls/hr UNSCH PRN IV For Magnesium 1.2 - 1.6 mg/dL 04/27/16 15:15 Potassium Phosphate 2000 mg 2,000 mg Q4H PRN PO For Phosphorus < 2.5 mg/dL 04/27/16 15:15 05/01/16 10:44 Sodium Phosphate/ Sodium Chloride (Sodium Phosphate Inj/NS 250 ml Inj) 250 ml @ 42 mls/hr UNSCH PRN IV For Phosphorus < 2.5 mg/dL 04/27/16 15:15 04/28/16 06:55 Potassium Chloride (KCl 40 Meq/30 ml Liq) 40 meq UNSCH PRN PO/TUBE SEE LABEL COMMENTS 04/27/16 15:15 Potassium Phosphate 2000 mg 2,000 mg UNSCH PRN PO/TUBE SEE LABEL COMMENTS 04/27/16 15:15 Potassium Phosphate/Sodium Chloride (Potassium Phosphate Inj/NS 250 ml Inj) 260 ml @ 42 mls/hr UNSCH PRN IV SEE LABEL COMMENTS 04/27/16 15:15 Dextrose (D50w (Vial) Inj) 25 ml UNSCH PRN IV PUSH HYPOGLYCEMIA-SEE COMMENTS 04/27/16 15:15 04/28/16 01:18 Glucagon (Glucagon Inj) 1 mg UNSCH PRN OTHER HYPOGLYCEMIA-SEE COMMENTS 04/27/16 15:15 Insulin Human Regular (NovoLIN R SUPPLEMENTAL SCALE) 1 Q6HR SQ 04/27/16 18:00 05/02/16 11:59 IV Flush (NS Flush) 2 ml UNSCH PRN IVF FLUSH AFTER USING IV ACCESS 04/28/16 19:45 IV Flush 2 ml 2 ml BID IVF 04/28/16 21:00 05/08/16 08:37 Levetriacetam/ Sodium Chloride (Keppra Inj/NS Inj) 105 ml @ 400 mls/hr Q12H IV 04/28/16 20:00 05/08/16 08:36 Bisacodyl (Dulcolax Supp) 10 mg DAILY PRN [place] CONSTIPATION 04/28/16 19:45 05/06/16 10:38 Docusate Sodium (Colace) 100 mg BID PO 04/28/16 21:00 05/08/16 08:37 Pantoprazole Sodium (Protonix Inj) 40 mg DAILY IVP 04/29/16 09:00 05/08/16 08:37 Calcium Gluconate (Calcium Gluconate Inj) 1 gm UNSCH PRN IV SEE LABEL COMMENTS 04/28/16 19:45 Acetaminophen/ Hydrocodone Bitart ([place] 10-325 Mg) 1 tab Q4H PRN PO PAIN SCALE 1 TO 5 04/28/16 19:45 Acetaminophen/ Hydrocodone Bitart ([place] 10-325 Mg) 2 tab Q4H PRN PO PAIN SCALE 6 TO 10 04/28/16 19:45 Morphine Sulfate (Morphine Inj) 2 mg Q2H PRN IV PUSH PAIN SCALE 1 TO 6 04/28/16 19:45 Morphine Sulfate (Morphine Inj) 4 mg Q2H PRN IV PUSH PAIN SCALE 7 TO 10 04/28/16 19:45 05/07/16 08:57 Acetaminophen (Tylenol) 650 mg Q4H PRN PO TEMPERATURE > 101.5 F 04/28/16 19:45 Sennosides (Senokot) 17.2 mg Q12H PO 04/30/16 15:00 05/07/16 02:33 Magnesium Hydroxide 30 ml 30 ml DAILY PRN PO CONSTIPATION 04/30/16 14:30 05/06/16 13:21 Dexmedetomidine HCl 50 ml @ 0 mls/hr TITRATE IV 05/05/16 09:00 05/08/16 08:38 Sodium Chloride (NS 1000 ml Inj) 1,000 ml @ 84 mls/hr [id number] IV 05/06/16 03:15 05/08/16 01:11 Metoclopramide HCl (Reglan Inj) 5 mg Q8H IV 05/06/16 06:00 05/08/16 05:27 Enoxaparin Sodium (Lovenox Inj) 40 mg Q24H SQ 05/06/16 10:00 05/08/16 08:37 Hydralazine HCl (Apresoline Inj) 20 mg Q1HR PRN IV PUSH SBP>150, DBP>90 05/06/16 17:12 05/08/16 05:27 Lactulose (Lactulose Liq) 30 ml BID PO/NG 05/06/16 21:00 05/07/16 08:56 (Bettie Copeland) Medical Decision Making MDM Remarks 71 y/o female with sudden onset of right facial weakness and right upper extremity weakness, CT Brain 04/27 showed left basal ganglia ICH, f/u CT Brain 04/28 shows increased size of ICH with 7 mm midline shift s/p left decompressive craniectomy with evacuation of intraparenchymal hematoma , and placement of ICP monitor on 04/28/16 f/u CT Brain 04/30 shows improved midline shift, still with moderate left intraparenchymal hematoma Abnormal EEG with some sharp waves could be indicative of seizures, no clinical evidence of seizures, neuro eval recs cont Keppra neuro improving, becoming more awake, and alert, purposeful movements left side (Bettie Copeland) Plan Plan Remarks neuro improving, cont critical care mgt, CPAP trials ok for tracheostomy if needed dw sister again at bedside head patito dc 05/12/16 (Bettie Copeland) Attending Statement The exam, history, and the medical decision-making described in the above note were completed with the assistance of the mid-level provider. I reviewed and agree with the findings presented. I attest that I had a [id number] encounter with the patient on the same day, and personally performed and documented my assessment and findings in the medical record. (Riley Johnson MD) Bettie Copeland May 08, 2016 10:10 Riley Johnson MD May 08, 2016 14:11
[2016-05-08] MEDS: MORPHINE SULFATE 4 MG/ML INJ IV PUSH PRN (10:57)
[2016-05-08] MEDS: ACETAMINOPHEN/HYDROcodone 325 MG/10 MG TAB PO PRN ×2 (14:47→19:49)
--- NOTE | 2016-05-08 17:13 | PD.CONS ---
HPI History of Present Illness This is a 71 year old female who presented with sudden onset of right facial weakness and right upper extremity weakness and was found to have ICH with 7 mm midline shift s/p left decompressive craniectomy with evacuation of intraparenchymal hematoma, and placement of ICP monitor on 04/28/16. Patient currently improving neuro mclaughlin but failed CPAP trials so far. She was tolerating TF okay, some residual noted, was started on Reglan, abd x-ray with no acute findings. GI consulted for PEG tube placement. No family present at the room. Called sister ( Luciana Rudd at [phone]) but no answer, will try again. (Raffaele Thomas) [facility] Past Medical History Unable to obtain patient is on the vent CVA this visit Past Surgical History Unable to obtain patient is on the vent (Raffaele Thomas) Coded Allergies: Codeine (Verified Allergy, Unknown, 04/27/16) Medications Current Medications Medications (Trade) Dose Ordered Sig/Femi Route Start Time Stop Time Status Last Admin (Trandate Inj) 10 mg Q1HR PRN IV PUSH 04/27/16 15:00 (Nitroglycerin 2% Oint) 2 inch Q6HR PRN TOPICAL 04/27/16 15:00 05/07/16 14:09 (Peridex 0.12% Liq) 15 ml BID@08,20 MT 04/27/16 20:00 05/08/16 08:00 (NS Flush) DAILY IVF 04/28/16 09:00 05/08/16 08:37 (NS Flush) UNSCH PRN IVF 04/27/16 15:00 (Tears Naturale Opth Soln) 1 drop TID EACH EYE 04/27/16 18:00 05/08/16 12:11 (Zofran Inj) 4 mg Q6H PRN IV 04/27/16 15:15 Miscellaneous Information 1 Q361D XX 04/27/16 15:15 04/28/16 04:00 (Chlorhexidine 2% Cloth) Taper DAILY@04 TOP 04/28/16 04:00 04/24/17 03:59 05/08/16 05:00 Chlorhexidine Gluconate 3 pack 3 pack UNSCH PRN TOP 04/27/16 15:15 Potassium Chloride 100 ml @ 50 mls/hr Q2H PRN IV 04/27/16 15:15 (KCl 20 Meq Premix Inj) 100 ml @ 50 mls/hr Q2H PRN IV 04/27/16 15:15 Potassium Chloride 40 meq 40 meq UNSCH PRN PO/TUBE 04/27/16 15:15 Potassium Chloride 100 ml @ 25 mls/hr UNSCH PRN IV 04/27/16 15:15 Potassium Chloride 100 ml @ 50 mls/hr Q2H PRN IV 04/27/16 15:15 (Magnesium Sulfate Inj/NS Inj) 100 ml @ 50 mls/hr UNSCH PRN IV 04/27/16 15:15 Magnesium Oxide 800 mg 800 mg UNSCH PRN PO 04/27/16 15:15 (Magnesium Sulfate Inj/NS Inj) 100 ml @ 50 mls/hr UNSCH PRN IV 04/27/16 15:15 Potassium Phosphate 2000 mg 2,000 mg Q4H PRN PO 04/27/16 15:15 05/01/16 10:44 (Sodium Phosphate Inj/NS 250 ml Inj) 250 ml @ 42 mls/hr UNSCH PRN IV 04/27/16 15:15 04/28/16 06:55 (KCl 40 Meq/30 ml Liq) 40 meq UNSCH PRN PO/TUBE 04/27/16 15:15 Potassium Phosphate 2000 mg 2,000 mg UNSCH PRN PO/TUBE 04/27/16 15:15 (Potassium Phosphate Inj/NS 250 ml Inj) 260 ml @ 42 mls/hr UNSCH PRN IV 04/27/16 15:15 (D50w (Vial) Inj) 25 ml UNSCH PRN IV PUSH 04/27/16 15:15 04/28/16 01:18 (Glucagon Inj) 1 mg UNSCH PRN OTHER 04/27/16 15:15 (NovoLIN R SUPPLEMENTAL SCALE) 1 Q6HR SQ 04/27/16 18:00 05/02/16 11:59 (NS Flush) 2 ml UNSCH PRN IVF 04/28/16 19:45 IV Flush 2 ml 2 ml BID IVF 04/28/16 21:00 05/08/16 08:37 (Keppra Inj/NS Inj) 105 ml @ 400 mls/hr Q12H IV 04/28/16 20:00 05/08/16 08:36 (Dulcolax Supp) 10 mg DAILY PRN [place] 04/28/16 19:45 05/06/16 10:38 (Colace) 100 mg BID PO 04/28/16 21:00 05/08/16 08:37 (Protonix Inj) 40 mg DAILY IVP 04/29/16 09:00 05/08/16 08:37 (Calcium Gluconate Inj) 1 gm UNSCH PRN IV 04/28/16 19:45 ([place] 10-325 Mg) 1 tab Q4H PRN PO 04/28/16 19:45 05/08/16 14:47 ([place] 10-325 Mg) 2 tab Q4H PRN PO 04/28/16 19:45 (Morphine Inj) 2 mg Q2H PRN IV PUSH 04/28/16 19:45 05/08/16 10:57 (Morphine Inj) 4 mg Q2H PRN IV PUSH 04/28/16 19:45 05/07/16 08:57 (Tylenol) 650 mg Q4H PRN PO 04/28/16 19:45 (Senokot) 17.2 mg Q12H PO 04/30/16 15:00 05/07/16 02:33 Magnesium Hydroxide 30 ml 30 ml DAILY PRN PO 04/30/16 14:30 05/06/16 13:21 Dexmedetomidine HCl 50 ml @ 0 mls/hr TITRATE IV 05/05/16 09:00 05/08/16 14:47 (NS 1000 ml Inj) 1,000 ml @ 84 mls/hr [id number] IV 05/06/16 03:15 05/08/16 14:50 (Reglan Inj) 5 mg Q8H IV 05/06/16 06:00 05/08/16 14:47 (Lovenox Inj) 40 mg Q24H SQ 05/06/16 10:00 05/08/16 08:37 (Apresoline Inj) 20 mg Q1HR PRN IV PUSH 05/06/16 17:12 05/08/16 16:00 (Lactulose Liq) 30 ml BID PO/NG 05/06/16 21:00 05/07/16 08:56 (Norvasc) 10 mg DAILY PO 05/09/16 09:00 Family History Non contributory Social History Unable to obtain (Raffaele Thomas) Review of Systems ROS Unable to obtain patient is on the vent (Raffaele Thomas) GI Exam Vitals I&O Vital Signs Date Time Temp Pulse Resp B/P Pulse Ox O2 Delivery O2 Flow Rate FiO2 05/08/16 16:01 95 30 05/08/16 15:17 8 05/08/16 14:00 76 05/08/16 12:00 30 05/08/16 12:00 68 05/08/16 12:00 98.1 68 11 159/76 99 05/08/16 11:40 99 30 05/08/16 11:02 10 05/08/16 10:00 64 05/08/16 08:02 96 30 05/08/16 08:00 30 05/08/16 08:00 30 05/08/16 08:00 98.2 56 14 162/74 96 05/08/16 08:00 57 05/08/16 06:00 60 05/08/16 04:23 97 30 05/08/16 04:00 58 05/08/16 04:00 97.6 58 12 168/80 99 05/08/16 04:00 30 05/08/16 02:00 58 05/08/16 00:40 97 30 05/08/16 00:00 58 05/08/16 00:00 98.0 57 12 165/84 100 05/08/16 00:00 30 05/07/16 22:00 66 05/07/16 21:59 98 30 05/07/16 20:00 98.9 66 13 165/84 100 05/07/16 20:00 66 05/07/16 20:00 30 05/07/16 18:52 96 30 05/07/16 18:00 63 I/O 05/07/16 05/07/16 05/07/16 05/08/16 05/08/16 05/08/16 07:00 15:00 23:00 07:00 15:00 23:00 Intake Total 787 ml 826 ml 787 ml 884 ml 921 ml Output Total 400 ml 400 ml 400 ml 375 ml 425 ml Balance 387 ml 426 ml 387 ml 509 ml 496 ml Intake IV Total 727 ml 826 ml 787 ml 824 ml 861 ml Tube Irrigant 60 ml Other 60 ml 60 ml Output Urine Total 400 ml 400 ml 400 ml 375 ml 425 ml Gastric Drainage Total 0 ml 0 ml # Bowel Movements 1 0 Imaging Last Impressions Chest X-Ray 05/07/16 0600 Signed Impressions: Service Date/Time: Saturday, May 07, 2016 05:54 - CONCLUSION: Increasing consolidation. Catarino Patel MD Abdomen X-Ray 05/06/16 0000 Signed Impressions: Service Date/Time: Friday, May 06, 2016 04:47 - CONCLUSION: No acute disease. Catarino Patel MD Head CT 04/30/16 06 Signed Impressions: Service Date/Time: Saturday, April 30, 2016 04:24 - CONCLUSION: Interim surgery and drain placement. Parenchymal hemorrhage in the left cerebral hemisphere white matter is slightly larger than before. About 2 mm of rightward midline shift now seen compared to 7 mm previously. Karthik Pope MD Laboratory Test 05/08/16 08:24 White Blood Count 9.5 TH/MM3 Red Blood Count 3.26 MIL/MM3 Hemoglobin 10.2 GM/DL Hematocrit 30.0 % Mean Corpuscular Volume 92.0 FL Mean Corpuscular Hemoglobin 31.2 PG Mean Corpuscular Hemoglobin 33.9 % Concent Red Cell Distribution Width 12.8 % Platelet Count 284 TH/MM3 Mean Platelet Volume 8.8 FL Sodium Level 143 MEQ/L Potassium Level 3.7 MEQ/L Chloride Level 111 MEQ/L Carbon Dioxide Level 23.3 MEQ/L Anion Gap 9 MEQ/L Blood Urea Nitrogen 26 MG/DL Creatinine 0.65 MG/DL Estimat Glomerular Filtration 90 ML/MIN Rate Random Glucose 122 MG/DL Calcium Level 8.0 MG/DL Albumin 2.3 GM/DL Physical Examination HEENT: normocephalic; staple line to the left scalp, no jaundice. Throat is clear. NECK: Neck is supple, no JVD, no lymphadenopathy. CHEST: Chest is clear to auscultation and percussion.GABINO CARDIAC: Regular rate and rhythm with no murmur gallop or rubs. ABDOMEN: Soft, nondistended, nontender; no hepatosplenomegaly; bowel sounds are present in all four quadrants. EXTREMITIES: No clubbing, cyanosis, or edema. SKIN: Normal; no rash; no jaundice. SEA [employer]AM KISS MAKER: alert, intubated (AmawiRaffaele) Assessment and Plan Plan - Dysphagia/EFN- Patient in need for halfway feeding, was found to have ICH with 7 mm midline shift s/p left decompressive craniectomy with evacuation of intraparenchymal hematoma, and placement of ICP monitor on 04/28/16. Patient currently improving neuro mclaughlin but failed CPAP trials so far. She was tolerating TF okay, some residual noted, was started on Reglan, abd x-ray with no acute findings. GI consulted for PEG tube placement. No family present at the room. Called sister ( Luciana Rudd at ) but no answer, will try again. - ICH with 7 mm midline shift s/p left decompressive craniectomy with evacuation of intraparenchymal hematoma, and placement of ICP monitor on . - Respiartory failure- vented Per CCM, failed CPAP trials, there's plan for Trach. 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 Morales and myself and this note is written on his behalf. (Raffaele Thomas) Physician Comments Seen and examined with [facility], some people in room but not the primary decision makers. Apparently daughter is the decision maker. Not able to reach her on the phone. EGD/PEG when consents obtained. Will follow, thank you (Silvia Morales MD) Raffaele Thomas May 08, 2016 17:13 Silvia Morales MD May 08, 2016 18:34
[2016-05-08] MEDS ORDERED: ceFAZolin 2 GM PREMIX 50 ML IV SCH (17:15)
--- NOTE | 2016-05-08 17:30 | HHI.CCPN ---
Subjective Remarks/Hospital Course This is a 71 female. Data admission 04/27/2016. Past medical history includes left temporal CVA and seizure disorder.. She presented to the emergency room brought by her friend for strokelike symptoms. Patient was verbal when she first arrived and said that her symptoms started 40 minutes ago. 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 She had right-sided facial droop and right arm weakness. There was some right eyelid lag as well. After doing a quick NIH stroke score a stroke alert was called. Patient was rushed to the CT scanner and I spoke with the neurologist to make him aware of possible stroke. Her medications are all alternative natural medications. CT head revealed a 4.6 x 2.4 (basal ganglia intraparenchymal hemorrhage. Encephalopathy left temporal region. Neurosurgery was consultation recommended medical management with 3% hypertonic saline, mannitol and strict blood pressure control systolic blood pressure was 150 with a follow-up CT scan in a.m. While in the ED, patient decompensated with a left-sided gaze. She was flaccid in her right upper lobe extremity. Emergently intubated with 20 minutes etomidate etomidate and 100 mg succinylcholine. She is currently been sedated with propofol/fentanyl and Versed drips. Cardene drip was initiated to maintain systolic blood pressure less than 150. End tidal CO2 around 30 recommended. Receiving 50 mg mannitol IV 1 now. Subjective 04/[address] this a.m. shows slight increase in hemorrhage with a 7 mm rightward midline shift. The patient continues on hypertonic saline, mannitol every 6 hours. 04/29 The patient underwent a emergent left craniotomy last evening with placement of ICP monitor. ICP 67 mmHg postoperatively overnight. Minimal drainage from TANYA drains. Family (sister)located yesterday afternoon, notified of the events. 04/30 Afebrile. On sedation vacation yesterday afternoon, it was noted the patient localizes on the left side, not following commands. ICP ranges 39. EEG performed this a.m. 05/01 The patient continues to localize on the left side, when off sedation. TANYA drains totaling 300 cc in 24 hours ,serosanguineous. 05/02 Afebrile. [place] bolt discontinued yesterday, area clean and dry. Staple line clean and dried no erythema. Sedation vacation yielded movement of left upper extremity and lower extremity. ATNYA drainage decreased to 75 cc over the last 12 hours. 05/03 T max 100.3. The patient is now following commands with the left upper and lower extremity. The patient tolerated 2 hours of CPAP yesterday. Overnight the patient was on a propofol and fentanyl infusion will discontinue fentanyl. 05/04 Tmax 99.7. EEG revealed sharp waves possibly seizure activity, recommended continuation of Keppra per neurosurgery. Will begin Lovenox upon discontinuation of TANYA drains per neurosurgery recommendations. The patient continues CPAP trial, improving greater than 4 hours today. 05/05 Neuro evaluation improved. Spontaneous eye opening this morning to voice. Patient continues to follow commands left upper and lower extremity. Patient currently on CPAP trials. 05/06 The patient was maintained on CPAP trials for approximately 16 hours yesterday. The patient continues to respond by squeezing left hand and moving the left leg on command. During the night, it was reported that the patient moving right lower extremity. TANYA drains were removed yesterday. 05/07: Remains encephalopathic, orally intubated on mechanical ventilation. Daily C Pap trials ongoing. 05/08: Remains encephalopathic, orally intubated on mechanical ventilation. 2 encephalopathic for extubation. Will need tracheostomy and PEG tube. Consulted general surgery and GI and scheduled for 05/09. Objective Vital Signs Date Time Temp Pulse Resp B/P Pulse Ox O2 Delivery O2 Flow Rate FiO2 05/08/16 16:01 95 30 05/08/16 16:00 70 05/08/16 16:00 98.4 8 166/77 05/06/16 08:00 Mechanical Ventilator Intake and Output 05/07/16 05/07/16 05/08/16 08:00 16:00 00:00 Intake Total 787 ml 826 ml 787 ml Output Total 400 ml 400 ml 400 ml Balance 387 ml 426 ml 387 ml Result Diagram: 05/08/1682305/08/16 08 Imaging Last Impressions Chest X-Ray 05/02/16 0600 Signed Impressions: Service Date/Time: Monday, May 02, 2016 03:48 - CONCLUSION: Stable chest x-ray with underinflation and mild atelectasis versus consolidation at the lung bases. There is also a suspected stable small left pleural effusion. Karthik Kramer MD Head CT 04/30/16599 Signed Impressions: Service Date/Time: Saturday, April 30, 2016 04:24 - CONCLUSION: Interim surgery and drain placement. Parenchymal hemorrhage in the left cerebral hemisphere white matter is slightly larger than before. About 2 mm of rightward midline shift now seen compared to 7 mm previously. Karthik Pope MD Last Impressions Chest X-Ray 05/02/16599 Signed Impressions: Service Date/Time: Monday, May 02, 2016 03:48 - CONCLUSION: Stable chest x-ray with underinflation and mild atelectasis versus consolidation at the lung bases. There is also a suspected stable small left pleural effusion. Karthik Kramer MD Head CT 04/30/16599 Signed Impressions: Service Date/Time: Saturday, April 30, 2016 04:24 - CONCLUSION: Interim surgery and drain placement. Parenchymal hemorrhage in the left cerebral hemisphere white matter is slightly larger than before. About 2 mm of rightward midline shift now seen compared to 7 mm previously. Karthik Pope MD Last Impressions Head CT 04/30/16599 Signed Impressions: Service Date/Time: Saturday, April 30, 2016 04:24 - CONCLUSION: Interim surgery and drain placement. Parenchymal hemorrhage in the left cerebral hemisphere white matter is slightly larger than before. About 2 mm of rightward midline shift now seen compared to 7 mm previously. Karthik Pope MD Chest X-Ray 04/30/16599 Signed Impressions: Service Date/Time: Saturday, April 30, 2016 02:55 - CONCLUSION: No significant change. Mild consolidation and small effusion again seen left lung base. Karthik Pope MD Last Impressions Chest X-Ray 04/29/16599 Signed Impressions: Service Date/Time: Friday, April 29, 2016 01:48 - CONCLUSION: Endotracheal tube tip pulled back slightly, now about 4 cm above the lauren. Other lines and tubes unchanged. No significant change mild left base consolidation and small pleural effusion. Karthik Pope MD Head CT 04/28/16599 Signed Impressions: Service Date/Time: Thursday, April 28, 2016 04:36 - CONCLUSION: Left basal ganglia subacute parenchymal hemorrhage is slightly larger. 7 mm of rightward midline shift. Karthik Pope MD Last Impressions Head CT 04/28/16 0600 Signed Impressions: Service Date/Time: Thursday, April 28, 2016 04:36 - CONCLUSION: Left basal ganglia subacute parenchymal hemorrhage is slightly larger. 7 mm of rightward midline shift. Karthik Pope MD Chest X-Ray 04/28/16 0000 Signed Impressions: Service Date/Time: Thursday, April 28, 2016 04:51 - CONCLUSION: 1. Endotracheal tube tip 1.7 cm above the lauren. 2. Mild left base atelectasis not significantly changed. Karthik Pope MD Last Impressions Head CT 04/27/16 0000 Signed Impressions: Service Date/Time: Wednesday, April 27, 2016 13:33 - CONCLUSION: 1. Focal acute intraparenchymal hemorrhage involving the region of the left basal ganglia measuring 4.6 x 2.4 cm characteristic of a hemorrhagic hypertensive infarct. 2. Large area of encephalomalacia involving the left temporal frontal region. This is either a large area of old infarction versus a large arachnoid cyst. Rommel Norman MD Objective Remarks GENERAL: 71 year obese female, critically ill currently intubated and sedated on Precedex,RASS-1 SKIN: Warm and dry. HEAD: Atraumatic. Normocephalic.2 TANYA drains with serosanguineous fluid noted. Staple line without erythema or drainage EYES: No scleral icterus. No injection or drainage. Pupils reactive 3mm brisk ENT: No nasal bleeding or discharge. Mucous membranes pink and moist. NECK: Trachea midline. No JVD. Orotracheally intubated. CARDIOVASCULAR: Regular rate and rhythm. S1, S2. No S4. Without murmur RESPIRATORY: Clear to auscultation. Breath sounds equal bilaterally. GASTROINTESTINAL: Abdomen soft, non-tender, nondistended. Hepatic and splenic margins not palpable. Normoactive bowel sounds. MUSCULOSKELETAL: Extremities without clubbing, cyanosis, or edema. No obvious deformities. NEUROLOGICAL: RASS -1, Precedex infusion the patient is responding left upper and left lower extremity to command Date of Insertion: Apr 27, 2016 Date of Insertion: Apr 27, 2016 Side: Right Location: Internal, Jugular A/P Assessment and Plan Neuro/Psych: 4.62.4 cm left basal ganglia intraparenchymal hemorrhage Left temporal CVA Seizure disorder Left frontotemporal parietal craniotomy and placement of ICP monitor- POD #4 Sedation- Precedex infusion,RASS -1 CT head revealed 4.62.4 intraparenchymal hemorrhage. Old encephalomalacia left temporal region. Keppra 500 mg BID, continue seizure prophylaxis secondary to results of EEG per neurosurgery recommendations 3% NaCl, discontinued 2/3 Mannitol , discontinued 2/4 End tidal CO2 maintain between 30 and 35 EEG 04/30-moderate diffuse encephalopathy, sharp spikes noted, possible seizure activity Repeat CT brain 04/28-left basal ganglia subacute parenchymal hemorrhage slightly larger 7 mm rightward midline shift CT brain 04/30 -2 mm rightward MLS [place] bolt discontinued 05/01/16, TANYA drains removed 05/05 Neuro checks per ICU protocol-patient follows commands left upper and lower extremity, now movement of right extremity but not to command CV: Hypertensive emergency-resolved Cardene drip/cleviprex to maintain systolic blood pressure less than 150mmHg As needed labetalol/hydralazine/Nitropaste Initial troponin less than 0.04. 2-D ECHO-EF 55-60% no RWMA Resp: Acute respiratory failure secondary to altered mental status ACV 16/500/5/.30 Ventilator bundle Maintain head of bed elevation 30 Scheduled every 6 hour bronchodilator therapy Continue CPAP trials. Scheduled for percutaneous tracheostomy for 05/09 as she is to encephalopathic for extubation currently. Consulted Dr. Chaim fraser from general surgery for trach. GI: OGT -Glucerna1.5 @50/hr (goal rate) -noted high residuals overnight 300 cc. Reglan TID Protonix for GI prophylaxis Bowel regimen Colace,Senokot scheduled, Milk of Magnesia PRN. Consulted GI for PEG tube placement and scheduled for 05/09 Last BM 05/04 /FEN: Hypophosphatemia-resolved Monitor BMP Maintain Mosley for accurate I's and O's Replete electrolytes per ICU protocol Endo: Hyperglycemia of critical illness Sliding-scale insulin with Accu-Cheks every 6 hours to maintain euglycemia. Low dose regimen. Renal: No acute issues Accurate I/O's Normal saline at 30 cc an hour Heme: Monitor CBC ID: Leukocytosis-resolved Monitor for signs of infection UA culture-NGTD MSK: PT evaluate and treat Daily functional maintenance Access -Discontinued Right IJ CVL 05/06, peripheral IVs 2 Prophylaxis - GI - Protonix - DVT - SCD/ Lovenox for DVT prophylaxis Dispo: Discussed with INTERVENTIONAL PAIN PHYSICIANoracle hrms developer: This patient remains critically ill with one or more organ systems which are or may become a threat to life. I have spent in excess of 35 minutes discontinuously in the care and management of this patient. This time is exclusive of procedures, and includes, but is not limited to, evaluation of the patient, review of the medical record, discussions with family, consultants, nursing staff, or respiratory therapy, and documentation in the medical record. Jimmie Sapp MD May 08, 2016 17:30
[2016-05-09] VITALS (18 sets, daily range): BP systolic 145–176; BP diastolic 64–79; PULSE 54–69; RESP 12–18; TEMP 97.8–98.8; O2SAT 96–100
[2016-05-09] MEDS: DEXMEDETOMIDINE INJ 50 ML IV SCH ×8 (00:29→23:15)
[2016-05-09] MEDS: ACETAMINOPHEN/HYDROcodone 325 MG/10 MG TAB PO PRN ×2 (01:16→18:23)
[2016-05-09] MEDS: SODIUM CHLOR 0.9% 1000 ML INJ 1,000 ML IV SCH ×2 (01:38→14:40)
[2016-05-09] MEDS: SENNOSIDES 8.6 MG TAB PO SCH ×2 (02:41→15:00)
[2016-05-09] MEDS: hydrALAZINE HCL 20 MG/ML VIAL IV PUSH PRN ×3 (02:50→23:51)
[2016-05-09 04:32] LABS: AUTOMATED NEUTROPHIL # 7.4 TH/MM3 (1.8-7.7); BASOPHIL % 0.5 % (0.0-2.0); EOSINOPHIL # 0.1 TH/MM3 (0-0.4); EOSINOPHIL % 1.3 % (0.0-4.0); HEMATOCRIT 29.2 % (35.0-46.0); HEMO FLAGS DIFF FINAL; LYMPH % 13.8 % (9.0-44.0); LYMPHOCYTE # 1.3 TH/MM3 (1.0-4.8); MEAN CELL VOLUME 90.3 FL (80.0-100.0); MEAN CORPUSCULAR HEMOGLOBIN 30.8 PG (27.0-34.0); MEAN CORPUSCULAR HGB CONC 34.1 % (32.0-36.0); MONO % 6.5 % (0.0-8.0); NEUT % 77.9 % (16.0-70.0); PLATELET COUNT 315 TH/MM3 (150-450); RED BLOOD COUNT 3.23 MIL/MM3 (4.00-5.30); RED CELL DISTRIBUTION WIDTH 12.9 % (11.6-17.2); WHITE BLOOD COUNT 9.5 TH/MM3 (4.0-11.0)
[2016-05-09 05:06] LABS: ALT (GPT) 83 U/L (10-53); ANION GAP 10 MEQ/L (5-15); AST (GOT) 25 U/L (15-37); BICARBONATE 21.8 MEQ/L (21.0-32.0); BLOOD UREA NITROGEN 24 MG/DL (7-18); CHLORIDE 112 MEQ/L (98-107); GLOMERULAR FILTRATION RATE 95 ML/MIN (>89); POTASSIUM 3.4 MEQ/L (3.5-5.1); SODIUM (NA) 144 MEQ/L (136-145)
[2016-05-09 05:08] LABS: ALKALINE PHOSPHATASE 91 U/L (45-117); TOTAL BILIRUBIN ADULT 0.5 MG/DL (0.2-1.0)
[2016-05-09] MEDS: METOCLOPRAMIDE HCL 10 MG/2 ML VIAL IV SCH ×3 (05:47→20:09)
[2016-05-09] MEDS: CHLORHEXIDINE GLUCONATE 2 % 1 PACK (2 CLOTHS) TOP SCH (05:48)
[2016-05-09] MEDS: INSULIN NovoLIN REGULAR SUPPLEMENTAL SCALE SQ SCH ×5 (06:00→23:48)
--- NOTE | 2016-05-09 07:08 | HHI.CCPN ---
Subjective Remarks/Hospital Course This is a 71 female. Data admission 04/27/2016. Past medical history includes left temporal CVA and seizure disorder.. She presented to the emergency room brought by her friend for strokelike symptoms. Patient was verbal when she first arrived and said that her symptoms started 40 minutes ago. 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 She had right-sided facial droop and right arm weakness. There was some right eyelid lag as well. After doing a quick NIH stroke score a stroke alert was called. Patient was rushed to the CT scanner and I spoke with the neurologist to make him aware of possible stroke. Her medications are all alternative natural medications. CT head revealed a 4.6 x 2.4 (basal ganglia intraparenchymal hemorrhage. Encephalopathy left temporal region. Neurosurgery was consultation recommended medical management with 3% hypertonic saline, mannitol and strict blood pressure control systolic blood pressure was 150 with a follow-up CT scan in a.m. While in the ED, patient decompensated with a left-sided gaze. She was flaccid in her right upper lobe extremity. Emergently intubated with 20 minutes etomidate etomidate and 100 mg succinylcholine. She is currently been sedated with propofol/fentanyl and Versed drips. Cardene drip was initiated to maintain systolic blood pressure less than 150. End tidal CO2 around 30 recommended. Receiving 50 mg mannitol IV 1 now. Subjective 04/[address] this a.m. shows slight increase in hemorrhage with a 7 mm rightward midline shift. The patient continues on hypertonic saline, mannitol every 6 hours. 04/29 The patient underwent a emergent left craniotomy last evening with placement of ICP monitor. ICP 67 mmHg postoperatively overnight. Minimal drainage from TANYA drains. Family (sister)located yesterday afternoon, notified of the events. 04/30 Afebrile. On sedation vacation yesterday afternoon, it was noted the patient localizes on the left side, not following commands. ICP ranges 39. EEG performed this a.m. 05/01 The patient continues to localize on the left side, when off sedation. TANYA drains totaling 300 cc in 24 hours ,serosanguineous. 05/02 Afebrile. Jackhorn bolt discontinued yesterday, area clean and dry. Staple line clean and dried no erythema. Sedation vacation yielded movement of left upper extremity and lower extremity. TANYA drainage decreased to 75 cc over the last 12 hours. 05/03 T max 100.3. The patient is now following commands with the left upper and lower extremity. The patient tolerated 2 hours of CPAP yesterday. Overnight the patient was on a propofol and fentanyl infusion will discontinue fentanyl. 05/04 Tmax 99.7. EEG revealed sharp waves possibly seizure activity, recommended continuation of Keppra per neurosurgery. Will begin Lovenox upon discontinuation of TANYA drains per neurosurgery recommendations. The patient continues CPAP trial, improving greater than 4 hours today. 05/05 Neuro evaluation improved. Spontaneous eye opening this morning to voice. Patient continues to follow commands left upper and lower extremity. Patient currently on CPAP trials. 05/06 The patient was maintained on CPAP trials for approximately 16 hours yesterday. The patient continues to respond by squeezing left hand and moving the left leg on command. During the night, it was reported that the patient moving right lower extremity. TANYA drains were removed yesterday. 05/07: Remains encephalopathic, orally intubated on mechanical ventilation. Daily C Pap trials ongoing. 05/08: Remains encephalopathic, orally intubated on mechanical ventilation. 2 encephalopathic for extubation. Will need tracheostomy and PEG tube. Consulted general surgery and GI and scheduled for 05/09. 05/09: no clinical change. plan today for trach/peg. Objective Vital Signs Date Time Temp Pulse Resp B/P Pulse Ox O2 Delivery O2 Flow Rate FiO2 05/09/16 06:00 54 05/09/16 04:06 96 30 05/09/16 04:00 97.9 14 145/64 05/06/16 08:00 Mechanical Ventilator Intake and Output 05/08/16 05/08/16 05/09/16 08:00 16:00 00:00 Intake Total 884 ml 921 ml 878 ml Output Total 375 ml 425 ml 600 ml Balance 509 ml 496 ml 278 ml Result Diagram: 05/09/16 0353 05/09/16 0353 Imaging Last Impressions Chest X-Ray 05/02/16 0600 Signed Impressions: Service Date/Time: Monday, May 02, 2016 03:48 - CONCLUSION: Stable chest x-ray with underinflation and mild atelectasis versus consolidation at the lung bases. There is also a suspected stable small left pleural effusion. Karthik Kramer MD Head CT 04/30/16599 Signed Impressions: Service Date/Time: Saturday, April 30, 2016 04:24 - CONCLUSION: Interim surgery and drain placement. Parenchymal hemorrhage in the left cerebral hemisphere white matter is slightly larger than before. About 2 mm of rightward midline shift now seen compared to 7 mm previously. Karthik Pope MD Last Impressions Chest X-Ray 05/02/16599 Signed Impressions: Service Date/Time: Monday, May 02, 2016 03:48 - CONCLUSION: Stable chest x-ray with underinflation and mild atelectasis versus consolidation at the lung bases. There is also a suspected stable small left pleural effusion. Karthik Kramer MD Head CT 04/30/16599 Signed Impressions: Service Date/Time: Saturday, April 30, 2016 04:24 - CONCLUSION: Interim surgery and drain placement. Parenchymal hemorrhage in the left cerebral hemisphere white matter is slightly larger than before. About 2 mm of rightward midline shift now seen compared to 7 mm previously. Karthik Pope MD Last Impressions Head CT 04/30/16599 Signed Impressions: Service Date/Time: Saturday, April 30, 2016 04:24 - CONCLUSION: Interim surgery and drain placement. Parenchymal hemorrhage in the left cerebral hemisphere white matter is slightly larger than before. About 2 mm of rightward midline shift now seen compared to 7 mm previously. Karthik Pope MD Chest X-Ray 04/30/16599 Signed Impressions: Service Date/Time: Saturday, April 30, 2016 02:55 - CONCLUSION: No significant change. Mild consolidation and small effusion again seen left lung base. Karthik Pope MD Last Impressions Chest X-Ray 04/29/16599 Signed Impressions: Service Date/Time: Friday, April 29, 2016 01:48 - CONCLUSION: Endotracheal tube tip pulled back slightly, now about 4 cm above the lauren. Other lines and tubes unchanged. No significant change mild left base consolidation and small pleural effusion. Karthik Pope MD Head CT 04/28/16599 Signed Impressions: Service Date/Time: Thursday, April 28, 2016 04:36 - CONCLUSION: Left basal ganglia subacute parenchymal hemorrhage is slightly larger. 7 mm of rightward midline shift. Karthik Pope MD Last Impressions Head CT 04/28/16 0600 Signed Impressions: Service Date/Time: Thursday, April 28, 2016 04:36 - CONCLUSION: Left basal ganglia subacute parenchymal hemorrhage is slightly larger. 7 mm of rightward midline shift. Karthik Pope MD Chest X-Ray 04/28/16 0000 Signed Impressions: Service Date/Time: Thursday, April 28, 2016 04:51 - CONCLUSION: 1. Endotracheal tube tip 1.7 cm above the lauren. 2. Mild left base atelectasis not significantly changed. Karthik Pope MD Last Impressions Head CT 04/27/16 0000 Signed Impressions: Service Date/Time: Wednesday, April 27, 2016 13:33 - CONCLUSION: 1. Focal acute intraparenchymal hemorrhage involving the region of the left basal ganglia measuring 4.6 x 2.4 cm characteristic of a hemorrhagic hypertensive infarct. 2. Large area of encephalomalacia involving the left temporal frontal region. This is either a large area of old infarction versus a large arachnoid cyst. Rommel Norman MD Objective Remarks GENERAL: 71 year obese female, critically ill currently intubated and sedated on Precedex,RASS-1 SKIN: Warm and dry. HEAD: Atraumatic. Normocephalic Staple line without erythema or drainage EYES: No scleral icterus. No injection or drainage. Pupils reactive 3mm brisk ENT: No nasal bleeding or discharge. Mucous membranes pink and moist. NECK: Trachea midline. No JVD. Orotracheally intubated. CARDIOVASCULAR: Regular rate and rhythm. no appreciable murmurs RESPIRATORY: Clear to auscultation. Breath sounds equal bilaterally. GASTROINTESTINAL: Abdomen soft, non-tender, nondistended. no guarding. MUSCULOSKELETAL: Extremities without clubbing, cyanosis, or edema. No obvious deformities. NEUROLOGICAL: RASS -1, Precedex infusion the patient is responding left upper and left lower extremity to command Date of Insertion: Apr 27, 2016 Date of Insertion: Apr 27, 2016 Side: Right Location: Internal, Jugular A/P Assessment and Plan Neuro/Psych: 4.62.4 cm left basal ganglia intraparenchymal hemorrhage Left temporal CVA Seizure disorder Left frontotemporal parietal craniotomy and placement of ICP monitor- POD #4 Sedation- Precedex infusion,RASS -1. will add propofol for procedures today. CT head revealed 4.62.4 intraparenchymal hemorrhage. Old encephalomalacia left temporal region. Keppra 500 mg BID, continue seizure prophylaxis secondary to results of EEG per neurosurgery recommendations 3% NaCl, discontinued 2/3 Mannitol , discontinued 2/ EEG 04/30-moderate diffuse encephalopathy, sharp spikes noted, possible seizure activity Repeat CT brain 04/28-left basal ganglia subacute parenchymal hemorrhage slightly larger 7 mm rightward midline shift CT brain 04/30 -2 mm rightward MLS Jackhorn bolt discontinued 05/01/16, TANYA drains removed 05/05 Neuro checks per ICU protocol-patient follows commands left upper and lower extremity, now movement of right extremity but not to command CV: Hypertensive emergency-resolved Cardene drip to maintain systolic blood pressure less than 150mmHg As needed labetalol/hydralazine Initial troponin less than 0.04. 2-D ECHO-EF 55-60% no RWMA -- amlodipine 10mg po daily -- start lisinopril 20mg po daily for hypertension Resp: Acute respiratory failure secondary to altered mental status ACV 16/500/5/.30 Ventilator bundle Maintain head of bed elevation 30 Scheduled every 6 hour bronchodilator therapy Continue CPAP trials- failing for encephalopathy. perc trach today with Dr. Chaim Skaggs. GI: OGT -Glucerna1.5 @50/hr (goal rate) -noted high residuals overnight 300 cc. Reglan TID Protonix for GI prophylaxis Bowel regimen Colace,Senokot scheduled, Milk of Magnesia PRN. Consulted GI for PEG tube placement and scheduled for 05/09 /FEN: Hypophosphatemia-resolved Monitor BMP Maintain Mosley for accurate I's and O's Replete electrolytes per ICU protocol Endo: Hyperglycemia of critical illness Sliding-scale insulin with Accu-Cheks every 6 hours to maintain euglycemia. Low dose regimen. Renal: No acute issues Accurate I/O's Normal saline at 30 cc an hour Heme: Monitor CBC ID: Leukocytosis-resolved Monitor for signs of infection UA culture-NGTD MSK: PT evaluate and treat Daily functional maintenance Access -Discontinued Right IJ CVL 05/06, peripheral IVs 2 Prophylaxis - GI - Protonix - DVT - SCD/ Lovenox for DVT prophylaxis Critical Care: This patient remains critically ill with one or more organ systems which are or may become a threat to life. I have spent in excess of 34 minutes discontinuously in the care and management of this patient. This time is exclusive of procedures, and includes, but is not limited to, evaluation of the patient, review of the medical record, discussions with family, consultants, nursing staff, or respiratory therapy, and documentation in the medical record. Farhad Oropeza MD May 09, 2016 07:08
[2016-05-09] MEDS ORDERED: CISATRACURIUM BESYLATE 200 MG/20 ML VIAL IV ONE (07:15)
[2016-05-09] MEDS ORDERED: PROPOFOL 1000 MG/100 ML INJ 100 ML IV SCH (07:15)
[2016-05-09] MEDS ORDERED: CISATRACURIUM BESYLATE 20 MG/10 ML VIAL IV ONE (08:00)
[2016-05-09] MEDS: CHLORHEXIDINE 0.12% (ORAL KIT) 15 ML CUP MT SCH ×2 (08:00→20:10)
[2016-05-09] MEDS: DOCUSATE SODIUM 100 MG CAP PO SCH ×2 (09:00→20:11)
[2016-05-09] MEDS: SODIUM CHLORIDE 0.9% FLUSH 5 ML FLUSH IVF SCH ×3 (09:00→20:10)
[2016-05-09] MEDS: ARTIFICIAL TEARS OPTH SOLN 15 ML BTL EACH EYE SCH ×3 (09:00→18:00)
[2016-05-09] MEDS: LACTULOSE SYRUP 20 GM/30 ML CUP PO/NG SCH ×2 (09:00→20:09)
[2016-05-09] MEDS: levETIRAcetam INJ 500 MG in SODIUM CHLORIDE 0.9% INJ 100 ML IV SCH ×2 (09:28→20:08)
[2016-05-09] MEDS: PANTOPRAZOLE SODIUM 40 MG VIAL IVP SCH (09:28)
[2016-05-09] MEDS ORDERED: FUROSEMIDE 40 MG/4 ML VIAL IV PUSH ONE (14:30)
[2016-05-09] MEDS ORDERED: ceFAZolin INJ 1,000 MG VIAL IV ONE (14:46)
[2016-05-09] MEDS ORDERED: PROPOFOL 200 MG/20 ML AMP IV ONE (14:47)
--- NOTE | 2016-05-09 15:12 | RADRPT ---
EXAM DATE/TIME: 05/09/2016 14:17 [facility] COMPARISON: CHEST SINGLE AP, May 07, 2016, 5:54. INDICATIONS : Post trach placement. MEDICAL HISTORY : Stroke. SURGICAL HISTORY : Craniotomy. ENCOUNTER: Subsequent ACUITY: 1 week PAIN SCORE: Non-responsive. LOCATION: Bilateral chest FINDINGS: A tracheostomy tube has been placed and has its tip in good position 3 cm above the lauren. The hear t is enlarged. Mild central pulmonary vascular congestion is noted. CONCLUSION: 1. Tracheostomy tube in good position 3 cm above the lauren. 2. Cardiomegaly. 3. Mild pulmonary vascular congestion. Sherman Robbins MD on May 09, 2016 at 15:06 Board Certified Radiologist. This report was verified electronically.
--- NOTE | 2016-05-09 16:46 | PD.PROCEDR ---
Procedure Note Procedure Procedure: Diagnostic Fiberoptic Bronchoscopy Diagnosis: Chronic respiratory failure Indications: Need for percutaneous dilation tracheostomy Consent: Written consent for the tracheostomy was obtained Anesthesia: Propofol IV, cisatracurium IV, fentanyl IV Description of the Procedure: The patient was sedated and mechanically ventilated. The patient was placed on 100% FIO2 and a volume control mode of ventilation. The fiberoptic bronchoscopy was inserted via endotracheal tube. The trachea, right and left mainstem bronchi, and sub-segmental bronchi were evaluated. The endobronchial anatomy was normal. Findings: Under direct bronchoscopic visualization, the needle, guidewire, and dilation tracheostomy was performed. The lumen of the tracheostomy was confirmed in the lumen of trachea prior to positive pressure ventilation. BAL samples: BAL samples were not sent. The patient tolerated the procedure well with no hemodynamic instability or hypoxia. There were no immediate complications noted. At the conclusion of the procedure, the patient was placed back on their pre-procedure ventilatory settings. There was minimal EBL. A chest x-ray has been ordered. I personally performed the procedure. Farhad Oropeza MD May 09, 2016 16:46
[2016-05-09] MEDS: LISINOPRIL 20 MG TAB PO SCH (18:23)
--- NOTE | 2016-05-09 20:23 | HHI.NSPN ---
Subjective History Day 12 after left basal ganglia bleed, s/p craniectomy, alert and lightly sedated on precedex, follows commands with the left arm. She has a right hemiparesis. She has a PEG and a tracheostomy. CPAP trial will resume this week end. Vitals . Vital Signs Date Time Temp Pulse Resp B/P Pulse Ox O2 Delivery O2 Flow Rate FiO2 05/09/16 18:00 64 05/09/16 16:41 100 30 05/09/16 16:00 30 05/09/16 16:00 68 05/09/16 16:00 98.8 68 18 159/72 100 05/09/16 14:36 98 100 05/09/16 14:00 64 05/09/16 12:00 57 05/09/16 12:00 98.2 57 12 176/79 97 05/09/16 12:00 30 05/09/16 11:35 97 30 05/09/16 10:00 56 05/09/16 08:59 98 30 05/09/16 08:00 30 05/09/16 08:00 54 05/09/16 08:00 98.0 55 12 174/75 96 05/09/16 06:00 54 05/09/16 04:06 96 30 05/09/16 04:00 56 05/09/16 04:00 30 05/09/16 04:00 97.9 56 14 145/64 96 05/09/16 02:16 12 05/09/16 02:00 60 05/09/16 00:00 30 05/09/16 00:00 97.8 59 14 154/70 96 05/09/16 00:00 59 05/08/16 23:47 95 30 05/08/16 22:00 60 05/08/16 20:49 12 05/08/16 05/08/16 05/09/16 15:00 23:00 07:00 Intake Total 921 ml 878 ml 365 ml Output Total 425 ml 600 ml 375 ml Balance 496 ml 278 ml -10 ml Physical Exam Head Head Remarks Left wound clean and dry Eyes Eyes: Pupils Equal Neuro Mental Status: Awake Pupils: Reactive Bilaterally [place] Coma Scale Best Eye Openin - Spontaneous Best Verbal: 1 - None Best Motor: 6 - Obeys Total Glascow Coma Scale (GCS): 11 Cardiac Cardiac: Regular Rate & Rhythm Gastrointestinal Gastrointestinal: Soft Genitourinary Genitourinary: Mosley Catheter In Place Musculoskeletal Extremities Upper Extremities Deltoid Bicep Tricep HI W. Ext Right Left Lower Extremeties Ilio Quad Plantar Dorsi EHL Right Left Musculoskeletal Remarks right hemiparesis but able to flex the right leg in spite of increased tone. Good purposeful movements of the fingers on the left. Extremities Edema: Edematous, SCDs Objective Labs Laboratory Tests 05/09/16 03:53 Laboratory Tests Test 05/09/16 03:53 Sodium Level 144 MEQ/L Potassium Level 3.4 MEQ/L Chloride Level 112 MEQ/L Carbon Dioxide Level 21.8 MEQ/L Anion Gap 10 MEQ/L Blood Urea Nitrogen 24 MG/DL Creatinine 0.62 MG/DL Estimat Glomerular Filtration 95 ML/MIN Rate Random Glucose 99 MG/DL Calcium Level 8.1 MG/DL Total Bilirubin 0.5 MG/DL Aspartate Amino Transf 25 U/L (AST/SGOT) Alanine Aminotransferase 83 U/L (ALT/SGPT) Alkaline Phosphatase 91 U/L Total Protein 5.8 GM/DL Albumin 2.2 GM/DL Assessment & Plan Diagnosis: (1) Acute intracranial hemorrhage Plan: Left basal ganglia hypertensive bleed with right hemiparesis and aphasia but laert and following commands. Maximal supportive care is continued. Seizure prophylaxis with keppra is continued. DVT prophylaxis with SCDs is continued. Weaning of the ventilator and mobilization to the [place] chair is pending. Marc Roman May 09, 2016 20:23
[2016-05-09] MEDS: levETIRAcetam 500 MG/5 ML UDC TUBE SCH (20:47)
[2016-05-10] VITALS (19 sets, daily range): BP systolic 139–188; BP diastolic 65–84; PULSE 58–98; RESP 12–18; TEMP 98.4–101.2; O2SAT 94–99
[2016-05-10] MEDS: PIPERACIL-TAZO 3.375 GM PREMIX 50 ML IV SCH ×2 (01:24→16:00)
[2016-05-10] MEDS: DEXMEDETOMIDINE INJ 50 ML IV SCH ×3 (01:44→06:18)
[2016-05-10] MEDS: SENNOSIDES 8.6 MG TAB PO SCH ×2 (03:00→15:00)
[2016-05-10] MEDS: SODIUM CHLOR 0.9% 1000 ML INJ 1,000 ML IV SCH (03:52)
[2016-05-10] MEDS: CHLORHEXIDINE GLUCONATE 2 % 1 PACK (2 CLOTHS) TOP SCH (03:52)
[2016-05-10] MEDS: INSULIN NovoLIN REGULAR SUPPLEMENTAL SCALE SQ SCH ×3 (06:00→18:00)
[2016-05-10] MEDS: METOCLOPRAMIDE HCL 10 MG/2 ML VIAL IV SCH ×3 (06:17→21:44)
[2016-05-10] MEDS: hydrALAZINE HCL 20 MG/ML VIAL IV PUSH PRN (06:18)
--- NOTE | 2016-05-10 08:25 | HHI.CCPN ---
Subjective Remarks/Hospital Course This is a 71 female. Data admission 04/27/2016. Past medical history includes left temporal CVA and seizure disorder.. She presented to the emergency room brought by her friend for strokelike symptoms. Patient was verbal when she first arrived and said that her symptoms started 40 minutes ago. 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 She had right-sided facial droop and right arm weakness. There was some right eyelid lag as well. After doing a quick NIH stroke score a stroke alert was called. Patient was rushed to the CT scanner and I spoke with the neurologist to make him aware of possible stroke. Her medications are all alternative natural medications. CT head revealed a 4.6 x 2.4 (basal ganglia intraparenchymal hemorrhage. Encephalopathy left temporal region. Neurosurgery was consultation recommended medical management with 3% hypertonic saline, mannitol and strict blood pressure control systolic blood pressure was 150 with a follow-up CT scan in a.m. While in the ED, patient decompensated with a left-sided gaze. She was flaccid in her right upper lobe extremity. Emergently intubated with 20 minutes etomidate etomidate and 100 mg succinylcholine. She is currently been sedated with propofol/fentanyl and Versed drips. Cardene drip was initiated to maintain systolic blood pressure less than 150. End tidal CO2 around 30 recommended. Receiving 50 mg mannitol IV 1 now. Subjective 04/[address] this a.m. shows slight increase in hemorrhage with a 7 mm rightward midline shift. The patient continues on hypertonic saline, mannitol every 6 hours. 04/29 The patient underwent a emergent left craniotomy last evening with placement of ICP monitor. ICP 67 mmHg postoperatively overnight. Minimal drainage from TANYA drains. Family (sister)located yesterday afternoon, notified of the events. 04/30 Afebrile. On sedation vacation yesterday afternoon, it was noted the patient localizes on the left side, not following commands. ICP ranges 39. EEG performed this a.m. 05/01 The patient continues to localize on the left side, when off sedation. TANYA drains totaling 300 cc in 24 hours ,serosanguineous. 05/02 Afebrile. [place] bolt discontinued yesterday, area clean and dry. Staple line clean and dried no erythema. Sedation vacation yielded movement of left upper extremity and lower extremity. TANYA drainage decreased to 75 cc over the last 12 hours. 05/03 T max 100.3. The patient is now following commands with the left upper and lower extremity. The patient tolerated 2 hours of CPAP yesterday. Overnight the patient was on a propofol and fentanyl infusion will discontinue fentanyl. 05/04 Tmax 99.7. EEG revealed sharp waves possibly seizure activity, recommended continuation of Keppra per neurosurgery. Will begin Lovenox upon discontinuation of TANYA drains per neurosurgery recommendations. The patient continues CPAP trial, improving greater than 4 hours today. 05/05 Neuro evaluation improved. Spontaneous eye opening this morning to voice. Patient continues to follow commands left upper and lower extremity. Patient currently on CPAP trials. 05/06 The patient was maintained on CPAP trials for approximately 16 hours yesterday. The patient continues to respond by squeezing left hand and moving the left leg on command. During the night, it was reported that the patient moving right lower extremity. TANYA drains were removed yesterday. 05/07: Remains encephalopathic, orally intubated on mechanical ventilation. Daily C Pap trials ongoing. 05/08: Remains encephalopathic, orally intubated on mechanical ventilation. 2 encephalopathic for extubation. Will need tracheostomy and PEG tube. Consulted general surgery and GI and scheduled for 05/09. 05/09: no clinical change. plan today for trach/peg. 05/10: trach and peg yesterday. otherwise no clinical change. good diuresis with single does of lasix yesterday. Objective Vital Signs Date Time Temp Pulse Resp B/P Pulse Ox O2 Delivery O2 Flow Rate FiO2 05/10/16 08:05 98 30 05/10/16 06:00 63 05/10/16 04:00 99.1 12 169/82 05/06/16 08:00 Mechanical Ventilator Intake and Output 05/09/16 05/09/16 05/10/16 08:00 16:00 00:00 Intake Total 365 ml 698 ml 406 ml Output Total 375 ml 550 ml 4100 ml Balance -10 ml 148 ml -3694 ml Result Diagram: 05/09/16 0353 05/09/16 0353 Imaging Last Impressions Chest X-Ray 05/02/16 0600 Signed Impressions: Service Date/Time: Monday, May 02, 2016 03:48 - CONCLUSION: Stable chest x-ray with underinflation and mild atelectasis versus consolidation at the lung bases. There is also a suspected stable small left pleural effusion. Karthik Kramer MD Head CT 04/30/16599 Signed Impressions: Service Date/Time: Saturday, April 30, 2016 04:24 - CONCLUSION: Interim surgery and drain placement. Parenchymal hemorrhage in the left cerebral hemisphere white matter is slightly larger than before. About 2 mm of rightward midline shift now seen compared to 7 mm previously. Karthik Pope MD Last Impressions Chest X-Ray 05/02/16599 Signed Impressions: Service Date/Time: Monday, May 02, 2016 03:48 - CONCLUSION: Stable chest x-ray with underinflation and mild atelectasis versus consolidation at the lung bases. There is also a suspected stable small left pleural effusion. Karthik Kramer MD Head CT 04/30/16599 Signed Impressions: Service Date/Time: Saturday, April 30, 2016 04:24 - CONCLUSION: Interim surgery and drain placement. Parenchymal hemorrhage in the left cerebral hemisphere white matter is slightly larger than before. About 2 mm of rightward midline shift now seen compared to 7 mm previously. Karthik Pope MD Last Impressions Head CT 04/30/16599 Signed Impressions: Service Date/Time: Saturday, April 30, 2016 04:24 - CONCLUSION: Interim surgery and drain placement. Parenchymal hemorrhage in the left cerebral hemisphere white matter is slightly larger than before. About 2 mm of rightward midline shift now seen compared to 7 mm previously. Karthik Pope MD Chest X-Ray 04/30/16599 Signed Impressions: Service Date/Time: Saturday, April 30, 2016 02:55 - CONCLUSION: No significant change. Mild consolidation and small effusion again seen left lung base. Karthik Pope MD Last Impressions Chest X-Ray 04/29/16599 Signed Impressions: Service Date/Time: Friday, April 29, 2016 01:48 - CONCLUSION: Endotracheal tube tip pulled back slightly, now about 4 cm above the lauren. Other lines and tubes unchanged. No significant change mild left base consolidation and small pleural effusion. Karthik Pope MD Head CT 04/28/16 Signed Impressions: Service Date/Time: Thursday, April 28, 2016 04:36 - CONCLUSION: Left basal ganglia subacute parenchymal hemorrhage is slightly larger. 7 mm of rightward midline shift. Karthik Pope MD Last Impressions Head CT 04/28/16 06 Signed Impressions: Service Date/Time: Thursday, April 28, 2016 04:36 - CONCLUSION: Left basal ganglia subacute parenchymal hemorrhage is slightly larger. 7 mm of rightward midline shift. Karthik Pope MD Chest X-Ray 04/28/16 0000 Signed Impressions: Service Date/Time: Thursday, April 28, 2016 04:51 - CONCLUSION: 1. Endotracheal tube tip 1.7 cm above the lauren. 2. Mild left base atelectasis not significantly changed. Karthik Pope MD Last Impressions Head CT 04/27/16 0000 Signed Impressions: Service Date/Time: Wednesday, April 27, 2016 13:33 - CONCLUSION: 1. Focal acute intraparenchymal hemorrhage involving the region of the left basal ganglia measuring 4.6 x 2.4 cm characteristic of a hemorrhagic hypertensive infarct. 2. Large area of encephalomalacia involving the left temporal frontal region. This is either a large area of old infarction versus a large arachnoid cyst. Rommel Norman MD Objective Remarks GENERAL: 71 year obese female, critically ill trached. SKIN: Warm and dry. HEAD: Atraumatic. Normocephalic Staple line without erythema or drainage EYES: No scleral icterus. No injection or drainage. Pupils reactive 3mm brisk ENT: No nasal bleeding or discharge. Mucous membranes pink and moist. NECK: Trachea midline. No JVD. trach in place. CARDIOVASCULAR: Regular rate and rhythm. no appreciable murmurs RESPIRATORY: Clear to auscultation. Breath sounds equal bilaterally. GASTROINTESTINAL: Abdomen soft, non-tender, nondistended. no guarding. MUSCULOSKELETAL: Extremities without clubbing, cyanosis, or edema. No obvious deformities. NEUROLOGICAL: RASS -1, Precedex infusion the patient is responding left upper and left lower extremity to command Date of Insertion: Apr 27, 2016 Date of Insertion: Apr 27, 2016 Side: Right Location: Internal, Jugular A/P Assessment and Plan Neuro/Psych: 4.62.4 cm left basal ganglia intraparenchymal hemorrhage Left temporal CVA Seizure disorder Left frontotemporal parietal craniotomy and placement of ICP monitor- POD #4 Sedation- Precedex infusion,RASS -1. wean as tolerated. CT head revealed 4.62.4 intraparenchymal hemorrhage. Old encephalomalacia left temporal region. Keppra 500 mg BID, continue seizure prophylaxis secondary to results of EEG per neurosurgery recommendations 3% NaCl, discontinued 2/3 Mannitol , discontinued 05/03 EEG 04/30-moderate diffuse encephalopathy, sharp spikes noted, possible seizure activity Repeat CT brain 04/28-left basal ganglia subacute parenchymal hemorrhage slightly larger 7 mm rightward midline shift CT brain 04/30 -2 mm rightward MLS [place] bolt discontinued 05/01/16, TANYA drains removed 05/05 Neuro checks per ICU protocol-patient follows commands left upper and lower extremity, now movement of right extremity but not to command CV: Hypertensive emergency-resolved off cardene. As needed labetalol/hydralazine Initial troponin less than 0.04. 2-D ECHO-EF 55-60% no RWMA -- amlodipine 10mg po daily -- lisinopril 20mg po daily for hypertension, may need to increase to 40mg today if still hypertensive. Resp: Acute respiratory failure secondary to altered mental status ACV 16/500/5/.30 Ventilator bundle Maintain head of bed elevation 30 Scheduled every 6 hour bronchodilator therapy Continue CPAP trials- failing for encephalopathy. s/p perc trach 05/[address] Skaggs GI: s/p PEG with GI on 05/09. -- restart Glucerna1.5 @50/hr (goal rate) Reglan TID Protonix for GI prophylaxis Bowel regimen Colace,Senokot scheduled, Milk of Magnesia PRN. Consulted GI for PEG tube placement and scheduled for 05/09 /FEN: Hypophosphatemia-resolved Intravascular hypervolemia Monitor BMP Maintain Mosley for accurate I's and O's Replete electrolytes per ICU protocol --may need additional dose of lasix today. Endo: Hyperglycemia of critical illness Sliding-scale insulin with Accu-Cheks every 6 hours to maintain euglycemia. Low dose regimen. Renal: No acute issues Accurate I/O's Normal saline at 30 cc an hour Heme: Monitor CBC ID: Leukocytosis-resolved Monitor for signs of infection UA culture-NGTD MSK: PT evaluate and treat Daily functional maintenance Access -Discontinued Right IJ CVL 05/06, peripheral IVs 2 Prophylaxis - GI - Protonix - DVT - SCD/ Lovenox for DVT prophylaxis Critical Care: This patient remains critically ill with one or more organ systems which are or may become a threat to life. I have spent in excess of 31 minutes discontinuously in the care and management of this patient. This time is exclusive of procedures, and includes, but is not limited to, evaluation of the patient, review of the medical record, discussions with family, consultants, nursing staff, or respiratory therapy, and documentation in the medical record. Farhad Oropeza MD May 10, 2016 08:25
[2016-05-10] MEDS: SODIUM CHLORIDE 0.9% FLUSH 5 ML FLUSH IVF SCH ×3 (08:49→22:25)
[2016-05-10] MEDS: CHLORHEXIDINE 0.12% (ORAL KIT) 15 ML CUP MT SCH ×2 (08:49→19:47)
[2016-05-10] MEDS: levETIRAcetam 500 MG/5 ML UDC TUBE SCH ×2 (08:49→21:44)
[2016-05-10] MEDS: LISINOPRIL 20 MG TAB PO SCH (08:49)
[2016-05-10] MEDS: DOCUSATE SODIUM 100 MG CAP PO SCH ×2 (08:49→21:00)
[2016-05-10] MEDS: LACTULOSE SYRUP 20 GM/30 ML CUP PO/NG SCH (08:49)
[2016-05-10] MEDS: PANTOPRAZOLE SODIUM 40 MG VIAL IVP SCH (08:49)
[2016-05-10] MEDS: ARTIFICIAL TEARS OPTH SOLN 15 ML BTL EACH EYE SCH ×3 (09:00→18:00)
[2016-05-10] MEDS: ENOXAPARIN SODIUM 40 MG/0.4 ML SYRINGE SQ SCH (10:59)
--- NOTE | 2016-05-10 11:40 | HHI.NSPN ---
Subjective History Day 12 after left basal ganglia bleed, s/p craniectomy, alert and lightly sedated on precedex, follows commands with the left arm. She has a right hemiparesis. She has a PEG and a tracheostomy. CPAP trial will resume this week end. 05/10/16 She is more alert and is still following commands with the left hand. Weaning trials are continued. Vitals . Vital Signs Date Time Temp Pulse Resp B/P Pulse Ox O2 Delivery O2 Flow Rate FiO2 05/10/16 11:37 99 T-piece 6.00 35 05/10/16 10:34 99 30 05/10/16 08:05 98 30 05/10/16 08:05 30 05/10/16 06:00 63 05/10/16 04:18 96 30 05/10/16 04:00 30 05/10/16 04:00 99.1 58 12 169/82 95 05/10/16 04:00 58 05/10/16 02:00 66 05/10/16 00:25 94 30 05/10/16 00:00 75 05/10/16 00:00 99.3 75 14 152/68 95 05/10/16 00:00 30 05/09/16 22:00 64 05/09/16 20:18 98 30 05/09/16 20:00 30 05/09/16 20:00 98.6 69 15 147/69 97 05/09/16 20:00 69 05/09/16 18:00 64 05/09/16 16:41 100 30 05/09/16 16:00 30 05/09/16 16:00 68 05/09/16 16:00 98.8 68 18 159/72 100 05/09/16 14:36 98 100 05/09/16 14:00 64 05/09/16 12:00 57 05/09/16 12:00 98.2 57 12 176/79 97 05/09/16 12:00 30 05/09/16 05/09/16 05/10/16 15:00 23:00 07:00 Intake Total 698 ml 406 ml 381 ml Output Total 550 ml 4100 ml 575 ml Balance 148 ml -3694 ml -194 ml Physical Exam Head Head Remarks Left wound clean and dry Eyes Eyes: Pupils Equal Neuro Mental Status: Lethargic Pupils: Reactive Bilaterally Face: Symmetric [place] Coma Scale Best Eye Openin - Spontaneous Best Verbal: 1 - None Best Motor: 6 - Obeys Total Glascow Coma Scale (GCS): 11 Cardiac Cardiac: Regular Rate & Rhythm Respiratory Respiratory: CTA Gastrointestinal Gastrointestinal: Soft Genitourinary Genitourinary: Mosley Catheter In Place Musculoskeletal Extremities Upper Extremities Deltoid Bicep Tricep HI W. Ext Right Left Lower Extremeties Ilio Quad Plantar Dorsi EHL Right Left Musculoskeletal Remarks right hemiparesis but able to flex the right leg in spite of increased tone. Good purposeful movements of the fingers on the left. No Babinski Dermatologic Dermatologic: Abrasions Extremities Edema: Edematous, SCDs Assessment & Plan Diagnosis: (1) Acute intracranial hemorrhage Plan: Left basal ganglia hypertensive bleed with right hemiparesis and aphasia but following commands. Maximal supportive care is continued. Seizure prophylaxis with keppra is continued. DVT prophylaxis with SCDs is continued. Weaning of the ventilator and mobilization to the [place] chair is pending. Marc Roman May 10, 2016 11:40
[2016-05-10 12:25] LABS: BICARBONATE 25.8 MEQ/L (21.0-32.0); POTASSIUM 3.4 MEQ/L (3.5-5.1)
[2016-05-10 13:41] LABS: HEMATOCRIT 37.1 % (35.0-46.0); MEAN CELL VOLUME 90.9 FL (80.0-100.0); MEAN CORPUSCULAR HEMOGLOBIN 30.2 PG (27.0-34.0); MEAN CORPUSCULAR HGB CONC 33.3 % (32.0-36.0); PLATELET COUNT 412 TH/MM3 (150-450); RED BLOOD COUNT 4.08 MIL/MM3 (4.00-5.30); WHITE BLOOD COUNT 22.1 TH/MM3 (4.0-11.0)
[2016-05-10] MEDS ORDERED: Vancomycin Consult Pharmacy 1 EA OTHER SCH (15:00)
[2016-05-10] MEDS ORDERED: VANCOMYCIN INJ 1,250 MG in SODIUM CHLOR 0.9% 250 ML INJ 250 ML IV ONE (16:00)
--- NOTE | 2016-05-10 16:57 | HHI.GIFU ---
Subjective Remarks Resting in bed. TF going at 25cc/hr. Pt had a large liquid stool today, but was given meds for constipation prior to this. (Jennifer Art) Objective Vitals I&O Vital Signs Date Time Temp Pulse Resp B/P Pulse Ox O2 Delivery O2 Flow Rate FiO2 05/10/16 16:15 98 30 05/10/16 14:55 30 05/10/16 11:37 99 T-piece 6.00 35 05/10/16 10:34 99 30 05/10/16 08:05 98 30 05/10/16 08:05 30 05/10/16 08:00 98.4 70 18 188/84 97 05/10/16 08:00 58 05/10/16 08:00 30 05/10/16 06:00 63 05/10/16 04:18 96 30 05/10/16 04:00 30 05/10/16 04:00 99.1 58 12 169/82 95 05/10/16 04:00 58 05/10/16 02:00 66 05/10/16 00:25 94 30 05/10/16 00:00 75 05/10/16 00:00 99.3 75 14 152/68 95 05/10/16 00:00 30 05/09/16 22:00 64 05/09/16 20:18 98 30 05/09/16 20:00 30 05/09/16 20:00 98.6 69 15 147/69 97 05/09/16 20:00 69 05/09/16 18:00 64 I/O 05/09/16 05/09/16 05/09/16 05/10/16 05/10/16 05/10/16 07:00 15:00 23:00 07:00 15:00 23:00 Intake Total 365 ml 698 ml 406 ml 381 ml Output Total 375 ml 550 ml 4100 ml 575 ml Balance -10 ml 148 ml -3694 ml -194 ml Intake IV Total 365 ml 638 ml 406 ml 381 ml Tube Irrigant 60 ml Output Urine Total 375 ml 550 ml 4100 ml 575 ml # Bowel Movements 0 0 0 1 Laboratory Laboratory Tests Test 05/10/16 05/10/16 11:23 13:32 Sodium Level 140 Potassium Level 3.4 Chloride Level 105 Carbon Dioxide Level 25.8 Anion Gap 9 Blood Urea Nitrogen 20 Creatinine 0.77 Estimat Glomerular Filtration 74 Rate Random Glucose 101 Calcium Level 8.1 White Blood Count 22.1 Red Blood Count 4.08 Hemoglobin 12.3 Hematocrit 37.1 Mean Corpuscular Volume 90.9 Mean Corpuscular Hemoglobin 30.2 Mean Corpuscular Hemoglobin 33.3 Concent Red Cell Distribution Width 13.0 Platelet Count 412 Mean Platelet Volume 8.7 Imaging Last Impressions Chest X-Ray 05/09/16 0000 Signed Impressions: Service Date/Time: Monday, May 09, 2016 14:17 - CONCLUSION: 1. Tracheostomy tube in good position 3 cm above the lauren. 2. Cardiomegaly. 3. Mild pulmonary vascular congestion. Sherman Robbins MD Abdomen X-Ray 05/06/16 0000 Signed Impressions: Service Date/Time: Friday, May 06, 2016 04:47 - CONCLUSION: No acute disease. Catarino Patel MD Head CT 04/30/16 0600 Signed Impressions: Service Date/Time: Saturday, April 30, 2016 04:24 - CONCLUSION: Interim surgery and drain placement. Parenchymal hemorrhage in the left cerebral hemisphere white matter is slightly larger than before. About 2 mm of rightward midline shift now seen compared to 7 mm previously. Karthik Pope MD Physical Exam HEENT: Incision line well approximated without redness/swelling NECK: Tracheostomy CHEST: CPAP to tracheostomy. Course breath sounds throughout CARDIAC: RRR ABDOMEN: Soft, obese, nondistended, nontender; no hepatosplenomegaly; bowel sounds are present in all four quadrants. PEG tube site without redness or swelling EXTREMITIES: Generalized SKIN: Normal; no rash; no jaundice. 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 Right side flaccid. (Jennifer Art) Assessment and Plan Plan ASSESSMENT: - Dysphagia/FEN. S/P EGD with PEG tube placement (05/10/16). Site without redness or swelling. Tolerating TF at 25cc/hr. Claims Account Specialist recommends Glucerna 1.5 at 50cc/hr. - ICH with 7 mm midline shift, s/p left decompressive craniectomy with evacuation of intraparenchymal hematoma, and placement of ICP monitor on . - Respiratory failure. S/P tracheostomy, on CPAP. Plan: - S/P EGD with peg - Glucerna 1.5 at 50cc/hr - GI will sign off, please reconsult as needed - Patient seen and examined by dr. Morales and myself and this note is written on his behalf. (Jennifer Art) Physician Comments Seen and examined with Ms. Rubens WHEELER, doing well post peg placement. Increase TF as needed, flush with water Q shift. Will sign off, reconsult as needed. Thank you (Silvia Morales MD) Jennifer Art May 10, 2016 16:57 Silvia Morales MD May 11, 2016 12:01
[2016-05-10] MEDS: LABETALOL HCL 100 MG/20 ML VIAL IV PUSH PRN (19:48)
[2016-05-10] MEDS: ACETAMINOPHEN/HYDROcodone 325 MG/10 MG TAB PO PRN (19:48)
[2016-05-10 22:42] LABS: BLOOD, URINE NEG (NEG); GLUCOSE,URINE NEG (NEG); HYALINE CAST, URINE 1 /lpf (RARE); KETONE, URINE 40 mg/dL (NEG); MUCUS URINE FEW /lpf (OCC); NITRITE,URINE NEG (NEG); PH, URINE 5.5 (5.0-8.5); SQUAMOUS EPITHELIAL CELL URINE 3 /hpf (0-5); URIC ACID CRYSTALS, URINE RARE /hpf; URINE COLOR YELLOW (YELLW/STRAW)
[2016-05-10 22:48] LABS: COMMENT (UR) CATH-CULT NOT IND; CULTURE IF INDICATED CATH CULTURE NOT IND
[2016-05-10] MEDS: VANCOMYCIN INJ 1,250 MG in SODIUM CHLOR 0.9% 250 ML INJ 250 ML IV SCH (23:40)
[2016-05-11] VITALS (16 sets, daily range): BP systolic 141–177; BP diastolic 65–77; PULSE 72–94; RESP 12–20; TEMP 98.2–99.5; O2SAT 97–100
[2016-05-11] MEDS: ACETAMINOPHEN/HYDROcodone 325 MG/10 MG TAB PO PRN ×3 (00:30→23:56)
[2016-05-11] MEDS: hydrALAZINE HCL 20 MG/ML VIAL IV PUSH PRN ×3 (02:04→23:56)
[2016-05-11] MEDS: CHLORHEXIDINE GLUCONATE 2 % 1 PACK (2 CLOTHS) TOP SCH (03:31)
[2016-05-11] MEDS: SENNOSIDES 8.6 MG TAB PO SCH ×2 (03:36→14:28)
[2016-05-11 05:30] LABS: HEMATOCRIT 29.3 % (35.0-46.0); MEAN CELL VOLUME 90.1 FL (80.0-100.0); MEAN CORPUSCULAR HEMOGLOBIN 30.4 PG (27.0-34.0); MEAN CORPUSCULAR HGB CONC 33.7 % (32.0-36.0); PLATELET COUNT 433 TH/MM3 (150-450); RED BLOOD COUNT 3.25 MIL/MM3 (4.00-5.30); RED CELL DISTRIBUTION WIDTH 12.7 % (11.6-17.2); REVIEW FLAG FINAL
[2016-05-11 05:49] LABS: BICARBONATE 25.3 MEQ/L (21.0-32.0); POTASSIUM 3.4 MEQ/L (3.5-5.1)
[2016-05-11] MEDS: PIPERACIL-TAZO 3.375 GM PREMIX 50 ML IV SCH ×4 (05:55→20:05)
[2016-05-11] MEDS: METOCLOPRAMIDE HCL 10 MG/2 ML VIAL IV SCH ×3 (06:00→20:04)
[2016-05-11] MEDS: LABETALOL HCL 100 MG/20 ML VIAL IV PUSH PRN ×6 (06:06→23:30)
[2016-05-11] MEDS: INSULIN NovoLIN REGULAR SUPPLEMENTAL SCALE SQ SCH ×5 (06:06→23:17)
[2016-05-11] MEDS: CHLORHEXIDINE 0.12% (ORAL KIT) 15 ML CUP MT SCH ×2 (08:41→20:00)
[2016-05-11] MEDS: ARTIFICIAL TEARS OPTH SOLN 15 ML BTL EACH EYE SCH ×3 (08:41→17:41)
[2016-05-11] MEDS: SODIUM CHLORIDE 0.9% FLUSH 5 ML FLUSH IVF SCH ×3 (08:43→20:00)
[2016-05-11] MEDS: DOCUSATE SODIUM 100 MG CAP PO SCH ×2 (08:44→19:59)
[2016-05-11] MEDS: LACTULOSE SYRUP 20 GM/30 ML CUP PO/NG SCH (08:44)
[2016-05-11] MEDS: PANTOPRAZOLE SODIUM 40 MG VIAL IVP SCH (08:44)
[2016-05-11] MEDS: ENOXAPARIN SODIUM 40 MG/0.4 ML SYRINGE SQ SCH (08:45)
[2016-05-11] MEDS: LISINOPRIL 20 MG TAB PO SCH (08:46)
[2016-05-11] MEDS: levETIRAcetam 500 MG/5 ML UDC TUBE SCH ×2 (08:51→19:59)
[2016-05-11] MEDS: VANCOMYCIN INJ 1,250 MG in SODIUM CHLOR 0.9% 250 ML INJ 250 ML IV SCH ×2 (08:54→20:05)
--- NOTE | 2016-05-11 10:47 | HHI.NSPN ---
Subjective History Day 12 after left basal ganglia bleed, s/p craniectomy, alert and lightly sedated on precedex, follows commands with the left arm. She has a right hemiparesis. She has a PEG and a tracheostomy. CPAP trial will resume this week end. 05/10/16 She is more alert and is still following commands with the left hand. Weaning trials are continued. 05/11/16 Weaning trials are continued. She is more alert and interactive. GCS is 11 off sedation Vitals . Vital Signs Date Time Temp Pulse Resp B/P Pulse Ox O2 Delivery O2 Flow Rate FiO2 05/11/16 10:37 98 T-piece 35 05/11/16 09:27 35 30 05/11/16 08:10 98 30 05/11/16 06:00 94 05/11/16 04:00 98.2 75 12 150/67 100 05/11/16 04:00 75 05/11/16 04:00 30 05/11/16 02:00 72 05/11/16 00:41 100 30 05/11/16 00:00 98.2 80 14 152/70 100 05/11/16 00:00 80 05/11/16 00:00 30 05/10/16 23:00 30 05/10/16 22:39 98 30 05/10/16 22:00 97 05/10/16 20:00 30 05/10/16 20:00 101.2 90 16 139/65 95 05/10/16 20:00 87 05/10/16 18:00 68 05/10/16 16:15 98 30 05/10/16 16:00 68 05/10/16 16:00 30 05/10/16 16:00 98.8 98 17 146/72 98 05/10/16 14:55 30 05/10/16 14:00 64 05/10/16 12:00 30 05/10/16 12:00 64 05/10/16 12:00 98.8 80 18 142/66 98 05/10/16 11:37 99 T-piece 6.00 35 05/10/16 05/10/16 05/11/16 15:00 23:00 07:00 Intake Total 350 ml 595 ml 620 ml Output Total 325 ml 250 ml Balance 350 ml 270 ml 370 ml Maximum Temperature: 101.2 Physical Exam Head Head Remarks Left wound clean and dry, patito were removed today Eyes Eyes: Pupils Equal Neuro Mental Status: Awake Pupils: Reactive Bilaterally Joel Coma Scale Best Eye Openin - Spontaneous Best Verbal: 1 - None Best Motor: 6 - Obeys Cardiac Cardiac: Regular Rate & Rhythm Respiratory Respiratory: CTA Gastrointestinal Gastrointestinal: Nontender Bowel Sounds: Present Genitourinary Genitourinary: Mosley Catheter In Place Musculoskeletal Extremities Upper Extremities Deltoid Bicep Tricep HI W. Ext Right Left Lower Extremeties Ilio Quad Plantar Dorsi EHL Right Left Musculoskeletal Remarks right hemiparesis but able to flex the right leg in spite of increased tone. Good purposeful movements of the fingers on the left. No Babinski Extremities Edema: Edematous, SCDs Objective Infectious Disease Cultures Microbiology Date/Time Procedure Status Source Growth 05/10/16 22:00 Gram Stain Received Sputum Endotracheal Pending 05/10/16 22:00 Sputum Culture Received Sputum Endotracheal Pending 05/10/16 22:00 Urine Culture Received Urine Catheterized Urine Pending 05/10/16 23:35 Aerobic Blood Culture Received Blood Peripheral Pending 05/10/16 23:35 Anaerobic Blood Culture Received Blood Peripheral Pending 05/10/16 23:40 Aerobic Blood Culture Received Blood Peripheral Pending 05/10/16 23:40 Anaerobic Blood Culture Received Blood Peripheral Pending Labs Laboratory Tests 05/10/16 11:23 05/10/16 13:32 05/10/16 23:40 05/11/16 04:47 Laboratory Tests Test 05/10/16 05/10/16 05/11/16 11:23 23:40 04:47 Sodium Level 140 MEQ/L 140 MEQ/L Potassium Level 3.4 MEQ/L 3.5 MEQ/L 3.4 MEQ/L Chloride Level 105 MEQ/L 106 MEQ/L Carbon Dioxide Level 25.8 MEQ/L 25.3 MEQ/L Anion Gap 9 MEQ/L 9 MEQ/L Blood Urea Nitrogen 20 MG/DL 19 MG/DL Creatinine 0.77 MG/DL 0.79 MG/DL Estimat Glomerular Filtration 74 ML/MIN 72 ML/MIN Rate Random Glucose 101 MG/DL 151 MG/DL Calcium Level 8.1 MG/DL 8.0 MG/DL Assessment & Plan Diagnosis: (1) Acute intracranial hemorrhage Plan: Day 14 after left basal ganglia hypertensive bleed with right hemiparesis and aphasia but following commands. Maximal supportive care is continued. Seizure prophylaxis with keppra is continued. DVT prophylaxis with SCDs is continued. Weaning of the ventilator and mobilization to the [place] chair is pending. Marc Roman May 11, 2016 10:47
[2016-05-11] MEDS ORDERED: LISINOPRIL 20 MG TAB PO ONE (14:00)
--- NOTE | 2016-05-11 14:02 | HHI.CCPN ---
Subjective Remarks/Hospital Course This is a 71 female. Data admission 04/27/2016. Past medical history includes left temporal CVA and seizure disorder.. She presented to the emergency room brought by her friend for strokelike symptoms. Patient was verbal when she first arrived and said that her symptoms started 40 minutes ago. 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 She had right-sided facial droop and right arm weakness. There was some right eyelid lag as well. After doing a quick NIH stroke score a stroke alert was called. Patient was rushed to the CT scanner and I spoke with the neurologist to make him aware of possible stroke. Her medications are all alternative natural medications. CT head revealed a 4.6 x 2.4 (basal ganglia intraparenchymal hemorrhage. Encephalopathy left temporal region. Neurosurgery was consultation recommended medical management with 3% hypertonic saline, mannitol and strict blood pressure control systolic blood pressure was 150 with a follow-up CT scan in a.m. While in the ED, patient decompensated with a left-sided gaze. She was flaccid in her right upper lobe extremity. Emergently intubated with 20 minutes etomidate etomidate and 100 mg succinylcholine. She is currently been sedated with propofol/fentanyl and Versed drips. Cardene drip was initiated to maintain systolic blood pressure less than 150. End tidal CO2 around 30 recommended. Receiving 50 mg mannitol IV 1 now. Subjective 04/[address] this a.m. shows slight increase in hemorrhage with a 7 mm rightward midline shift. The patient continues on hypertonic saline, mannitol every 6 hours. 04/29 The patient underwent a emergent left craniotomy last evening with placement of ICP monitor. ICP 67 mmHg postoperatively overnight. Minimal drainage from TANYA drains. Family (sister)located yesterday afternoon, notified of the events. 04/30 Afebrile. On sedation vacation yesterday afternoon, it was noted the patient localizes on the left side, not following commands. ICP ranges 39. EEG performed this a.m. 05/01 The patient continues to localize on the left side, when off sedation. TANYA drains totaling 300 cc in 24 hours ,serosanguineous. 05/02 Afebrile. [place]arlan bolt discontinued yesterday, area clean and dry. Staple line clean and dried no erythema. Sedation vacation yielded movement of left upper extremity and lower extremity. TANYA drainage decreased to 75 cc over the last 12 hours. 05/03 T max 100.3. The patient is now following commands with the left upper and lower extremity. The patient tolerated 2 hours of CPAP yesterday. Overnight the patient was on a propofol and fentanyl infusion will discontinue fentanyl. 05/04 Tmax 99.7. EEG revealed sharp waves possibly seizure activity, recommended continuation of Keppra per neurosurgery. Will begin Lovenox upon discontinuation of TANYA drains per neurosurgery recommendations. The patient continues CPAP trial, improving greater than 4 hours today. 05/05 Neuro evaluation improved. Spontaneous eye opening this morning to voice. Patient continues to follow commands left upper and lower extremity. Patient currently on CPAP trials. 05/06 The patient was maintained on CPAP trials for approximately 16 hours yesterday. The patient continues to respond by squeezing left hand and moving the left leg on command. During the night, it was reported that the patient moving right lower extremity. TANYA drains were removed yesterday. 05/07: Remains encephalopathic, orally intubated on mechanical ventilation. Daily C Pap trials ongoing. 05/08: Remains encephalopathic, orally intubated on mechanical ventilation. 2 encephalopathic for extubation. Will need tracheostomy and PEG tube. Consulted general surgery and GI and scheduled for 05/09. 05/09: no clinical change. plan today for trach/peg. 05/10: trach and peg yesterday. otherwise no clinical change. good diuresis with single does of lasix yesterday. 05/11: spiked fever yesterday, elevated wbc. jackson cultured and started on BSAbx. this AM, clinically at baseline. on TP this AM. Objective Vital Signs Date Time Temp Pulse Resp B/P Pulse Ox O2 Delivery O2 Flow Rate FiO2 05/11/16 12:00 82 05/11/16 12:00 35 05/11/16 12:00 99.4 16 156/72 98 05/11/16 10:37 T-piece 05/10/16 11:37 6.00 Intake and Output 05/10/16 05/10/16 05/11/16 08:00 16:00 00:00 Intake Total 381 ml 350 ml 595 ml Output Total 575 ml 325 ml Balance -194 ml 350 ml 270 ml Result Diagram: 2/12/17 0447 05/11/16 0447 Imaging Last Impressions Chest X-Ray 05/02/16599 Signed Impressions: Service Date/Time: Monday, May 02, 2016 03:48 - CONCLUSION: Stable chest x-ray with underinflation and mild atelectasis versus consolidation at the lung bases. There is also a suspected stable small left pleural effusion. Karthik Kramer MD Head CT 04/30/16599 Signed Impressions: Service Date/Time: Saturday, April 30, 2016 04:24 - CONCLUSION: Interim surgery and drain placement. Parenchymal hemorrhage in the left cerebral hemisphere white matter is slightly larger than before. About 2 mm of rightward midline shift now seen compared to 7 mm previously. Karthik Pope MD Last Impressions Chest X-Ray 05/02/16599 Signed Impressions: Service Date/Time: Monday, May 02, 2016 03:48 - CONCLUSION: Stable chest x-ray with underinflation and mild atelectasis versus consolidation at the lung bases. There is also a suspected stable small left pleural effusion. Karthik Kramer MD Head CT 04/30/16599 Signed Impressions: Service Date/Time: Saturday, April 30, 2016 04:24 - CONCLUSION: Interim surgery and drain placement. Parenchymal hemorrhage in the left cerebral hemisphere white matter is slightly larger than before. About 2 mm of rightward midline shift now seen compared to 7 mm previously. Karthik Pope MD Last Impressions Head CT 04/30/16599 Signed Impressions: Service Date/Time: Saturday, April 30, 2016 04:24 - CONCLUSION: Interim surgery and drain placement. Parenchymal hemorrhage in the left cerebral hemisphere white matter is slightly larger than before. About 2 mm of rightward midline shift now seen compared to 7 mm previously. Karthik Pope MD Chest X-Ray 04/30/16599 Signed Impressions: Service Date/Time: Saturday, April 30, 2016 02:55 - CONCLUSION: No significant change. Mild consolidation and small effusion again seen left lung base. Karthik Pope MD Last Impressions Chest X-Ray 04/29/16599 Signed Impressions: Service Date/Time: Friday, April 29, 2016 01:48 - CONCLUSION: Endotracheal tube tip pulled back slightly, now about 4 cm above the lauren. Other lines and tubes unchanged. No significant change mild left base consolidation and small pleural effusion. Karthik Pope MD Head CT 04/28/16 0600 Signed Impressions: Service Date/Time: Thursday, April 28, 2016 04:36 - CONCLUSION: Left basal ganglia subacute parenchymal hemorrhage is slightly larger. 7 mm of rightward midline shift. Karthik Pope MD Last Impressions Head CT 04/28/16 06 Signed Impressions: Service Date/Time: Thursday, April 28, 2016 04:36 - CONCLUSION: Left basal ganglia subacute parenchymal hemorrhage is slightly larger. 7 mm of rightward midline shift. Karthik Pope MD Chest X-Ray 04/28/16 0000 Signed Impressions: Service Date/Time: Thursday, April 28, 2016 04:51 - CONCLUSION: 1. Endotracheal tube tip 1.7 cm above the lauren. 2. Mild left base atelectasis not significantly changed. Karthik Pope MD Last Impressions Head CT 04/27/16 0000 Signed Impressions: Service Date/Time: Wednesday, April 27, 2016 13:33 - CONCLUSION: 1. Focal acute intraparenchymal hemorrhage involving the region of the left basal ganglia measuring 4.6 x 2.4 cm characteristic of a hemorrhagic hypertensive infarct. 2. Large area of encephalomalacia involving the left temporal frontal region. This is either a large area of old infarction versus a large arachnoid cyst. Rommel Norman MD Objective Remarks GENERAL: 71 year obese female, critically ill trached. SKIN: Warm and dry. HEAD: Atraumatic. Normocephalic Staple line without erythema or drainage EYES: No scleral icterus. No injection or drainage. Pupils reactive 3mm brisk ENT: No nasal bleeding or discharge. Mucous membranes pink and moist. NECK: Trachea midline. No JVD. trach in place. CARDIOVASCULAR: Regular rate and rhythm. no appreciable murmurs RESPIRATORY: Clear to auscultation. Breath sounds equal bilaterally. GASTROINTESTINAL: Abdomen soft, non-tender, nondistended. no guarding. MUSCULOSKELETAL: Extremities without clubbing, cyanosis, or edema. No obvious deformities. NEUROLOGICAL: RASS -1, left upper and left lower extremity to command A/P Assessment and Plan Neuro/Psych: 4.62.4 cm left basal ganglia intraparenchymal hemorrhage Left temporal CVA Seizure disorder Left frontotemporal parietal craniotomy and placement of ICP monitor- POD #4 RASS goal 0 to -1. off sedation at this point. CT head revealed 4.62.4 intraparenchymal hemorrhage. Old encephalomalacia left temporal region. Keppra 500 mg BID, continue seizure prophylaxis secondary to results of EEG per neurosurgery recommendations 3% NaCl, discontinued 2/3 Mannitol , discontinued 05/03 EEG 04/30-moderate diffuse encephalopathy, sharp spikes noted, possible seizure activity Repeat CT brain 04/28-left basal ganglia subacute parenchymal hemorrhage slightly larger 7 mm rightward midline shift CT brain 04/30 -2 mm rightward MLS Eric bolt discontinued 05/01/16, TANYA drains removed 05/05 Neuro checks per ICU protocol-patient follows commands left upper and lower extremity, now movement of right extremity but not to command CV: Hypertensive emergency-resolved off cardene. As needed labetalol/hydralazine Initial troponin less than 0.04. 2-D ECHO-EF 55-60% no RWMA -- amlodipine 10mg po daily -- increase lisinopril to 40mg po daily for hypertension Resp: Acute respiratory failure secondary to altered mental status ACV 16/500/5/.30 Ventilator bundle Maintain head of bed elevation 30 Scheduled every 6 hour bronchodilator therapy Continue CPAP trials and TP as tolerated. s/p perc trach 05/[address] [place] GI: s/p PEG with GI on 05/09. -- Glucerna1.5 @50/hr (goal rate) Reglan TID Protonix for GI prophylaxis Bowel regimen Colace,Senokot scheduled, Milk of Magnesia PRN. /FEN: Hypophosphatemia-resolved Intravascular hypervolemia Monitor BMP Maintain Mosley for accurate I's and O's Replete electrolytes per ICU protocol Endo: Hyperglycemia of critical illness Sliding-scale insulin with Accu-Cheks every 6 hours to maintain euglycemia. Low dose regimen. Renal: No acute issues Accurate I/O's Heme: Monitor CBC ID: Leukocytosis unclear source. jackson cultures pending. continue Vanc/Zosyn with pharmacy dosing. await culture data. MSK: PT evaluate and treat Daily functional maintenance Access -Discontinued Right IJ CVL 05/06, peripheral IVs 2 Prophylaxis - GI - Protonix - DVT - SCD/ Lovenox for DVT prophylaxis Dispo: nearing the point that she could leave the ICU, but still needs high level of care, and with new infection, concern for worsening infection is possible. remain in ICU today. Farhad Oropeza MD May 11, 2016 14:02
[2016-05-12] VITALS (14 sets, daily range): BP systolic 137–189; BP diastolic 60–93; PULSE 63–80; RESP 16–25; TEMP 98.5–99.1; O2SAT 96–99
[2016-05-12] MEDS: LABETALOL HCL 100 MG/20 ML VIAL IV PUSH PRN ×2 (00:37→22:36)
[2016-05-12] MEDS: SENNOSIDES 8.6 MG TAB PO SCH ×2 (03:00→15:00)
[2016-05-12] MEDS: CHLORHEXIDINE GLUCONATE 2 % 1 PACK (2 CLOTHS) TOP SCH (03:14)
[2016-05-12] MEDS: PIPERACIL-TAZO 3.375 GM PREMIX 50 ML IV SCH ×4 (03:14→20:05)
[2016-05-12] MEDS: hydrALAZINE HCL 20 MG/ML VIAL IV PUSH PRN ×4 (03:20→21:05)
[2016-05-12] MEDS: NITROGLYCERIN 2% OINT 1 GM PACKET TOPICAL PRN ×2 (03:48→21:42)
[2016-05-12] MEDS: ACETAMINOPHEN/HYDROcodone 325 MG/10 MG TAB PO PRN ×2 (03:53→19:59)
[2016-05-12] MEDS: METOCLOPRAMIDE HCL 10 MG/2 ML VIAL IV SCH ×3 (04:58→20:05)
[2016-05-12 05:30] LABS: HEMATOCRIT 28.2 % (35.0-46.0); MEAN CORPUSCULAR HEMOGLOBIN 30.1 PG (27.0-34.0); MEAN CORPUSCULAR HGB CONC 33.5 % (32.0-36.0); PLATELET COUNT 413 TH/MM3 (150-450); RED BLOOD COUNT 3.14 MIL/MM3 (4.00-5.30); RED CELL DISTRIBUTION WIDTH 13.2 % (11.6-17.2); REVIEW FLAG FINAL; WHITE BLOOD COUNT 16.3 TH/MM3 (4.0-11.0)
[2016-05-12 05:58] LABS: BICARBONATE 28.4 MEQ/L (21.0-32.0); POTASSIUM 3.9 MEQ/L (3.5-5.1)
[2016-05-12] MEDS: INSULIN NovoLIN REGULAR SUPPLEMENTAL SCALE SQ SCH ×4 (06:00→22:57)
[2016-05-12] MEDS: PANTOPRAZOLE SODIUM 40 MG VIAL IVP SCH (08:25)
[2016-05-12] MEDS: CHLORHEXIDINE 0.12% (ORAL KIT) 15 ML CUP MT SCH ×2 (08:25→20:00)
[2016-05-12] MEDS: ARTIFICIAL TEARS OPTH SOLN 15 ML BTL EACH EYE SCH ×3 (08:25→16:34)
[2016-05-12] MEDS: SODIUM CHLORIDE 0.9% FLUSH 5 ML FLUSH IVF SCH ×3 (08:25→20:00)
[2016-05-12] MEDS: LACTULOSE SYRUP 20 GM/30 ML CUP PO/NG SCH (08:26)
[2016-05-12] MEDS: levETIRAcetam 500 MG/5 ML UDC TUBE SCH ×2 (08:26→20:00)
[2016-05-12] MEDS: DOCUSATE SODIUM 100 MG CAP PO SCH ×2 (08:26→20:00)
[2016-05-12] MEDS: LISINOPRIL 20 MG TAB PO SCH (08:26)
[2016-05-12] MEDS: ENOXAPARIN SODIUM 40 MG/0.4 ML SYRINGE SQ SCH (08:27)
[2016-05-12] MEDS ORDERED: PHARMACY ORDERED LAB XX ONE (09:45)
--- NOTE | 2016-05-12 10:19 | HHI.PR ---
Subjective Subjective Notes Resting in bed On T-piece Objective Vitals/I&O Vital Signs Date Time Temp Pulse Resp B/P Pulse Ox O2 Delivery O2 Flow Rate FiO2 05/12/16 08:24 98 T-piece 6.00 35 05/12/16 08:00 76 05/12/16 08:00 99.0 19 189/93 Labs Laboratory Tests Test 05/11/16 05/12/16 17:10 04:50 Potassium Level 3.8 3.9 White Blood Count 16.3 Red Blood Count 3.14 Hemoglobin 9.4 Hematocrit 28.2 Mean Corpuscular Volume 90.0 Mean Corpuscular Hemoglobin 30.1 Mean Corpuscular Hemoglobin 33.5 Concent Red Cell Distribution Width 13.2 Platelet Count 413 Mean Platelet Volume 8.1 Sodium Level 140 Chloride Level 105 Carbon Dioxide Level 28.4 Anion Gap 7 Blood Urea Nitrogen 18 Creatinine 0.66 Estimat Glomerular Filtration 88 Rate Random Glucose 126 Calcium Level 8.0 Date/Time Procedure Status Source Growth 05/10/16 23:40 Aerobic Blood Culture - Preliminary Resulted Blood Peripheral NO GROWTH IN 1 DAY 05/10/16 23:40 Anaerobic Blood Culture - Preliminary Resulted Blood Peripheral NO GROWTH IN 1 DAY 05/10/16 22:00 Urine Culture Received Urine Catheterized Urine Pending 05/10/16 22:00 Gram Stain - Final Resulted Sputum Endotracheal 05/10/16 22:00 Sputum Culture - Preliminary Resulted Gram Negative Jordy Cardiovascular: Regular Lungs: Clear Abdomen: Non-distended, Non-tender, Other (PEG in place ) Extremities: No edema Narrative Exam Trach in place with no complications A/P Assessment and Plan 71 year old female s/p stroke with trach placement -Continue routine trach care -Vent per CCM -No complications with trach -GS will sign off; please call with questions Serena Han May 12, 2016 10:19
[2016-05-12] MEDS: VANCOMYCIN INJ 1,250 MG in SODIUM CHLOR 0.9% 250 ML INJ 250 ML IV SCH (10:24)
--- NOTE | 2016-05-12 11:10 | HHI.CCPN ---
Subjective Remarks/Hospital Course This is a 71 female. Data admission 04/27/2016. Past medical history includes left temporal CVA and seizure disorder.. She presented to the emergency room brought by her friend for strokelike symptoms. Patient was verbal when she first arrived and said that her symptoms started 40 minutes ago. 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 She had right-sided facial droop and right arm weakness. There was some right eyelid lag as well. After doing a quick NIH stroke score a stroke alert was called. Patient was rushed to the CT scanner and I spoke with the neurologist to make him aware of possible stroke. Her medications are all alternative natural medications. CT head revealed a 4.6 x 2.4 (basal ganglia intraparenchymal hemorrhage. Encephalopathy left temporal region. Neurosurgery was consultation recommended medical management with 3% hypertonic saline, mannitol and strict blood pressure control systolic blood pressure was 150 with a follow-up CT scan in a.m. While in the ED, patient decompensated with a left-sided gaze. She was flaccid in her right upper lobe extremity. Emergently intubated with 20 minutes etomidate etomidate and 100 mg succinylcholine. She is currently been sedated with propofol/fentanyl and Versed drips. Cardene drip was initiated to maintain systolic blood pressure less than 150. End tidal CO2 around 30 recommended. Receiving 50 mg mannitol IV 1 now. Subjective 04/[address] this a.m. shows slight increase in hemorrhage with a 7 mm rightward midline shift. The patient continues on hypertonic saline, mannitol every 6 hours. 04/29 The patient underwent a emergent left craniotomy last evening with placement of ICP monitor. ICP 67 mmHg postoperatively overnight. Minimal drainage from TANYA drains. Family (sister)located yesterday afternoon, notified of the events. 04/30 Afebrile. On sedation vacation yesterday afternoon, it was noted the patient localizes on the left side, not following commands. ICP ranges 39. EEG performed this a.m. 05/01 The patient continues to localize on the left side, when off sedation. TANYA drains totaling 300 cc in 24 hours ,serosanguineous. 05/02 Afebrile. Ashton bolt discontinued yesterday, area clean and dry. Staple line clean and dried no erythema. Sedation vacation yielded movement of left upper extremity and lower extremity. TANYA drainage decreased to 75 cc over the last 12 hours. 05/03 T max 100.3. The patient is now following commands with the left upper and lower extremity. The patient tolerated 2 hours of CPAP yesterday. Overnight the patient was on a propofol and fentanyl infusion will discontinue fentanyl. 05/04 Tmax 99.7. EEG revealed sharp waves possibly seizure activity, recommended continuation of Keppra per neurosurgery. Will begin Lovenox upon discontinuation of TANYA drains per neurosurgery recommendations. The patient continues CPAP trial, improving greater than 4 hours today. 05/05 Neuro evaluation improved. Spontaneous eye opening this morning to voice. Patient continues to follow commands left upper and lower extremity. Patient currently on CPAP trials. 05/06 The patient was maintained on CPAP trials for approximately 16 hours yesterday. The patient continues to respond by squeezing left hand and moving the left leg on command. During the night, it was reported that the patient moving right lower extremity. TANYA drains were removed yesterday. 05/07: Remains encephalopathic, orally intubated on mechanical ventilation. Daily C Pap trials ongoing. 05/08: Remains encephalopathic, orally intubated on mechanical ventilation. 2 encephalopathic for extubation. Will need tracheostomy and PEG tube. Consulted general surgery and GI and scheduled for 05/09. 05/09: no clinical change. plan today for trach/peg. 05/10: trach and peg yesterday. otherwise no clinical change. good diuresis with single does of lasix yesterday. 05/11: spiked fever yesterday, elevated wbc. jackson cultured and started on BSAbx. this AM, clinically at baseline. on TP this AM. 05/12: WBC trending down.. No fever. Follows commands L upper and lower extremities. Tolerating TP >24 HR Objective Vital Signs Date Time Temp Pulse Resp B/P Pulse Ox O2 Delivery O2 Flow Rate FiO2 05/12/16 10:00 77 05/12/16 08:24 98 T-piece 6.00 35 05/12/16 08:00 99.0 19 189/93 Intake and Output 05/11/16 05/11/16 05/12/16 08:00 16:00 00:00 Intake Total 920 ml 988 ml 829 ml Output Total 250 ml 250 ml 800 ml Balance 670 ml 738 ml 29 ml Result Diagram: 05/12/1644905/12/16449 Imaging Last Impressions Chest X-Ray 05/02/16599 Signed Impressions: Service Date/Time: Monday, May 02, 2016 03:48 - CONCLUSION: Stable chest x-ray with underinflation and mild atelectasis versus consolidation at the lung bases. There is also a suspected stable small left pleural effusion. Karthik Kramer MD Head CT 04/30/16599 Signed Impressions: Service Date/Time: Saturday, April 30, 2016 04:24 - CONCLUSION: Interim surgery and drain placement. Parenchymal hemorrhage in the left cerebral hemisphere white matter is slightly larger than before. About 2 mm of rightward midline shift now seen compared to 7 mm previously. Karthik Pope MD Last Impressions Chest X-Ray 05/02/16599 Signed Impressions: Service Date/Time: Monday, May 02, 2016 03:48 - CONCLUSION: Stable chest x-ray with underinflation and mild atelectasis versus consolidation at the lung bases. There is also a suspected stable small left pleural effusion. Karthik Kramer MD Head CT 04/30/16599 Signed Impressions: Service Date/Time: Saturday, April 30, 2016 04:24 - CONCLUSION: Interim surgery and drain placement. Parenchymal hemorrhage in the left cerebral hemisphere white matter is slightly larger than before. About 2 mm of rightward midline shift now seen compared to 7 mm previously. Karthik Pope MD Last Impressions Head CT 04/30/16599 Signed Impressions: Service Date/Time: Saturday, April 30, 2016 04:24 - CONCLUSION: Interim surgery and drain placement. Parenchymal hemorrhage in the left cerebral hemisphere white matter is slightly larger than before. About 2 mm of rightward midline shift now seen compared to 7 mm previously. Karthik Pope MD Chest X-Ray 04/30/16599 Signed Impressions: Service Date/Time: Saturday, April 30, 2016 02:55 - CONCLUSION: No significant change. Mild consolidation and small effusion again seen left lung base. Karthik Pope MD Last Impressions Chest X-Ray 04/29/16599 Signed Impressions: Service Date/Time: Friday, April 29, 2016 01:48 - CONCLUSION: Endotracheal tube tip pulled back slightly, now about 4 cm above the lauren. Other lines and tubes unchanged. No significant change mild left base consolidation and small pleural effusion. Karthik Pope MD Head CT 04/28/16 0600 Signed Impressions: Service Date/Time: Thursday, April 28, 2016 04:36 - CONCLUSION: Left basal ganglia subacute parenchymal hemorrhage is slightly larger. 7 mm of rightward midline shift. Karthik Pope MD Last Impressions Head CT 04/28/16 0600 Signed Impressions: Service Date/Time: Thursday, April 28, 2016 04:36 - CONCLUSION: Left basal ganglia subacute parenchymal hemorrhage is slightly larger. 7 mm of rightward midline shift. Karthik Pope MD Chest X-Ray 04/28/16 0000 Signed Impressions: Service Date/Time: Thursday, April 28, 2016 04:51 - CONCLUSION: 1. Endotracheal tube tip 1.7 cm above the lauren. 2. Mild left base atelectasis not significantly changed. Karthik Pope MD Last Impressions Head CT 04/27/16 0000 Signed Impressions: Service Date/Time: Wednesday, April 27, 2016 13:33 - CONCLUSION: 1. Focal acute intraparenchymal hemorrhage involving the region of the left basal ganglia measuring 4.6 x 2.4 cm characteristic of a hemorrhagic hypertensive infarct. 2. Large area of encephalomalacia involving the left temporal frontal region. This is either a large area of old infarction versus a large arachnoid cyst. Rommel Norman MD Objective Remarks GENERAL: 71 year obese female, critically ill trached. SKIN: Warm and dry. HEAD: Atraumatic. Normocephalic Staple line without erythema or drainage EYES: No scleral icterus. No injection or drainage. Pupils reactive 3mm brisk ENT: No nasal bleeding or discharge. Mucous membranes pink and moist. NECK: Trachea midline. No JVD. trach in place. CARDIOVASCULAR: Regular rate and rhythm. no appreciable murmurs RESPIRATORY: Clear to auscultation. Breath sounds equal bilaterally. GASTROINTESTINAL: Abdomen soft, non-tender, nondistended. no guarding. MUSCULOSKELETAL: Extremities without clubbing, cyanosis, or edema. No obvious deformities. NEUROLOGICAL: Eyes are open to command, follwos with left upper and left lower extremity to command A/P Assessment and Plan Neuro/Psych: 4.62.4 cm left basal ganglia intraparenchymal hemorrhage Left temporal CVA Seizure disorder Left frontotemporal parietal craniotomy and placement of ICP monitor- RASS goal 0. off all sedation at this point. CT head revealed 4.62.4 intraparenchymal hemorrhage. Old encephalomalacia left temporal region. Keppra 500 mg BID, continue seizure prophylaxis secondary to results of EEG per neurosurgery recommendations 3% NaCl, discontinued 05/02 Mannitol , discontinued 05/03 EEG 04/30-moderate diffuse encephalopathy, sharp spikes noted, possible seizure activity Repeat CT brain 04/28-left basal ganglia subacute parenchymal hemorrhage slightly larger 7 mm rightward midline shift CT brain 04/30 -2 mm rightward MLS Eric bolt discontinued 05/01/16, TANYA drains removed 05/05 Neuro checks per ICU protocol-patient follows commands left upper and lower extremity, now movement of right extremity but not to command CV: Hypertensive emergency-resolved off cardene. As needed labetalol/hydralazine -- amlodipine 10mg po daily -- Lisinopril to 40mg po daily for hypertension Initial troponin less than 0.04. 2-D ECHO-EF 55-60% no RWMA Resp: Acute respiratory failure secondary to altered mental status TP >24 hours. Continue TP 24/7a s tolerated. Ventilator bundle. Maintain head of bed elevation 30 Pulmonary consult for trach management Scheduled every 6 hour bronchodilator therapy Continue CPAP trials and TP as tolerated. s/p perc trach 05/[address] Skaggs GI: s/p PEG with GI on 05/09. -- Glucerna1.5 @50/hr (goal rate) Reglan TID Protonix for GI prophylaxis Bowel regimen Colace,Senokot scheduled, Milk of Magnesia PRN. /FEN: Hypophosphatemia-resolved Intravascular hypervolemia Monitor BMP Maintain Mosley for accurate I's and O's Replete electrolytes per ICU protocol Endo: Hyperglycemia of critical illness Sliding-scale insulin with Accu-Cheks every 6 hours to maintain euglycemia. Low dose regimen. Renal: No acute issues Accurate I/O's Heme: Monitor CBC ID: Leukocytosis unclear source, but trending down. jackson cultures pending, GNR in sputum. continue Vanc/Zosyn with pharmacy dosing. Check CXR MSK: PT evaluate and treat Daily functional maintenance Access -Discontinued Right IJ CVL 05/06, peripheral IVs 2 Prophylaxis - GI - Protonix - DVT - SCD/ Lovenox for DVT prophylaxis Dispo: Consult [facility] (Dr. Alexander) to assume care in a, 05/12/16 Inocente Angeles MD May 12, 2016 11:10
--- NOTE | 2016-05-12 11:54 | RADRPT ---
EXAM DATE/TIME: 05/12/2016 11:25 [facility] COMPARISON: CHEST SINGLE AP, May 09, 2016, 14:17. INDICATIONS : Short of breath. MEDICAL HISTORY : Stroke. SURGICAL HISTORY : Craniotomy. ENCOUNTER: Initial ACUITY: 2 weeks PAIN SCORE: Non-responsive. LOCATION: Bilateral chest FINDINGS: A single AP erect portable view of the chest was obtained and demonstrates the tracheostomy tube in p lace. The heart size remains mildly prominent with mild hazy opacity at the left lung base. The right lung now appears clear. There is no perihilar edema. There are overlying echocardiogram leads and ox ygen tubing. The left costophrenic angle may be slightly blunted. The patient is mildly rotated to th e right. CONCLUSION: 1. Mild hazy opacity remains at the left lung base with possible small effusion. 2. The right lung now appears clear. Chandra Balderas MD on May 12, 2016 at 11:49 Board Certified Radiologist. This report was verified electronically.
--- NOTE | 2016-05-12 13:36 | HHI.NSPN ---
(Bettie Copeland) Note Status Status: Progress Note (Bettie Copeland) Interval History Interval History Ms. Mobley is a 71 female with history of prior left temporal CVA. Earlier today the patient had sudden onset of right facial drooping and right arm weakness. There were no associated falls or trauma. She was taken to [facility] ED and a CT Brain showed a 4.6 x 2.4 left basal ganglia hemorrhage without significant midline shift. Her vitals signs on arrival was noted to be extremely elevated as high as in the 200's systolic, she was placed on Cardene. The patient was reported to be initially talking on arrival but then decompensated and was emergently intubated. 04/28: well sedated, on hyperosmotic with 3%NS and Mannitol. f/u CT Brain completed. 04/29: sedated on diprivan and fentanyl. ICPs have been wnl 04/30: currently sedated on diprivan. had sedation vacation this am, reported to cough, and withdraws left upper extremity. ICPs low. 2: still moderate output to TANYA drain with some clots, ICPs low. intubated, sedated. localizes LUE off sedation, no eye opening, not following commands. 05/02: sedation vacation this am ?followed command LUE. weaning sedation, cpap trials. high serum os and serum sodium. 05/05: family at bedside reports opening eyes, critical mgt continuing cpap trials 2: opening eyes to verbal stimuli, moving left arm and leg intermittently 2: becoming more awake and alert, moving left arm and left leg more 2: more purposeful with left arm, needing soft restraints. no significant neuro changes overnight 05/12: s/p tracheostomy, following commands to left side and now withdrawing on the right side. head patito out. (Bettie Copeland) Labs, Micro, & Vital Signs Results Date Time Temp Pulse Resp B/P Pulse Ox O2 Delivery O2 Flow Rate FiO2 05/12/16 12:00 98.5 77 25 169/75 99 05/12/16 12:00 77 2/13/17 12:00 35 05/12/16 10:00 77 05/12/16 08:24 98 T-piece 6.00 35 05/12/16 08:00 35 05/12/16 08:00 76 05/12/16 08:00 99.0 76 19 189/93 97 05/12/16 06:00 63 05/12/16 04:00 98.8 69 20 137/60 98 05/12/16 04:00 35 05/12/16 04:00 69 05/12/16 02:00 71 05/12/16 00:00 80 05/12/16 00:00 35 05/12/16 00:00 99.1 80 22 166/90 99 05/11/16 22:00 80 05/11/16 20:56 98 T-piece 5.00 35 05/11/16 20:00 35 05/11/16 20:00 99.3 86 20 177/74 97 05/11/16 20:00 86 05/11/16 18:00 94 05/11/16 16:00 76 05/11/16 16:00 35 05/11/16 16:00 99.5 76 14 164/77 98 05/11/16 14:00 83 05/12/16 07:00 Intake Total 2879 ml Output Total 1650 ml Balance 1229 ml Constitutional Vital Signs Date Time Temp Pulse Resp B/P Pulse Ox O2 Delivery O2 Flow Rate FiO2 05/12/16 12:00 98.5 77 25 169/75 99 05/12/16 12:00 77 05/12/16 12:00 35 05/12/16 10:00 77 05/12/16 08:24 98 T-piece 6.00 35 05/12/16 08:00 35 05/12/16 08:00 76 05/12/16 08:00 99.0 76 19 189/93 97 05/12/16 06:00 63 05/12/16 04:00 98.8 69 20 137/60 98 05/12/16 04:00 35 05/12/16 04:00 69 05/12/16 02:00 71 05/12/16 00:00 80 05/12/16 00:00 35 05/12/16 00:00 99.1 80 22 166/90 99 05/11/16 22:00 80 05/11/16 20:56 98 T-piece 5.00 35 05/11/16 20:00 35 05/11/16 20:00 99.3 86 20 177/74 97 05/11/16 20:00 86 05/11/16 18:00 94 05/11/16 16:00 76 05/11/16 16:00 35 05/11/16 16:00 99.5 76 14 164/77 98 05/11/16 14:00 83 05/12/16 07:00 Intake Total 2879 ml Output Total 1650 ml Balance 1229 ml (Bettie Copeland) Review of Systems/Exam ROS unable to obtain due to clinical status Exam Ms. Mobley has eyes open Wound is healing well, no redness, drainage, or other signs of infection seen, patito removed. Cranial Nerves: Pupils 3-4 mm b/l. Cervical Spine: soft, supple sensorimotor: moving left upper and left lower extremity intermittently 3/5, slight withdrawals 1-2/5 right side Neck: tracheostomy on t-piece (Bettie Copeland) Medications Current Medications Current Medications Medications (Trade) Dose Ordered Sig/Femi Route PRN Reason Start Time Stop Time Status Last Admin Dose Admin Labetalol HCl (Trandate Inj) 10 mg Q1HR PRN IV PUSH SBP>150, DBP>900, HR>65 04/27/16 15:00 05/12/16 00:37 Nitroglycerin (Nitroglycerin 2% Oint) 2 inch Q6HR PRN TOPICAL SBP>150, DBP>90 04/27/16 15:00 05/12/16 03:48 Chlorhexidine Gluconate (Peridex 0.12% Liq) 15 ml BID@08,20 MT 04/27/16 20:00 05/12/16 08:25 IV Flush (NS Flush) DAILY IVF 04/28/16 09:00 05/12/16 08:25 IV Flush (NS Flush) UNSCH PRN IVF SEE PROTOCOL 04/27/16 15:00 Artificial Tears (Tears Naturale Opth Soln) 1 drop TID EACH EYE 04/27/16 18:00 05/12/16 12:08 Ondansetron HCl (Zofran Inj) 4 mg Q6H PRN IV NAUSEA OR VOMITING 04/27/16 15:15 Miscellaneous Information 1 Q361D XX 04/27/16 15:15 04/28/16 04:00 Chlorhexidine Gluconate (Chlorhexidine 2% Cloth) Taper DAILY@04 TOP 04/28/16 04:00 04/24/17 03:59 05/09/16 05:48 Chlorhexidine Gluconate 3 pack 3 pack UNSCH PRN TOP HYGIENIC CARE 04/27/16 15:15 Potassium Chloride 100 ml @ 50 mls/hr Q2H PRN IV For Potassium 2.8 - 3.2 mEq/L 04/27/16 15:15 Potassium Chloride (KCl 20 Meq Premix Inj) 100 ml @ 50 mls/hr Q2H PRN IV For Potassium 2.8 - 3.2 mEq/L 04/27/16 15:15 05/10/16 14:59 Potassium Chloride 40 meq 40 meq UNSCH PRN PO/TUBE For Potassium 3.3 - 3.5 mEq/L 04/27/16 15:15 05/09/16 11:09 Potassium Chloride 100 ml @ 25 mls/hr UNSCH PRN IV For Potassium 3.3 - 3.5 mEq/L 04/27/16 15:15 05/11/16 08:45 Potassium Chloride 100 ml @ 50 mls/hr Q2H PRN IV For Potassium 3.3 - 3.5 mEq/L 04/27/16 15:15 Magnesium Sulfate/ Sodium Chloride (Magnesium Sulfate Inj/NS Inj) 100 ml @ 50 mls/hr UNSCH PRN IV For Magnesium 0.9 - 1.1 mg/dL 04/27/16 15:15 Magnesium Oxide 800 mg 800 mg UNSCH PRN PO For Magnesium 1.2 - 1.6 mg/dL 04/27/16 15:15 Magnesium Sulfate/ Sodium Chloride (Magnesium Sulfate Inj/NS Inj) 100 ml @ 50 mls/hr UNSCH PRN IV For Magnesium 1.2 - 1.6 mg/dL 04/27/16 15:15 Potassium Phosphate 2000 mg 2,000 mg Q4H PRN PO For Phosphorus < 2.5 mg/dL 04/27/16 15:15 05/01/16 10:44 Sodium Phosphate/ Sodium Chloride (Sodium Phosphate Inj/NS 250 ml Inj) 250 ml @ 42 mls/hr UNSCH PRN IV For Phosphorus < 2.5 mg/dL 04/27/16 15:15 04/28/16 06:55 Potassium Chloride (KCl 40 Meq/30 ml Liq) 40 meq UNSCH PRN PO/TUBE SEE LABEL COMMENTS 04/27/16 15:15 Potassium Phosphate 2000 mg 2,000 mg UNSCH PRN PO/TUBE SEE LABEL COMMENTS 04/27/16 15:15 Potassium Phosphate/Sodium Chloride (Potassium Phosphate Inj/NS 250 ml Inj) 260 ml @ 42 mls/hr UNSCH PRN IV SEE LABEL COMMENTS 04/27/16 15:15 Dextrose (D50w (Vial) Inj) 25 ml UNSCH PRN IV PUSH HYPOGLYCEMIA-SEE COMMENTS 04/27/16 15:15 04/28/16 01:18 Glucagon (Glucagon Inj) 1 mg UNSCH PRN OTHER HYPOGLYCEMIA-SEE COMMENTS 04/27/16 15:15 Insulin Human Regular (NovoLIN R SUPPLEMENTAL SCALE) 1 Q6HR SQ 04/27/16 18:00 05/11/16 23:17 IV Flush (NS Flush) 2 ml UNSCH PRN IVF FLUSH AFTER USING IV ACCESS 04/28/16 19:45 IV Flush (NS Flush) 2 ml BID IVF 04/28/16 21:00 05/11/16 20:00 Bisacodyl (Dulcolax Supp) 10 mg DAILY PRN NV CONSTIPATION 04/28/16 19:45 05/06/16 10:38 Docusate Sodium (Colace) 100 mg BID PO 04/28/16 21:00 05/11/16 19:59 Pantoprazole Sodium (Protonix Inj) 40 mg DAILY IVP 04/29/16 09:00 05/12/16 08:25 Calcium Gluconate (Calcium Gluconate Inj) 1 gm UNSCH PRN IV SEE LABEL COMMENTS 04/28/16 19:45 Acetaminophen/ Hydrocodone Bitart ([place] 10-325 Mg) 1 tab Q4H PRN PO PAIN SCALE 1 TO 5 04/28/16 19:45 05/09/16 18:23 Acetaminophen/ Hydrocodone Bitart ([place] 10-325 Mg) 2 tab Q4H PRN PO PAIN SCALE 6 TO 10 04/28/16 19:45 05/12/16 03:53 Morphine Sulfate (Morphine Inj) 2 mg Q2H PRN IV PUSH PAIN SCALE 1 TO 6 04/28/16 19:45 2/9/17 10:57 Morphine Sulfate (Morphine Inj) 4 mg Q2H PRN IV PUSH PAIN SCALE 7 TO 10 04/28/16 19:45 05/07/16 08:57 Acetaminophen (Tylenol) 650 mg Q4H PRN PO TEMPERATURE > 101.5 F 04/28/16 19:45 Sennosides (Senokot) 17.2 mg Q12H PO 04/30/16 15:00 05/11/16 03:36 Magnesium Hydroxide (Milk Of Magnesia Liq) 30 ml DAILY PRN PO CONSTIPATION 04/30/16 14:30 05/06/16 13:21 Metoclopramide HCl (Reglan Inj) 5 mg Q8H IV 05/06/16 06:00 05/11/16 20:04 Enoxaparin Sodium (Lovenox Inj) 40 mg Q24H SQ 05/06/16 10:00 05/12/16 08:27 Hydralazine HCl (Apresoline Inj) 20 mg Q1HR PRN IV PUSH SBP>150, DBP>90 05/06/16 17:12 05/12/16 12:52 Amlodipine Besylate (Norvasc) 10 mg DAILY PO 05/09/16 09:00 05/12/16 08:26 Levetriacetam 500 mg 500 mg Q12HR TUBE 05/09/16 21:00 05/12/16 08:26 Piperacillin Sod/ Tazobactam Sod 50 ml @ 100 mls/hr Q6H IV 05/10/16 16:00 05/12/16 08:27 Pharmacy Profile Note (Vancomycin Consult Pharmacy) 0 ml @ 0 mls/hr UNSCH OTHER 05/10/16 15:00 Lactulose (Lactulose Liq) 30 ml DAILY PO/NG 05/11/16 09:00 Lisinopril 40 mg 40 mg DAILY PO 05/12/16 09:00 05/12/16 08:26 Vancomycin HCl/ Sodium Chloride (Vancomycin Inj/ NS 500 ml Inj) 515 ml @ 250 mls/hr Q12H IV 05/12/16 22:00 Miscellaneous Information SPECIFIC LAB TO BE [facility]... ONCE ONCE XX 05/14/16 09:45 05/14/16 09:46 (Bettie Copeland) Medical Decision Making MDM Remarks 71 y/o female with sudden onset of right facial weakness and right upper extremity weakness, CT Brain 04/27 showed left basal ganglia ICH, f/u CT Brain 04/28 shows increased size of ICH with 7 mm midline shift s/p left decompressive craniectomy with evacuation of intraparenchymal hematoma , and placement of ICP monitor on 04/28/16 f/u CT Brain 04/30 shows improved midline shift, still with moderate left intraparenchymal hematoma Abnormal EEG with some sharp waves could be indicative of seizures, no clinical evidence of seizures, neuro eval recs cont Keppra neuro improving, becoming more awake, and alert, purposeful movements left side (Bettie Copeland) Plan Plan Remarks continues to clinically improve dw sister again in the room dc planning to rehab cont current care will sign off, call prn (Bettie Copeland) Attending Statement Discussed with her family The exam, history, and the medical decision-making described in the above note were completed with the assistance of the mid-level provider. I reviewed and agree with the findings presented. I attest that I had a [id number] encounter with the patient on the same day, and personally performed and documented my assessment and findings in the medical record. (Riley Johnson MD) Bettie Copeland May 12, 2016 13:36 Riley Johnson MD May 12, 2016 15:36
--- NOTE | 2016-05-12 14:28 | MP ---
cc: RADHA WILEY M.D. DATE OF SURGERY: 05/09/2016 PREOPERATIVE DIAGNOSIS 1. Ventilator dependence. 2. Intracerebral hemorrhage. POSTOPERATIVE DIAGNOSIS 1. Ventilator dependence. 2. Intracerebral hemorrhage. PROCEDURE PERFORMED #8 percutaneous dilatational tracheostomy. SURGEON Radha Wiley MD ANESTHESIA General per Dr. Clifton with local. COMPLICATIONS None. INDICATION FOR PROCEDURE Ms. Mobley is an unfortunate 71-year-old female who suffered a stroke on 04/27/2016, she was found to have an intracerebral bleed. She has remained in a limited neurologic state and ventilator dependent. Dr. Sapp of critical care consulted me for consideration of a tracheostomy. A tracheostomy was discussed with the family and they were agreeable. DETAILS OF PROCEDURE The patient remained in the intensive care unit room 1329. A time-out was taken by myself and Dr. Clifton and the nursing staff. Dr. Clifton had the nursing staff administer general anesthesia via IV. The anterior neck was then prepped and draped in standard surgical fashion. 1% lidocaine with epinephrine was injected in the skin and subcutaneous tissue one fingerbreadth above the sternal notch. A vertical incision was made. Dissection was carried down through subcutaneous tissue until the trachea was palpated. Trachea was then accessed with a 18-gauge angiocatheter needle. Guidewire was confirmed by bronchoscopy. An anterior tracheotomy was then performed using the tracheal punch. The blue rhino dilator was then used to dilate the tract on three successive passes down to the level of the black line. #8 percutaneous tracheostomy tube was then inserted over a introducer into the trachea without any difficulty. Bronchoscopy was used to confirm the tracheostomy placement from above as well as via the tracheostomy. The patient was connected to the ventilator and was found to have excellent end tidal CO2 and tidal volumes. Tracheostomy tube was then secured using a 2-0 Prolene suture. The patient tolerated the procedure without any instability. Please see Dr. Heredia note for the details of the bronchoscopy. Chest x-ray will be obtained immediately. MD NURA Brar/TLL /5:26 PM /2:18 PM
[2016-05-12] MEDS: MORPHINE SULFATE 4 MG/ML INJ IV PUSH PRN (16:36)
[2016-05-12] MEDS: VANCOMYCIN INJ 1,500 MG in SODIUM CHLORID 0.9% 500 ML INJ 500 ML IV SCH (21:44)
[2016-05-13] VITALS (14 sets, daily range): BP systolic 154–189; BP diastolic 70–84; PULSE 64–85; RESP 12–21; TEMP 98.6–99; O2SAT 97–100
[2016-05-13] MEDS: ACETAMINOPHEN/HYDROcodone 325 MG/10 MG TAB PO PRN ×5 (00:01→23:45)
[2016-05-13] MEDS: hydrALAZINE HCL 20 MG/ML VIAL IV PUSH PRN ×3 (00:05→21:21)
[2016-05-13] MEDS: SENNOSIDES 8.6 MG TAB PO SCH ×2 (03:00→15:00)
[2016-05-13] MEDS: CHLORHEXIDINE GLUCONATE 2 % 1 PACK (2 CLOTHS) TOP SCH (04:00)
[2016-05-13] MEDS: METOCLOPRAMIDE HCL 10 MG/2 ML VIAL IV SCH ×3 (04:04→21:22)
[2016-05-13] MEDS: PIPERACIL-TAZO 3.375 GM PREMIX 50 ML IV SCH ×4 (04:04→20:08)
[2016-05-13] MEDS: LABETALOL HCL 100 MG/20 ML VIAL IV PUSH PRN ×2 (04:05→22:28)
[2016-05-13] MEDS: INSULIN NovoLIN REGULAR SUPPLEMENTAL SCALE SQ SCH ×4 (05:28→23:45)
[2016-05-13 06:07] LABS: HEMATOCRIT 28.3 % (35.0-46.0); MEAN CELL VOLUME 91.5 FL (80.0-100.0); MEAN CORPUSCULAR HEMOGLOBIN 30.7 PG (27.0-34.0); MEAN CORPUSCULAR HGB CONC 33.5 % (32.0-36.0); PLATELET COUNT 408 TH/MM3 (150-450); RED BLOOD COUNT 3.09 MIL/MM3 (4.00-5.30); RED CELL DISTRIBUTION WIDTH 13.2 % (11.6-17.2); REVIEW FLAG FINAL; WHITE BLOOD COUNT 12.3 TH/MM3 (4.0-11.0)
[2016-05-13 06:19] LABS: POTASSIUM 4.5 MEQ/L (3.5-5.1)
--- NOTE | 2016-05-13 06:38 | MB ---
cc: RHIANNON PHOENIX DATE OF CONSULTATION 04/27/2016 DATE OF 1945 HISTORY OF PRESENT ILLNESS This is a 71-year-old white female who has had a history of planting roses and a history for seizure disorder. The patient went to the emergency room of [facility]. She was discharged in a satisfactory condition and in four days she has experienced no headache, blackouts, urinary and GI symptoms, leg or calf muscle pains. PAST HISTORY Includes Mycelex flush 500 mg b.i.d. for 10 days and continue with the other mentioned medications. Advised to continue with nebulized albuterol and Atrovent solution and advised to call if she has any new symptoms, otherwise follow up in approximately four months. Rhiannon Phoenix MD JEDDIE/CHAY /12:14 AM /6:31 AM
[2016-05-13] MEDS: ARTIFICIAL TEARS OPTH SOLN 15 ML BTL EACH EYE SCH ×3 (08:39→17:08)
[2016-05-13] MEDS: CHLORHEXIDINE 0.12% (ORAL KIT) 15 ML CUP MT SCH ×2 (08:39→19:42)
[2016-05-13] MEDS: SODIUM CHLORIDE 0.9% FLUSH 5 ML FLUSH IVF SCH ×3 (08:39→19:42)
[2016-05-13] MEDS: DOCUSATE SODIUM 100 MG CAP PO SCH ×2 (08:41→19:42)
[2016-05-13] MEDS: PANTOPRAZOLE SODIUM 40 MG VIAL IVP SCH (08:41)
[2016-05-13] MEDS: LISINOPRIL 20 MG TAB PO SCH (08:41)
[2016-05-13] MEDS: levETIRAcetam 500 MG/5 ML UDC TUBE SCH ×2 (08:42→19:42)
[2016-05-13] MEDS: ENOXAPARIN SODIUM 40 MG/0.4 ML SYRINGE SQ SCH (08:42)
[2016-05-13] MEDS: LACTULOSE SYRUP 20 GM/30 ML CUP PO/NG SCH (08:42)
[2016-05-13] MEDS: VANCOMYCIN INJ 1,500 MG in SODIUM CHLORID 0.9% 500 ML INJ 500 ML IV SCH ×2 (10:42→21:22)
--- NOTE | 2016-05-13 12:18 | MB ---
cc: WONG JURADO MD, JOHN DATE OF CONSULTATION: 05/12/2016 REASON FOR CONSULTATION Tracheostomy management. HISTORY OF PRESENT ILLNESS This is a 71-year-old white female who was admitted on 04/27/2016 with a CVA. The patient has a prior history of CVA and seizure disorder. Upon arrival the patient apparently had right-sided facial weakness and right arm weakness. The patient was taken for a Stroke Alert and neurology was consulted. A CT showed a basal ganglia, intracranial hemorrhage and encephalomalacia in the left temporal area. The patient subsequently was seen by neurosurgery and her blood pressure was markedly elevated. The patient subsequently developed a flaccid right upper extremity and had to be intubated and placed on ventilator support. A subsequent CAT scan showed increase in the hemorrhage and right midline shift. The patient went for emergent left craniotomy on 04/28/2016. An ICP monitor was placed and drains were placed. Following that she remained on ventilator support with sedation. Blood pressure was being controlled with multiple antihypertensive drugs. The patient continued to have weakness of the right extremities. Over the past five days the patient has a weaned down to CPAP, and she is squeezing the left arm and moving the left leg as well. Presently she is weaned down to a T-bar at 40%. The patient is encephalopathic, however. A tracheostomy was done on 05/09/2016 and presently she is breathing fairly comfortably with the T-bar at 35%. Chest x-rays only showed mild atelectasis at the lung bases and a small left pleural effusion. The patient does not respond to any commands at this point. Her O2 sats are adequate and over 94%. PAST MEDICAL HISTORY 1. History of CVA. 2. Hypertension. No other details available. FAMILY HISTORY Noncontributory. ALLERGIES CODEINE. REVIEW OF SYSTEMS Unable to obtain. HABITS Unknown. PHYSICAL EXAMINATION GENERAL: This is a moderately obese elderly white female who is awake but lethargic. She has a trach tube in place with thick secretions that are yellowish. Has weakness of the right extremities with edema of the right arm. VITAL SIGNS: Blood pressure 160/80, pulse 74, respirations 20, temperature 98.2. HEENT: Head is normocephalic. Pupils are reactive. There is a right facial droop. Throat is clear. NECK: Trach tube in place. No venous distension. No thyromegaly. CHEST: Equal movements with a few wheezes anteriorly and occasional basilar crackles. HEART: The heart sounds are irregular, S1 and S2. ABDOMEN: The abdomen is soft and obese without masses. No organomegaly or tenderness. Bowel sounds are active. EXTREMITIES: No clubbing. Minimal edema of the legs and some edema of the right arm as well. Flaccid on the right side. SKIN: Dry and cool. IMPRESSION 1. CVA with intracranial hemorrhage status post craniotomy. 2. Acute respiratory failure. 3. History of hypertension. 4. History of previous stroke. 5. Status post tracheostomy and PEG tube. PLAN The patient will be maintained on a T-bar at 35%. Nebulized DuoNeb solution added t.i.d. p.r.n. Frequent tracheal suctioning, tracheal toilet and drainage given. Antibiotic therapy per the infectious disease service. Will get a follow-up chest x-ray this week. The patient will be transferred to the telemetry unit if she is stable and blood pressure is under control. Thank you Dr. Jurado for was consultation. MD CONNIE Black/GRADY /11:31 AM /11:58 AM
--- NOTE | 2016-05-13 12:58 | HHI.PR ---
Subjective Remarks Awake and moves left side well. Follows commands. BP still high. Trach site is clean. Objective Vital Signs Date Time Temp Pulse Resp B/P Pulse Ox O2 Delivery O2 Flow Rate FiO2 05/13/16 12:00 35 05/13/16 12:00 78 05/13/16 12:00 98.9 78 21 189/84 100 05/13/16 10:00 70 05/13/16 08:10 98 T-piece 6.00 35 05/13/16 08:00 35 05/13/16 08:00 98.7 74 20 158/75 99 05/13/16 08:00 85 05/13/16 06:00 75 05/13/16 04:00 98.7 75 20 164/72 97 05/13/16 04:00 35 05/13/16 04:00 75 05/13/16 02:00 72 05/13/16 00:00 74 05/13/16 00:00 35 05/13/16 00:00 99.0 74 20 164/71 97 05/12/16 22:00 80 05/12/16 20:29 96 T-piece 5.00 35 05/12/16 20:00 35 05/12/16 20:00 99.0 72 16 142/67 96 05/12/16 20:00 72 05/12/16 18:00 79 05/12/16 16:00 79 05/12/16 16:00 35 05/12/16 16:00 98.5 79 17 179/80 98 05/12/16 14:00 71 I/O 05/12/16 05/12/16 05/12/16 05/13/16 05/13/16 05/13/16 07:00 15:00 23:00 07:00 15:00 23:00 Intake Total 1062 ml 1003 ml 713 ml 1258 ml Output Total 600 ml 1150 ml 475 ml 600 ml Balance 462 ml -147 ml 238 ml 658 ml Intake IV Total 462 ml 424 ml 218 ml 668 ml Tube Feeding 480 ml 479 ml 375 ml 470 ml Tube Irrigant 120 ml 100 ml 120 ml 120 ml Output Urine Total 600 ml 1150 ml 475 ml 600 ml # Voids 1 # Bowel Movements 3 4 1 2 Result Diagram: 05/13/16 0500 05/13/16 0500 Objective Remarks GENERAL: This is a moderately obese elderly white female who is awake but lethargic. She has a trach tube in place with thick secretions that are yellowish. Has weakness of the right extremities with edema of the right arm. HEENT: Head is normocephalic. Pupils are reactive. There is a right facial droop. Throat is clear. NECK: Trach tube in place. No venous distension. No thyromegaly. CHEST: Equal movements with a few wheezes anteriorly and occasional basilar crackles and wheezes. HEART: The heart sounds are irregular, S1 and S2. ABDOMEN: The abdomen is soft and obese without masses. No organomegaly or tenderness. Bowel sounds are active. EXTREMITIES: No clubbing. Minimal edema of the legs and some edema of the right arm as well. Flaccid on the right side. SKIN: Dry and cool. Assessment and Plan Assessment and Plan IMPRESSION 1. CVA with intracranial hemorrhage status post craniotomy. 2. Acute respiratory failure. 3. History of hypertension. 4. History of previous stroke. 5. Status post tracheostomy and PEG tube. Plan : 1. T bar at 35 %. 2. Trach suction and lavage prn. 3. Nebs qid , duoneb. 4. Control HTN. 5. BMP,CBC in am. 6. PT evaluation. 7. Transfer to tele. Mariana Phoenix MD May 13, 2016 12:58
[2016-05-13] MEDS: NITROGLYCERIN 2% OINT 1 GM PACKET TOPICAL PRN ×2 (13:00→19:52)
--- NOTE | 2016-05-13 15:32 | HHI.PR ---
Subjective Remarks appears comfortable on T piece 30% tolerating tube feedings ff commands Objective Vitals Vital Signs Date Time Temp Pulse Resp B/P Pulse Ox O2 Delivery O2 Flow Rate FiO2 05/13/16 14:00 78 05/13/16 12:00 35 05/13/16 12:00 78 05/13/16 12:00 98.9 78 21 189/84 100 05/13/16 10:00 70 05/13/16 08:10 98 T-piece 6.00 35 05/13/16 08:00 35 05/13/16 08:00 98.7 74 20 158/75 99 05/13/16 08:00 85 05/13/16 06:00 75 05/13/16 04:00 98.7 75 20 164/72 97 05/13/16 04:00 35 05/13/16 04:00 75 05/13/16 02:00 72 05/13/16 00:00 74 05/13/16 00:00 35 05/13/16 00:00 99.0 74 20 164/71 97 05/12/16 22:00 80 05/12/16 20:29 96 T-piece 5.00 35 05/12/16 20:00 35 05/12/16 20:00 99.0 72 16 142/67 96 05/12/16 20:00 72 05/12/16 18:00 79 05/12/16 16:00 79 05/12/16 16:00 35 05/12/16 16:00 98.5 79 17 179/80 98 I/O 05/12/16 05/12/16 05/12/16 05/13/16 05/13/16 05/13/16 07:00 15:00 23:00 07:00 15:00 23:00 Intake Total 1062 ml 1003 ml 713 ml 1258 ml 1327 ml Output Total 600 ml 1150 ml 475 ml 600 ml 950 ml Balance 462 ml -147 ml 238 ml 658 ml 377 ml Intake IV Total 462 ml 424 ml 218 ml 668 ml 775 ml Tube Feeding 480 ml 479 ml 375 ml 470 ml 492 ml Tube Irrigant 120 ml 100 ml 120 ml 120 ml 60 ml Output Urine Total 600 ml 1150 ml 475 ml 600 ml 950 ml # Voids 1 # Bowel Movements 3 4 1 2 3 Result Diagram: 05/13/16 0500 05/13/16 0500 Imaging Last Impressions Chest X-Ray 05/12/16 0000 Signed Impressions: Service Date/Time: Thursday, May 12, 2016 11:25 - CONCLUSION: 1. Mild hazy opacity remains at the left lung base with possible small effusion. 2. The right lung now appears clear. Chandra Balderas MD Abdomen X-Ray 05/06/16 0000 Signed Impressions: Service Date/Time: Friday, May 06, 2016 04:47 - CONCLUSION: No acute disease. Catarino Patel MD Head CT 04/30/16 0600 Signed Impressions: Service Date/Time: Saturday, April 30, 2016 04:24 - CONCLUSION: Interim surgery and drain placement. Parenchymal hemorrhage in the left cerebral hemisphere white matter is slightly larger than before. About 2 mm of rightward midline shift now seen compared to 7 mm previously. Karthik Pope MD Objective Remarks awake and alert, oriented x 3, speech slurred anicteric + facial asymmetry, tongue medline tracheostomy in placw lungs no rales regular rhythm abdomen soft, +PEG in place cyr in place extremities no edema left sided weakness Procedures tracheostomy PEG A/P Problem List: (1) Respiratory failure ICD Code: J96.90 Status: Acute (2) Acute intracranial hemorrhage ICD Code: I62.9 Status: Acute (3) Seizure disorder, focal sensory ICD Code: G40.109 Status: Acute (4) Hypertensive crisis ICD Code: I16.9 Status: Acute (5) History of CVA (cerebrovascular accident) ICD Code: Z86.73 Status: Acute (6) Obesity (BMI 30.0-34.9) ICD Code: E66.9 Status: Acute Assessment and Plan Neuro/Psych: 4.62.4 cm left basal ganglia intraparenchymal hemorrhage Left temporal CVA Seizure disorder Left frontotemporal parietal craniotomy and placement of ICP monitor- RASS goal 0. off all sedation at this point. CT head revealed 4.62.4 intraparenchymal hemorrhage. Old encephalomalacia left temporal region. Keppra 500 mg BID, continue seizure prophylaxis secondary to results of EEG per neurosurgery recommendations 3% NaCl, discontinued 2/3 Mannitol , discontinued 2/4 EEG 04/30-moderate diffuse encephalopathy, sharp spikes noted, possible seizure activity Repeat CT brain 04/28-left basal ganglia subacute parenchymal hemorrhage slightly larger 7 mm rightward midline shift CT brain 04/30 -2 mm rightward MLS Eric bolt discontinued 05/01/16, TANYA drains removed 05/05 Neuro checks per ICU protocol-patient follows commands left upper and lower extremity, now movement of right extremity but not to command CV: Hypertensive emergency-resolved off cardene. As needed labetalol/hydralazine -- amlodipine 10mg po daily -- Lisinopril to 40mg po daily for hypertension Initial troponin less than 0.04. 2-D ECHO-EF 55-60% no RWMA Resp: Acute respiratory failure secondary to altered mental status TP >24 hours. Continue TP 24/7a s tolerated. Ventilator bundle. Maintain head of bed elevation 30 Pulmonary consult for trach management- Dr. Blair ff Scheduled every 6 hour bronchodilator therapy Continue TP as tolerated. s/p perc trach 05/[address] Skaggs GI: s/p PEG with GI on 05/09. -- Glucerna1.5 @50/hr (goal rate) Reglan TID Protonix for GI prophylaxis Bowel regimen Colace,Senokot scheduled, Milk of Magnesia PRN. /FEN: Hypophosphatemia-resolved Intravascular hypervolemia Monitor BMP Maintain Cyr for accurate I's and O's Replete electrolytes per ICU protocol Endo: Hyperglycemia of critical illness Sliding-scale insulin with Accu-Cheks every 6 hours to maintain euglycemia. Low dose regimen. Renal: No acute issues Accurate I/O's Heme: Monitor CBC ID: Leukocytosis unclear source, but trending down. jackson cultures pending, GNR in sputum. continue Vanc/Zosyn with pharmacy dosing. CXR negative MSK: PT evaluate and treat Daily functional maintenance Access -Discontinued Right IJ CVL 05/06, peripheral IVs 2 Prophylaxis - GI - Protonix - DVT - SCD/ Lovenox for DVT prophylaxis Transfer to neurology floor Problem Qualifiers (1) Respiratory failure: Qualified Code: J96.00 - Acute respiratory failure, unspecified whether with hypoxia or hypercapnia Hui Alexander MD May 13, 2016 15:32
[2016-05-13] MEDS: MORPHINE SULFATE 4 MG/ML INJ IV PUSH PRN (21:22)
[2016-05-14] VITALS (11 sets, daily range): BP systolic 148–192; BP diastolic 68–88; PULSE 67–78; RESP 11–20; TEMP 98–98.8; O2SAT 95–100
[2016-05-14] MEDS: LABETALOL HCL 100 MG/20 ML VIAL IV PUSH PRN ×3 (00:04→07:09)
[2016-05-14] MEDS: SENNOSIDES 8.6 MG TAB PO SCH ×2 (03:00→13:00)
[2016-05-14] MEDS: PIPERACIL-TAZO 3.375 GM PREMIX 50 ML IV SCH ×2 (03:15→10:00)
[2016-05-14] MEDS: CHLORHEXIDINE GLUCONATE 2 % 1 PACK (2 CLOTHS) TOP SCH (03:15)
[2016-05-14] MEDS: ACETAMINOPHEN/HYDROcodone 325 MG/10 MG TAB PO PRN ×2 (03:52→21:04)
[2016-05-14] MEDS: METOCLOPRAMIDE HCL 10 MG/2 ML VIAL IV SCH ×2 (04:02→13:00)
[2016-05-14] MEDS: hydrALAZINE HCL 20 MG/ML VIAL IV PUSH PRN (04:02)
[2016-05-14 05:36] LABS: HEMATOCRIT 28.3 % (35.0-46.0); MEAN CELL VOLUME 90.3 FL (80.0-100.0); MEAN CORPUSCULAR HEMOGLOBIN 30.3 PG (27.0-34.0); MEAN CORPUSCULAR HGB CONC 33.6 % (32.0-36.0); PLATELET COUNT 401 TH/MM3 (150-450); RED BLOOD COUNT 3.13 MIL/MM3 (4.00-5.30); RED CELL DISTRIBUTION WIDTH 13.2 % (11.6-17.2); REVIEW FLAG FINAL; WHITE BLOOD COUNT 9.8 TH/MM3 (4.0-11.0)
[2016-05-14 05:56] LABS: BICARBONATE 27.1 MEQ/L (21.0-32.0)
[2016-05-14] MEDS: INSULIN NovoLIN REGULAR SUPPLEMENTAL SCALE SQ SCH ×3 (05:57→18:00)
[2016-05-14] MEDS: CHLORHEXIDINE 0.12% (ORAL KIT) 15 ML CUP MT SCH ×2 (08:00→20:00)
[2016-05-14] MEDS: LACTULOSE SYRUP 20 GM/30 ML CUP PO/NG SCH (08:40)
[2016-05-14] MEDS: ENOXAPARIN SODIUM 40 MG/0.4 ML SYRINGE SQ SCH (08:47)
[2016-05-14] MEDS: levETIRAcetam 500 MG/5 ML UDC TUBE SCH ×2 (08:47→21:04)
[2016-05-14] MEDS: SODIUM CHLORIDE 0.9% FLUSH 5 ML FLUSH IVF SCH ×3 (08:47→21:04)
[2016-05-14] MEDS: NITROGLYCERIN 2% OINT 1 GM PACKET TOPICAL PRN (08:48)
[2016-05-14] MEDS: LISINOPRIL 20 MG TAB PO SCH (08:48)
[2016-05-14] MEDS: PANTOPRAZOLE SODIUM 40 MG VIAL IVP SCH (09:00)
[2016-05-14] MEDS: ARTIFICIAL TEARS OPTH SOLN 15 ML BTL EACH EYE SCH ×3 (09:00→18:00)
[2016-05-14] MEDS: DOCUSATE SODIUM 100 MG CAP PO SCH ×2 (09:00→21:00)
[2016-05-14] MEDS ORDERED: PHARMACY ORDERED LAB XX ONE (09:45)
[2016-05-14] MEDS: VANCOMYCIN INJ 1,500 MG in SODIUM CHLORID 0.9% 500 ML INJ 500 ML IV SCH (11:09)
--- NOTE | 2016-05-14 13:56 | HHI.PR ---
Subjective Remarks tolerating tube feedings on Tpiece 28%, minimal secretions Objective Vitals Vital Signs Date Time Temp Pulse Resp B/P Pulse Ox O2 Delivery O2 Flow Rate FiO2 05/14/16 12:00 74 05/14/16 12:00 98.0 74 15 164/79 95 05/14/16 10:00 73 05/14/16 08:00 72 05/14/16 08:00 98.0 78 18 179/82 95 05/14/16 07:54 100 T-piece 6.00 28 05/14/16 06:00 75 05/14/16 04:00 35 05/14/16 04:00 98.8 70 20 153/68 100 05/14/16 04:00 70 05/14/16 02:00 69 05/14/16 00:00 98.6 67 16 167/79 99 05/14/16 00:00 35 05/14/16 00:00 67 05/13/16 22:00 80 05/13/16 20:21 99 T-piece 35 05/13/16 20:00 35 05/13/16 20:00 80 05/13/16 20:00 98.6 80 20 154/72 99 05/13/16 18:00 72 05/13/16 16:00 35 05/13/16 16:00 98.7 64 12 156/70 100 05/13/16 16:00 64 05/13/16 14:00 78 I/O 05/13/16 05/13/16 05/13/16 05/14/16 05/14/16 05/14/16 07:00 15:00 23:00 07:00 15:00 23:00 Intake Total 1258 ml 1327 ml 732 ml 1251 ml 968 ml Output Total 600 ml 950 ml 750 ml 950 ml 600 ml Balance 658 ml 377 ml -18 ml 301 ml 368 ml Intake IV Total 668 ml 775 ml 227 ml 696 ml 568 ml Tube Feeding 470 ml 492 ml 385 ml 435 ml 300 ml Tube Irrigant 120 ml 60 ml 120 ml 120 ml 100 ml Output Urine Total 600 ml 950 ml 750 ml 950 ml 600 ml # Bowel Movements 2 3 1 2 1 Result Diagram: 05/14/16 0445 05/14/16 0445 Imaging Last Impressions Chest X-Ray 05/12/16 0000 Signed Impressions: Service Date/Time: Thursday, May 12, 2016 11:25 - CONCLUSION: 1. Mild hazy opacity remains at the left lung base with possible small effusion. 2. The right lung now appears clear. Chandra Balderas MD Abdomen X-Ray 05/06/16 0000 Signed Impressions: Service Date/Time: Friday, May 06, 2016 04:47 - CONCLUSION: No acute disease. Catarino Patel MD Head CT 04/30/16 0600 Signed Impressions: Service Date/Time: Saturday, April 30, 2016 04:24 - CONCLUSION: Interim surgery and drain placement. Parenchymal hemorrhage in the left cerebral hemisphere white matter is slightly larger than before. About 2 mm of rightward midline shift now seen compared to 7 mm previously. Karthik Pope MD Objective Remarks awake and alert, speech slurred anicteric + facial asymmetry, tongue medline tracheostomy in placw lungs no rales regular rhythm abdomen soft, +PEG in place cyr in place extremities no edema right hemiplegia Procedures tracheostomy PEG A/P Problem List: (1) Respiratory failure ICD Code: J96.90 Status: Acute (2) Acute intracranial hemorrhage ICD Code: I62.9 Status: Acute (3) Seizure disorder, focal sensory ICD Code: G40.109 Status: Acute (4) Hypertensive crisis ICD Code: I16.9 Status: Acute (5) History of CVA (cerebrovascular accident) ICD Code: Z86.73 Status: Acute (6) Obesity (BMI 30.0-34.9) ICD Code: E66.9 Status: Acute Assessment and Plan Neuro/Psych: 4.62.4 cm left basal ganglia intraparenchymal hemorrhage Left temporal CVA Seizure disorder Left frontotemporal parietal craniotomy and placement of ICP monitor- RASS goal 0. off all sedation at this point. CT head revealed 4.62.4 intraparenchymal hemorrhage. Old encephalomalacia left temporal region. Keppra 500 mg BID, continue seizure prophylaxis secondary to results of EEG per neurosurgery recommendations 3% NaCl, discontinued 2/3 Mannitol , discontinued / EEG 04/30-moderate diffuse encephalopathy, sharp spikes noted, possible seizure activity Repeat CT brain 04/28-left basal ganglia subacute parenchymal hemorrhage slightly larger 7 mm rightward midline shift CT brain 04/30 -2 mm rightward MLS Eric bolt discontinued 05/01/16, TANYA drains removed 05/05 Neuro checks per ICU protocol-patient follows commands left upper and lower extremity, now movement of right extremity but not to command CV: Hypertensive emergency-resolved. some occasional SBPs in the 160s off cardene. As needed labetalol/hydralazine -- amlodipine 10mg po daily -- Lisinopril to 40mg po daily for hypertension - start po BB- lopressor 12.5 mg po q 8. Prn clonidine Initial troponin less than 0.04. 2-D ECHO-EF 55-60% no RWMA Resp: Acute respiratory failure secondary to altered mental status TP >24 hours. Continue TP 24/7a s tolerated. Ventilator bundle. Maintain head of bed elevation 30 Pulmonary consult for trach management- Dr. Blair ff Scheduled every 6 hour bronchodilator therapy Continue TP as tolerated. s/p perc trach 05/[address] Skaggs GI: s/p PEG with GI on 05/09. -- Glucerna1.5 @50/hr (goal rate) Reglan TID Protonix for GI prophylaxis Bowel regimen Colace,Senokot scheduled, Milk of Magnesia PRN. /FEN: Hypophosphatemia-resolved Intravascular hypervolemia Monitor BMP Maintain Cyr for accurate I's and O's Replete electrolytes per ICU protocol Endo: Hyperglycemia of critical illness Sliding-scale insulin with Accu-Cheks every 6 hours to maintain euglycemia. Low dose regimen. Renal: No acute issues Accurate I/O's Heme: Monitor CBC ID: Leukocytosis- Pneumonia XR with hazy density GNR in sputum. on zosyn. DC Vancomycin consider switching to po antibiotic in am MSK: PT evaluate and treat Daily functional maintenance Access -Discontinued Right IJ CVL 05/06, peripheral IVs 2 Prophylaxis - GI -change to PPI/PEG - DVT - SCD/ Lovenox for DVT prophylaxis Transfer to neurology floor when bed available Problem Qualifiers (1) Respiratory failure: Qualified Code: J96.00 - Acute respiratory failure, unspecified whether with hypoxia or hypercapnia Hui Alexander MD May 14, 2016 13:56 Hui Alexander MD May 14, 2016 13:56
[2016-05-14] MEDS ORDERED: METOPROLOL TARTRATE 25 MG TAB PO SCH ×3 (14:00→22:00)
[2016-05-14] MEDS ORDERED: PILL SPLITTER OTHER PRN (14:15)
[2016-05-14] MEDS: METOPROLOL TARTRATE 25 MG TAB J-TUBE SCH ×2 (14:33→21:04)
[2016-05-14] MEDS: cloNIDine HCL 0.1 MG TAB PO PRN ×2 (14:33→21:04)
--- NOTE | 2016-05-14 19:23 | HHI.PR ---
Subjective Remarks Awake and moves left side well. Follows commands. BP better controlled. Trach site is clean. Objective Vital Signs Date Time Temp Pulse Resp B/P Pulse Ox O2 Delivery O2 Flow Rate FiO2 05/14/16 16:00 98.0 70 11 148/71 96 05/14/16 16:00 72 05/14/16 12:00 74 05/14/16 12:00 98.0 74 15 164/79 95 05/14/16 10:00 73 05/14/16 08:00 72 05/14/16 08:00 98.0 78 18 179/82 95 05/14/16 07:54 100 T-piece 6.00 28 05/14/16 06:00 75 05/14/16 04:00 35 05/14/16 04:00 98.8 70 20 153/68 100 05/14/16 04:00 70 05/14/16 02:00 69 05/14/16 00:00 98.6 67 16 167/79 99 05/14/16 00:00 35 05/14/16 00:00 67 05/13/16 22:00 80 05/13/16 20:21 99 T-piece 35 05/13/16 20:00 35 05/13/16 20:00 80 05/13/16 20:00 98.6 80 20 154/72 99 I/O 05/13/16 05/13/16 05/13/16 05/14/16 05/14/16 05/14/16 07:00 15:00 23:00 07:00 15:00 23:00 Intake Total 1258 ml 1327 ml 732 ml 1251 ml 968 ml Output Total 600 ml 950 ml 750 ml 950 ml 600 ml Balance 658 ml 377 ml -18 ml 301 ml 368 ml Intake IV Total 668 ml 775 ml 227 ml 696 ml 568 ml Tube Feeding 470 ml 492 ml 385 ml 435 ml 300 ml Tube Irrigant 120 ml 60 ml 120 ml 120 ml 100 ml Output Urine Total 600 ml 950 ml 750 ml 950 ml 600 ml # Bowel Movements 2 3 1 2 1 Result Diagram: 05/14/1644405/14/16444 Objective Remarks GENERAL: This is a moderately obese elderly white female who is awake but lethargic. She has a trach tube in place . Has weakness of the right extremities with edema of the right arm. HEENT: Head is normocephalic. Pupils are reactive. There is a right facial droop. Throat is clear. NECK: Trach tube in place. No venous distension. No thyromegaly. CHEST: Equal movements with a few wheezes anteriorly . HEART: The heart sounds are irregular, S1 and S2. ABDOMEN: The abdomen is soft and obese without masses. No organomegaly or tenderness. Bowel sounds are active. EXTREMITIES: No clubbing. Minimal edema of the legs and some edema of the right arm as well. Flaccid on the right side. SKIN: Dry and cool. Assessment and Plan Assessment and Plan IMPRESSION 1. CVA with intracranial hemorrhage status post craniotomy. 2. Acute respiratory failure. 3. History of hypertension. 4. History of previous stroke. 5. Status post tracheostomy and PEG tube. Plan : 1. Cont T bar at 35 %. 2. Trach suction and lavage prn. 3. Nebs qid , duoneb. 4. Control HTN. 5. Cont Antibiotics per ID 6. PT evaluation. 7. Transfer to [facility]. Mariana Phoenix MD May 14, 2016 19:23
[2016-05-15] VITALS (8 sets, daily range): BP systolic 150–177; BP diastolic 72–83; PULSE 64–74; RESP 10–25; TEMP 97.3–98.6; O2SAT 97–100
[2016-05-15] MEDS: SENNOSIDES 8.6 MG TAB PO SCH ×2 (02:01→13:58)
[2016-05-15] MEDS: CHLORHEXIDINE GLUCONATE 2 % 1 PACK (2 CLOTHS) TOP SCH (04:00)
[2016-05-15 04:21] LABS: HEMATOCRIT 30.2 % (35.0-46.0); MEAN CORPUSCULAR HGB CONC 34.1 % (32.0-36.0); PLATELET COUNT 415 TH/MM3 (150-450); RED BLOOD COUNT 3.32 MIL/MM3 (4.00-5.30); RED CELL DISTRIBUTION WIDTH 13.1 % (11.6-17.2); REVIEW FLAG FINAL; WHITE BLOOD COUNT 9.4 TH/MM3 (4.0-11.0)
[2016-05-15 04:39] LABS: BICARBONATE 26.6 MEQ/L (21.0-32.0)
[2016-05-15] MEDS: METOPROLOL TARTRATE 25 MG TAB J-TUBE SCH ×3 (05:57→21:42)
[2016-05-15] MEDS: INSULIN NovoLIN REGULAR SUPPLEMENTAL SCALE SQ SCH ×4 (05:57→17:59)
--- NOTE | 2016-05-15 06:13 | RADRPT ---
EXAM DATE/TIME: 05/15/2016 04:51 [place] COMPARISON: CHEST SINGLE AP, May 12, 2016, 11:25. INDICATIONS : Rule out plueral effusion. MEDICAL HISTORY : None. SURGICAL HISTORY : None. ENCOUNTER: Subsequent ACUITY: 3 weeks PAIN SCORE: Non-responsive. LOCATION: Bilateral chest FINDINGS: The cardiac silhouette is enlarged in transverse diameter. A tracheostomy tube is in place in the mid line. There are findings of congestive heart failure with interstitial and alveolar opacity bilateral ly. There is left lower lobe atelectasis versus pneumonia. CONCLUSION: 1. Cardiomegaly and findings of congestive heart failure. The findings have worsened when compared wi th the prior examination. 2. No pleural effusions are identified. Bob Contreras MD on May 15, 2016 at 6:11 Board Certified Radiologist. This report was verified electronically.
[2016-05-15] MEDS: CHLORHEXIDINE 0.12% (ORAL KIT) 15 ML CUP MT SCH ×2 (08:00→20:00)
[2016-05-15] MEDS: ARTIFICIAL TEARS OPTH SOLN 15 ML BTL EACH EYE SCH ×3 (09:00→17:59)
[2016-05-15] MEDS: DOCUSATE SODIUM 100 MG CAP PO SCH ×2 (09:00→21:00)
[2016-05-15] MEDS: SODIUM CHLORIDE 0.9% FLUSH 5 ML FLUSH IVF SCH ×3 (09:00→21:00)
[2016-05-15] MEDS: levETIRAcetam 500 MG/5 ML UDC TUBE SCH ×2 (09:30→21:42)
[2016-05-15] MEDS: LANSOPRAZOLE SOLUTAB 30 MG TAB NG SCH (09:31)
[2016-05-15] MEDS: LISINOPRIL 20 MG TAB PO SCH (09:31)
[2016-05-15] MEDS: ENOXAPARIN SODIUM 40 MG/0.4 ML SYRINGE SQ SCH (09:31)
--- NOTE | 2016-05-15 10:57 | HHI.PR ---
Subjective Remarks patient awake and alert, ff all commands Objective Vitals Vital Signs Date Time Temp Pulse Resp B/P Pulse Ox O2 Delivery O2 Flow Rate FiO2 05/15/16 09:44 98 T-piece 4.00 28 05/15/16 08:00 69 05/15/16 08:00 98.1 69 16 150/72 98 05/15/16 04:00 98.4 70 16 170/80 97 05/15/16 04:00 70 05/15/16 00:00 98.6 64 10 168/79 99 05/15/16 00:00 64 05/14/16 23:00 97 T-piece 4.00 28 05/14/16 22:04 11 05/14/16 20:00 74 05/14/16 20:00 98.6 74 11 192/88 96 05/14/16 16:00 98.0 70 11 148/71 96 05/14/16 16:00 72 05/14/16 12:00 74 05/14/16 12:00 98.0 74 15 164/79 95 I/O 05/14/16 05/14/16 05/14/16 05/15/16 05/15/16 05/15/16 07:00 15:00 23:00 07:00 15:00 23:00 Intake Total 1251 ml 968 ml 1066 ml 700 ml Output Total 950 ml 600 ml 2000 ml 1100 ml Balance 301 ml 368 ml -934 ml -400 ml Intake IV Total 696 ml 568 ml 163 ml 148 ml Tube Feeding 435 ml 300 ml 783 ml 402 ml Tube Irrigant 120 ml 100 ml 120 ml 150 ml Output Urine Total 950 ml 600 ml 2000 ml 1100 ml # Bowel Movements 2 1 1 0 Result Diagram: 05/15/16 0355 05/15/16 0355 Imaging Last Impressions Chest X-Ray 05/15/16 0600 Signed Impressions: Service Date/Time: April 04:51 - CONCLUSION: 1. Cardiomegaly and findings of congestive heart failure. The findings have worsened when compared with the prior examination. 2. No pleural effusions are identified. Bob Contreras MD Abdomen X-Ray 05/06/16 0000 Signed Impressions: Service Date/Time: Friday, May 06, 2016 04:47 - CONCLUSION: No acute disease. Catarino Patel MD Head CT 04/30/16 0600 Signed Impressions: Service Date/Time: Saturday, April 30, 2016 04:24 - CONCLUSION: Interim surgery and drain placement. Parenchymal hemorrhage in the left cerebral hemisphere white matter is slightly larger than before. About 2 mm of rightward midline shift now seen compared to 7 mm previously. Karthik Pope MD Objective Remarks awake and alert, speech slurred anicteric + facial asymmetry, tongue midline tracheostomy in place lungs no rales regular rhythm abdomen soft, +PEG in place cyr in place extremities no edema Neuro: right hemiplegia Procedures tracheostomy PEG Urinary Catheter: Yes Assessment to: Continue Cyr insert reason: Prolonged Immobilization A/P Problem List: (1) Respiratory failure ICD Code: J96.90 Status: Acute (2) Acute intracranial hemorrhage ICD Code: I62.9 Status: Acute (3) Seizure disorder, focal sensory ICD Code: G40.109 Status: Acute (4) Hypertensive crisis ICD Code: I16.9 Status: Acute (5) History of CVA (cerebrovascular accident) ICD Code: Z86.73 Status: Acute (6) Obesity (BMI 30.0-34.9) ICD Code: E66.9 Status: Acute Assessment and Plan Neuro/Psych: 4.62.4 cm left basal ganglia intraparenchymal hemorrhage Left temporal CVA Seizure disorder Left frontotemporal parietal craniotomy and placement of ICP monitor- with right hemiplegia Keppra 500 mg BID, continue seizure prophylaxis secondary to results of EEG per neurosurgery recommendations PT/OT daily CV: Hypertensive emergency-resolved. some occasional SBPs in the 160s off cardene. As needed labetalol/hydralazine -- amlodipine 10mg po daily -- Lisinopril to 40mg po daily for hypertension - BB- lopressor 12.5 mg po q 8. - Hydralazine 25 mg tid Prn clonidine 2-D ECHO-EF 55-60% no RWMA Resp: Acute respiratory failure secondary to altered mental status- currently on T piece 28% Dr. Blair ff- ? trach capping intermittent Scheduled every 6 hour bronchodilator therapy Continue TP as tolerated. s/p perc trach 05/[address] Skaggs GI: s/p PEG with GI on 05/09. -- Glucerna1.5 @50/hr (goal rate) Reglan TID Protonix for GI prophylaxis Bowel regimen Colace,Senokot scheduled, Milk of Magnesia PRN. /FEN: Hypophosphatemia-resolved Intravascular hypervolemia Monitor BMP Maintain Cyr for accurate I's and O's Replete electrolytes per ICU protocol Endo: Hyperglycemia of critical illness Sliding-scale insulin with Accu-Cheks every 6 hours to maintain euglycemia. Low dose regimen. Renal: No acute issues Accurate I/O's Heme: Monitor CBC ID: Leukocytosis- Pneumonia XR with hazy density - Gram negative - Enterobacter, Morgagnella on sputum on Zosyn. change to po Levaquin 500 mg today 05/15 PT evaluate and treat daily Daily functional maintenance Access -Discontinued Right IJ CVL 05/06, peripheral IVs 2 Prophylaxis - GI -change to PPI/PEG - DVT - SCD/ Lovenox for DVT prophylaxis Transfer to neurology floor when bed available Problem Qualifiers (1) Respiratory failure: Qualified Code: J96.00 - Acute respiratory failure, unspecified whether with hypoxia or hypercapnia Hui Alexander MD May 15, 2016 10:57
[2016-05-15] MEDS: LEVOFLOXACIN 500 MG TAB G-TUBE SCH (12:00)
[2016-05-15] MEDS: hydrALAZINE HCL 25 MG TAB PO SCH ×2 (13:15→21:42)
[2016-05-15] MEDS: ACETAMINOPHEN/HYDROcodone 325 MG/10 MG TAB PO PRN ×2 (13:17→21:43)
[2016-05-15] MEDS: cloNIDine HCL 0.1 MG TAB PO PRN (19:12)
--- NOTE | 2016-05-15 20:01 | HHI.PR ---
Subjective Remarks Awake and moves left side well. Follows commands. BP better controlled. Trach site is clean.Needs PM valve to talk. Objective Vital Signs Date Time Temp Pulse Resp B/P Pulse Ox O2 Delivery O2 Flow Rate FiO2 05/15/16 16:00 97.3 68 16 157/74 100 05/15/16 16:00 74 05/15/16 13:58 18 05/15/16 12:00 98.2 74 14 162/83 97 05/15/16 12:00 74 05/15/16 09:44 98 T-piece 4.00 28 05/15/16 08:00 69 05/15/16 08:00 98.1 69 16 150/72 98 05/15/16 04:00 98.4 70 16 170/80 97 05/15/16 04:00 70 05/15/16 00:00 98.6 64 10 168/79 99 05/15/16 00:00 64 05/14/16 23:00 97 T-piece 4.00 28 05/14/16 22:04 11 05/14/16 20:00 74 05/14/16 20:00 98.6 74 11 192/88 96 I/O 05/14/16 05/14/16 05/14/16 05/15/16 05/15/16 05/15/16 07:00 15:00 23:00 07:00 15:00 23:00 Intake Total 1251 ml 968 ml 1066 ml 700 ml 181 ml Output Total 950 ml 600 ml 2000 ml 1100 ml 1800 ml Balance 301 ml 368 ml -934 ml -400 ml -1619 ml Intake Oral 0 ml IV Total 696 ml 568 ml 163 ml 148 ml 181 ml Tube Feeding 435 ml 300 ml 783 ml 402 ml Tube Irrigant 120 ml 100 ml 120 ml 150 ml Output Urine Total 950 ml 600 ml 2000 ml 1100 ml 1800 ml # Bowel Movements 2 1 1 0 1 Result Diagram: 05/15/16 0355 05/15/16 0355 Objective Remarks GENERAL: This is a moderately obese elderly white female who is awake but lethargic. She has a trach tube in place . Has weakness of the right extremities with mild edema of the right arm. HEENT: Head is normocephalic. Pupils are reactive. There is a right facial droop. Throat is clear. NECK: Trach tube in place. No venous distension. No thyromegaly. CHEST: Equal movements with no wheeze. HEART: The heart sounds are irregular, S1 and S2. ABDOMEN: The abdomen is soft and obese without masses. No organomegaly or tenderness. Bowel sounds are active. EXTREMITIES: No clubbing. Minimal edema of the legs and some edema of the right arm as well. Flaccid on the right side. SKIN: Dry and cool. Assessment and Plan Assessment and Plan IMPRESSION 1. CVA with intracranial hemorrhage status post craniotomy. 2. Acute respiratory failure. 3. History of hypertension. 4. History of previous stroke. 5. Status post tracheostomy and PEG tube. Plan : 1. Use T collar at 35 %. 2. Trach suction and lavage prn. 3. Nebs qid , duoneb. 4. Control HTN. 5. Cont Antibiotics per ID 6. PT evaluation. 7. Will remove trach sutures Mariana Phoenix MD May 15, 2016 20:01
[2016-05-16] VITALS (8 sets, daily range): BP systolic 130–177; BP diastolic 60–93; PULSE 60–84; RESP 10–24; TEMP 98–99.3; O2SAT 97–100
[2016-05-16] MEDS: SENNOSIDES 8.6 MG TAB PO SCH ×3 (03:00→21:03)
[2016-05-16] MEDS: CHLORHEXIDINE GLUCONATE 2 % 1 PACK (2 CLOTHS) TOP SCH (04:00)
[2016-05-16 04:53] LABS: HEMATOCRIT 32.5 % (35.0-46.0); MEAN CELL VOLUME 89.4 FL (80.0-100.0); MEAN CORPUSCULAR HEMOGLOBIN 30.1 PG (27.0-34.0); MEAN CORPUSCULAR HGB CONC 33.6 % (32.0-36.0); PLATELET COUNT 427 TH/MM3 (150-450); RED BLOOD COUNT 3.63 MIL/MM3 (4.00-5.30); REVIEW FLAG FINAL; WHITE BLOOD COUNT 9.3 TH/MM3 (4.0-11.0)
[2016-05-16 05:03] LABS: BICARBONATE 25.5 MEQ/L (21.0-32.0); POTASSIUM 4.1 MEQ/L (3.5-5.1)
[2016-05-16] MEDS: INSULIN NovoLIN REGULAR SUPPLEMENTAL SCALE SQ SCH ×3 (06:00→11:53)
[2016-05-16] MEDS: hydrALAZINE HCL 25 MG TAB PO SCH ×2 (06:00→13:14)
[2016-05-16] MEDS: METOPROLOL TARTRATE 25 MG TAB J-TUBE SCH ×3 (06:00→21:02)
[2016-05-16] MEDS: ACETAMINOPHEN/HYDROcodone 325 MG/10 MG TAB PO PRN (06:51)
[2016-05-16] MEDS: CHLORHEXIDINE 0.12% (ORAL KIT) 15 ML CUP MT SCH ×2 (07:56→21:03)
[2016-05-16] MEDS: SODIUM CHLORIDE 0.9% FLUSH 5 ML FLUSH IVF SCH ×3 (08:00→21:03)
[2016-05-16] MEDS: LISINOPRIL 20 MG TAB PO SCH (08:01)
[2016-05-16] MEDS: ARTIFICIAL TEARS OPTH SOLN 15 ML BTL EACH EYE SCH ×3 (08:01→18:01)
[2016-05-16] MEDS: LEVOFLOXACIN 500 MG TAB G-TUBE SCH (08:01)
[2016-05-16] MEDS: LANSOPRAZOLE SOLUTAB 30 MG TAB NG SCH (08:01)
[2016-05-16] MEDS: levETIRAcetam 500 MG/5 ML UDC TUBE SCH ×2 (08:01→21:02)
[2016-05-16] MEDS: DOCUSATE SODIUM 100 MG CAP PO SCH ×2 (08:01→21:00)
[2016-05-16] MEDS: ENOXAPARIN SODIUM 40 MG/0.4 ML SYRINGE SQ SCH (09:52)
--- NOTE | 2016-05-16 14:07 | HHI.PR ---
Subjective Remarks awake and alert tolerating tube feedings ff commands Objective Vitals Vital Signs Date Time Temp Pulse Resp B/P Pulse Ox O2 Delivery O2 Flow Rate FiO2 05/16/16 12:00 70 05/16/16 12:00 98.7 73 15 151/74 100 05/16/16 08:57 97 T-piece 28 05/16/16 08:00 98.1 65 12 139/67 97 05/16/16 08:00 65 05/16/16 04:00 98.0 72 15 177/89 100 05/16/16 04:00 72 05/16/16 00:00 60 05/16/16 00:00 98.0 60 10 130/60 99 05/15/16 22:43 10 05/15/16 20:23 99 T-piece 4.00 28 05/15/16 20:00 73 05/15/16 20:00 98.5 73 25 177/78 100 05/15/16 16:00 97.3 68 16 157/74 100 05/15/16 16:00 74 I/O 05/15/16 05/15/16 05/15/16 05/16/16 05/16/16 05/16/16 07:00 15:00 23:00 07:00 15:00 23:00 Intake Total 700 ml 181 ml 419 ml 134 ml Output Total 1100 ml 1800 ml 2000 ml 1100 ml Balance -400 ml -1619 ml -1581 ml -966 ml Intake Oral 0 ml IV Total 148 ml 181 ml 419 ml 134 ml Tube Feeding 402 ml Tube Irrigant 150 ml Output Urine Total 1100 ml 1800 ml 2000 ml 1100 ml # Bowel Movements 0 1 0 2 Result Diagram: 05/16/16 0359 05/16/16 0359 Imaging Last Impressions Chest X-Ray 05/15/16599 Signed Impressions: Service Date/Time: April 04:51 - CONCLUSION: 1. Cardiomegaly and findings of congestive heart failure. The findings have worsened when compared with the prior examination. 2. No pleural effusions are identified. Bob Contreras MD Abdomen X-Ray 05/06/16 0000 Signed Impressions: Service Date/Time: Friday, May 06, 2016 04:47 - CONCLUSION: No acute disease. Catarino Patel MD Head CT 04/30/16 0600 Signed Impressions: Service Date/Time: Saturday, April 30, 2016 04:24 - CONCLUSION: Interim surgery and drain placement. Parenchymal hemorrhage in the left cerebral hemisphere white matter is slightly larger than before. About 2 mm of rightward midline shift now seen compared to 7 mm previously. Karthik Pope MD Objective Remarks awake and alert, speech slurred anicteric + facial asymmetry, tongue midline tracheostomy in place lungs no rales regular rhythm abdomen soft, +PEG in place cyr in place extremities no edema Neuro: right hemiplegia Procedures tracheostomy PEG Urinary Catheter: Yes Cyr insert reason: Prolonged Immobilization A/P Problem List: (1) Respiratory failure ICD Code: J96.90 Status: Acute (2) Acute intracranial hemorrhage ICD Code: I62.9 Status: Acute (3) Seizure disorder, focal sensory ICD Code: G40.109 Status: Acute (4) Hypertensive crisis ICD Code: I16.9 Status: Acute (5) History of CVA (cerebrovascular accident) ICD Code: Z86.73 Status: Acute (6) Obesity (BMI 30.0-34.9) ICD Code: E66.9 Status: Acute Assessment and Plan 71 years old female with 4.62.4 cm left basal ganglia intraparenchymal hemorrhage Left temporal CVA Seizure disorder Left frontotemporal parietal craniotomy and placement of ICP monitor- with right hemiplegia Keppra 500 mg BID, continue seizure prophylaxis secondary to results of EEG per neurosurgery recommendations PT/OT daily Hypertensive emergency-resolved. some occasional SBPs in the 160s off cardene. As needed labetalol/hydralazine -- amlodipine 10mg po daily -- Lisinopril to 40mg po daily for hypertension - BB- lopressor 25 mg po q8 - Hydralazine 25 mg tid - increase to 50 mg tid Prn clonidine 2-D ECHO-EF 55-60% no RWMA Resp: Acute respiratory failure secondary to altered mental status- currently on T piece 28% Dr. Blair ff- ? trach capping intermittent Scheduled every 6 hour bronchodilator therapy Continue TP as tolerated. s/p perc trach 05/[address] Skaggs GI: s/p PEG with GI on 05/09. -- Glucerna1.5 @50/hr (goal rate) Reglan TID good readings Protonix for GI prophylaxis Bowel regimen Colace,Senokot scheduled, Milk of Magnesia PRN. only /FEN: Hypophosphatemia-resolved Intravascular hypervolemia- resolved Endo: Hyperglycemia of critical illness good readings. DC BGMs Renal: No acute issues Accurate I/O's Heme: Monitor CBC ID: Leukocytosis- Pneumonia XR with hazy density - Gram negative - Enterobacter, Morgagnella on sputum on Zosyn. change to po Levaquin 500 mg 05/15 PT evaluate and treat daily Daily functional maintenance Access -Discontinued Right IJ CVL 05/06, peripheral IVs 2 Prophylaxis - GI -change to PPI/PEG - DVT - SCD/ Lovenox for DVT prophylaxis Transfer to neurology floor when bed available- awaiting bed [facility]- once available Problem Qualifiers (1) Respiratory failure: Qualified Code: J96.00 - Acute respiratory failure, unspecified whether with hypoxia or hypercapnia Hui Alexander MD May 16, 2016 14:07
[2016-05-16] MEDS: cloNIDine HCL 0.1 MG TAB PO PRN (14:22)
--- NOTE | 2016-05-16 20:02 | HHI.PR ---
Subjective Remarks Awake and moves left side well. Follows commands. BP improved.. Trach secretions clear. Objective Vital Signs Date Time Temp Pulse Resp B/P Pulse Ox O2 Delivery O2 Flow Rate FiO2 05/16/16 16:00 71 05/16/16 16:00 99.2 70 15 145/70 98 05/16/16 12:00 70 05/16/16 12:00 98.7 73 15 151/74 100 05/16/16 08:57 97 T-piece 28 05/16/16 08:00 98.1 65 12 139/67 97 05/16/16 08:00 65 05/16/16 04:00 98.0 72 15 177/89 100 05/16/16 04:00 72 05/16/16 00:00 60 05/16/16 00:00 98.0 60 10 130/60 99 05/15/16 22:43 10 05/15/16 20:23 99 T-piece 4.00 28 I/O 05/15/16 05/15/16 05/15/16 05/16/16 05/16/16 05/16/16 07:00 15:00 23:00 07:00 15:00 23:00 Intake Total 700 ml 181 ml 419 ml 134 ml 465 ml Output Total 1100 ml 1800 ml 2000 ml 1100 ml 1400 ml Balance -400 ml -1619 ml -1581 ml -966 ml -935 ml Intake Oral 0 ml 0 ml IV Total 148 ml 181 ml 419 ml 134 ml 0 ml Tube Feeding 402 ml 405 ml Tube Irrigant 150 ml 60 ml Output Urine Total 1100 ml 1800 ml 2000 ml 1100 ml 1400 ml # Bowel Movements 0 1 0 2 1 Result Diagram: 05/16/16 0359 05/16/16 0359 Objective Remarks GENERAL: This is a moderately obese elderly white female who is awake but lethargic. She has a trach tube in place . Has weakness of the right extremities with mild edema of the right arm. HEENT: Head is normocephalic. Pupils are reactive. Throat is clear. NECK: Trach tube in place. No venous distension. No thyromegaly. CHEST: Equal movements with no wheeze. HEART: The heart sounds are irregular, S1 and S2. ABDOMEN: The abdomen is soft and obese without masses. No organomegaly or tenderness. Bowel sounds are active. EXTREMITIES: No clubbing. Minimal edema of the legs. Flaccid on the right side. SKIN: Dry and cool. Assessment and Plan Assessment and Plan IMPRESSION 1. CVA with intracranial hemorrhage status post craniotomy. 2. Acute respiratory failure. 3. History of hypertension. 4. History of previous stroke. 5. Status post tracheostomy and PEG tube. Plan : 1. Use T collar at 30 %. 2. Trach suction and lavage prn. 3. Nebs qid , duoneb. 4. Transfer to [facility]. 5. Cont Antibiotics for 1week 6. PT evaluation. 7. Will add Lasix 20 mg daily. Mariana Phoenix MD May 16, 2016 20:02
[2016-05-16] MEDS: hydrALAZINE HCL 25 MG TAB PEG SCH (21:02)
[2016-05-17] VITALS (8 sets, daily range): BP systolic 129–187; BP diastolic 66–87; PULSE 76–92; RESP 13–17; TEMP 98.8–99.7; O2SAT 96–99
[2016-05-17] MEDS: hydrALAZINE HCL 20 MG/ML VIAL IV PUSH PRN ×2 (00:18→04:23)
[2016-05-17] MEDS: ACETAMINOPHEN/HYDROcodone 325 MG/10 MG TAB PO PRN ×2 (00:19→10:20)
[2016-05-17] MEDS: CHLORHEXIDINE GLUCONATE 2 % 1 PACK (2 CLOTHS) TOP SCH (03:10)
[2016-05-17 04:00] LABS: HEMATOCRIT 31.8 % (35.0-46.0); MEAN CELL VOLUME 87.8 FL (80.0-100.0); MEAN CORPUSCULAR HEMOGLOBIN 29.9 PG (27.0-34.0); PLATELET COUNT 461 TH/MM3 (150-450); RED BLOOD COUNT 3.63 MIL/MM3 (4.00-5.30); REVIEW FLAG FINAL; WHITE BLOOD COUNT 9.2 TH/MM3 (4.0-11.0)
[2016-05-17 04:39] LABS: BICARBONATE 27.3 MEQ/L (21.0-32.0); POTASSIUM 4.1 MEQ/L (3.5-5.1)
[2016-05-17] MEDS: hydrALAZINE HCL 25 MG TAB PEG SCH ×3 (05:02→20:52)
[2016-05-17] MEDS: METOPROLOL TARTRATE 25 MG TAB J-TUBE SCH ×3 (05:02→20:54)
--- NOTE | 2016-05-17 08:16 | HHI.PR ---
Subjective Remarks awake and alert, attempts to speak, ff commands, in good spirits and interactive this am BP 138/65 had to get one IV prn Hydralazine Objective Vitals Vital Signs Date Time Temp Pulse Resp B/P Pulse Ox O2 Delivery O2 Flow Rate FiO2 05/17/16 04:00 99.4 87 13 187/87 99 05/17/16 04:00 87 05/17/16 00:00 99.0 80 14 154/74 96 05/17/16 00:00 80 05/16/16 20:25 98 T-piece 5.00 28 05/16/16 20:00 77 05/16/16 20:00 99.3 84 24 174/93 100 05/16/16 16:00 71 05/16/16 16:00 99.2 70 15 145/70 98 05/16/16 12:00 70 05/16/16 12:00 98.7 73 15 151/74 100 05/16/16 08:57 97 T-piece 28 I/O 05/16/16 05/16/16 05/16/16 05/17/16 05/17/16 05/17/16 07:00 15:00 23:00 07:00 15:00 23:00 Intake Total 134 ml 465 ml 583 ml 386 ml Output Total 1100 ml 1400 ml 1600 ml 1650 ml Balance -966 ml -935 ml -1017 ml -1264 ml Intake Oral 0 ml IV Total 134 ml 0 ml Tube Feeding 405 ml 493 ml 296 ml Tube Irrigant 60 ml Other 90 ml 90 ml Output Urine Total 1100 ml 1400 ml 1600 ml 1650 ml # Bowel Movements 2 1 1 0 Result Diagram: 05/17/16 0309 05/17/16 0309 Imaging Last Impressions Chest X-Ray 05/15/16 06 Signed Impressions: Service Date/Time: April 04:51 - CONCLUSION: 1. Cardiomegaly and findings of congestive heart failure. The findings have worsened when compared with the prior examination. 2. No pleural effusions are identified. Bob Contreras MD Abdomen X-Ray 05/06/16 0000 Signed Impressions: Service Date/Time: Friday, May 06, 2016 04:47 - CONCLUSION: No acute disease. Catarino Patel MD Head CT 04/30/16 0600 Signed Impressions: Service Date/Time: Saturday, April 30, 2016 04:24 - CONCLUSION: Interim surgery and drain placement. Parenchymal hemorrhage in the left cerebral hemisphere white matter is slightly larger than before. About 2 mm of rightward midline shift now seen compared to 7 mm previously. Karthik Pope MD Objective Remarks awake and alert, speech slurred anicteric + facial asymmetry, tongue midline tracheostomy in place lungs no rales regular rhythm abdomen soft, +PEG in place cyr in place extremities no calf swelling Neuro: right hemiplegia Procedures tracheostomy PEG Urinary Catheter: Yes Cyr insert reason: Prolonged Immobilization Date of Insertion: May 12, 2016 A/P Problem List: (1) Respiratory failure ICD Code: J96.90 Status: Acute (2) Acute intracranial hemorrhage ICD Code: I62.9 Status: Acute (3) Seizure disorder, focal sensory ICD Code: G40.109 Status: Acute (4) Hypertensive crisis ICD Code: I16.9 Status: Acute (5) History of CVA (cerebrovascular accident) ICD Code: Z86.73 Status: Acute (6) Obesity (BMI 30.0-34.9) ICD Code: E66.9 Status: Acute Assessment and Plan 71 years old female with 4.62.4 cm left basal ganglia intraparenchymal hemorrhage Left temporal CVA Seizure disorder Left frontotemporal parietal craniotomy and placement of ICP monitor- with right hemiplegia Keppra 500 mg BID, continue seizure prophylaxis secondary to results of EEG per neurosurgery recommendations PT/OT daily Hypertensive emergency-resolved. some occasional SBPs in the 160s off cardene. As needed labetalol/hydralazine -- amlodipine 10mg po daily -- Lisinopril to 40mg po daily for hypertension - BB- lopressor 25 mg po q8 - Hydralazine 25 mg tid - increase to 50 mg tid 05/16 - Lasix 20 mg daily. KCL 20 meq daily/PEG 2-D ECHO-EF 55-60% no RWMA Resp: Acute respiratory failure secondary to altered mental status- currently on T piece 28% Dr. Blair ff- Scheduled every 6 hour bronchodilator therapy Continue TP as tolerated. s/p perc trach 05/[address] Skaggs GI: s/p PEG with GI on 05/09. -- Glucerna1.5 @50/hr (goal rate) Reglan TID good readings Protonix for GI prophylaxis Bowel regimen Colace,Senokot scheduled, Milk of Magnesia PRN. only /FEN: Hypophosphatemia-resolved Intravascular hypervolemia- resolved Endo: Hyperglycemia of critical illness good readings. DC BGMs Renal: No acute issues Accurate I/O's Heme: Monitor CBC ID: Leukocytosis- Pneumonia XR with hazy density - Gram negative - Enterobacter, Morgagnella on sputum on Zosyn. change to po Levaquin 500 mg 05/15 PT evaluate and treat daily Daily functional maintenance Access -Discontinued Right IJ CVL 05/06, peripheral IVs 2 Prophylaxis - GI -change to PPI/PEG - DVT - SCD/ Lovenox for DVT prophylaxis Transfer to neurology floor when bed available- awaiting bed [facility]- once bed available get formal speech swallowing evaluation. did very well bedside nuring swallowing. called [phone]- per CM- unable to take my call per answering service 10: 23 am Problem Qualifiers (1) Respiratory failure: Qualified Code: J96.00 - Acute respiratory failure, unspecified whether with hypoxia or hypercapnia Hui Alexander MD May 17, 2016 08:16
[2016-05-17] MEDS: DOCUSATE SODIUM 100 MG CAP PO SCH ×2 (09:00→20:55)
[2016-05-17] MEDS: SODIUM CHLORIDE 0.9% FLUSH 5 ML FLUSH IVF SCH ×3 (09:00→20:55)
[2016-05-17] MEDS: POTASSIUM CHLORIDE 20 MEQ CONTROLLED RELEASE TAB PO SCH (09:18)
[2016-05-17] MEDS: CHLORHEXIDINE 0.12% (ORAL KIT) 15 ML CUP MT SCH ×2 (09:19→20:00)
[2016-05-17] MEDS: LEVOFLOXACIN 500 MG TAB G-TUBE SCH (09:19)
[2016-05-17] MEDS: FUROSEMIDE 20 MG TAB PO SCH (09:19)
[2016-05-17] MEDS: levETIRAcetam 500 MG/5 ML UDC TUBE SCH ×2 (09:19→20:51)
[2016-05-17] MEDS: LANSOPRAZOLE SOLUTAB 30 MG TAB NG SCH (09:19)
[2016-05-17] MEDS: LISINOPRIL 20 MG TAB PO SCH (09:19)
[2016-05-17] MEDS: ARTIFICIAL TEARS OPTH SOLN 15 ML BTL EACH EYE SCH ×3 (09:19→17:44)
[2016-05-17] MEDS: ENOXAPARIN SODIUM 40 MG/0.4 ML SYRINGE SQ SCH (10:11)
[2016-05-17] MEDS: SENNOSIDES 8.6 MG TAB PO SCH (14:11)
--- NOTE | 2016-05-17 14:39 | HHI.PR ---
Subjective Remarks Awake and breathing well .Follows commands. BP improved.Trach secretions clear. Objective Vital Signs Date Time Temp Pulse Resp B/P Pulse Ox O2 Delivery O2 Flow Rate FiO2 05/17/16 12:00 99.7 79 13 149/70 99 05/17/16 12:00 81 05/17/16 09:32 99 Trach Collar 28 05/17/16 08:00 92 05/17/16 08:00 99.7 84 17 143/67 99 05/17/16 04:00 99.4 87 13 187/87 99 05/17/16 04:00 87 05/17/16 00:00 99.0 80 14 154/74 96 05/17/16 00:00 80 05/16/16 20:25 98 T-piece 5.00 28 05/16/16 20:00 77 05/16/16 20:00 99.3 84 24 174/93 100 05/16/16 16:00 71 05/16/16 16:00 99.2 70 15 145/70 98 I/O 05/16/16 05/16/16 05/16/16 05/17/16 05/17/16 05/17/16 07:00 15:00 23:00 07:00 15:00 23:00 Intake Total 134 ml 465 ml 583 ml 386 ml 1149 ml Output Total 1100 ml 1400 ml 1600 ml 1650 ml 1600 ml Balance -966 ml -935 ml -1017 ml -1264 ml -451 ml Intake Oral 0 ml 550 ml IV Total 134 ml 0 ml Tube Feeding 405 ml 493 ml 296 ml 499 ml Tube Irrigant 60 ml Other 90 ml 90 ml 100 ml Output Urine Total 1100 ml 1400 ml 1600 ml 1650 ml 1600 ml # Bowel Movements 2 1 1 0 1 Result Diagram: 05/17/16 0309 05/17/16 0309 Objective Remarks GENERAL: This is a moderately obese elderly white female who is awake but lethargic. She has a trach tube in place . Has weakness of the right extremities with mild edema of the right arm. HEENT: Head is normocephalic. Pupils are reactive. Throat is clear. NECK: Trach tube in place. No venous distension. No thyromegaly. CHEST: Equal movements with decreased breath sounds. HEART: The heart sounds are irregular, S1 and S2. ABDOMEN: The abdomen is soft and obese without masses. No organomegaly or tenderness. Bowel sounds are active. EXTREMITIES: No clubbing. Minimal edema of the legs. Flaccid on the right side. SKIN: Dry and cool. Assessment and Plan Assessment and Plan IMPRESSION 1. CVA with intracranial hemorrhage status post craniotomy. 2. Acute respiratory failure. 3. History of hypertension. 4. History of previous stroke. 5. Status post tracheostomy and PEG tube. Plan : 1. Use T collar at 30 %. 2. Trach suction and lavage prn. 3. Nebs qid , duoneb. 4. Will change trach to Fenestrated # 6 shiley. 5. Cont Antibiotics . 6. PT evaluation. 7. Will add Lasix 20 mg daily. Mariana Phoenix MD May 17, 2016 14:39
[2016-05-18] VITALS: BP 146/70; PULSE 83; RESP 19; TEMP 99.5; O2SAT 99
[2016-05-18] MEDS: hydrALAZINE HCL 20 MG/ML VIAL IV PUSH PRN (01:36)
[2016-05-18] MEDS: ACETAMINOPHEN/HYDROcodone 325 MG/10 MG TAB PO PRN ×2 (02:10→10:22)
[2016-05-18] MEDS: SENNOSIDES 8.6 MG TAB PO SCH ×2 (03:00→12:19)
[2016-05-18] MEDS: CHLORHEXIDINE GLUCONATE 2 % 1 PACK (2 CLOTHS) TOP SCH (03:06)
[2016-05-18 04:00] VITALS: BP 126/60; PULSE 83; RESP 12; TEMP 99.1; O2SAT 98
[2016-05-18] MEDS: METOPROLOL TARTRATE 25 MG TAB J-TUBE SCH ×3 (06:00→20:57)
[2016-05-18] MEDS: hydrALAZINE HCL 25 MG TAB PEG SCH ×3 (06:00→20:56)
[2016-05-18 08:00] VITALS: BP 147/67; PULSE 88; RESP 18; TEMP 98.7; O2SAT 99
[2016-05-18] MEDS: SODIUM CHLORIDE 0.9% FLUSH 5 ML FLUSH IVF SCH ×3 (09:00→20:56)
[2016-05-18] MEDS: ARTIFICIAL TEARS OPTH SOLN 15 ML BTL EACH EYE SCH ×3 (09:00→12:19)
[2016-05-18] MEDS: DOCUSATE SODIUM 100 MG CAP PO SCH ×2 (09:00→20:52)
[2016-05-18] MEDS: ENOXAPARIN SODIUM 40 MG/0.4 ML SYRINGE SQ SCH (10:21)
[2016-05-18] MEDS: levETIRAcetam 500 MG/5 ML UDC TUBE SCH ×2 (10:21→20:56)
[2016-05-18] MEDS: LISINOPRIL 20 MG TAB PO SCH (10:21)
[2016-05-18] MEDS: FUROSEMIDE 20 MG TAB PO SCH (10:22)
[2016-05-18] MEDS: POTASSIUM CHLORIDE 20 MEQ CONTROLLED RELEASE TAB PO SCH (10:22)
[2016-05-18] MEDS: LANSOPRAZOLE SOLUTAB 30 MG TAB NG SCH (10:22)
[2016-05-18] MEDS: LEVOFLOXACIN 500 MG TAB G-TUBE SCH (10:23)
[2016-05-18] MEDS: CHLORHEXIDINE 0.12% (ORAL KIT) 15 ML CUP MT SCH ×2 (10:23→20:00)
--- NOTE | 2016-05-18 11:40 | HHI.PR ---
Subjective Remarks on tracheostomy 28% minimal secretions but thick Objective Vitals Vital Signs Date Time Temp Pulse Resp B/P Pulse Ox O2 Delivery O2 Flow Rate FiO2 05/18/16 08:00 98.7 88 18 147/67 99 05/18/16 04:00 83 05/18/16 04:00 99.1 83 12 126/60 98 05/18/16 00:00 83 05/18/16 00:00 99.5 83 19 146/70 99 05/17/16 20:40 99 Trach Collar 4.00 28 05/17/16 20:00 98.8 82 13 163/78 99 05/17/16 20:00 82 05/17/16 16:00 76 05/17/16 16:00 99.4 76 15 129/66 99 05/17/16 12:00 99.7 79 13 149/70 99 05/17/16 12:00 81 I/O 05/17/16 05/17/16 05/17/16 05/18/16 05/18/16 05/18/16 07:00 15:00 23:00 07:00 15:00 23:00 Intake Total 386 ml 1149 ml 916 ml 1249 ml Output Total 1650 ml 1600 ml 1675 ml 2100 ml 0 ml Balance -1264 ml -451 ml -759 ml -851 ml 0 ml Intake Oral 550 ml 480 ml 720 ml Tube Feeding 296 ml 499 ml 376 ml 469 ml Other 90 ml 100 ml 60 ml 60 ml Output Urine Total 1650 ml 1600 ml 1675 ml 2100 ml Tube Feeding Residual Discard 0 ml 0 ml 0 ml # Bowel Movements 0 1 1 1 Result Diagram: 05/17/169 05/17/16 0309 Imaging Last Impressions Chest X-Ray 05/15/16 06 Signed Impressions: Service Date/Time: April 04:51 - CONCLUSION: 1. Cardiomegaly and findings of congestive heart failure. The findings have worsened when compared with the prior examination. 2. No pleural effusions are identified. Bob Contreras MD Abdomen X-Ray 05/06/16 0000 Signed Impressions: Service Date/Time: Friday, May 06, 2016 04:47 - CONCLUSION: No acute disease. Catarino Patel MD Head CT 04/30/16 0600 Signed Impressions: Service Date/Time: Saturday, April 30, 2016 04:24 - CONCLUSION: Interim surgery and drain placement. Parenchymal hemorrhage in the left cerebral hemisphere white matter is slightly larger than before. About 2 mm of rightward midline shift now seen compared to 7 mm previously. Karthik Pope MD Objective Remarks awake and alert, speech slurred anicteric + facial asymmetry, tongue midline tracheostomy in place lungs no rales regular rhythm abdomen soft, +PEG in place cyr in place extremities no calf swelling Neuro: right hemiplegia Procedures tracheostomy PEG Date of Insertion: May 12, 2016 A/P Problem List: (1) Respiratory failure ICD Code: J96.90 Status: Acute (2) Acute intracranial hemorrhage ICD Code: I62.9 Status: Acute (3) Seizure disorder, focal sensory ICD Code: G40.109 Status: Acute (4) Hypertensive crisis ICD Code: I16.9 Status: Acute (5) History of CVA (cerebrovascular accident) ICD Code: Z86.73 Status: Acute (6) Obesity (BMI 30.0-34.9) ICD Code: E66.9 Status: Acute Assessment and Plan 71 years old female with 4.62.4 cm left basal ganglia intraparenchymal hemorrhage Left temporal CVA Seizure disorder Left frontotemporal parietal craniotomy and placement of ICP monitor- with right hemiplegia Keppra 500 mg BID, continue seizure prophylaxis secondary to results of EEG per neurosurgery recommendations PT/OT daily Hypertensive emergency-resolved. better readings off cardene. As needed labetalol/hydralazine -- amlodipine 10mg po daily -- Lisinopril to 40mg po daily for hypertension - BB- lopressor 25 mg po q8 - Hydralazine 25 mg tid - increase to 50 mg tid 05/16 - Lasix 20 mg daily. KCL 20 meq daily/PEG 2-D ECHO-EF 55-60% no RWMA Resp: Acute respiratory failure secondary to altered mental status- currently on T piece 28% Dr. Blair ff- Scheduled every 6 hour bronchodilator therapy Continue TP as tolerated. s/p perc trach 05/[address] Skaggs GI: s/p PEG with GI on 05/09. -- Glucerna1.5 @50/hr (goal rate) Reglan TID good readings Protonix for GI prophylaxis Bowel regimen Colace,Senokot scheduled, Milk of Magnesia PRN. only /FEN: Hypophosphatemia-resolved Intravascular hypervolemia- resolved Endo: Hyperglycemia of critical illness good readings. DC BGMs Renal: No acute issues Accurate I/O's Heme: Monitor CBC ID: Leukocytosis- Pneumonia XR with hazy density - Gram negative - Enterobacter, Morgagnella on sputum on Zosyn. changed to po Levaquin 500 mg 05/15 PT evaluate and treat daily Daily functional maintenance Access -Discontinued Right IJ CVL 05/06, peripheral IVs 2 Prophylaxis - GI -change to PPI/PEG - DVT - SCD/ Lovenox for DVT prophylaxis Transfer to neurology floor when bed available- awaiting [facility]- once bed available get formal speech swallowing evaluation. did very well bedside nuring swallowing. called [phone]- per CM- unable to take my call per answering service 10: 23 am Problem Qualifiers (1) Respiratory failure: Qualified Code: J96.00 - Acute respiratory failure, unspecified whether with hypoxia or hypercapnia Hui Alexander MD May 18, 2016 11:39
[2016-05-18 12:00] VITALS: BP 125/63; PULSE 75; RESP 11; TEMP 98.8; O2SAT 99
--- NOTE | 2016-05-18 15:54 | HHI.PR ---
Subjective Remarks Awake and resting .Follows commands. No fever.Trach secretions clear. Objective Vital Signs Date Time Temp Pulse Resp B/P Pulse Ox O2 Delivery O2 Flow Rate FiO2 05/18/16 12:00 98.8 75 11 125/63 99 05/18/16 08:00 98.7 88 18 147/67 99 05/18/16 04:00 83 05/18/16 04:00 99.1 83 12 126/60 98 05/18/16 00:00 83 05/18/16 00:00 99.5 83 19 146/70 99 05/17/16 20:40 99 Trach Collar 4.00 28 05/17/16 20:00 98.8 82 13 163/78 99 05/17/16 20:00 82 05/17/16 16:00 76 05/17/16 16:00 99.4 76 15 129/66 99 I/O 05/17/16 05/17/16 05/17/16 05/18/16 05/18/16 05/18/16 07:00 15:00 23:00 07:00 15:00 23:00 Intake Total 386 ml 1149 ml 916 ml 1249 ml 1132 ml Output Total 1650 ml 1600 ml 1675 ml 2100 ml 2300 ml Balance -1264 ml -451 ml -759 ml -851 ml -1168 ml Intake Oral 550 ml 480 ml 720 ml 720 ml Tube Feeding 296 ml 499 ml 376 ml 469 ml 412 ml Other 90 ml 100 ml 60 ml 60 ml Output Urine Total 1650 ml 1600 ml 1675 ml 2100 ml 2300 ml Stool Total 0 ml Tube Feeding Residual Discard 0 ml 0 ml 0 ml # Bowel Movements 0 1 1 1 Result Diagram: 05/17/16 0309 05/17/16 0309 Objective Remarks GENERAL: This is a moderately obese elderly white female who is awake but lethargic. She has a trach tube in place . Has weakness of the right extremities with mild edema of the right arm. HEENT: Head is normocephalic. Pupils are reactive. Throat is clear. NECK: Trach tube in place. No venous distension. No thyromegaly. CHEST: Equal movements with decreased breath sounds.Occ Crackles. HEART: The heart sounds are irregular, S1 and S2. ABDOMEN: The abdomen is soft and obese without masses. No organomegaly or tenderness. Bowel sounds are active. EXTREMITIES: No clubbing. No edema. Flaccid on the right side. SKIN: Dry and cool. Assessment and Plan Assessment and Plan IMPRESSION 1. CVA with intracranial hemorrhage status post craniotomy. 2. Acute respiratory failure. 3. History of hypertension. 4. History of previous stroke. 5. Status post tracheostomy and PEG tube. Plan : 1. Use T collar at 30 %. 2. Trach suction and lavage prn. 3. Nebs qid , duoneb. 4. Will change trach to Fenestrated # 6 shiley. 5. Cont Antibiotics . 6. PT evaluation. 7. Lasix 20 mg daily.And Kcl 20 meq daily 8. Get Chest X ray in am. Mariana Phoenix MD May 18, 2016 15:54
[2016-05-18 20:00] VITALS: BP 173/84; PULSE 85; RESP 15; TEMP 99.5; O2SAT 100
[2016-05-18 20:19] VITALS: O2SAT 98
[2016-05-19] VITALS (8 sets, daily range): BP systolic 117–179; BP diastolic 60–84; PULSE 64–88; RESP 11–25; TEMP 98–99.5; O2SAT 98–100
[2016-05-19] MEDS: SENNOSIDES 8.6 MG TAB PO SCH ×2 (03:00→15:00)
[2016-05-19] MEDS: CHLORHEXIDINE GLUCONATE 2 % 1 PACK (2 CLOTHS) TOP SCH (04:00)
[2016-05-19] MEDS: ACETAMINOPHEN/HYDROcodone 325 MG/10 MG TAB PO PRN ×2 (04:11→19:52)
--- NOTE | 2016-05-19 05:25 | RADRPT ---
EXAM DATE/TIME: 05/19/2016 04:39 [facility] COMPARISON: CHEST SINGLE AP, May 15, 2016, 4:51. INDICATIONS : Shortness of breath. MEDICAL HISTORY : Stroke. SURGICAL HISTORY : Craniotomy. ENCOUNTER: Subsequent ACUITY: 3 weeks PAIN SCORE: Non-responsive. LOCATION: Bilateral chest FINDINGS: There is tracheostomy tube in good position. The heart size is within normal limits. The lungs are cl ear. CONCLUSION: No acute disease. Karthik Pierre MD on May 19, 2016 at 5:23 Board Certified Radiologist. This report was verified electronically.
[2016-05-19] MEDS: hydrALAZINE HCL 25 MG TAB PEG SCH ×4 (05:55→22:04)
[2016-05-19] MEDS: METOPROLOL TARTRATE 25 MG TAB J-TUBE SCH ×4 (05:56→22:04)
[2016-05-19] MEDS: CHLORHEXIDINE 0.12% (ORAL KIT) 15 ML CUP MT SCH ×2 (08:00→19:56)
[2016-05-19] MEDS: SODIUM CHLORIDE 0.9% FLUSH 5 ML FLUSH IVF SCH ×3 (09:00→21:00)
[2016-05-19] MEDS: DOCUSATE SODIUM 100 MG CAP PO SCH ×2 (09:00→19:55)
[2016-05-19] MEDS: LISINOPRIL 20 MG TAB PO SCH (09:41)
[2016-05-19] MEDS: POTASSIUM CHLORIDE 20 MEQ CONTROLLED RELEASE TAB PO SCH (09:41)
[2016-05-19] MEDS: FUROSEMIDE 20 MG TAB PO SCH (09:41)
[2016-05-19] MEDS: levETIRAcetam 500 MG/5 ML UDC TUBE SCH ×2 (09:41→19:55)
[2016-05-19] MEDS: LANSOPRAZOLE SOLUTAB 30 MG TAB NG SCH (09:41)
[2016-05-19] MEDS: LEVOFLOXACIN 500 MG TAB G-TUBE SCH (09:41)
[2016-05-19] MEDS: ENOXAPARIN SODIUM 40 MG/0.4 ML SYRINGE SQ SCH (09:41)
[2016-05-19] MEDS: ARTIFICIAL TEARS OPTH SOLN 15 ML BTL EACH EYE SCH ×3 (09:42→18:00)
--- NOTE | 2016-05-19 11:10 | HHI.PR ---
Subjective Remarks trach- changed to fenestrated minimal secretions tolerating diet Objective Vitals Vital Signs Date Time Temp Pulse Resp B/P Pulse Ox O2 Delivery O2 Flow Rate FiO2 05/19/16 08:00 98.5 67 11 119/60 98 05/19/16 08:00 67 05/19/16 07:43 98 T-piece 6.00 28 05/19/16 07:09 64 05/19/16 04:00 83 05/19/16 04:00 98.4 83 15 165/79 99 05/19/16 00:00 99.5 84 16 179/84 98 05/19/16 00:00 84 05/18/16 20:19 98 Trach Collar 4.00 28 05/18/16 20:00 99.5 85 15 173/84 100 05/18/16 20:00 85 05/18/16 12:00 98.8 75 11 125/63 99 I/O 05/18/16 05/18/16 05/18/16 05/19/16 05/19/16 05/19/16 07:00 15:00 23:00 07:00 15:00 23:00 Intake Total 1249 ml 1132 ml 1060 ml 1712 ml Output Total 2100 ml 2300 ml 1900 ml 2400 ml Balance -851 ml -1168 ml -840 ml -688 ml Intake Oral 720 ml 720 ml 600 ml 1160 ml Tube Feeding 469 ml 412 ml 400 ml 492 ml Other 60 ml 60 ml 60 ml Output Urine Total 2100 ml 2300 ml 1900 ml 2400 ml Stool Total 0 ml Tube Feeding Residual Discard 0 ml 0 ml # Bowel Movements 1 1 2 Result Diagram: 05/17/16 03005/17/16 0309 Objective Remarks awake and alert, speech slurred anicteric + facial asymmetry, tongue midline tracheostomy in place lungs no rales regular rhythm abdomen soft, +PEG in place cyr in place extremities no calf swelling Neuro: right hemiplegia Procedures tracheostomy PEG Date of Insertion: May 12, 2016 A/P Problem List: (1) Respiratory failure ICD Code: J96.90 Status: Acute (2) Acute intracranial hemorrhage ICD Code: I62.9 Status: Acute (3) Seizure disorder, focal sensory ICD Code: G40.109 Status: Acute (4) Hypertensive crisis ICD Code: I16.9 Status: Acute (5) History of CVA (cerebrovascular accident) ICD Code: Z86.73 Status: Acute (6) Obesity (BMI 30.0-34.9) ICD Code: E66.9 Status: Acute Assessment and Plan 71 years old female with 4.62.4 cm left basal ganglia intraparenchymal hemorrhage Left temporal CVA Seizure disorder Left frontotemporal parietal craniotomy and placement of ICP monitor- with right hemiplegia Keppra 500 mg BID, continue seizure prophylaxis secondary to results of EEG per neurosurgery recommendations PT/OT daily Hypertensive emergency-resolved. better readings off cardene. As needed labetalol/hydralazine -- amlodipine 10mg po daily -- Lisinopril to 40mg po daily for hypertension - BB- lopressor 25 mg po q8 - Hydralazine 25 mg tid - increase to 50 mg tid 05/16 - Lasix 20 mg daily. KCL 20 meq daily/PEG 2-D ECHO-EF 55-60% no RWMA Resp: Acute respiratory failure secondary to altered mental status- currently on T piece 28% Dr. Blair ff- Scheduled every 6 hour bronchodilator therapy Continue TP as tolerated. s/p perc trach 05/[address] Skaggs GI: s/p PEG with GI on 05/09. -- Glucerna1.5 @50/hr (goal rate) Reglan TID good readings Protonix for GI prophylaxis Bowel regimen Colace,Senokot scheduled, Milk of Magnesia PRN. only /FEN: Hypophosphatemia-resolved Intravascular hypervolemia- resolved Endo: Hyperglycemia of critical illness good readings. DC BGMs Renal: No acute issues Accurate I/O's Heme: Monitor CBC ID: Leukocytosis- Pneumonia XR with hazy density - Gram negative - Enterobacter, Morgagnella on sputum on Zosyn. changed to po Levaquin 500 mg 05/15 PT evaluate and treat daily Daily functional maintenance Access -Discontinued Right IJ CVL 05/06, peripheral IVs 2 Prophylaxis - GI -change to PPI/PEG - DVT - SCD/ Lovenox for DVT prophylaxis Transfer to neurology floor when bed available- [facility]- once bed available get formal speech swallowing evaluation. did very well bedside nuring swallowing. called [phone]- per CM- unable to take my call per answering service 10: 23 am Problem Qualifiers (1) Respiratory failure: Qualified Code: J96.00 - Acute respiratory failure, unspecified whether with hypoxia or hypercapnia Hui Alexander MD May 19, 2016 11:10
[2016-05-19] MEDS ORDERED: ENOX40P SQ (16:14)
[2016-05-19] MEDS ORDERED: PREV30TA3 NG (16:14)
[2016-05-19] MEDS ORDERED: METO25TA3 J-TUBE (16:14)
[2016-05-19] MEDS ORDERED: LISI-515 PO (16:14)
[2016-05-19] MEDS ORDERED: FURO20TA PO (16:14)
[2016-05-19] MEDS ORDERED: HYDR25TA35 PEG (16:14)
[2016-05-19] MEDS ORDERED: LEVE500S TUBE (16:14)
[2016-05-19] MEDS ORDERED: IPRASOL INH (16:14)
[2016-05-19] MEDS ORDERED: AMLO10 PO (16:14)
[2016-05-19] MEDS ORDERED: POTA20TA5 PO (16:16)
[2016-05-19] MEDS ORDERED: LEVA500T G-TUBE (16:19)
--- NOTE | 2016-05-19 16:22 | HHI.DS ---
Discharge Summary Admission Date Apr 27, 2016 at 14:17 Discharge Date: May 19, 2016 Admitting Diagnosis acute intracranial hemorrhage (1) Respiratory failure ICD Code: J96.90 Diagnosis: Principal (2) Acute intracranial hemorrhage ICD Code: I62.9 Diagnosis: Principal (3) Seizure disorder, focal sensory ICD Code: G40.109 Diagnosis: Principal (4) Hypertensive crisis ICD Code: I16.9 Diagnosis: Principal (5) History of CVA (cerebrovascular accident) ICD Code: Z86.73 Diagnosis: Principal (6) Obesity (BMI 30.0-34.9) ICD Code: E66.9 Diagnosis: Principal Procedures tracheostomy PEG Brief History - From Admission This is a 71 female. Data admission 04/27/2016. Past medical history includes left temporal CVA and seizure disorder.. She presented to the emergency room brought by her friend for strokelike symptoms. Patient was verbal when she first arrived and said that her symptoms started 40 minutes ago. 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 She had right-sided facial droop and right arm weakness. There was some right eyelid lag as well. After doing a quick NIH stroke score a stroke alert was called. Patient was rushed to the CT scanner and I spoke with the neurologist to make him aware of possible stroke. Her medications are all alternative natural medications. CT head revealed a 4.6 x 2.4 (basal ganglia intraparenchymal hemorrhage. Encephalopathy left temporal region. Neurosurgery was consultation recommended medical management with 3% hypertonic saline, mannitol and strict blood pressure control systolic blood pressure was 150 with a follow-up CT scan in a.m. While in the ED, patient decompensated with a left-sided gaze. She was flaccid in her right upper lobe extremity. Emergently intubated with 20 minutes etomidate etomidate and 100 mg succinylcholine. She is currently been sedated with propofol/fentanyl and Versed drips. Cardene drip was initiated to maintain systolic blood pressure less than 150. End tidal CO2 around 30 recommended. Receiving 50 mg mannitol IV 1 now. CBC/BMP: 05/17/16 0309 05/17/16 0309 Significant Findings Laboratory Tests Test 05/17/16 03:09 Red Blood Count 3.63 MIL/MM3 (4.00-5.30) Hemoglobin 10.8 GM/DL (11.6-15.3) Hematocrit 31.8 % (35.0-46.0) Platelet Count 461 TH/MM3 (150-450) Sodium Level 133 MEQ/L (136-145) Chloride Level 97 MEQ/L (98-107) Estimat Glomerular Filtration 71 ML/MIN (>89) Rate Random Glucose 118 MG/DL (74-106) Imaging Last Impressions Chest X-Ray 05/19/16 0600 Signed Impressions: Service Date/Time: Thursday, May 19, 2016 04:39 - CONCLUSION: No acute disease. Karthik Pierre MD Abdomen X-Ray 05/06/16 0000 Signed Impressions: Service Date/Time: Friday, May 06, 2016 04:47 - CONCLUSION: No acute disease. Catarino Patel MD Head CT 04/30/16 0600 Signed Impressions: Service Date/Time: Saturday, April 30, 2016 04:24 - CONCLUSION: Interim surgery and drain placement. Parenchymal hemorrhage in the left cerebral hemisphere white matter is slightly larger than before. About 2 mm of rightward midline shift now seen compared to 7 mm previously. Karthik Pope MD PE at Discharge awake and alert, speech slurred anicteric + facial asymmetry, tongue midline tracheostomy in place lungs no rales regular rhythm abdomen soft, +PEG in place cyr in place extremities no calf swelling Neuro: right hemiplegia Pt update on day of discharge doing very well on trach 28% tolerating diet and tube feedings progressing well with PT Hospital Course 71 years old female with 4.62.4 cm left basal ganglia intraparenchymal hemorrhage Left temporal CVA Seizure disorder Left frontotemporal parietal craniotomy and placement of ICP monitor- with right hemiplegia Keppra 500 mg BID, continue seizure prophylaxis secondary to results of EEG per neurosurgery recommendations PT/OT daily Hypertensive emergency-resolved. better readings off cardene. As needed labetalol/hydralazine -- amlodipine 10mg po daily -- Lisinopril to 40mg po daily for hypertension - BB- lopressor 25 mg po q8 - Hydralazine 25 mg tid - increase to 50 mg tid 05/16 - Lasix 20 mg daily. KCL 20 meq daily/PEG 2-D ECHO-EF 55-60% no RWMA Resp: Acute respiratory failure secondary to altered mental status- currently on T piece 28% Dr. Blair ff- Scheduled every 6 hour bronchodilator therapy Continue TP as tolerated. s/p perc trach 05/[address] Skaggs GI: s/p PEG with GI on 05/09. -- Glucerna1.5 @50/hr (goal rate) Reglan TID good readings Protonix for GI prophylaxis Bowel regimen Colace,Senokot scheduled, Milk of Magnesia PRN. only /FEN: Hypophosphatemia-resolved Intravascular hypervolemia- resolved Endo: Hyperglycemia of critical illness good readings. DC BGMs Renal: No acute issues Accurate I/O's Heme: Monitor CBC ID: Leukocytosis- Pneumonia XR with hazy density - Gram negative - Enterobacter, Morgagnella on sputum on Zosyn. changed to po Levaquin 500 mg 05/15 PT evaluate and treat daily Daily functional maintenance Access -Discontinued Right IJ CVL 05/06, peripheral IVs 2 Prophylaxis - GI -change to PPI/PEG - DVT - SCD/ Lovenox for DVT prophylaxis Transfer to neurology floor when bed available- awaiting bed [facility] once bed available Pt Condition on Discharge: Stable Discharge Disposition: Discharge to SNF Discharge Time: > 30 minutes Discharge Instructions DIET: Follow Instructions for: Heart Healthy Diet, On Tube Feeding Speech Therapy-Diet Recommends: Soft, Other Additional Diet Instructions: speech therapist to patient daily for evaluation continue tube feedings deititian to follow nutritonal requirement and progress Activities you can perform: See Additionl Instruction Other Activity Instructions: pt evaluation OT evaluationd daily Follow up Referrals: Neurology - 05/28/16 with Lanny Atkinson MD Pulmonology - 05/26/16 with Mariana Phoenix MD New Medications: Amlodipine (Norvasc) 10 Mg Tab 10 MG PO DAILY HTN #30 TAB Enoxaparin Inj (Lovenox Inj) 40 Mg/0.4 Ml Syr 40 MG SQ Q24H DVTPRO Days 14 INJECTION Furosemide (Furosemide) 20 Mg Tab 20 MG PO DAILY PRN HTN Days 30 TAB Hydralazine (Hydralazine) 25 Mg Tab 50 MG PEG Q8HR HTN Days 30 TAB Ipratropium-Albuterol Neb (Duoneb) 0.5-2.5 Mg/3 Ml Neb 1 AMPULE INH Q4HR PRN WHEEZING Days 14 ML Lansoprazole ODT (Prevacid Solutab ODT) 30 Mg Tab 30 MG NG DAILY GIpro Days 30 TAB Levetiracetam Liq (Keppra Liq) 500 Mg/5 Ml Soln 500 MG TUBE Q12HR SZpro Days 30 ML Levofloxacin (Levaquin) 500 Mg Tab 500 MG G-TUBE DAILY PUL #5 TAB Lisinopril (Lisinopril) 20 Mg Tab 40 MG PO DAILY HTN #30 TAB Metoprolol Tartrate (Metoprolol Tartrate) 25 Mg Tab 25 MG J-TUBE Q8HR HTN Days 30 TAB Potassium Chloride Microencaps (Potassium Chloride Microencaps) 20 Meq Tab 20 MEQ PO DAILY elec Days 30 TAB Continued Medications: Levetiracetam (Keppra) 500 Mg Tab 500 MG PO BID seizure #60 Ref 2 TAB Hui Alexander MD May 19, 2016 16:22
--- NOTE | 2016-05-19 18:50 | HHI.PR ---
Subjective Remarks Awake and doing well . Trach secretions clear. Tolerates a diet. O2 sat 96 on FIO2 28 %. Objective Vital Signs Date Time Temp Pulse Resp B/P Pulse Ox O2 Delivery O2 Flow Rate FiO2 05/19/16 16:00 98.0 88 25 161/75 98 05/19/16 12:00 98.0 80 23 117/61 100 05/19/16 08:00 98.5 67 11 119/60 98 05/19/16 08:00 67 05/19/16 07:43 98 T-piece 6.00 28 05/19/16 07:09 64 05/19/16 04:00 83 05/19/16 04:00 98.4 83 15 165/79 99 05/19/16 00:00 99.5 84 16 179/84 98 05/19/16 00:00 84 05/18/16 20:19 98 Trach Collar 4.00 28 05/18/16 20:00 99.5 85 15 173/84 100 05/18/16 20:00 85 I/O 05/18/16 05/18/16 05/18/16 05/19/16 05/19/16 05/19/16 07:00 15:00 23:00 07:00 15:00 23:00 Intake Total 1249 ml 1132 ml 1060 ml 1712 ml 480 ml Output Total 2100 ml 2300 ml 1900 ml 2400 ml 2000 ml Balance -851 ml -1168 ml -840 ml -688 ml -1520 ml Intake Oral 720 ml 720 ml 600 ml 1160 ml 480 ml Tube Feeding 469 ml 412 ml 400 ml 492 ml Other 60 ml 60 ml 60 ml Output Urine Total 2100 ml 2300 ml 1900 ml 2400 ml 2000 ml Stool Total 0 ml Tube Feeding Residual Discard 0 ml 0 ml # Bowel Movements 1 1 2 Result Diagram: 05/17/16 0309 05/17/16 0309 Objective Remarks GENERAL: This is a moderately obese elderly white female who is awake but lethargic. She has a trach tube in place . Has weakness of the right extremities . HEENT: Head is normocephalic. Pupils are reactive. Throat is clear. NECK: Trach tube in place. No venous distension. No thyromegaly. CHEST: Equal movements with decreased breath sounds. HEART: The heart sounds are irregular, S1 and S2. ABDOMEN: The abdomen is soft and obese without masses. No organomegaly or tenderness. Bowel sounds are active. EXTREMITIES: No clubbing. No edema. Flaccid on the right side. SKIN: Dry and cool. Assessment and Plan Assessment and Plan IMPRESSION 1. CVA with intracranial hemorrhage status post craniotomy. 2. Acute respiratory failure. 3. History of hypertension. 4. History of previous stroke. 5. Status post tracheostomy and PEG tube. Plan : 1. Use T collar at 28 %. 2. Trach suction and lavage prn. 3. Nebs qid , duoneb. 4. Will use [place]sey elijah valve to talk. 5. D/C antibiotics 6. PT evaluation. 7. D/C Lasix and Kcl. 8. Transfer to [facility]. Mariana Phoenix MD May 19, 2016 18:49
[2016-05-20] VITALS (8 sets, daily range): BP systolic 99–133; BP diastolic 57–72; PULSE 64–80; RESP 12–20; TEMP 98.2–98.6; O2SAT 96–99
[2016-05-20] MEDS: SENNOSIDES 8.6 MG TAB PO SCH (02:47)
[2016-05-20] MEDS: CHLORHEXIDINE GLUCONATE 2 % 1 PACK (2 CLOTHS) TOP SCH (04:00)
[2016-05-20] MEDS: METOPROLOL TARTRATE 25 MG TAB J-TUBE SCH (05:37)
[2016-05-20] MEDS: hydrALAZINE HCL 25 MG TAB PEG SCH (05:38)
[2016-05-20] MEDS: LANSOPRAZOLE SOLUTAB 30 MG TAB NG SCH (08:53)
[2016-05-20] MEDS: ENOXAPARIN SODIUM 40 MG/0.4 ML SYRINGE SQ SCH (08:53)
[2016-05-20] MEDS: DOCUSATE SODIUM 100 MG CAP PO SCH (08:53)
[2016-05-20] MEDS: LEVOFLOXACIN 500 MG TAB G-TUBE SCH (08:53)
[2016-05-20] MEDS: levETIRAcetam 500 MG/5 ML UDC TUBE SCH (08:53)
[2016-05-20] MEDS: SODIUM CHLORIDE 0.9% FLUSH 5 ML FLUSH IVF SCH ×2 (08:54→08:55)
[2016-05-20] MEDS: LISINOPRIL 20 MG TAB PO SCH (08:54)
[2016-05-20] MEDS: ARTIFICIAL TEARS OPTH SOLN 15 ML BTL EACH EYE SCH (08:55)
[2016-05-20] MEDS: CHLORHEXIDINE 0.12% (ORAL KIT) 15 ML CUP MT SCH (08:55)
--- NOTE | 2016-05-20 16:03 | HHI.PR ---
Subjective Remarks seen earlier patient accepted by SNF- arrangements all done yesterday stable overnight Objective Vitals Vital Signs Date Time Temp Pulse Resp B/P Pulse Ox O2 Delivery O2 Flow Rate FiO2 05/20/16 09:00 80 05/20/16 08:52 99 Trach Collar 6.00 28 05/20/16 08:00 98.6 74 20 133/72 96 05/20/16 08:00 74 05/20/16 07:04 73 05/20/16 05:00 99 Trach Collar 28 05/20/16 04:00 98.4 74 20 130/62 99 05/20/16 02:00 72 05/20/16 00:00 64 05/20/16 00:00 98.2 64 12 99/57 98 05/19/16 20:00 79 05/19/16 20:00 99.0 79 15 122/61 98 I/O 05/19/16 05/19/16 05/19/16 05/20/16 05/20/16 05/20/16 07:00 15:00 23:00 07:00 15:00 23:00 Intake Total 1712 ml 480 ml 240 ml 360 ml Output Total 2400 ml 2000 ml 1600 ml 1100 ml Balance -688 ml -1520 ml -1360 ml -740 ml Intake Oral 1160 ml 480 ml 240 ml 360 ml Tube Feeding 492 ml Other 60 ml Output Urine Total 2400 ml 2000 ml 1600 ml 900 ml Stool Total 200 ml # Bowel Movements 2 Result Diagram: 05/17/16 0309 05/17/16 0309 Imaging Last Impressions Chest X-Ray 05/19/16 0600 Signed Impressions: Service Date/Time: Thursday, May 19, 2016 04:39 - CONCLUSION: No acute disease. Karthik Pierre MD Abdomen X-Ray 05/06/16 0000 Signed Impressions: Service Date/Time: Friday, May 06, 2016 04:47 - CONCLUSION: No acute disease. Catarino Patel MD Head CT 04/30/16 0600 Signed Impressions: Service Date/Time: Saturday, April 30, 2016 04:24 - CONCLUSION: Interim surgery and drain placement. Parenchymal hemorrhage in the left cerebral hemisphere white matter is slightly larger than before. About 2 mm of rightward midline shift now seen compared to 7 mm previously. Karthik Pope MD Objective Remarks awake and alert, speech slurred anicteric + facial asymmetry, tongue midline tracheostomy in place lungs no rales regular rhythm abdomen soft, +PEG in place cyr in place extremities no calf swelling Neuro: right hemiplegia Procedures tracheostomy PEG Urinary Catheter: Yes Cyr insert reason: Prolonged Immobilization Date of Insertion: May 12, 2016 A/P Problem List: (1) Respiratory failure ICD Code: J96.90 Status: Acute (2) Acute intracranial hemorrhage ICD Code: I62.9 Status: Acute (3) Seizure disorder, focal sensory ICD Code: G40.109 Status: Acute (4) Hypertensive crisis ICD Code: I16.9 Status: Acute (5) History of CVA (cerebrovascular accident) ICD Code: Z86.73 Status: Acute (6) Obesity (BMI 30.0-34.9) ICD Code: E66.9 Status: Acute Assessment and Plan 71 years old female with 4.62.4 cm left basal ganglia intraparenchymal hemorrhage Left temporal CVA Seizure disorder Left frontotemporal parietal craniotomy and placement of ICP monitor- with right hemiplegia Keppra 500 mg BID, continue seizure prophylaxis secondary to results of EEG per neurosurgery recommendations PT/OT daily Hypertensive emergency-resolved. better readings off cardene. As needed labetalol/hydralazine -- amlodipine 10mg po daily -- Lisinopril to 40mg po daily for hypertension - BB- lopressor 25 mg po q8 - Hydralazine 25 mg tid - increase to 50 mg tid 05/16 - Lasix 20 mg daily. KCL 20 meq daily/PEG 2-D ECHO-EF 55-60% no RWMA Resp: Acute respiratory failure secondary to altered mental status- currently on T piece 28% Dr. Blair ff- Scheduled every 6 hour bronchodilator therapy Continue TP as tolerated. s/p perc trach 05/[address] Skaggs GI: s/p PEG with GI on 05/09. -- Glucerna1.5 @50/hr (goal rate) Reglan TID good readings Protonix for GI prophylaxis Bowel regimen Colace,Senokot scheduled, Milk of Magnesia PRN. only /FEN: Hypophosphatemia-resolved Intravascular hypervolemia- resolved Endo: Hyperglycemia of critical illness good readings. DC BGMs Renal: No acute issues Accurate I/O's Heme: Monitor CBC ID: Leukocytosis- Pneumonia XR with hazy density - Gram negative - Enterobacter, Morgagnella on sputum on Zosyn. changed to po Levaquin 500 mg 05/15 PT evaluate and treat daily Daily functional maintenance Access -Discontinued Right IJ CVL 05/06, peripheral IVs 2 Prophylaxis - GI -change to PPI/PEG - DVT - SCD/ Lovenox for DVT prophylaxis [facility]- bed available Discharge today Problem Qualifiers (1) Respiratory failure: Qualified Code: J96.00 - Acute respiratory failure, unspecified whether with hypoxia or hypercapnia Hui Alexander MD May 20, 2016 16:03
== END 2016-05-20 11:20 | DRG 3 ==
LOC: NEPC 13:28 → NEDA 14:17 → N03B 17:27 → N03A 05-11 08:51
PROVIDERS: ADMIT Internal Medicine; ATTEND Internal Medicine
PROC: 5A1955Z Respiratory Ventilation, Greater than 96 Consecutive Hours (ICD-10-PCS; 2016-04-27)
PROC: 0BH17EZ Insertion of Endotracheal Airway into Trachea, Via Natural or Artificial Opening (ICD-10-PCS; 2016-04-27)
PROC: 02HV33Z Insertion of Infusion Device into Superior Vena Cava, Percutaneous Approach (ICD-10-PCS; 2016-04-27)
PROC: 00H032Z Insertion of Monitoring Device into Brain, Percutaneous Approach (ICD-10-PCS; 2016-04-28)
PROC: 00C70ZZ Extirpation of Matter from Cerebral Hemisphere, Open Approach (ICD-10-PCS; principal; 2016-04-28 17:47)
PROC: 0DH63UZ Insertion of Feeding Device into Stomach, Percutaneous Approach (ICD-10-PCS; 2016-05-09)
PROC: 0DJ08ZZ Inspection of Upper Intestinal Tract, Via Natural or Artificial Opening Endoscopic (ICD-10-PCS; 2016-05-09)
PROC: 0BJ08ZZ Inspection of Tracheobronchial Tree, Via Natural or Artificial Opening Endoscopic (ICD-10-PCS; 2016-05-09)
PROC: 0B113F4 Bypass Trachea to Cutaneous with Tracheostomy Device, Percutaneous Approach (ICD-10-PCS; 2016-05-09 14:18)
DX: I61.0 Nontraumatic intracerebral hemorrhage in hemisphere, subcortical (principal); J15.6 Pneumonia due to other Gram-negative bacteria; G93.40 Encephalopathy, unspecified; J96.20 Acute and chronic respiratory failure, unspecified whether with hypoxia or hypercapnia; R13.10 Dysphagia, unspecified; G81.91 Hemiplegia, unspecified affecting right dominant side; E87.0 Hyperosmolality and hypernatremia; Z99.11 Dependence on respirator [ventilator] status; G40.109 Localization-related (focal) (partial) symptomatic epilepsy and epileptic syndromes with simple partial seizures, not intractable, without status epilepticus; R47.01 Aphasia; I16.1 Hypertensive emergency; J98.11 Atelectasis; I16.9 Hypertensive crisis, unspecified; G93.89 Other specified disorders of brain; E83.39 Other disorders of phosphorus metabolism; I10 Essential (primary) hypertension; E66.9 Obesity, unspecified; G93.0 Cerebral cysts; R29.706 NIHSS score 6; K59.00 Constipation, unspecified; K29.70 Gastritis, unspecified, without bleeding; R73.9 Hyperglycemia, unspecified; E87.70 Fluid overload, unspecified; Z72.0 Tobacco use; Z68.30 Body mass index [BMI] 30.0-30.9, adult; Z86.73 Personal history of transient ischemic attack (TIA), and cerebral infarction without residual deficits
CPT/HCPCS: 31500; 31600; 31624; 36556; 36600; 36620; 70450; 71010; 74000; 80048; 80053; 80202; 80307; 81001; 82040; 82435; 82550; 82565; 82805; 82947; 82948; 83605; 83735; 83930; 84100; 84132; 84295; 84443; 84484; 84520; 84702; 85025; 85027; 85384; 85610; 85730; 86850; 86900; 86901; 87040; 87070; 87077; 87086; 87186; 87205; 87641; 88304; 93005; 93306; 94002; 94003; 94640; 94770; 95819; 96361; 96374; A7521; C1713; C9113; C9399; J0171; J0330; J0360; J0461; J0690; J1100; J1580; J1650; J1940; J1953; J2150; J2250; J2270; J2543; J2765; J3010; J3370; J3480; J7030; J7040; J7050; J7120; P9612

== ENCOUNTER 2017-07-05 02:19 | Emergency (ER) | payer MEDICARE, MEDICAID ==
[~2017-07-05 02:19] MED LIST changes: +AMLO10 PO; +ENOX40P SQ; +FURO20TA PO; +HYDR25TA35 PEG; +IPRASOL INH; +LEVA500T G-TUBE; +LEVE500S TUBE; +LISI-515 PO; +METO25TA3 J-TUBE; +POTA20TA5 PO; +PREV30TA3 NG
[2017-07-05 02:27] VITALS: BP 165/96; PULSE 84; RESP 18; TEMP 98; O2SAT 97
[2017-07-05] MEDS ORDERED: MORPHINE SULFATE 4 MG/ML INJ IV PUSH ONE (03:00)
[2017-07-05] MEDS ORDERED: ONDANSETRON HCL 4 MG/2 ML VIAL IVP ONE (03:00)
[2017-07-05] MEDS ORDERED: SODIUM CHLORID 0.9% 500 ML INJ 500 ML IV ONE (03:00)
[2017-07-05] MEDS ORDERED: SODIUM CHLORIDE 0.9% FLUSH 10 ML FLUSH IV FLUSH PRN (03:00)
[2017-07-05 03:04] VITALS: RESP 18; O2SAT 99
[2017-07-05 03:26] LABS: AMORPHOUS SEDIMENT, URINE RARE; BACTERIA, URINE MANY /hpf; BILIRUBIN, URINE NEG (NEG); BLOOD, URINE TRACE (NEG); GLUCOSE,URINE NEG (NEG); KETONE, URINE NEG (NEG); MUCUS URINE FEW /lpf (OCC); NITRITE,URINE POS (NEG); SQUAMOUS EPITHELIAL CELL URINE 1 /hpf (0-5); URINE COLOR LIGHT-YELLOW (YELLW/STRAW); URINE LEUKOCYTE ESTERASE LARGE (NEG)
[2017-07-05 03:39] LABS: ALBUMIN 3.4 GM/DL (3.4-5.0); ALT (GPT) 17 U/L (10-53); AST (GOT) 11 U/L (15-37); BICARBONATE 26.6 MEQ/L (21.0-32.0); BLOOD UREA NITROGEN 17 MG/DL (7-18); CALCIUM 9.2 MG/DL (8.5-10.1); CHLORIDE 107 MEQ/L (98-107); CREATININE 0.82 MG/DL (0.50-1.00); GLOMERULAR FILTRATION RATE 68 ML/MIN (>89); GLUCOSE,RANDOM 93 MG/DL (74-106); SODIUM (NA) 141 MEQ/L (136-145)
[2017-07-05 03:40] LABS: ALKALINE PHOSPHATASE 104 U/L (45-117); TOTAL BILIRUBIN ADULT 0.2 MG/DL (0.2-1.0); TOTAL PROTEIN 7.6 GM/DL (6.4-8.2)
[2017-07-05 04:02] LABS: AUTOMATED NEUTROPHIL # 4.8 TH/MM3 (1.8-7.7); BASOPHIL # 0.1 TH/MM3 (0-0.2); BASOPHIL % 0.7 % (0.0-2.0); EOSINOPHIL # 0.3 TH/MM3 (0-0.4); EOSINOPHIL % 3.9 % (0.0-4.0); HEMOGLOBIN 14.2 GM/DL (11.6-15.3); LYMPH % 35.5 % (9.0-44.0); LYMPHOCYTE # 3.1 TH/MM3 (1.0-4.8); MEAN CELL VOLUME 84.1 FL (80.0-100.0); MEAN CORPUSCULAR HEMOGLOBIN 28.3 PG (27.0-34.0); MEAN CORPUSCULAR HGB CONC 33.7 % (32.0-36.0); MEAN PLATELET VOLUME 7.7 FL (7.0-11.0); MONO % 5.1 % (0.0-8.0); MONOCYTE # 0.4 TH/MM3 (0-0.9); NEUT % 54.8 % (16.0-70.0); PLATELET COUNT 395 TH/MM3 (150-450); RED CELL DISTRIBUTION WIDTH 12.9 % (11.6-17.2); WHITE BLOOD COUNT 8.8 TH/MM3 (4.0-11.0)
[2017-07-05] MEDS ORDERED: IOHEXOL 350 MG/ML 10 ML VIAL (for RAD DIAG) IVCONTRAST ONE (04:24)
[2017-07-05] MEDS ORDERED: cefTRIAXone INJ 1,000 MG in SODIUM CHLORIDE 0.9% INJ 100 ML IV ONE (04:30)
--- NOTE | 2017-07-05 04:39 | RADRPT ---
EXAM DATE/TIME: 07/05/2017 04:09 [facility] COMPARISON: No previous studies available for comparison. INDICATIONS : Lower abdominal pain. IV CONTRAST: 93 cc Omnipaque 350 (iohexol) IV ORAL CONTRAST: No oral contrast ingested. RADIATION DOSE: 11.81 CTDIvol (mGy) MEDICAL HISTORY : Cerebrovascular disease. SURGICAL HISTORY : None. ENCOUNTER: Initial ACUITY: 3 weeks PAIN SCALE: 5/10 LOCATION: Bilateral lower quadrant TECHNIQUE: Volumetric scanning of the abdomen and pelvis was performed. Using automated exposure control and ad justment of the mA and/or kV according to patient size, radiation dose was kept as low as reasonably achievable to obtain optimal diagnostic quality images. DICOM format image data is available electro nically for review and comparison. FINDINGS: LOWER LUNGS: Mild atelectasis at lung bases. LIVER: Homogeneous density without lesion. There is no dilation of the biliary tree. No calcified gallston es. SPLEEN: Normal size without lesion. PANCREAS: Within normal limits. KIDNEYS: Normal in size and shape. There is no mass, stone or hydronephrosis. ADRENAL GLANDS: Within normal limits. VASCULAR: Diffuse aortoiliac calcification. Aortic diameter within normal limits. BOWEL/MESENTERY: No evidence of bowel dilatation. No free air or free fluid. Appendix within normal limits. ABDOMINAL WALL: Within normal limits. RETROPERITONEUM: There is no lymphadenopathy. BLADDER: No wall thickening or mass. REPRODUCTIVE: Within normal limits. INGUINAL: There is no lymphadenopathy or hernia. MUSCULOSKELETAL: Degenerative findings in lower lumbar spine facet joints. CONCLUSION: No acute findings in the abdomen and pelvis. Tyrone Campbell MD on July 05, 2017 at 4:31 Board Certified Radiologist. This report was verified electronically.
[2017-07-05] MEDS ORDERED: CEPH-460 PO (05:33)
--- NOTE | 2017-07-05 05:33 | PD ---
HPI Chief Complaint: Complaint Time Seen by Provider: 02:35 Travel History International Travel<30 days: No Contact w/Intl Traveler<30days: No Traveled to known affect area: No History of Present Illness HPI Patient is a 72 year old female who comes in complaining of suprapubic abdominal pain. She says she has had the pain for 3 weeks. She says she took 3 days of an antibiotic, but it did not help. Her SNF says that she has been refusing to take antibiotics. She says she did have some nausea and vomiting. She denies fever or chills. She reports burning with urination. Severity is mild to moderate. PFSH Past Medical History Hx Anticoagulant Therapy: Yes Cerebrovascular Accident: Yes (STOKE ) Diminished Hearing: No Neurologic: Yes (APHASIA, HEMIPLEGIA/HEMIPARESIS) Respiratory: Yes (ARF) Immunizations Current: Yes Past Surgical History Neurologic Surgery: Yes (CVA) Social History Alcohol Use: No Tobacco Use: No Substance Use: No Allergies-Medications (Allergen,Severity, Reaction): Coded Allergies: codeine (Unverified Allergy, Unknown, 11/12/16) Reported Meds & Prescriptions Reported Meds & Active Scripts Active Levaquin (Levofloxacin) 500 Mg Tab 500 Mg G-TUBE DAILY Potassium Chloride Microencaps 20 Meq Tab 20 Meq PO DAILY 30 Days Metoprolol Tartrate 25 Mg Tab 25 Mg J-TUBE Q8HR 30 Days Lisinopril 20 Mg Tab 40 Mg PO DAILY Keppra Liq (Levetiracetam) 500 Mg/5 Ml Soln 500 Mg TUBE Q12HR 30 Days Prevacid Solutab ODT (Lansoprazole) 30 Mg Tab 30 Mg NG DAILY 30 Days Duoneb (Ipratropium-Albuterol Neb) 0.5-2.5 Mg/3 Ml Neb 1 Ampule INH Q4HR PRN 14 Days Hydralazine (Hydralazine HCl) 25 Mg Tab 50 Mg PEG Q8HR 30 Days Furosemide 20 Mg Tab 20 Mg PO DAILY PRN 30 Days Lovenox Inj (Enoxaparin Sodium) 40 Mg/0.4 Ml Syr 40 Mg SQ Q24H 14 Days Norvasc (Amlodipine Besylate) 10 Mg Tab 10 Mg PO DAILY Keppra (Levetiracetam) 500 Mg Tab 500 Mg PO BID Review of Systems Except as stated in HPI: all other systems reviewed are Neg General / Constitutional: No: Fever, Chills HENT: No: Headaches, Lightheadedness Cardiovascular: No: Chest Pain or Discomfort Respiratory: No: Shortness of Breath Gastrointestinal: Positive: Abdominal Pain Genitourinary: Positive: Dysuria Neurologic: No: Weakness, Dizziness Physical Exam Narrative GENERAL: Awake and alert, in no acute distress. SKIN: Focused skin assessment warm/dry. HEAD: Atraumatic. Normocephalic. EYES: Pupils equal and round. No scleral icterus. EOMI ENT: Mucous membranes pink and moist. NECK: Trachea midline. No JVD. CARDIOVASCULAR: Regular rate and rhythm. No murmur appreciated. RESPIRATORY: No accessory muscle use. Clear to auscultation. Breath sounds equal bilaterally. GASTROINTESTINAL: Abdomen soft, nondistended. Tender to palpation of the suprapubic area. No rebound or guarding. MUSCULOSKELETAL: No obvious deformities. No clubbing. No cyanosis. No edema. NEUROLOGICAL: Awake and alert. No obvious cranial nerve deficits. Motor grossly within normal limits. Normal speech. PSYCHIATRIC: Appropriate mood and affect; insight and judgment normal. Data Data Last Documented VS Vital Signs Date Time Temp Pulse Resp B/P (MAP) Pulse Ox O2 Delivery O2 Flow Rate FiO2 07/05/17 03:04 18 99 Room Air 07/05/17 02:27 98.0 84 Orders Orders Complete Blood Count With Diff (07/05/17 02:47) Comprehensive Metabolic Panel (07/05/17 02:47) Lipase (07/05/17 02:47) Prothrombin Time / Inr (Pt) (07/05/17 02:47) Act Partial Throm Time (Ptt) (07/05/17 02:47) Urinalysis - C+S If Indicated (07/05/17 02:47) Ct Abd/Pel W Iv Contrast(Rout) (07/05/17 02:47) Iv Access Insert/Monitor (07/05/17 02:47) Ecg Monitoring (07/05/17 02:47) Oximetry (07/05/17 02:47) Morphine Inj (Morphine Inj) (07/05/17 03:00) Ondansetron Inj (Zofran Inj) (07/05/17 03:00) Sodium Chloride 0.9% Flush (Ns Flush) (07/05/17 03:00) Cath For Specimen (07/05/17 02:47) Sodium Chlorid 0.9% 500 Ml Inj (Ns 500 M (07/05/17 03:00) Urine Culture (07/05/17 02:54) Ceftriaxone Inj (Rocephin Inj) (07/05/17 04:30) Iohexol 350 Inj (Omnipaque 350 Inj) (07/05/17 04:24) Labs Laboratory Tests Test 07/05/17 02:54 White Blood Count 8.8 TH/MM3 Red Blood Count 5.00 MIL/MM3 Hemoglobin 14.2 GM/DL Hematocrit 42.0 % Mean Corpuscular Volume 84.1 FL Mean Corpuscular Hemoglobin 28.3 PG Mean Corpuscular Hemoglobin Concent 33.7 % Red Cell Distribution Width 12.9 % Platelet Count 395 TH/MM3 Mean Platelet Volume 7.7 FL Neutrophils (%) (Auto) 54.8 % Lymphocytes (%) (Auto) 35.5 % Monocytes (%) (Auto) 5.1 % Eosinophils (%) (Auto) 3.9 % Basophils (%) (Auto) 0.7 % Neutrophils # (Auto) 4.8 TH/MM3 Lymphocytes # (Auto) 3.1 TH/MM3 Monocytes # (Auto) 0.4 TH/MM3 Eosinophils # (Auto) 0.3 TH/MM3 Basophils # (Auto) 0.1 TH/MM3 CBC Comment DIFF FINAL Differential Comment Prothrombin Time 10.0 SEC Prothromb Time International Ratio 1.0 RATIO Activated Partial Thromboplast Time 25.4 SEC Urine Color LIGHT-YELLOW Urine Turbidity HAZY Urine pH 5.0 Urine Specific [place] 1.022 Urine Protein NEG mg/dL Urine Glucose (UA) NEG mg/dL Urine Ketones NEG mg/dL Urine Occult Blood TRACE Urine Nitrite POS Urine Bilirubin NEG Urine Urobilinogen LESS THAN 2.0 MG/DL Urine Leukocyte Esterase LARGE Urine RBC 5 /hpf Urine WBC 35 /hpf Urine Squamous Epithelial Cells 1 /hpf Urine Amorphous Sediment RARE Urine Bacteria MANY /hpf Urine Mucus FEW /lpf Microscopic Urinalysis Comment CULTURE INDICATED Blood Urea Nitrogen 17 MG/DL Creatinine 0.82 MG/DL Random Glucose 93 MG/DL Total Protein 7.6 GM/DL Albumin 3.4 GM/DL Calcium Level 9.2 MG/DL Alkaline Phosphatase 104 U/L Aspartate Amino Transf (AST/SGOT) 11 U/L Alanine Aminotransferase (ALT/SGPT) 17 U/L Total Bilirubin 0.2 MG/DL Sodium Level 141 MEQ/L Potassium Level 4.0 MEQ/L Chloride Level 107 MEQ/L Carbon Dioxide Level 26.6 MEQ/L Anion Gap 7 MEQ/L Estimat Glomerular Filtration Rate 68 ML/MIN Lipase 138 U/L MDM Medical Decision Making Medical Screen Exam Complete: Yes Emergency Medical Condition: Yes Medical Record Reviewed: Yes Differential Diagnosis UTI vs renal stone vs pyelonephritis vs colitis vs diverticulitis Narrative Course Patient is a 72-year-old female comes in complaining of abdominal pain. Exam shows suprapubic tenderness on palpation. IV established, labs sent. Labs show no acute abnormalities. Urinalysis is positive for nitrates. Patient given IV fluids, pain medicine. Given a dose of Rocephin. CT abdomen and pelvis performed shows no acute abnormalities. Patient will be discharged with a prescription for Keflex. Advised follow-up with a primary care doctor. Advised return to the ED as needed for any worsening symptoms. Diagnosis Primary Impression: UTI (urinary tract infection) Qualified Codes: N30.00 - Acute cystitis without hematuria Patient Instructions: General Instructions, Urinary Tract Infection in Women ( ED) Additional Instructions: Make sure you take all of your antibiotic. Follow up with your doctor. Return to the ED as needed for any worsening symptoms. Scripts Cephalexin (Keflex) 500 Mg Capsule 500 MG PO Q6H for Infection for 7 Days, #28 CAP 0 Refills Prov: Gemma Farias MD 07/05/17 Disposition: 03 DISCHARGE TO SNF Condition: Stable Gemma Farias MD Jul 05, 2017 05:33
[2017-07-05 05:51] VITALS: BP 115/54; PULSE 78; RESP 18; O2SAT 96
[2017-07-05 10:07] VITALS: BP 154/62
== END 2017-07-05 10:08 ==
LOC: NEPC 02:19 → NEDAMB 10:08
DX: N30.00 Acute cystitis without hematuria (principal)
CPT/HCPCS: 74177; 80053; 81001; 83690; 85025; 85610; 85730; 87077; 87086; 87186; 96361; 96365; 96375; 99285; J0696; J2270; J2405; J7040; P9612; Q9967